=== PATIENT | female | born 1970 | race Hispanic/Latino ===

== ENCOUNTER → 2017-06-19 11:52 | Outpatient (CLI) | payer OTHER, SELFPAY ==
[2017-06-19 13:03] LABS: Hemoglobin A1c 5.6 % (4.2-6.3)
== END ==
PROVIDERS: Visit Provider Nurse Practitioner
DX: R53.82 Chronic fatigue, unspecified (principal); R53.81 Other malaise
CPT/HCPCS: 36415; 83036

== ENCOUNTER 2017-07-17 22:16 | Emergency (ER) | payer OTHER, SELFPAY ==
[2017-07-17 22:17] VITALS: BP 162/95; PULSE 87; RESP 16; TEMP 36.7; O2SAT 97; BMI 31.7
--- NOTE | 2017-07-17 22:58 | EKG12_ITS ---
Test Reason : CP Blood Pressure : / mmHG Vent. Rate : 085 BPM Atrial Rate : 085 BPM P-R Int : 132 ms QRS Dur : 078 ms QT Int : 388 ms P-R-T Axes : 033 033 052 degrees QTc Int : 461 ms Normal sinus rhythm Normal ECG Confirmed by NABOR LUJAN, SOCRATES ([id number]), newspaper editor managing ALECIA MALAGON ([id number]) on 07/19/2017 3:18:21 PM Referred By: Olga Jeffery Confirmed By:SOCRATES TOMLIN MD
--- NOTE | 2017-07-17 23:00 | NURSING ---
NO OLD EKG
--- NOTE | 2017-07-17 23:01 | ED.DCSUM_ITS ---
- ER Visit Summary Date of Service: 07/17/17 Chief Complaint: [] Elevated blood pressure with chest twinges History of Present Illness: The patient is a 47 F states that this afternoon she felt a little bit of nausea and felt like her blood pressure was elevated. It has been elevated in the past but she has never had a formal diagnosis of hypertension and has never started medications. Since this morning she has felt occasional few second twinges in her left chest. That comes and goes. Is not constant. She thinks this is stress related. 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 She does have high cholesterol and a family history of early heart disease. No PE risk factors. No dissection risk factors. Physical Examination: Vital signs reviewed General: Well-nourished well-developed Head: Normocephalic atraumatic Eyes: Pupils equal round and reactive to light extraocular movements intact ENT: TMs clear no hemotympanum no trauma Neck: Nontender full range of motion Cardiovascular: Regular rate rhythm no murmurs normal S1-S2 Respiratory: No distress clear to auscultation bilaterally chest nontender Abdomen: Soft nontender nondistended normal bowel sounds no masses Back: Nontender no CVA tenderness Extremities: Nontender active range of motion ?4 extremities no trauma Skin: Normal color no trauma Neuro alert oriented cranial nerves II through XII intact normal strength sensation reflexes Test Results: [] Emergency Department Course and Treatment: [] Patient did not want any treatment including aspirin. She refuses. EKG shows sinus at 85 without ischemia or arrhythmia. Lab work is obtained. Blood pressure is being monitored. Initial blood pressure was 162/95. Repeat blood pressure after rest is 136/91. CBC is normal. Chemistries normal except BUN 21. Troponin troponin negative. UA showed patient's resting comfortably. I do not feel she started on blood pressure medications come down nicely. She will follow-up with her doctor for further evaluation. I do not feel this is an acute coronary syndrome, PE or dissection. This is a very atypical scenario. She will follow-up. Treatment Plan: [] Disposition: [] Impression: [] Elevated blood pressure Chest twinges This note was generated with [employer] software. It may contain incorrect words, spelling, and punctuation that were not noted in review of the chart prior to signing ED Disposition - Plan for ED Patient: Chief Complaint: Hypertension Referrals: [facility] Doctor,Out of [Primary Care Provider] -
[2017-07-17 23:10] VITALS: BP 136/91; PULSE 83; RESP 15; O2SAT 96
[2017-07-17 23:34] LABS: Absolute Lymphocyte Count 2.08 X10^3/ul (0.83-4.51); Absolute Neutrophil Count 2.3 X10^3/uL (2.0-7.7); Basophil# 0.02 X10^3/uL; Basophil% 0.4 % (0-1); Eosinophil# 0.11 X10^3/uL; Eosinophils% 2.2 % (0-5); Hematocrit 37.9 % (37-47); Hemoglobin 12.8 g/dl (12.0-15.0); Lymphocyte # 2.08 X10^3/ul (4.0); Mean Corp Hgb Conc 33.8 g/gl (32-36); Mean Corpuscular Hgb 31.7 pg (27.0-32.0); Mean Corpuscular Volume 93.8 fL (81-99); Mean Platelet Vol. 10.2 fl (6.2-12.0); Monocyte# 0.41 X10^3/uL; Monocyte% 8.3 % (0-10); Neutrophil # 2.32 X10^3/uL (2.7-7.7); Neutrophil % 46.9 % (47-70); Platelet Count 283 K/mm3 (150-450); RBC Distribution Width CV 12.2 % (11.6-14.6); RBC Distribution Width SD 41.5 fl (35.1-43.9); Red Blood Count 4.04 M/mm3 (4.2-5.4)
[2017-07-17 23:36] LABS: POSITIVE COUNT NO; POSITIVE DIFFERENTIAL NO; POSITIVE MORPHOLOGY NO
[2017-07-17 23:50] LABS: Anion Gap 8 (5-15); BUN 21 mg/dL (7-18); BUN/Creat Ratio 23.9 RATIO (10-20); Calcium,Total 9.3 mg/dL (8.5-10.1); Chloride 107 mmol/L (98-107); Creatinine, Serum 0.88 mg/dL (0.55-1.02); EST Glomerular Filtration Rate 73 mL/min (>60); Est Glom Filt Rate - Afr Amer 89 mL/min (>60); Estimated Creatinine Clearance 68.25 ml/min; Glucose 108 mg/dL (74-106); Potassium 3.5 mmol/L (3.5-5.1); Sodium Level 143 mmol/L (136-145)
--- NOTE | 2017-07-17 23:55 | ED.DEP ---
ED Disposition - Plan for ED Patient: Disposition: Home or Assisted Living Chief Complaint: Hypertension Instructions: ED Hypertension Poss Referrals: [facility],Out of [Primary Care Provider] -
[2017-07-18 00:03] VITALS: BP 143/99; PULSE 84; RESP 18; O2SAT 99
== END 2017-07-18 00:03 | disposition home or self-care (01) ==
PROVIDERS: Emergency Provider Emergency Medicine
DX: R03.0 Elevated blood-pressure reading, without diagnosis of hypertension (principal); R07.9 Chest pain, unspecified; R11.0 Nausea; E78.00 Pure hypercholesterolemia, unspecified; E66.9 Obesity, unspecified; Z90.710 Acquired absence of both cervix and uterus
CPT/HCPCS: 36415; 80048; 84484; 85025; 93005; 99284

== ENCOUNTER → 2017-09-03 10:53 | Outpatient (CLI) | payer OTHER, SELFPAY ==
--- NOTE | 2017-09-03 11:00 | ECHOD_ITS ---
Reason For Study: HTN Procedure This was a 2D Doppler, Color Flow transthoracic echocardiogram. Exam performed in department. Left Ventricle Normal LV size. Mild eccentric left ventricular hypertrophy. Left ventricular systolic function is normal. The estimated ejection fraction is 60 %. Transmitral diastolic flow velocities suggest mild (stage 1) diastolic dysfunction (reversed pattern). No regional wall motion abnormalities noted. Right Ventricle Normal RV size. Normal systolic function. Atria Normal left atrium. Normal right atrium. Intact atrial septum. Mitral Valve Normal mitral valve. Tricuspid Valve Normal tricuspid valve. Mild (1+) tricuspid valve insufficiency. Pulmonary artery systolic pressure is 26 mmHg. Aortic Valve Trisinus/trileaflet aortic valve. Pulmonic Valve Normal pulmonic valve. Great Vessels Normal aortic root. The pulmonary artery is normal size. Normal inferior vena cava. Pericardium/Pleural No pericardial effusion. Medication 22 gauge I.V. with prn adaptor inserted into right arm. Performed a rapid injection of agitated mix of 9 cc saline and 1cc air to assess for atrial septal defect. MMode/2D Measurements & Calculations LVIDd: 3.9 cm IVSd: 1.2 cm Ao root diam: 2.7 cm LVIDs: 2.7 cm LVPWd: 0.91 cm RVDd: 2.6 cm FS: 31.9 % LAV(MOD-bp): 49.8 ml EDV(MOD-sp4): 70.3 ml SV(MOD-sp4): 39.4 ml LAV(MOD-bp) Indexed: 26.2 ml/m2 ESV(MOD-sp4): 30.9 ml LAV(MOD-sp2): 41.7 ml EF(MOD-sp4): 56.1 % LAV(MOD-sp4): 55.8 ml LA A4 area: 19.0 cm2 RA A4 area: 11.8 cm2 Time Measurements MV dec time: 0.22 sec Doppler Measurements & Calculations MV E max rufino: 90.2 cm/sec Lat Peak E' Rufino: 14.2 cm/sec Med Peak E' Rufino: 8.1 cm/sec MV A max rufino: 74.5 cm/sec E/E' lat: 6.4 E/E' med: 11.1 MV E/A: 1.2 Ao V2 max: 153.3 cm/sec LV V1 max: 112.1 cm/sec PA V2 max: 116.2 cm/sec Ao max P.4 mmHg LV V1 max P.0 mmHg TR max rufino: 240.9 cm/sec TR max P.2 mmHg Interpretation Summary Normal LV size. Mild eccentric left ventricular hypertrophy. Left ventricular systolic function is normal. The estimated ejection fraction is 60 %. Transmitral diastolic flow velocities suggest mild (stage 1) diastolic dysfunction (reversed pattern). Mild (1+) tricuspid valve insufficiency. Intact atrial septum Ordering Physician: Montez Petty Referring Physician: YAEL MOSES Performed By: Cammy Fraser RDCS
== END ==
PROVIDERS: PCP Internal Medicine; Visit Provider Internal Medicine Cardiovascular Disease
DX: I10 Essential (primary) hypertension (principal)
CPT/HCPCS: 93306; A4216

== ENCOUNTER → 2018-01-31 10:39 | Outpatient (CLI) | payer OTHER, SELFPAY ==
[2018-01-31 12:21] LABS: AST(SGOT) 16 U/L (15-37); Alanine Aminotransfer ALT/SGPT 26 U/L (13-56); Albumin, Serum 3.9 g/dL (3.2-5.0); Alkaline Phosphatase 95 U/L (45-117); Bilirubin, Direct 0.13 mg/dL (0.00-0.30); Cholesterol 191 mg/dL (200); Globulin 3.6 g/dL (2.2-4.2); High Density Lipoprotein 37 mg/dL; Protein, Total 7.5 g/dL (6.4-8.2); Triglycerides 173 mg/dL; Very Low Density Lipoprotein 35 mg/dL (5-40)
== END ==
PROVIDERS: Family Provider Internal Medicine; PCP Internal Medicine; Referring Provider Internal Medicine Cardiovascular Disease; Visit Provider Internal Medicine Cardiovascular Disease
DX: I10 Essential (primary) hypertension (principal); E78.1 Pure hyperglyceridemia
CPT/HCPCS: 36415; 80061; 80076

== ENCOUNTER 2018-04-07 21:06 | Emergency (ER) | payer OTHER, SELFPAY ==
[2018-03-30 10:09] VITALS: BMI 33.6
[2018-04-07 21:07] VITALS: BP 152/82; PULSE 103; RESP 16; TEMP 36.2; O2SAT 99; BMI 31.7
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
[2018-04-07] MEDS: Tetracaine 0.5% Ophthalmic Bottle 2 DRP LEFT EYE (21:38)
--- NOTE | 2018-04-07 21:51 | ED.RN ---
per Officer Leobardo ruffin does not require drug testing.
[2018-04-07 22:56] LABS: HIV - WCH Non-Reactive (Nonreactive)
[2018-04-09 08:52] LABS: HEPATITIS B SURFACE AG Negative (Negative); Hep B Surface Antibodies EMP Non Reactive (.); Hep C Antibodies 0.2 s/co ratio (0.0-0.9)
--- OUTSIDE RECORDS SUMMARY | 2018-07-10 14:06 | XMS RPT_ITS ---
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 fatigue, weakness, difficulty sleeping, frequent falls, excessive sweating or headache(s) Eyes Eyes: Negative for loss of peripheral vision, transient loss of vision, blurry vision, tunnel vision or double vision ENT ENT: Negative for headache(s), dizziness, Nosebleed/epistaxis or balance problems Cardio Chest Pain: No Palpitations: No Edema: None Muscle aches with walking: None Resp Respiratory: Negative for SOB with activity, SOB at rest, SOB orthopnea\SOB lying down, paroxysmal nocturnal dyspnea or Cough GI GI: Negative nausea, heartburn, black,tarry stools or vomiting : Negative for hematuria Musc Musc: Negative for balance problems, muscle aches/ myalgia, muscle weakness or joint pain Skin Skin: Negative non-healing lesions, unusual bruising or rash Neuro Neuro: Negative for weakness, frequent falls, headache(s), blurry vision, double vision, dizziness, lightheadedness, orthostatic symptoms, near syncope, syncope or lack of coordination Joaquín Hematologic/Lymphatic: Negative for easy bruising or easy bleeding Endo Endo: Negative for fatigue, excessive sweating or increased thirst/drinking Psych Psych: Negative for anxiety or depression Allergy Allergy/Immunology: Negative for hives, Negative for rash Cardiology Exam Const Appearance: cooperative, healthy appearing, well developed, well groomed and no acute distress Nutritional Appearance: well nourished and average body habitus Orientation: alert, awake and oriented x3 Head Head: normal to inspection, normocephalic and atraumatic Ears: hearing grossly normal bilaterally and external ears normal Nose: external nose normal, nasal mucous membranes and turbinates normal, nares normal, septum normal, no nasal discharge Face and Sinus: face symmetric Mouth: oral mucosae normal, tongue normal, oropharynx normal and moist mucous membranes Teeth and gingiva: dentition normal Throat: posterior oropharynx normal, tonsils normal and uvula midline Eyes General: appearance normal, both eyes and all related structures Eyelids: eyelids normal Conjunctivae: conjunctivae normal Pupils: PERRL, normal by confrontation and accommodation normal EOM: EOM intact bilaterally Neck Neck: normal visual inspection, trachea midline and no JVD JVD: +5 Carotids: normal carotid upstroke and bounding pulses Chest Chest inspection: normal inspection of the chest, symmetric chest movement and normal respiratory effort Auscultation: Bilateral: Clear to Auscultation Cardio Palpation: normal PMI Rate: regular rate Rhythm: regular rhythm Heart sounds: S1 normal, S2 normal and normal, physiologic split S2; negative rub, gallop or murmur GI GI: normal to inspection, soft, no hepatosplenomegaly and bowel sounds present Neuro General: alert, awake, oriented x3, no focal sensory deficit, gait normal and moves all extremities Skin Skin: no rashes or lesions noted Extremities Pulses: Normal: Right Femoral Pulse, Left Femoral Pulse, Right Dorsalis Pedis Pulse, Left Dorsalis Pedis Pulse, Right Posterior Tibial Pulse, Left Posterior Tibial Pulse, Right Radial Pulse, Left Radial Pulse Lower Extremity Edema: None: Bilateral Musculoskel Musculoskeletal: No joint tenderness Psych Psychological: normal affect Assessment AND Plan 1. Essential (primary) hypertension I10 Plan She does have a history of hypertension. The above appears to be under good control on the current medical therapy. I would not recommend that we make any other major changes. 2. High triglycerides E78.1 Plan Her most recent lipid profile demonstrated total cholesterol 191, triglycerides of 173 and LDL of 119 and HDL 37. Her 10-year risk was noted to be less than 2%. My recommendation is for her to continue on her weight which is diet, watch her salt and carbohydrate intake. Thank you for allowing me to participate in the care of your patient. 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) Coding Level of Care Code Off vis,est,level 3 Diagnoses Essential (primary) hypertension I10 High triglycerides E78.1 Coding Level of Care Code Off vis,est,level 3 Diagnoses Essential (primary) hypertension I10 High triglycerides E78.1 02/01/18 1209 <Electronically signed by Montez Petty MD> Date Montez Petty MD Cosigner Signature: Date (if applicable) CC: Chuck Denton MD LIVER PROFILE Collected: 01/31/2018 Status: F Source: [place] 10:53 AM [facility] REPOSITORY TYPE CODE TESTS RESULT OUT OF RANGE REFERENCE UNITS LAB L501.1500 6.4-8.2 g/dL Normal T PROT 7.5 LAB L501.1800 3.2-5.0 g/dL Normal ALB 3.9 LAB L501.1950 2.2-4.2 g/dL Normal GLOB 3.6 LAB L501.4100 15-37 U/L Normal AST 16 LAB L501.4305 45-117 U/L Normal ALK P 95 LAB L501.4405 13-56 U/L Normal ALT 26 LAB L501.4600 0.20-1.00 mg/dL Normal T BILI 0.70 LAB L501.4700 0.00-0.30 mg/dL Normal D BILI 0.13 Performed By: #### L500.3400, L500.4100 #### [facility] [address] [place], [address] LIPID PROFILE Collected: 01/31/2018 Status: F Source: [place] 10:53 AM [facility] REPOSITORY TYPE CODE TESTS RESULT OUT OF RANGE REFERENCE UNITS LAB L501.4900 200 mg/dL Normal CHOL 191 Result Comment: <200 mg/dL Desirable 200-240 mg/dL Borderline >240 mg/dL High Risk LAB L501.5000 mg/dL Normal TRIG 173 Result Comment: The drugs N-Acetylcysteine and Metamizole may falsely depress this assay. Serum Triglycerides Reference Interval Normal <150 mg/dL Borderline high 150 - 199 mg/dL High 200 - 499 mg/dL Very High > or = 500 mg/dL LAB L501.6400 mg/dL Low HDL 37 Result Comment: The drugs N-Acetylcysteine and Metamizole may falsely depress this assay. Reference Range HDL <40 mg/dL Low HDL Cholesterol HDL >or= 60 mg/dL High HDL Cholesterol LAB L501.6500 0-130 mg/dL Normal LDL 119 LAB L501.6600 5-40 mg/dL Normal VLDL 35 Performed By: #### L500.3400, L500.4100 #### [facility] [address] [place], [address] NURSING PROG Observed: 10/15/2017 Status: COMPLETED Source: [place] 3:28 PM [facility] REPOSITORY HNO ID: [id number] Author: Mari (Rn) Herman, RN Service: Nursing Author Type: Registered Nurse Type: Nursing Progress Note Filed: 10/15/2017 3:32 PM Note Text: 1518 Pt up to bathroom. After using bathroom pt feeling nauseous and dizzy/faint. 1525 Pt placed back in chair. BP 87/48 [address] Rivera at bedside. Fluids opened, per Dr. Rivera to give a bolus of 500 cc LR. 1530 BP 104/64 HR 82 pox 100, RR 16. ANES POST Observed: 10/15/2017 Status: COMPLETED Source: [place] 2:17 PM [facility] REPOSITORY HNO ID: [id number] Author: Eulogio Rivera Service: Anesthesiology Author Type: Anesthesiologist Type: Anesthesia PostOp Filed: 10/15/2017 2:17 PM Note Text: POST ANESTHESIA EVALUATION NOTE SERVICE DATE: 10/15/2017 SERVICE TIME: 2:17 PM : 1970 Vitals: 10/15/17 1005 10/15/17 1329 10/15/17 1400 Temp: 36.5 ?C (97.7 ?F) 36 ?C (96.8 ?F) 36.4 ?C (97.5 ?F) 10/15/17 1329 10/15/17 1345 10/15/17 1400 10/15/17 1405 BP: 153/91 145/86 93/53 108/67 10/15/17 1329 10/15/17 1345 10/15/17 1400 10/15/17 1405 Pulse: 82 78 68 62 10/15/17 1329 10/15/17 1345 10/15/17 1400 10/15/17 1405 Resp: 16 16 16 16 10/15/17 1329 10/15/17 1345 10/15/17 1400 10/15/17 1405 SpO2: 100% 100% 96% 97% Validated Vital Signs: Yes No apparent anesthetic complications. The patient is appropriately hydrated with stable respiratory and cardiovascular status. Patient has safe and adequate airway control. The patient has appropriate pain relief and no significant post operative nausea or vomiting. The patient has achieved baseline mental status. Further assessment by Anesthesia Service: None Other Remarks: SIGNATURE: Eulogio Rivera MD PATIENT NAME: Kasey Pak DATE: October 15, 2017 PAGER/CONTACT #: [phone] pager BRIEF OP NOT Observed: 10/15/2017 Status: COMPLETED Source: [place] 1:13 PM [facility] REPOSITORY HNO ID: [id number] Author: Rivera Holt Service: Plastic Surgery Author Type: Physician Type: Brief Op Note Filed: 10/15/2017 1:13 PM Note Text: BRIEF OPERATIVE NOTE LOG ID: [id number] Surgery Date: 10/15/2017 Surgeon(s) and Wind Up Operator(s): Surgeon(s) and Role: * Rivera Holt - Primary Preop Diagnosis: z41.1 Postop Diagnosis: z41.1 Procedure(s): Procedure(s) (LRB): LIPOSUCTION ABDOMEN (N/A) LIPOSUCTION FLANK BILATERAL (Bilateral) Anesthesia: General Findings: none Estimated Blood Loss: 50 mls Specimens: none SIGNATURE: Rivera Holt MD PATIENT NAME: Kasey Pak DATE: October 15, 2017 TIME: 1:13 PM PAGER/CONTACT #: ANES PREOP Observed: 10/15/2017 Status: COMPLETED Source: [place] 10:18 AM [facility] REPOSITORY HNO ID: [id number] Author: Eulogio Rivera Service: Anesthesiology Author Type: Anesthesiologist Type: Anesthesia PreOp Filed: 10/15/2017 10:20 AM Note Text: REGIONAL ANESTHESIOLOGY DAY OF SURGERY NOTE PATIENT NAME: Kasey Pak : 1970 Procedure(s) (LRB): LIPOSUCTION ABDOMEN (N/A) LIPOSUCTION FLANK BILATERAL (Bilateral) Surgeon(s): Rivera Holt Estimated body mass index is 32.44 kg/m? as calculated from the following: Height as of 09/27/17: 162.6 cm (5' 4). Weight as of 09/27/17: 85.7 kg (189 lb). ASA Class: 2 Adequate NPO status: Yes Allergies: ALLERGIES Allergen Reactions - Seasonal Allergies Other: See Comments Nasal congestion - Sulfa (Sulfonamide * Hives Airway Assessment: MP 1; Neck ROM: Full ROM without neurologic symptoms; Airway Evaluation: No significant abnormalities Dentition: Teeth intact Symptoms of Sleep Apnea: Denies Most recent lab results: No results found for this basename: Hb,HCT,K,Plt,PTSEC,APTT,INR,Creat,hcg,uhcg EKG: Not indicated Vitals: There were no vitals filed for this visit. Previous Anesthesia: Nausea and/or vomiting Family history of anesthetic problems: None Additional Physical Exam: Lungs: Lungs clear to auscultation. Good diaphragmatic excursion. Cardiac: Normal S1 and S2; no rubs, no murmurs and no gallops Additional pertinent findings: N/A Other Medical Problems/ Important Considerations: Denies chest pain and SOB with exertion. Denies change in functional capacity. Denies GERD. HTN, controlled anxiety Chronic Beta Dena medication administered within 24 hours: N/A Anesthetic risks, benefits, alternatives, personnel and consent discussed: Yes Patient agrees to proceed: Yes Blood Products: Not anticipated for this procedure Anesthetic Plan: General ETT; Standard ASA Monitors Pain Management Plan: Parenteral or Oral EPIC Chart Review ACTIVE PROBLEM LIST No Show PAST MEDICAL HISTORY Diagnosis Date - Anxiety - Asthma - Binge eating disorder - Depression - Eczema - GERD (gastroesophageal reflux disease) - Obese PAST SURGICAL HISTORY Procedure Laterality Date - BREAST REDUCTION - BUNIONECTOMY, LAPIDUS-TYPE Bilateral - HYSTERECTOMY - KNEE SCOPE,MENISECTOMY,MED AND LAT FAMILY HISTORY Problem Relation Age of Onset - htn [OTHER] Mother - hld [OTHER] Mother - Ischemic Heart Disease Father first in his 40s; heavy smoker; developed DM later - Prostate Cancer Father - No Known Problems Sister Social History: Social History Substance Use Topics - Smoking status: Never Smoker - Smokeless tobacco: Never Used - Alcohol use Yes Comment: occasional No current facility-administered medications on file prior to encounter. Current Outpatient Prescriptions on File Prior to Encounter: triamcinolone acetonide 0.1 % cream Apply 1 application to affected area three times daily. Apply sparingly to area for rash/itching. Inpatient medications reviewed in [facility]. I have interviewed and examined the patient. I have reviewed the medical record and/or the pre-anesthesia evaluation, pertinent labs, and test results. Significant changes in the patient's condition since the History and Physical, not otherwise documented in primary service progress notes: No This contains updated information obtained within 48 hours of Surgery/Procedure. SIGNATURE: Eulogio Rivera MD PATIENT NAME: Kasey Pak DATE: October 15, 2017 TIME: 10:19 AM PAGER/CONTACT #: [phone] (pager) OPERATIVE NO Observed: 10/15/2017 Status: COMPLETED Source: [place] 12:00 AM [facility]AMP[facility] REPOSITORY [facility] ID: [id number] Author: Rivera Holt Service: Plastic Surgery Author Type: Physician Type: Operative Report Filed: 11/12/2017 8:55 AM Note Text: [facility] OP KASEY PAK : 1970 AGE: 47 SEX: F CSN: [id number] [facility] SVC: [facility] LOCATION: [facility] ATTENDING PHYSICIAN: Rivera Holt M.D. DATE OF PROCEDURE: 10/15/2017 PREOPERATIVE DIAGNOSIS: Lipodystrophy of abdomen, mons area, bilateral flanks, and bilateral lateral thoracic area. POSTOPERATIVE DIAGNOSIS: Lipodystrophy of abdomen, mons area, bilateral flanks, and bilateral lateral thoracic area. NAME OF OPERATION: SURGEON: Rivera Holt M.D. PROMOTIONAL MARKETING AGENT: ANESTHESIA: General endotracheal anesthesia. 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 She would like to have liposuction to reduce the thickness and she plans on having skin reductive surgery in the future. The risks and benefits of the procedure were discussed with the patient. She decided to go ahead with the described procedure. OPERATIVE PROCEDURE: The patient was marked in the preoperative holding area including a topographical map of her abdomen, bilateral flanks, and lateral thoracic area as well as the mons pubic area. Then, she was given IV antibiotics and then brought in the operating room, and she underwent a standing prep from her axilla circumferentially all the way down to her thighs. Then, she was placed into a sterile operating table and covered with a sterile cloth and then she was intubated by Anesthesia without any complications. She was given IV antibiotics. Then, she was draped in standard surgical fashion. Then, liposuction was commenced at this point. Then, multiple incisions were made in the abdomen and mons pubic area and then the tumescent fluid which consisted of lactated Ringer's, sodium bicarb, 1% Xylocaine plain as well as 1:1000 epinephrine was infiltrated into the abdomen and mons pubic area. The total amount that was infiltrated was 1260 mL. Then, using multiple cannulas through the different incisions, liposuction was performed, first deep and then superficial, and the total amount that was aspirated was 2400 mL from the abdomen and mons area. The incisions were closed with 3-0 Biosyn suture to reapproximate the deeper subcutaneous tissue and dermis, followed by Exofin to reapproximate the skin. The patient was then log rolled sterilely to the decubitus position giving exposure to her right flank and lateral thoracic area. Then, multiple incisions were made, and then the tumescent fluid was infiltrated in the area which was 1130 mL. Then, using multiple cannulas through the different incisions, the deep liposuction was performed followed by the superficial liposuction removing 1400 mL of aspirate. This provided an even removal of fat from the area. The incisions were closed in a similar fashion as previously described. Then, the patient was log-rolled sterilely again to the left flank and lateral thoracic area and then parallel incisions were made with a 15-blade scalpel. The tumescent fluid was infiltrated. The total amount that was infiltrated was 1150 mL and then the aspirate was completed, first deep and then superficial, using multiple cannulas from the different incision sites, the total amount that was removed was 1400 mL. This provided an even removal of fat from the left and right flanks. Once this completed, the incisions were closed in a similar fashion. The patient was log rolled in the supine position and then sterile dressings were applied. The patient was then placed into an abdominal binder and then brought out from anesthesia, then transferred in stable condition to the recovery room. Sponge, needle, and instrument counts were correct at the end of the case. Estimated blood loss was 25 mL. The total amount of infiltrate was 4540 mL. The total amount of aspirate was 5200 mL. There were no complications. Sponge, needle, and instrument counts were correct at the end of the case. PROCEDURE: Power-assisted suction lipectomy of abdomen, bilateral flanks, bilateral lateral thoracic area, and mons pubic region. Rivera Holt M.D. Plastic Surgery [id number] /[id number] NURSING PROG Observed: 10/04/2017 Status: COMPLETED Source: [place] 1:58 PM [facility] REPOSITORY HNO ID: [id number] Author: Constance CooperRn) YAZAN Gomez Service: Neurosurgery Author Type: Registered Nurse Type: Nursing Progress Note Filed: 10/04/2017 1:58 PM Note Text: PACC Nurse Progress Note History AND Physical: PACC Visit Date: 09-27-17 Original HANDP Date: N/A ED visit Date: N/A Outside HANDP Scanned Date: N/A Labs Within Last 6 Months: N/A Imaging Within Last 12 Months: N/A Cardiac Testing: EKG in last 12 Months: Yes: Date: 09-27-17, Comment: epic BMI Percentile (PEDS): N/A Risk Assessment: N/A Anesthesia Review: N/A Narrative: N/A Pre-op Considerations: N/A Chart Check: COMPLETED Constance Gomez RN October 04, 2017 1:58 PM HISTORY PHYSICAL Observed: 09/27/2017 Status: COMPLETED Source: [place] 1:05 PM [facility] REPOSITORY HNO ID: [id number] Author: Slime Tavarez ([place]) Service: (none) Author Type: Physician Wind Up Operator Type: HANDP Filed: 09/27/2017 1:39 PM Note Text: HISTORY AND PHYSICAL EXAMINATION SERVICE DATE: 09/27/2017 SERVICE TIME: 1:05 PM PRIMARY CARE PHYSICIAN: Chuck Denton MD REASON FOR VISIT: Kasey Pak is a 47 year old female who is scheduled for LIPOSUCTION ABDOMEN at the request of Dr. Rivera Holt for consultation. My final recommendation will be communicated back to the requesting physician by way of shared medical record or letter. Subjective CHIEF COMPLAINT: PACC HPI: 47 yo WF with a hx of HTN, GERD, asthma is here with a friend for PACC for elective plastic surgery. PAST MEDICAL HISTORY Diagnosis Date - Anxiety - Asthma - Binge eating disorder - Depression - Eczema - GERD (gastroesophageal reflux disease) - Obese PAST SURGICAL HISTORY Procedure Laterality Date - BREAST REDUCTION - BUNIONECTOMY, LAPIDUS-TYPE Bilateral - HYSTERECTOMY - KNEE SCOPE,MENISECTOMY,MED AND LAT FAMILY HISTORY Problem Relation Age of Onset - htn [OTHER] Mother - hld [OTHER] Mother - Ischemic Heart Disease Father first in his 40s; heavy smoker; developed DM later - Prostate Cancer Father - No Known Problems Sister SOCIAL HISTORY: Social History Marital status: Spouse name: Years of education: Number of children: Social History Main Topics Smoking status: Never Smoker Smokeless tobacco: Never Used Alcohol use: Yes Comment: occasional Drug use: No Prior to Admission medications as of 09/27/17 1314 Medication Sig Last Dose Taking losartan (COZAAR) 25 mg tablet Take 25 mg by mouth once daily. Yes hydroCHLOROthiazide (HYDRODIURIL, ESIDRIX) 25 mg tablet Take 25 mg by mouth once daily. Yes mivacurium chloride (MIVACRON INJECTION) by INJECTION(UNSPECIFIED PARENTERAL ROUTES) route. Yes triamcinolone acetonide 0.1 % cream Apply 1 application to affected area three times daily. Apply sparingly to area for rash/itching. No medication comments found. ALLERGIES Allergen Reactions - Seasonal Allergies Other: See Comments Nasal congestion - Sulfa (Sulfonamide * Hives REVIEW OF SYSTEMS: PAIN ASSESSMENT: General: No weight loss, malaise or fevers. Neuro: No history of TIA's, stroke, [employer] tumor, impaired sensorium, hemiplegia, paraplegia or quadraplegia. No neurological symptoms or problems. Respiratory: hx asthma, no sx in a long time Cardiovascular: Positive for: HTN; chol is good; gets some raonly cing when she is anxious; denies all other cardiac sx; walks for exercise long distance GI: Positive for GERD no other GI sx : No history of dysuria, frequency or incontinence,, stones or chronic kidney disease [employer]: Negative for abnormal vaginal bleeding, abnormal vaginal discharge. : N/A, No LMP recorded. Patient has had a hysterectomy. Endocrine: hot flashes intermittently, any time of day or night Hematology: No history of bleeding or clotting disorder. Pt is not taking anti-coagulation or platelet medications. No history of hematological symptoms or problems. Oncology: No history of CA metastasis, chemo within 30 days, or radiotherapy within 90 days. Has not lost 10% of body wt in 6 months. No history of oncological symptoms or problems. Psych: Anxiety, Depression, eating disorder (binger, no purging) Musculoskeletal: Negative for joint pain or swelling, back pain or muscle pain. Skin: exzema on hand Objective PHYSICAL EXAM: VITALS: BP 135/83 Pulse 66 Temp (Src) 97.3 (Temporal Artery) Resp 16 Ht 5' 4 (1.63m) Wt 189 lb (85.7kg) SpO2 99% BMI 32.43 kg/(m2). General: Alert and oriented, No acute distress, Obese Skin: dry, flaky atrophic skin on palms HEENT: EOM, pupils equal, round and reactive. Cardiovascular: RRR, soft gr I syst murmur (benign), no JVD, normal S1S2 Lungs: Normal breath sounds, no wheezes or crackles. Abdomen: Soft, non-tender, no rigidity. Extremities: No deformity, no edema or tenderness, no joint swelling or clubbing. Neurological: CN II-XII grossly intact Pulses: pedal and radial pulses normal +2 Diagnostic tests reviewed for today's visit: Lab Value Units Date High Low HB No results within date range. HCT No results within date range. WBC No results within date range. PLT No results within date range. NA No results within date range. K No results within date range. GLUC No results within date range. BUN No results within date range. CREAT No results within date range. PTSEC No results within date range. INR No results within date range. APTT No results within date range. ALT No results within date range. AST No results within date range. TBILI No results within date range. TSH No results within date range. Lab Value Units Date High Low HCGQT No results within date range. UHCG No results within date range. HCG, BODY* No results within date range. Lab Value Units Date High Low ABORHD No results within date range. ABSCREEN No results within date range. No results found for: HBA1C Labs shown to me from [facility] date 08/08, shows mildly elevated glucose at 108, slight elevated BUN/CR ration at 23. Assessment ASSESSMENT Patient has the following medical conditions (Z41.1) Encounter for cosmetic surgery (primary encounter diagnosis) (Z01.818) Preop examination (I10) Essential hypertension (R00.2) Palpitations (E66.9, Z68.32) Class 1 obesity without serious comorbidity with body mass index (BMI) of 32.0 to 32.9 in adult, unspecified obesity type (R73.01) Elevated fasting glucose METS: Do heavy work around the house, such as scrubbing floors, lifting or moving heavy furniture (8.00 METs) Patient denies any chest pain or undue shortness of breath with the above physical activity. ASA Class: 2 ANESTHESIA FINDINGS: Intubation History: No history of difficult intubation Significant Anesthesia Considerations: Postop nausea/vomiting Airway Exam: General: Normal appearance Mallampati Score is CLASS II ULBT: Class I - Lower incisors can bite the upper lip above the jeferson line Neck: Normal appearance and function, Distance from hyoid to mentum during neck extension is at least 3 finger breaths Mouth: Normal tongue size and Mouth opening greater than 2 finger breaths Dentition: Intact Airway History: No abnormal airway history STOP BANG Score: Criteria: Hypertension Score = 1 PLAN This patient is optimally prepared for surgery pending EKG. CONSULTS: Patient does not require consults for optimization at this time. The Following Tests/Procedures Have Been Initiated: Orders Placed This Encounter ECG COMPLETE W INTERPRETATION Planned Anesthetic: General Instructions Given to Patient: Patient given verbal and written preop instructions and voices comprehension and compliance. SIGNATURE: Slime Tavarez PA-C PATIENT NAME: Kasey Pak DATE: September 27, 2017 TIME: 1:05 PM PAGER/CONTACT #: [id number] Observed: 09/27/2017 Status: F Source: [place] 12:41 PM [facility] REPOSITORY NAME : KASEY PAK PID : [id number] : 1970 Gender : Female Race : ORD : Procedure Date : Sep 27 2017 12:41:12 Edit Date : Sep 29 2017 16:15:16 Diagnosis:SINUS RHYTHM Normal ECG Confirmed by SHANTA MIRANDA M.D. ([id number]) on 09/29/2017 4:15:14 PM Ventricular Rate : 59 BPM Atrial Rate : 60 BPM P-R Interval : 144 ms QRS Duration : 90 ms Q-T Interval : 428 ms QTC Calculation(Bezet) : 424 ms P Cable : 29 degrees R Cable : 28 degrees T Cable : 65 degrees Test Reason : Location : 401 : [facility] PAC Overread By : SHANTA MIRANDA M.D. Edited By : RUTH Worthington,SHANTA Referred By : RIVERA HOLT Acquired by : BS, ECHOCARDIOGRAM COMPLETE Observed: 09/03/2017 Status: F Source: [place] 12:11 PM [facility] REPOSITORY [facility] Cardiovascular Services [address] [place] [address] Echo Complete 09/03/17 1104 MR#: [id number] Acct: [id number] Name: KASEY PAK Rep #: [id number] : 1970 47 From: Montez Petty MD Attending Dr: Montez Petty MD Status: REG CLI Ordering Dr: Montez Petty MD Date: 09/03/17 Location: CVS Sex: F C Admitted: Reason For Study: HTN Procedure This was a 2D Doppler, Color Flow transthoracic echocardiogram. Exam performed in department. Left Ventricle Normal LV size. Mild eccentric left ventricular hypertrophy. Left ventricular systolic function is normal. The estimated ejection fraction is 60 %. Transmitral diastolic flow velocities suggest mild (stage 1) diastolic dysfunction (reversed pattern). No regional wall motion abnormalities noted. Right Ventricle Normal RV size. Normal systolic function. Atria Normal left atrium. Normal right atrium. Intact atrial septum. Mitral Valve Normal mitral valve. Tricuspid Valve Normal tricuspid valve. Mild (1+) tricuspid valve insufficiency. Pulmonary artery systolic pressure is 26 mmHg. Aortic Valve Trisinus/trileaflet aortic valve. Pulmonic Valve Normal pulmonic valve. Great Vessels Normal aortic root. The pulmonary artery is normal size. Normal inferior vena cava. Pericardium/Pleural No pericardial effusion. Medication 22 gauge I.V. with prn adaptor inserted into right arm. Performed a rapid injection of agitated mix of 9 cc saline and 1cc air to assess for atrial septal defect. MMode/2D Measurements AND Calculations LVIDd: 3.9 cm IVSd: 1.2 cm Ao root diam: 2.7 cm LVIDs: 2.7 cm LVPWd: 0.91 cm RVDd: 2.6 cm FS: 31.9 % LAV(MOD-bp): 49.8 ml EDV(MOD-sp4): 70.3 ml SV(MOD-sp4): 39.4 ml LAV(MOD-bp) Indexed: 26.2 ml/m2 ESV(MOD-sp4): 30.9 ml LAV(MOD-sp2): 41.7 ml EF(MOD-sp4): 56.1 % LAV(MOD-sp4): 55.8 ml LA A4 area: 19.0 cm2 RA A4 area: 11.8 cm2 Time Measurements MV dec time: 0.22 sec Doppler Measurements AND Calculations MV E max rufino: 90.2 cm/sec Lat Peak E' Rufino: 14.2 cm/sec Med Peak E' Rufino: 8.1 cm/sec MV A max rufino: 74.5 cm/sec E/E' lat: 6.4 E/E' med: 11.1 MV E/A: 1.2 Ao V2 max: 153.3 cm/sec LV V1 max: 112.1 cm/sec PA V2 max: 116.2 cm/sec Ao max P.4 mmHg LV V1 max P.0 mmHg TR max rufino: 240.9 cm/sec TR max P.2 mmHg Interpretation Summary Normal LV size. Mild eccentric left ventricular hypertrophy. Left ventricular systolic function is normal. The estimated ejection fraction is 60 %. Transmitral diastolic flow velocities suggest mild (stage 1) diastolic dysfunction (reversed pattern). Mild (1+) tricuspid valve insufficiency. Intact atrial septum Ordering Physician: Montez Petty Referring Physician: YAEL MOSES Performed By: Cammy Fraser RDCS 09/03/17 1211 Date Montez Petty MD CC: Montez Petty MD; Chuck Denton MD; EMMIE MANCILLA Date Dictated: 09/03/17 1104 Date Transcribed: 09/03/17 1211 Clinical Technician: Signed INTERNAL MEDICINE Observed: 09/03/2017 Status: F Source: [place] OFFICE VISIT 8:51 AM [facility] [place], [place] Internal Medicine [address] [place] [address] OFFICE VISIT Date of Service: 08/31/17 MR#: [id number] Acct: [id number] Name: KASEY PAK Rep #: [id number] : 1970 Provider: Chuck Denton MD Age/Sex: 47/F Location: [facility] Status: Signed Intake Vital Signs08/31/17 Height 5 ft 4 in Intake Visit Reasons: EST Chief Complaint: establish care Is patient in pain?: No Allergies Sulfa (Sulfonamide Antibiotics) Allergy (Verified 08/22/17 08:00) Other Medications lisinopril 10 mg tablet 20 mg PO QDAY #90 tab 08/18/17 [Rx Confirmed 08/22/17] PFSH Medical History Hypertension (Chronic) Chest pain (Acute) IBS (irritable bowel syndrome) (Chronic) High triglycerides (Chronic) Anxiety (Acute) Depression (Acute) Frequent headaches (Acute) Seasonal allergies (Acute) Vision problem (Acute) Surgical History Status post breast reduction (Acute) orthoscopic l knee (Acute) H/O: hysterectomy (Chronic) bilat bunion removal (Chronic) Family History Father Hypertension Heart disease Diabetes Myocardial infarction Heavy smoker Mother High cholesterol Arthritis Heavy smoker Social History Smoking Status: Never smoker second hand exposure: No alcohol intake: never substance use type: does not use what type of physical activity do you participate in: aerobics, weight training frequency: 3-4 times per week HPI HPI Chief Complaint: establish care Details: KASYE PAK, is a 47yo F who presents to the office today to establish care. She has concerns about her weight. She reports difficulty with weight loss, ongoing for a couple of years. She has inconsistently tried some weight loss programs. She has been seen by her diet counselor and statistical geneticist and has no underlying pathology. She currently follows up with the [facility] for her hypertension. ROS Const Constitutional: Positive for fatigue, change in appetite (feels like she gets full easily. ) and weight change (is unable to lose weight ); no body ache, chills, sleep problems, fever(s), snoring, weakness, frequent falls, headache(s) or excessive sweating Eyes Eyes: No change in vision, eye pain, light sensitivity or blurry vision ENT ENT: No headache(s), abnormal hearing, ear pain, tinnitus, nasal congestion, sore throat or neck pain Resp Respiratory: No snoring, cough, shortness of breath or wheezing Cardio Cardiology: No excessive sweating, chest pain at rest, chest pain with exertion, shortness of breath, dyspnea on exertion, palpitations, orthopnea or lightheadedness Gastro GI: No abdominal pain, change in bowel habits, constipation, diarrhea, vomiting, nausea/dyspepsia or cramping Genitourinary-Female: No burning urination, painful urination, urinary incontinence, urinary frequency, abnormal vaginal bleeding, pelvic pain or other Musc Musculoskeletal: No neck pain, abnormal walking, joint pain, back pain, limited range of motion, numbness or tingling Skin Skin: No redness, dry skin, itching, lesions, wounds or rash Neuro Neurology: No weakness, frequent falls, headache(s), abnormal hearing, abnormal walking, numbness, tingling, abnormal speech, dizziness or memory loss Psych Psychiatric: Positive for change in appetite (feels like she gets full easily. ), No memory loss, No Thoughts of harming yourself/Others Endo Endocrine: Positive for fatigue; no excessive sweating, cold intolerance, increased thirst/drinking, heat intolerance, flushing or increased hunger Aller/Imm Allergy/Immunologic: No wheezing, itchy eyes, hives or seasonal allergy symptoms Joaquín/Lymp Hematologic/Lymphatic: No easy bleeding, easy bruising or enlarged lymph nodes Exam Const General: cooperative, no acute distress, well developed Orientation: alert, awake, oriented x3 HENMT Head: atraumatic, normocephalic Ears: hearing grossly normal bilaterally Resp Effort AND Inspection: normal respiratory effort, able to speak in complete sentences Auscultation: Bilateral: Clear to Auscultation Cardio Rate: regular rate Rhythm: regular rhythm Heart Sounds: S1 normal, S2 normal GI Inspection: obesity Palpation: soft, no hepatosplenomegaly Neuro General: alert, awake, oriented x3, moves all extremities, CN's II-XI intact bilaterally Extrem General: no clubbing, cyanosis or edema Psych Appearance: grossly normal Mental Status: mental status grossly normal Affect: normal affect Assessment AND Plan 1. Obesity (BMI 30.0-34.9) E66.9 Plan Patient is concerned about her inability to lose weight. It appears that she has inconsistently tried some weight loss programs. Lengthy discussion with patient about the effects of calorie on weight management. She is now open to strictly monitoring her calorie intake and continue her exercise. Investigations done in the past without any significant abnormality. She has also been screened for sleep apnea which came back negative. Follow-up in 3 months. 2. Hypertension I10 Plan Stable. Continue current medication. This note was generated with Enjoi dictation software. It may contain incorrect words, spelling, and punctuation that were not noted in checking the note before signing. Plan Detail Follow Up 3 Months Coding Level of Care Code Off vis,new,level 3 Diagnoses Obesity (BMI 30.0-34.9) E66.9 Hypertension I10 09/03/17 0851 <Electronically signed by Chuck Denton MD> Date Chuck Denton MD Cosigner Signature: Date (if applicable) CC: URGENT CARE VISIT Observed: 08/22/2017 Status: F Source: [place] REPORT 8:15 AM [facility] REPOSITORY [facility] [address] [place] [id number] OFFICE VISIT Date of Service: 08/22/17 MR#: [id number] Acct: [id number] Name: KASEY PAK Rep #: [id number] : 1970 Provider: Loy MAK Age/Sex: 47/F Location: [facility] Status: Signed Intake Vital Signs08/22/17 Height 5 ft 4.5 in Intake Visit Reasons: HEAD CONGESTION Chief Complaint: Nasal congestion Is patient in pain?: No Allergies Sulfa (Sulfonamide Antibiotics) Allergy (Verified 08/22/17 08:00) Other Medications lisinopril 10 mg tablet 20 mg PO QDAY #90 tab 08/18/17 [Rx Confirmed 08/22/17] [facility] Medical History Hypertension (Chronic) Chest pain (Acute) IBS (irritable bowel syndrome) (Chronic) High triglycerides (Chronic) Anxiety (Acute) Depression (Acute) Frequent headaches (Acute) Seasonal allergies (Acute) Vision problem (Acute) Surgical History Status post breast reduction (Acute) orthoscopic l knee (Acute) H/O: hysterectomy (Chronic) bilat bunion removal (Chronic) Family History Father Hypertension Heart disease Diabetes Myocardial infarction Heavy smoker Mother High cholesterol Arthritis Social History Smoking Status: Never smoker second hand exposure: No alcohol intake: never substance use type: does not use HPI HPI Chief Complaint: Nasal congestion Details: KASEY PAK, is a 47 F who presents to the office today for initial evaluation 3 day history of nasal congestion, facial pressure, with occasional chills. Patient notes symptoms began several days ago, stating she would like to be evaluated just to ensure that she does not have a bacterial infection. She is also requesting a work excuse. She notes no complaints of fever, sweats, rash, chest pain/shortness of breath, or cough. She notes mild clear rhinorrhea. She is a non-smoker, noting no other family members in her household smoke or have similar signs or symptoms. She has tried no [id number] products to assist with her symptoms. She notes no other associated symptoms and no other alleviating or aggravating factors. ROS Const Constitutional: Positive for chills; no excessive sweating, fever(s), night sweats or body ache Eyes Eyes: No change in vision ENT ENT: Positive for post nasal drip, sinus pressure and nasal congestion; no ear pain, ear discharge, ear pressure, hearing loss or sore throat Resp Respiratory: No cough, chest congestion or shortness of breath Cardio Cardiology: No excessive sweating, chest pain at rest, chest pain with exertion, shortness of breath, dyspnea on exertion, irregular heart rhythm, generalized swelling or leg pain with exertion Gastro GI: No abdominal pain, change in stool character or change in bowel habits Musc Musculoskeletal: No joint pain, back pain, limited range of motion, numbness or tingling Skin Skin: No rash Neuro Neurology: No numbness, tingling or dizziness Endo Endocrine: No excessive sweating Exam Const General: cooperative, no acute distress, comfortable, ill appearing Nutritional Appearance: average body habitus Orientation: alert, awake, oriented x3 HENMT Head: normal to inspection Ears: hearing grossly normal bilaterally, external ears normal, TM's normal bilaterally, EAC's normal Nose: external nose normal, nares normal, septum normal, nasal discharge clear Face and sinus: normal facial exam, sinuses nontender, face symmetric Mouth: oral mucosae normal, lip normal, oropharynx normal, tongue normal Teeth and gingiva: dentition normal, gingiva normal Throat: uvula midline, tonsils normal, posterior oropharynx normal, postnasal drainage (Clear) Eyes General: appearance normal, both eyes and all related structures Neck Neck: normal visual inspection, full ROM, no lymphadenopathy, no meningeal signs, supple Neck mass: No Thyroid: thyroid normal Lymphatic: no lymphadenopathy noted Chest Chest palpation AND inspection: normal inspection of the chest Resp Effort AND Inspection: normal respiratory effort, able to speak in complete sentences, symmetric chest movement, no cough Auscultation: Bilateral: Clear to Auscultation Cardio Palpation: normal PMI Rate: regular rate Rhythm: regular rhythm Heart Sounds: S1 normal, S2 normal, no gallops, no murmurs, no rubs Pulses: radial pulses present GI Inspection: normal to inspection Palpation: soft Musc Musculoskeletal: No joint tenderness Skin General: no rashes or lesions noted Neuro General: alert, awake, oriented x3, gait normal Cognition: normal cognition Speech: speech normal Gait: normal gait Motor: muscle tone normal throughout Sensory Exam: no sensory deficits noted Psych Appearance: grossly normal Mental Status: mental status grossly normal Mood: congruent mood Affect: normal affect Speech and Movement: speech and movement normal Attitude: cooperative Thought Process: normal Thought Content: normal Judgment: judgment good Assessment AND Plan Problems 1. URI (upper respiratory infection) J06.9 Plan Work excuse for today. Clear fluids, rest, Advil/Tylenol/counter antihistamines as needed for symptomatic relief. Avoid tobacco smoke exposure. Follow-up with PCP in 5-7 days should symptoms not improve, sooner should symptoms worsen or any other concerns develop. Patient states acknowledging understanding all the above. This note was generated with Enjoi dictation software. It may contain incorrect words, spelling, and punctuation that were not noted in checking the note before signing. Coding Level of Care Code Off vis,est,level 3 Diagnoses URI (upper respiratory infection) J06.9 08/22/17 0815 <Electronically signed by Loy MAK> Date Loy Bagley Signature: Date (if applicable) CC: HOSP Observed: 08/14/2017 Status: COMPLETED Source: [place] 12:00 AM CLINIC OTHER CAMPUS REPOSITORY Patient:Kasey Pak MRN: <[id number]> Height:5' 4(1.626 m) Weight:189 lb (85.73 kg) Outpatient Medications as of 10/15/17: losartan (COZAAR) 25 mg tablet hydroCHLOROthiazide (HYDRODIURIL, ESIDRIX) 25 mg tablet mivacurium chloride (MIVACRON INJECTION) triamcinolone acetonide 0.1 % cream Admission/Clinic Administered Medications as of 10/15/17: promethazine 12.5 mg tab(s) (PHENERGAN) scopolamine 1 mg over 3 days 1 Patch (TRANSDERM-SCOP) scopolamine - VERIFY patch scopolamine - REMOVE PATCH lactated ringers infusion ceFAZolin 2 g in D5W 100 mL (ANCEF, KEFZOL) Problem List: NO SHOW [] Allergies: Seasonal Allergies Sulfa (Sulfonamide Antibiotics) Date Verified: 10/15/17 Lab Values No results within the last 30 days for the following basenames: K,HCT No progress notes entered within the past 30 days 12 LEAD ELECTROCARDIOGRAM Observed: 07/19/2017 Status: F Source: [place] 3:18 PM [facility] REPOSITORY [facility] Cardiovascular Services [address] [place] [address] 12 Lead EKG 07/17/17 2227 MR#: [id number] Acct: [id number] Name: KASEY PAK Rep #: [id number] : 1970 47 From: Montez Petty MD Attending Dr: Status: DEP ER Ordering Dr: Chip Loyola MD Date: 07/17/17 Location: ED Sex: F C Admitted: Test Reason : CP Blood Pressure : / mmHG Vent. Rate : 085 BPM Atrial Rate : 085 BPM P-R Int : 132 ms QRS Dur : 078 ms QT Int : 388 ms P-R-T Axes : 033 033 052 degrees QTc Int : 461 ms Normal sinus rhythm Normal ECG Confirmed by MONTEZ PETTY MD ([id number]), manager editorial ALECIA MALAGON ([id number]) on 07/19/2017 3:18:21 PM Referred By: Olga Jeffery Confirmed By:MONTEZ PETTY MD 07/19/17 1518 Date Montez Petty MD CC: Chip Loyola MD; OUT OF TOWN DOCTOR Signed EMERGENCY DEPARTMENT Observed: 07/18/2017 Status: F Source: [place] SUMMARY 4:05 AM [facility] REPOSITORY [facility] Medical Records Department [address] [place] [address] Emergency Department Summary 07/17/17 2300 MR#: [id number] Acct: [id number] Name: KASEY PAK Rep #: [id number] : 1970 47 From: Chip Loyola MD PCP: OUT OF TOWN DOCTOR Status: DEP ER - ER Visit Summary Date of Service: 07/17/17 Chief Complaint: [] Elevated blood pressure with chest twinges History of Present Illness: The patient is a 47 F states that this afternoon she felt a little bit of nausea and felt like her blood pressure was elevated. It has been elevated in the past but she has never had a formal diagnosis of hypertension and has never started medications. Since this morning she has felt occasional few second twinges in her left chest. That comes and goes. Is not constant. She thinks this is stress related. 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 She does have high cholesterol and a family history of early heart disease. No PE risk factors. No dissection risk factors. Physical Examination: Vital signs reviewed General: Well-nourished well-developed Head: Normocephalic atraumatic Eyes: Pupils equal round and reactive to light extraocular movements intact ENT: TMs clear no hemotympanum no trauma Neck: Nontender full range of motion Cardiovascular: Regular rate rhythm no murmurs normal S1-S2 Respiratory: No distress clear to auscultation bilaterally chest nontender Abdomen: Soft nontender nondistended normal bowel sounds no masses Back: Nontender no CVA tenderness Extremities: Nontender active range of motion 4 extremities no trauma Skin: Normal color no trauma Neuro alert oriented cranial nerves II through XII intact normal strength sensation reflexes Test Results: [] Emergency Department Course and Treatment: [] Patient did not want any treatment including aspirin. She refuses. EKG shows sinus at 85 without ischemia or arrhythmia. Lab work is obtained. Blood pressure is being monitored. Initial blood pressure was 162/95. Repeat blood pressure after rest is 136/91. CBC is normal. Chemistries normal except BUN 21. Troponin troponin negative. UA showed patient's resting comfortably. I do not feel she started on blood pressure medications come down nicely. She will follow- up with her doctor for further evaluation. I do not feel this is an acute coronary syndrome, PE or dissection. This is a very atypical scenario. She will follow-up. Treatment Plan: [] Disposition: [] Impression: [] Elevated blood pressure Chest twinges This note was generated with Enjoi dictation software. It may contain incorrect words, spelling, and punctuation that were not noted in review of the chart prior to signing ED Disposition - Plan for ED Patient: Chief Complaint: Hypertension Referrals: [facility] Doctor,Out of [Primary Care Provider] - What to do if you have Problems For any increased pain, shortness of breath, bleeding, nausea or vomiting, chest pain, or any unexpected problems, contact your Primary Care Provider. Call [facility] ([phone]) or report to the closest Emergency Room. Call 911 if necessary. 07/18/17 0405 <Electronically signed by Chip Loyola MD> Date Chip Loyola MD Cosigner Signature (If Indicated): Date CC: OUT OF TOWN DOCTOR DISCHARGE INSTRUCTION Observed: 07/18/2017 Status: F Source: [place] 4:05 AM [facility] REPOSITORY [facility] Medical Records Department [address] [place] [address] Discharge Instruction 07/17/17 2355 MR#: [id number] Acct: [id number] Name: KASEY PAK Rep #: [id number] : 1970 47 From: Chip Loyola MD PCP: [facility] DOCTOR Status: DEP ER ED Disposition - Plan for ED Patient: Disposition: Home or Assisted Living Chief Complaint: Hypertension Instructions: ED Hypertension Poss Referrals: [facility] Doctor,Out of [Primary Care Provider] - What to do if you have Problems For any increased pain, shortness of breath, bleeding, nausea or vomiting, chest pain, or any unexpected problems, contact your Primary Care Provider. Call [facility] ([phone]) or report to the closest Emergency Room. Call 911 if necessary. 07/18/17 0405 <Electronically signed by Chip Loyola MD> Date Chip Loyola MD Cosigner Signature (If Indicated): Date CC: [facility] DOCTOR CBC W/DIFF, AUTOMATED Collected: 07/17/2017 Status: F Source: [place] 11:10 PM [facility] REPOSITORY TYPE CODE TESTS RESULT OUT OF RANGE REFERENCE UNITS LAB L100.1000 4.4-11.0 K/mm3 Normal WBC 5.0 LAB L100.1200 4.2-5.4 M/mm3 Low RBC 4.04 LAB L100.1300 12.0-15.0 g/dl Normal HGB 12.8 LAB L100.1400 37-47 % Normal HCT 37.9 LAB L100.1500 81-99 fL Normal MCV 93.8 LAB L100.1600 27.0-32.0 pg Normal MCH 31.7 LAB L100.1700 32-36 g/gl Normal MCHC 33.8 LAB L100.1810 11.6-14.6 % Normal RDW CV 12.2 LAB L100.1820 35.1-43.9 fl Normal RDW SD 41.5 LAB L100.1900 150-450 K/mm3 Normal PLT 283 LAB L100.2000 6.2-12.0 fl Normal MPV 10.2 LAB L100.2100 47-70 % Low NEUT% 46.9 LAB L100.2200 19-41 % High LY% 42.0 LAB L100.2300 0-10 % Normal MONO% 8.3 LAB L100.2400 0-5 % Normal EO% 2.2 LAB L100.2500 0-1 % Normal BASO% 0.4 LAB L100.2550 0.0-0.9 % Normal IM GRAN % 0.200 Result Comment: IG% - Immature Granulocytes (promyelocytes, myelocytes and metamyelocytes) > 1% indicates that a LEFT SHIFT is Present. LAB L100.2620 2.0-7.7 X10 3/uL Normal Absolute Neut 2.3 LAB L100.2720 0.83-4.51 X10 3/ul Normal Absolute Lymph 2.08 Performed By: #### L100.0100 #### [facility] [address] [place], [address] BASIC METABOLIC Collected: 07/17/2017 Status: F Source: [place] PROFILE ([facility]) 11:10 PM [facility] REPOSITORY Order Comment: 'TROP' Serial specimen #1, #2, #3, or #4: 1 TYPE CODE TESTS RESULT OUT OF RANGE REFERENCE UNITS LAB L501.0100 74-106 mg/dL High GLU 108 Result Comment: Fasting Glucose result from 100 to 125 mg/dL suggests IMPAIRED HOMEOSTASIS per A.D.A. criteria. Please note revised GLUCOSE reference range effective 2017. LAB L501.1000 7-18 mg/dL High BUN 21 LAB L501.1100 0.55-1.02 mg/dL Normal CREAT,SERUM 0.88 Result Comment: The validity of the calculated GFR AND GFRAA in patients over 70 years has not been determined. Clinical correlation is essential. LAB L501.1110 >60 mL/min Normal EST GFR 73 Result Comment: Non- GFR Calc LAB L501.1115 >60 mL/min Normal EST GFR - AA 89 Result Comment: GFR Calc LAB L501.1255 ml/min Normal Estimated CRCL 68.25 LAB L501.1300 10-20 RATIO High BUN/CRE 23.9 LAB L501.2200 8.5-10 mg/dL Normal .1 CA 9.3 LAB L501.5300 136-14 mmol/L Normal 5 NA 143 LAB L501.5600 3.5-5. mmol/L Normal 1 K 3.5 LAB L501.5900 98-107 mmol/L Normal CL 107 LAB L501.6100 21.0-3 mmol/L Normal 2.0 CO2 28.0 LAB L501.6200 5-15 Normal GAP 8 Performed By: #### L500.2500, L501.4010 #### [facility] [address] [place], [address] TROPONIN-I Collected: 07/17/2017 Status: F Source: ART[place] 11:10 PM [facility] REPOSITORY Order Comment: 'TROP' Serial specimen #1, #2, #3, or #4: 1 TYPE CODE TESTS RESULT OUT OF RANGE REFERENCE UNITS LAB L501.4010 <0.06 ng/mL Normal < 0.02 TROPONIN-I Result Comment: TROPONIN-I EXPECTED VALUES <0.05 NEGATIVE 0.06 - 0.59 AT RISK OF ME > OR = 0.60 SUGGEST ME Performed By: #### L500.2500, L501.4010 #### [facility] [address] [place], [address] OFFICE VISIT REPORT Observed: 06/19/2017 Status: F Source: ARTUR 7:06 PM [facility] REPOSITORY [facility] [address] [place] [address] OFFICE VISIT Date of Service: 06/19/17 MR#: [id number] Acct: [id number] Patient: KASEY PAK Rep #: [id number] : 1970 Provider: Olga Jeffery NP Age/Sex: 47/F [place] [facility] [place]: Signed Intake Vital Signs06/19/17 Height 5 ft 4 in 06/19/17 Weight: 190 lb 8 oz 06/19/17 Body Mass Index (BMI) 32.7 06/19/17 Blood Pressure 147/84 06/19/17 Blood Pressure Location Lt popliteal 06/19/17 Blood Pressure Position Sitting Intake Visit Reasons: 1 M FU Chemistry Account Manager Required: No Accompanied by: Self Is patient in pain?: No Allergies Sulfa (Sulfonamide Antibiotics) Allergy (Verified 06/19/17 11:06) Other Is last menstrual period known: No Post menopausal: Yes Patient : No PFSH Medical History Anxiety (Acute) Depression (Acute) Frequent headaches (Acute) High triglycerides (Acute) IBS (irritable bowel syndrome) (Acute) Seasonal allergies (Acute) Vision problem (Acute) bilat bunion removal (Acute) orthoscopic l knee (Acute) Surgical History H/O: hysterectomy (Acute) Status post breast reduction (Acute) Family History Father Hypertension Heart disease Diabetes Mother High cholesterol Arthritis Social History Smoking Status: Never smoker second hand exposure: No alcohol intake: never substance use type: does not use HPI HPI Details: Details: KASEY PAK, is a 47 F who presents to the office today for discussion of lab results and follow up of fatigue and malaise. Pt states since last visit she is no longer taking wellbutrin but she reports she feels no different. Reports her work schedule is now 10 hour shifts, this is instead of 12 hours shifts. This schedule change will allow her to have consistent days off . She does report she feels some better. Reports she is still working out at the gym consistently doing cardio and strength training. Reports she is watching her intake and food choices more closely. Has hired a personal financial representative as she is concerned about her weight gain. At time of visit: -Pt denies symptoms of hypertensive emergency (CP,SOB,LANG, or blurred vision) and hypotension(dizziness or lightheadedness) -Pt denies symptoms of hypoglycemia ( sweaty, confusion, anxiety, tremor, hunger, palpitations) and hyperglycemia ( polydipsia, polyuria) -Pt denies potential medication adverse effect. Since our last visit she denies excessive thirst, increased frequency of urination, chest pain or dyspnea. Follows a healthy 1800 lena diet, Is compliant with medication and is tolerating without side effects. Reports she is exhausted after working out. Feels tired still most of the time. Sleep is varied. ROS Const Constitutional: Positive for fatigue; no anorexia, body ache, chills, fever(s), frequent falls, decreased energy, malaise, night sweats, weakness, weight change, sleep problems, abnormal sleep pattern, change in appetite, other, headache(s), snoring or excessive sweating Eyes Eyes: No blurry vision, change in vision, double vision, discharge, dry eyes, bulging eyes, floaters, visual disturbances, eye pain, light sensitivity, spots in vision, tunnel vision or other ENT ENT: No abnormal hearing, ear pain, ear discharge, ear pressure, hearing loss, tinnitus, dizziness/vertigo, balance problems, nosebleed/epistaxis, nasal congestion, nasal obstruction, nose pain, sinus pressure, sinus pain, nasal discharge, post nasal drip, headache(s), facial pain, dental pain, dry mouth, bad breath, hoarseness, lip swelling, mouth lesions, mouth pain, sore throat, tongue swelling, throat swelling, other, difficulty swallowing or neck pain Resp Respiratory: No cough, change in phlegm color, chest congestion, excessive phlegm production, hemoptysis, pain on inspiration, shortness of breath, pain with cough, snoring, stridor, wheezing or other Cardio Cardiology: No chest pain at rest, chest pain with exertion, leg pain with exertion, excessive sweating, shortness of breath, dyspnea on exertion, generalized swelling, irregular heart rhythm, lightheadedness, orthopnea, radiating jaw, neck or arm pain, fast heart rate, slow heart rate, palpitations or other Gastro GI: No abdominal pain, belching, bloating, change in bowel habits, change in stool character, coffee ground emesis, constipation, cramping, diarrhea, heartburn, difficulty swallowing, feeling full early, excessive flatus, incontinent of stools, Vomiting blood/hematemesis, blood in stool, loose stools, Black,tarry stools, nausea/dyspepsia, pain with swallowing, vomiting or other Genitourinary-Female: No difficulty urinating, burning urination, painful urination, urinary incontinence, urinary frequency, urinary urgency, urinary hesitancy, urinary retention, blood in urine, Frequent nighttime urination/ nocturia, post void dribbling, suprapubic fullness, side pain, sexual problems, genital lesions, genital itching, hot flashes, abnormal periods, abnormal vaginal bleeding, absent period, painful periods, light periods, heavy periods, difficulty getting , painful intercourse, pelvic pain, vaginal dryness, vaginal odor, Vaginal Itching or other Musc Musculoskeletal: No abnormal walking, joint pain, back pain, deformity, joint swelling, limited range of motion, loss of height, muscle cramps, muscle weakness, decreased muscle mass, body aches, neck pain, numbness, radiating pain into limb, stiffness, tingling or other Neuro Neurology: No frequent falls, weakness, visual disturbances, abnormal hearing, headache(s), abnormal walking, numbness or tingling Psych Psychiatric: No abnormal sleep pattern, No change in appetite Endo Endocrine: Positive for fatigue; no other or excessive sweating Aller/Imm Allergy/Immunologic: No lip swelling, tongue swelling, throat swelling or wheezing Exam Const General: no acute distress Nutritional Appearance: overweight Orientation: oriented x3 [facility] Head: normal to inspection, atraumatic Ears: hearing grossly normal bilaterally Nose: no nasal discharge Mouth: oral mucosae normal, moist mucous membranes abnormal Teeth and gingiva: dentition normal Eyes General: appearance normal, both eyes and all related structures Eyelids: eyelids normal Conjunctivae: conjunctivae normal Sclera: sclerae normal Pupils: PERRL Neck Neck: normal visual inspection, full ROM Chest Chest palpation AND inspection: deferred Resp Effort AND Inspection: normal respiratory effort, able to speak in complete sentences, symmetric chest movement Cardio Rate: regular rate Rhythm: regular rhythm Heart Sounds: S1 normal, S2 normal GI Inspection: normal to inspection General: deferred Musc Musculoskeletal: No muscle weakness Thoracic/Lumbar Spine: thoracic and lumbar spine normal to inspection Skin General: no rashes or lesions noted Wounds: no wounds Neuro General: gait normal, moves all extremities Cognition: normal cognition Speech: speech normal Gait: normal gait Motor: muscle tone normal throughout Extrem General: normal to inspection, full ROM, no pedal edema Psych Appearance: well kempt Mental Status: mental status grossly normal Mood: congruent mood Affect: normal affect Speech and Movement: speech and movement normal Attitude: cooperative Thought Process: normal Thought Content: normal Judgment: judgment good Assessment AND Plan Problems 1. Chronic fatigue and malaise R53.82; R53.81 Plan Weight is slightly up. She is discourage but is starting with a show dog trainer for exercise. Reviewed diet which is healthy Exercises 5 days weekly Review of labs not helpful for cause of fatigue Does have sl elevated BP and cholesterol which I told her should be treated. A1c 5.7 at last lab; will recheck. Patient Instructions Control portions Food selections should be healthy Choose more low carb vegetables Avoid snacks and desserts. Drink water Exercise daily Eat more fresh foods, not canned or processed Eat more slowly 1. Please schedule follow up 2. Lab work one week before appointment. 3. Discussed importance of regular exercise and recommend starting or continuing a regular exercise program for good health. 4. The patient was encouraged to lose weight for good health 5. The importance of keeping BP at or below 130/80 to prevent stroke, heart attacks, kidney failure, blindness was reviewed. Spent approximately 30 minutes with patient with over 50% of time spent in discussion and counseling regarding medication adjustment, symptoms and treatment of hypoglycemia, diet adherence, and checking BG before driving. Orders Orders: Coding Level of Care Code Off vis,est,level 4 Diagnoses Chronic fatigue and malaise R53.82; R53.81 Time Spent (min) 30 06/19/17 1906 <Electronically signed by Olga BURTON> Date Olga BURTON Cosigner Signature: Date (if applicable) CC: HEMOGLOBIN A1C Collected: 06/19/2017 Status: F Source: ARTUR 11:56 AM [facility] REPOSITORY TYPE CODE TESTS RESULT OUT OF RANGE REFERENCE UNITS LAB L501.9985 4.2-6.3 % Normal HGB A1C 5.6 Performed By: #### L501.9985 #### [facility] [address] [place], [place], [address] MISCELLANEOUS LAB Collected: 06/19/2017 Status: F Source: ARTUR PROCEDURE 11:56 AM [facility] REPOSITORY Order Comment: Comments: [id number] LEPTIN RF RED Comments: leptin level Test(s) Ordered: [id number] LEPTIN RF RED TYPE CODE TESTS RESULT OUT OF RANGE REFERENCE UNITS LAB L801.1541 Normal [facility] LAB TEST Result Comment: TEST RESULT LIMITS Leptin, Serum Leptin, Serum 35.4 ng/mL Female Ranges by Body Mass Index (BMI) BMI Range BMI Range 11 0.7 - 3.6 24 4.4 - 24.2 12 0.8 - 4.2 25 5.1 - 28.0 13 0.9 - 4.8 26 5.9 - 32.4 14 1.0 - 5.6 27 6.8 - 37.5 15 1.2 - 6.5 28 7.9 - 43.5 16 1.4 - 7.5 29 9.1 - 50.4 17 1.6 - 8.7 30 10.6 - 58.3 18 1.8 - 10.0 31 12.2 - 67.5 19 2.1 - 11.6 32 14.1 - 78.2 20 2.4 - 13.4 33 16.4 - 90.5 21 2.8 - 15.6 34 19.0 - 105.0 22 3.3 - 18.0 35 22.0 - 121.0 23 3.8 - 20.9 36 25.4 - 141.0 Cherelle SANCHEZ, Freda Daniel, Reference Ranges of Leptin Levels According to Body Mass Index, Gender and Development Stage in Leptin: The Voice of Adipose Tissue, Kelsie SANCHEZ, Camacho WF, and Rascher W, eds, 1997, 319-326. Comment: Results of this test are labeled for research purposes only by the assay's rotor assembler. The performance characteristics of this assay have not been established by the rotor assembler. The result should not be used for treatment or for diagnostic purposes without confirmation of the diagnosis by another medically established diagnostic product or procedure. The performance characteristics were determined by [facility]. TESTING PERFORMED AT [facility]. ORIGINAL REPORT ON FILE IN LAB CONTAINS ADDITIONAL TEST SITE INFORMATION. Performed By: #### L801.1541 #### [facility] [address] [place], [address] MAMM DIGITAL SCRN Observed: 06/18/2017 Status: F Source: [place] [facility] 4:04 PM [facility] REPOSITORY SCREENING BILATERAL DIGITAL MAMMOGRAM. Clinical Data: Screening. History of breast reduction. Comparison: 06/15/2016, 06/04/2015, 06/01/2014. Mammographic findings: There are scattered fibroglandular densities. There are stable post surgical changes of breast reduction. No suspicious masses, architectural distortion, or suspicious calcifications are identified in either breast. There has been no significant interval change. This examination was reviewed with the aid of CAD (computer assisted detection). IMPRESSION AND RECOMMENDATION: No mammographic evidence of malignancy. Recommendations are for the patient to return for annual screening mammography in one year or sooner if clinically indicated. Category 2: Benign finding False negative rate of mammography is approximately 10 to 20%. Management of a palpable abnormality must be based upon clinical grounds. Technologist: LW Dictated By: REYNOLD IBRAHIM MD Signed By: REYNOLD IBRAHIM MD Signed Out: 06/18/17 16:02:46 ALLERGIES ALLERGIES DATE TYPE / CODE NAME / CODE REACTION SEVERITY SOURCE 04/07/2018 Drug Sulfa Other Unknown [place] [facility] Allergy/416 (Sulfonamide [facility] 207344(SNOM Antibiotics)/F00 [address]) 9636544(RXNORM) 04/07/2018 Drug lisinopril/F0060 Dry nagging [place] [facility] Allergy/416 58317(RXNORM) [facility] 446230(SNOM Repository ED CT) 11/13/2013 Drug SULFA HIVES [facility] Class/31324 (SULFONAMIDE [place] 1003(SNOMED ANTIBIOTICS) Repository CT) 08/19/2013 Environ/420 SEASONAL OTHER: SEE C [facility] 660737(SNOM ALLERGIES [place] ED CT) Repository ENCOUNTERS ENCOUNTERS ADMIT/DISCHARGE ACCOUNT NUMBER ADMITTING ENCOUNTER LOCATION SOURCE CLASS 04/07/2018/04/07/20 [id number] Emergency [address] ding:ED Repository 03/30/2018/03/30/20 [id number] Ambulatory BMSBuilding: [place] 18 BMS.[facility] Repository 03/25/2018/03/25/20 [id number] Ambulatory BMSBuilding: [place] 18 BMS.[facility] Repository 02/01/2018/02/02/20 [id number] Ambulatory BMSBuilding: [place] 18 BMS.[facility] Repository 01/31/2018 [id number] Ambulatory BMSBuilding: [place] BMS.[facility] Repository 01/31/2018 [id number] Ambulatory [facility] ding:MTLAB Repository 10/15/2017/10/16/19 [id number] R[facility]A [facility]T Ambulatory [address] [place] Repository 09/27/2017/09/29/19 [id number] Ambulatory [address] [place] Repository 09/03/2017 [id number] Ambulatory [facility] ding:[facility] Repository 09/03/2017 [id number] Ambulatory BMSBuilding: [facility] Repository 08/31/2017/09/01/19 [id number] Ambulatory BMSBuilding: [place] 18 BMS.[facility] Repository 08/22/2017/08/23/19 [id number] Ambulatory BMSBuilding: [place] 18 BMS.[facility] Repository 08/08/2017/08/09/19 [id number] Ambulatory BMSBuilding: [place] 18 BMS.[facility] Repository 07/17/2017/07/19/19 [id number] Emergency [address] ding:ED Repository 07/02/2017 [id number] Ambulatory [facility] ding:MASS Repository 06/19/2017 [id number] Ambulatory [facility] ding:LAB Repository 06/19/2017/06/19/19 [id number] [facility]ulatory BMSBuilding[facility] [place] [facility] 06[facility]18/2017 [id number] Ambulatory [id number] [place] g:[facility] Repository 06/18/2017/06/18/19 [id number] Ambulatory [id number] [place] 18 g:[facility] Repository PAYERS PAYERS ENCOUNTER GUARANTOR PAYER SUBSCRIBER SOURCE 04/07/2018 KASEY L Primary KASEY L [place] [id number] Insurance:[facility] TREPALDOB: [facility] [id number] Number: Repository [id number]: [phone]) [id number] [phone] () Date:9273-94-64KW [address]NSGVQ, [place] [address]LD: 04/07/2018 Secondary NOT GIVENUNK [place] Insurance:SELF PAY [facility] Number: Effective Repository Date:2018-04-07 03/30/2018 KASEY L Primary Insurance:MED KASEY L [place] [id number] [facility] TREPALDOB: [facility] Number: [id number] [place], [place] [id number] Repository 160[address]His: (330) Date:4324-34-54TT [phone] (HP) [address]805HFKTXJLWR, [place] [address]EQ: CHECK WEBSITE 03/30/2018 Secondary NOT GIVENUNK [place] Insurance:SELF PAY [facility] Number: Effective Repository Date:2018-03-30 03/25/2018 KASEY L Primary Insurance:MED KASEY L [place] [id number] MUTUAL [facility] TREPALDOB: [facility] Number: [id number] [place], [place] [id number] Repository [address]Acb: (330) Date:2528-17-57LH [phone] (HP) 459[address]NGZYGFHKL, [place] [address]WE: CHECK WEBSITE 03/25/2018 Secondary NOT GIVENUNK [place] Insurance:SELF PAY [facility] Number: Effective Repository Date:2018-03-25 02/01/2018 KASEY L Primary Insurance:MED KASEY L [place] [id number] MUTUAL TPAPolicy TREPALDOB: [facility] EMALENE Number: [id number] [place], [place] [id number] Repository [address]Lou: (330) Date:2700-64-52SA [phone] () 517[address]HIFTIMBDS, [place] [address]KP: CHECK WEBSITE 02/01/2018 Secondary NOT GIVENUNK [place] Insurance:SELF PAY [facility] Number: Effective Repository Date:2018-02-01 01/31/2018 KASEY L Primary Insurance:MED KASEY L [place] [id number] [facility]UAL [facility]AL[facility]OB: [facility] EM[facility]ENE Number: [id number] [place], [place] [id number] Repository [address]Cnd: (330) Date:2606-07-23UJ [phone] () [address]GJNHQJBMT, [place] [address]KV: CHECK WEBSITE 01/31/2018 Secondary NOT GIVENUNK [place] Insurance:SELF PAY [facility] Number: Effective Repository Date:2018-01-31 01/31/2018 KASEY L Primary Insurance:MED KASEY L [place] [id number] RAYWICK TPAPolicy TREPALDOB: [facility] EMALENE Number: [id number] Hall, [place] [id number] Repository [address]Nkm: (330) Date:2803-91-44KH [phone] () [address]24[address]CCIFDOSTH, [place] [address]WV: CHECK WEBSITE 01/31/2018 Secondary NOT GIVENUNK [place] Insurance:SELF PAY [facility] Number: Effective Repository Date:2018-01-31 09/03/2017 KASEY L Primary KASEY L [place] [id number] Insurance:MEDICAL TREPALDOB: Community [facility] [id number] [place], [place] Number: Repository [id number]: (330) [id number] [facility]-5406 (HP) Date:4342-97-89NP [address] [address]WD: 09/03/2017 Secondary NOT GIVENUNK [place] Insurance:SELF PAY [facility] Number: Effective Repository Date:2017-08-08 09/03/2017 KASEY L Primary KASEY L [place] [id number] Insurance:MEDICAL TREPALDOB: [facility] [id number] [place], [place] Number: Repository [id number]: 330 [id number] [phone] (HP) Date:9814-84-70DZ [address] [address]MB: 09/03/2017 Secondary NOT GIVENUNK [place] Insurance:SELF PAY [facility] Number: Effective Repository Date:2017-09-03 08/31/2017 KASEY L Primary KASEY L [place] [id number] Insurance:MEDICAL TREPALDOB: [facility] [id number] [place], [place] Number: Repository [phone]: 330 [id number] [phone] (HP) Date:1446-00-23FI [address] [address]SR: 08/31/2017 Secondary NOT GIVENUNK [place] Insurance:SELF PAY [facility] Number: Effective Repository Date:2017-08-02 08/22/2017 KASEY L Primary KASEY L [place] [id number] Insurance:MEDICAL TREPALDOB: [facility] [id number] [place], [place] Number: Repository [id number]: 330 [id number] [phone] (HP) Date:4792-57-59EJ [address] [address]BG: 08/22/2017 Secondary NOT GIVENUNK [place] Insurance:SELF PAY [facility] Number: Effective Repository Date:2017-08-22 08/08/2017 KASEY L Primary KASEY L [place] [id number] Insurance:MEDICAL TREPALDOB: [facility] [id number] [place], [place] Number: Repository [id number]: (330) [id number] [phone] (HP) Date:6357-60-75AF [address] [place] [address]NR: 08/08/2017 Secondary NOT GIVENUNK [place] Insurance:SELF PAY [facility] Number: Effective Repository Date:2017-08-02 07/17/2017 KASEY L Primary KASEY L [place] [id number] Insurance:MEDICAL TREPALDOB: [facility] [id number] [place], [place] Number: Repository [phone]: (330 [id number] [phone] (HP) Date:3932-97-24WB [address] [place] [phone]: 07/17/2017 Secondary NOT GIVENUNK [place] Insurance:SELF PAY [facility] Number: Effective Repository Date:2017-07-17 07/02/2017 KASEY Primary NOT GIVENUNK [place] [id number] Insurance:SELF PAY [place] Number: Effective Repository [phone]: (330) Date:[phone] (HP) 06/19/2017 KASEY Primary KASEY [place] [id number] Insurance:MEDICAL TREPALDOB: [facility] [id number] [place], [place] Number: Repository [id number]: (330 [id number] [phone] (HP) Date:6218-71-29US [address] [place] [phone]: 06/19/2017 Secondary NOT GIVENUNK [place] Insurance:SELF PAY [facility] Number: Effective Repository Date:2017-06-19 06/19/2017 KASEY Primary KASEY [place] [id number] Insurance:MEDICAL TREPALDOB: [facility] [id number] [place], [place] Number: Repository [id number]: (460) [id number] [phone] () Date:9707-92-95PD [address] [address]FV: 06/19/2017 Secondary NOT GIVENUNK [place] Insurance:SELF PAY [facility] Number: Effective Repository Date:2017-06-06
== END 2018-04-07 22:13 | disposition home or self-care (01) ==
LOC: ED 21:53
PROVIDERS: Emergency Provider Emergency Medicine; Family Provider Internal Medicine; PCP Internal Medicine
DX: Z77.21 Contact with and (suspected) exposure to potentially hazardous body fluids (principal); I10 Essential (primary) hypertension; Z79.899 Other long term (current) drug therapy
CPT/HCPCS: 86703; 86803; 87340; 99283; J7030

== ENCOUNTER → 2018-09-06 | Outpatient (CLI) | payer OTHER, SELFPAY ==
[2018-09-06 08:45] VITALS: BMI 31.7
[2018-09-06 12:31] LABS: Absolute Lymphocyte Count 1.56 X10^3/ul (0.83-4.51); Absolute Neutrophil Count 3.7 X10^3/uL (2.0-7.7); Basophil# 0.01 X10^3/uL; Basophil% 0.2 % (0-1); Eosinophil# 0.17 X10^3/uL; Eosinophils% 2.9 % (0-5); Hematocrit 40.5 % (37-47); Hemoglobin 13.3 g/dl (12.0-15.0); Lymphocyte # 1.56 X10^3/ul (4.0); Lymphocyte % 26.6 % (19-41); Mean Corp Hgb Conc 32.8 g/gl (32-36); Mean Corpuscular Hgb 30.3 pg (27.0-32.0); Mean Corpuscular Volume 92.3 fL (81-99); Mean Platelet Vol. 10.5 fl (6.2-12.0); Monocyte# 0.45 X10^3/uL; Monocyte% 7.7 % (0-10); Neutrophil # 3.66 X10^3/uL (2.7-7.7); Neutrophil % 62.4 % (47-70); Platelet Count 257 K/mm3 (150-450); RBC Distribution Width CV 12.5 % (11.6-14.6); RBC Distribution Width SD 42.2 fl (35.1-43.9); Red Blood Count 4.39 M/mm3 (4.2-5.4); White Blood Count 5.9 K/mm3 (4.4-11.0)
[2018-09-06 12:33] LABS: POSITIVE COUNT NO; POSITIVE DIFFERENTIAL NO; POSITIVE MORPHOLOGY NO
[2018-09-06 13:01] LABS: Anion Gap 5 (5-15); BUN 21 mg/dL (7-18); BUN/Creat Ratio 24.5 RATIO (10-20); Calcium,Total 9.2 mg/dL (8.5-10.1); Chloride 107 mmol/L (98-107); Creatinine, Serum 0.86 mg/dL (0.55-1.02); EST Glomerular Filtration Rate 75 mL/min (>60); Est Glom Filt Rate - Afr Amer 91 mL/min (>60); Glucose 112 mg/dL (74-106); Potassium 3.8 mmol/L (3.5-5.1); Sodium Level 140 mmol/L (136-145); Thyroid Stim Hormone (TSH) 1.48 uIU/mL (0.358-3.74)
== END | disposition home or self-care (01) ==
LOC: BIMLAB 09:08
PROVIDERS: Family Provider Internal Medicine; PCP Internal Medicine; Visit Provider Internal Medicine
DX: F41.8 Other specified anxiety disorders (principal); I10 Essential (primary) hypertension
CPT/HCPCS: 36415; 80048; 84443; 85025

== ENCOUNTER → 2018-09-24 | Outpatient (CLI) | payer OTHER, SELFPAY ==
[2018-09-08 10:56] VITALS: BMI 31.7
[2018-09-24 17:43] LABS: Estradiol 20.2 pg/mL; Follicle Stimulating Hormone 74.6 mIU/mL; Luteinizing Hormone 33.2 mIU/mL
[2018-09-24 17:56] LABS: AST(SGOT) 27 U/L (15-37); Alanine Aminotransfer ALT/SGPT 41 U/L (13-56); Albumin, Serum 4.1 g/dL (3.2-5.0); Alkaline Phosphatase 109 U/L (45-117); Bilirubin, Direct < 0.05 mg/dL (0.00-0.30); Globulin 3.8 g/dL (2.2-4.2); Protein, Total 7.9 g/dL (6.4-8.2)
[2018-09-30 12:07] LABS: Testosterone, Total 10 ng/dL (8-48)
[2018-09-30 12:28] LABS: Testosterone, % Free 2.02 % (0.50-2.80)
== END | disposition home or self-care (01) ==
LOC: LAB.FUTURE 16:14
PROVIDERS: Internal Medicine Cardiovascular Disease; Family Provider Internal Medicine; PCP Internal Medicine
DX: E78.1 Pure hyperglyceridemia (principal); I10 Essential (primary) hypertension; N95.1 Menopausal and female climacteric states
CPT/HCPCS: 36415; 80076; 82670; 83001; 83002; 84402; 84403

== ENCOUNTER 2018-11-20 13:08 | Emergency (ER) | payer OTHER, SELFPAY ==
[2018-09-08 10:56] VITALS: BMI 31.7
[2018-11-20 13:09] VITALS: BP 166/105; PULSE 88; RESP 17; TEMP 36.6; O2SAT 96; BMI 32.5
--- NOTE | 2018-11-20 13:12 | RAD_ITS ---
STUDY: X-RAY - LEFT HAND, ATTENTION RIGHT THUMB. REASON FOR EXAM: Female, 48 years old. Swelling following hyperextension injury. TECHNIQUE: 3 view(s) of the finger were obtained. COMPARISON: None. FINDINGS: Normal metacarpal head. Normal metacarpophalangeal joint. Normal proximal phalanx. Normal distal phalanx. Normal distal interphalangeal joint. Soft tissue swelling. RAD/Finger(s) Min 2 Views IMPRESSION: Soft tissue swelling. Electronically Signed: Haroldo Little, at 13:39 EDT , Service support ,
--- NOTE | 2018-11-20 13:51 | ED.VISSUMM ---
- ER Visit Summary Date of Service: 11/20/18 Chief Complaint: Thumb injury History of Present Illness: The patient is a 48 F who is right-hand dominant. Yesterday she hyperextended her thumb when holding a door. She complains of pain with abduction of her thumb and axial loading on her thumb. The pain is around her MCP joint. She has noticed some swelling to the area. Physical Examination: Left thumb is swollen and tender around the MCP joint. No obvious laxity. Range of motion intact. No deformity. Skin intact. Neurovascularly intact. Wrist unremarkable. Hand and fingers otherwise unremarkable. Test Results: X-rays show soft tissue swelling. No fracture. Emergency Department Course and Treatment: Patient declined pain medicine. I believe she has a sprain. Rest, ice, elevate. [id number] remedies for pain. Velcro splint given. Treatment Plan: Follow-up with hand surgery Disposition: Discharge Impression: 1. Left thumb sprain This note was generated with [employer] (acquired by [employer] in 2014) dictation software. It may contain incorrect words, spelling, and punctuation that were not noted in review of the chart prior to signing ED Disposition - Plan for ED Patient: Referrals: Chuck Denton MD [Primary Care Provider] -
--- NOTE | 2018-11-20 13:53 | ED.DEP ---
ED Disposition - Plan for ED Patient: Instructions: Sprain Finger Referrals: Eliezer Neri MD [STAFF PHYSICIAN] -
== END 2018-11-20 14:13 | disposition home or self-care (01) ==
PROVIDERS: Emergency Provider Emergency Medicine; Family Provider Internal Medicine; PCP Internal Medicine
DX: S63.602A Unspecified sprain of left thumb, initial encounter (principal); X50.1XXA Overexertion from prolonged static or awkward postures, initial encounter; Y93.9 Activity, unspecified; Y92.9 Unspecified place or not applicable; I10 Essential (primary) hypertension; F32.9 Major depressive disorder, single episode, unspecified; F41.9 Anxiety disorder, unspecified; Z79.899 Other long term (current) drug therapy
CPT/HCPCS: 73140; 99284

== ENCOUNTER 2018-12-25 13:33 | Emergency (ER) | payer OTHER, SELFPAY ==
[2018-12-25 13:34] VITALS: BP 162/96; PULSE 90; RESP 18; TEMP 36.4; O2SAT 95; BMI 31.2
--- NOTE | 2018-12-25 15:04 | ED.VIS.URI ---
History of Present Illness Chief Complaint: Sore Throat Narrative: Patient presenting for evaluation secondary to a sore throat. Patient reports that over the course of the last 48 hours she is developed a sore throat. She reports that it is bilateral, worse with swallowing, has been associated with mild hoarse voice. Patient denies any presence of cough. She denies any significant rhinorrhea. Patient states that she believes she potentially had a fever yesterday that broke with medications. Patient was recently at a alliance party, potentially had some sick contacts but none that she is for sure of. Patient is otherwise healthy, not immunocompromised. She denies any breathing difficulty. Review of systems otherwise negative. Past Medical History - Allergies and Home Meds Allergies/Adverse Reactions: Allergies Sulfa (Sulfonamide Antibiotics) Allergy (Verified 12/25/18 13:37) Other lisinopril Adverse Reaction (Intermediate, Verified 12/25/18 13:37) Dry nagging cough Primary Care Physician: Chuck Denton MD [Primary Care Provider] - 1-2 Weeks Past Medical History: - Smoking Status: Never smoker Review of Systems All systems negative except as indicated General: Reports: Fever ENT: Reports: Sore throat. Denies: Left ear pain, Right ear pain, Rhinorrhea Respiratory: Denies: Cough Physical Exam Vital Signs/Narrative: Vital Signs Temp Pulse Resp BP Pulse Ox 12/25/18 13:34 97.6 F L 90 18 162/96 H 95 General: Well nourished, Well developed Head: Normocephalic, Atraumatic Eyes: EOMI Nose: Normal Inspection Mouth/Throat: Airway Patent, - - Posterior pharyngeal erythema is noted without any evidence of palatal petechia, posterior fullness, or asymmetry. Airways fully patent. Neck: Anterior Lymphadenopathy - Bilateral with mild tenderness Cardiovascular: Regular rate Respiratory: No distress Skin: Normal color Neurological: Alert, Oriented x3 Diagnostic/Tx/Re-eval - Medical Decision Making Patient presented for evaluation secondary to a sore throat. She has normal stable vital signs, some minimal erythema of throat. Rapid strep was obtained which was found to be negative. Patient was given reassurance and conservative management measures for viral pharyngitis. Pt was given a penicillin RX should she not have improvement in the next 72 hours. Disposition: Home ED Disposition - Plan for ED Patient: Disposition: Home or Assisted Living Diagnosis: Pharyngitis Instructions: PHARYNGITIS, Viral Prescriptions: Penicillin V Potassium 500 mg PO 4X/DAY #40 tab Prescription Printed Referrals: Chuck Denton MD [Primary Care Provider] - 1-2 Weeks
== END 2018-12-25 15:20 | disposition home or self-care (01) ==
PROVIDERS: Emergency Provider Emergency Medicine; Family Provider Internal Medicine; PCP Internal Medicine
DX: J02.9 Acute pharyngitis, unspecified (principal); R59.0 Localized enlarged lymph nodes
CPT/HCPCS: 87880; 99281

== ENCOUNTER → 2019-01-24 10:36 | Outpatient (CLI) | payer OTHER, SELFPAY ==
[2018-12-25 13:34] VITALS: BMI 31.2
[2019-01-24 12:55] LABS: AST(SGOT) 20 U/L (15-37); Alanine Aminotransfer ALT/SGPT 34 U/L (13-56); Alkaline Phosphatase 111 U/L (45-117); Anion Gap 2 (5-15); BUN 19 mg/dL (7-18); BUN/Creat Ratio 19.2 RATIO (10-20); Bilirubin, Direct 0.11 mg/dL (0.00-0.30); Calcium,Total 9.2 mg/dL (8.5-10.1); Chloride 107 mmol/L (98-107); Cholesterol 193 mg/dL (200); Creatinine, Serum 0.99 mg/dL (0.55-1.02); EST Glomerular Filtration Rate 64 mL/min (>60); Est Glom Filt Rate - Afr Amer 77 mL/min (>60); Globulin 3.5 g/dL (2.2-4.2); Glucose 110 mg/dL (74-106); High Density Lipoprotein 50 mg/dL; Protein, Total 7.5 g/dL (6.4-8.2); Sodium Level 139 mmol/L (136-145); Triglycerides 124 mg/dL; Very Low Density Lipoprotein 25 mg/dL (5-40)
== END ==
PROVIDERS: Family Provider Internal Medicine; PCP Internal Medicine; Referring Provider Internal Medicine Cardiovascular Disease; Visit Provider Internal Medicine Cardiovascular Disease
DX: E78.00 Pure hypercholesterolemia, unspecified (principal); E78.1 Pure hyperglyceridemia; I10 Essential (primary) hypertension
CPT/HCPCS: 36415; 80048; 80061; 80076

== ENCOUNTER → 2019-02-13 12:10 | Outpatient (CLI) | payer SELFPAY ==
[2019-02-13 12:22] VITALS: BP 135/69; PULSE 68; RESP 16; O2SAT 98; BMI 31.7
--- NOTE | 2019-02-13 12:29 | CT_ITS ---
STUDY: CARDIAC CALCIUM SCORING - CT CHEST REASON FOR EXAM: Female, 48 years old. Family history of heart disease. Hypertension. RADIATION DOSAGE (If Supplied By Facility): CTDIvol = ( 12 ) mGy, DLP = ( 219 ) mGycm TECHNIQUE: Axial non-enhanced images were acquired through the heart for the sole purpose of measuring coronary artery calcium. Individualized dose optimization techniques were used for this CT. COMPARISON: None. FINDINGS: Please see the patient's medical record for a personalized calcium score. The visualized lungs are clear. The heart is normal in size. There is no pericardial effusion. The visualized soft tissues are within normal limits. CT/Limited Chest CT w/CCTA IMPRESSION: Please see the patient's medical record for a personalized calcium score. Please go to: [email or web address] , for a description of the calculator. Electronically Signed: Loy Johnson, at 13:37 EDT Tel , Service support ,
--- NOTE | 2019-02-13 16:54 | CA.SCORE ---
Calcium Scoring Date of Study:: 02/13/19 Coronary Calcium Scoring: High-resolution Computed Tomographic imaging of the chest was performed on [02/13/2019], with particular attention paid to the coronary arteries. Images from the examination were analyzed for the presence and extent of coronary artery calcification , using coronary calcium quantification software. The patient tolerated the procedure well and there were no complications. The results of the coronary calcification analysis are provided below. - Findings Left Main (LM): 0 Left Anterior Descending (LAD): 0 Left Circumflex (LCX): 0 Right Coronary Artery (RCA): 0 Total Agatston Score: 0 Percentile Rankinth percentile Calcium Scoring Interpretation: 0 No identifiable atherosclerotic plaque. Very low cardiovascular disease risk. <5% chance of presence coronary artery disease A Negative Examination 1-10 Minimal Plaque burden. Significant coronary artery disease very unlikely. 11-100 Mild plaque burden. Likely mild or minimal coronary atherosclerosis. 101-400 Moderate plaque burden Moderate non-obstructive coronary artery disease highly likely. Over 400 Extensive plaque burden. High likelihood of at least one significant coronary stenosis (>50% diameter) Calcium Score: 0 Negative Examination - No significant atherosclerotic plaquing was noted. Full evaluation of cardiac risk should include assessment of all cardiac risk profile parameters. The results noted should be interpreted in that context.
== END ==
PROVIDERS: Family Provider Internal Medicine; PCP Internal Medicine; Referring Provider Internal Medicine Cardiovascular Disease; Visit Provider Internal Medicine Cardiovascular Disease
DX: E78.1 Pure hyperglyceridemia (principal); I10 Essential (primary) hypertension; Z82.49 Family history of ischemic heart disease and other diseases of the circulatory system
CPT/HCPCS: 75571; 76380

== ENCOUNTER → 2019-03-21 06:36 | Outpatient (CLI) | payer OTHER, SELFPAY ==
[2019-02-13 12:22] VITALS: BMI 31.7
--- NOTE | 2019-03-21 06:42 | MRI_ITS ---
HISTORY: Left thumb sprain. Pain after lifting heavy object 4 months ago. Swelling over first metacarpal phalangeal joint Comparison study or x-rays from November 20, 2018. Technique: Axial sagittal and coronal images were obtained through the thumb. The series. 175 images. Findings: Bony alignment is normal. Joint spaces are preserved. Marrow signal within the thumb and index finger is normal. There is a tiny amount of edema adjacent to the bone within the dorsal aspect of the thumb without marrow edema. I cannot identify a fracture. I cannot clearly define the ulnar collateral ligament, and there is trace edema within the deep soft tissues, adjacent to the bone within that region. I cannot define a disruption of the ligament as I cannot define the ligament. Tendons to the thumb are intact and normal. Muscles about the thumb are intact and normal in signal. The carpal tunnel is grossly normal. MRI/Upper Ext/No Jt/ wo IMPRESSION: I cannot define the ulnar collateral ligament. There is some increased T1 and T2 weighted signal within the anticipated location of the ulnar collateral ligament, suggesting at least intrasubstance tear, if not complete tear. No avulsion fracture. No tendinosis. Minimal edema within the deep soft tissues which could be residual from soft tissue injury. at 0309 Reported and signed by: De Berg MD Electronically Signed: De Berg MD at 3:08 EST Tel , Service support ,
== END ==
PROVIDERS: Family Provider Internal Medicine; PCP Internal Medicine; Referring Provider Orthopaedic Surgery; Visit Provider Orthopaedic Surgery
DX: S63.602A Unspecified sprain of left thumb, initial encounter (principal)
CPT/HCPCS: 73218

== ENCOUNTER 2019-05-01 08:30 | Outpatient (RCR) | payer OTHER, SELFPAY ==
[2019-02-13 12:22] VITALS: BMI 31.7
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
== END 2019-05-01 19:00 | disposition home or self-care (01) ==
LOC: OT 08:30
PROVIDERS: Family Provider Internal Medicine; PCP Internal Medicine; Referring Provider Orthopaedic Surgery; Visit Provider Orthopaedic Surgery
DX: S63.602D Unspecified sprain of left thumb, subsequent encounter (principal)
CPT/HCPCS: 97140; 97166; 97530

== ENCOUNTER 2019-10-05 16:50 | Emergency (ER) | payer OTHER, SELFPAY ==
[2019-09-17 12:41] VITALS: BMI 33.6
[2019-10-05 16:52] VITALS: BP 157/94; PULSE 88; RESP 18; TEMP 36.1; O2SAT 96; BMI 33.5
--- NOTE | 2019-10-05 17:10 | RAD_ITS ---
STUDY: X-RAY - RIGHT HAND, ATTENTION FIFTH FINGER REASON FOR EXAM: Female, 49 years old. Injury TECHNIQUE: 3 view(s) of the finger were obtained. COMPARISON: None. FINDINGS: There is no evidence of fracture or dislocation. There are no significant degenerative changes. There are no radiodense foreign bodies. RAD/Finger(s) Min 2 Views IMPRESSION: No fracture or dislocation. Electronically Signed: Loy Johnson, at 17:43 EDT Tel , Service support ,
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
[2019-10-05 18:00] VITALS: RESP 18
== END 2019-10-05 18:00 | disposition home or self-care (01) ==
PROVIDERS: Emergency Provider Emergency Medicine; PCP Internal Medicine
DX: S63.616A Unspecified sprain of right little finger, initial encounter (principal); Y04.0XXA Assault by unarmed brawl or fight, initial encounter; Y93.9 Activity, unspecified; Y92.9 Unspecified place or not applicable
CPT/HCPCS: 73140; 99282

== ENCOUNTER → 2019-10-27 10:01 | Outpatient (CLI) | payer OTHER, SELFPAY ==
[2019-10-05 16:52] VITALS: BMI 33.5
[2019-10-27 13:17] LABS: Anion Gap 4 (5-15); BUN 15 mg/dL (7-18); BUN/Creat Ratio 17.5 RATIO (10-20); Calcium,Total 9.2 mg/dL (8.5-10.1); Chloride 106 mmol/L (98-107); Creatinine, Serum 0.86 mg/dL (0.55-1.02); EST Glomerular Filtration Rate 74 mL/min (>60); Est Glom Filt Rate - Afr Amer 90 mL/min (>60); Glucose 115 mg/dL (74-106); Potassium 4.1 mmol/L (3.5-5.1); Sodium Level 140 mmol/L (136-145)
== END ==
PROVIDERS: PCP Internal Medicine; Referring Provider Internal Medicine; Visit Provider Internal Medicine
DX: I10 Essential (primary) hypertension (principal)
CPT/HCPCS: 36415; 80048

== ENCOUNTER → 2019-12-09 12:08 | Outpatient (CLI) | payer OTHER, SELFPAY ==
[2019-12-09 11:14] VITALS: BMI 34.8
[2019-12-09 12:53] LABS: Hemoglobin A1c 5.8 % (3.8-5.6)
[2019-12-09 13:26] LABS: T4 Total, Thyroxin 8.8 ug/dL (4.8-13.9); Thyroid Stim Hormone (TSH) 1.58 uIU/mL (0.358-3.74)
== END ==
PROVIDERS: PCP Internal Medicine; Referring Provider Internal Medicine Cardiovascular Disease; Visit Provider Internal Medicine Cardiovascular Disease
DX: F41.8 Other specified anxiety disorders (principal); I10 Essential (primary) hypertension
CPT/HCPCS: 36415; 83036; 84436; 84443

== ENCOUNTER → 2019-12-20 09:13 | Outpatient (CLI) | payer OTHER, SELFPAY ==
[2019-12-09 11:14] VITALS: BMI 34.8
[2019-12-20 09:57] LABS: Cholesterol 199 mg/dL (200); High Density Lipoprotein 39 mg/dL; Triglycerides 210 mg/dL; Very Low Density Lipoprotein 42 mg/dL (5-40)
== END ==
PROVIDERS: PCP Internal Medicine; Visit Provider Internal Medicine
DX: I10 Essential (primary) hypertension (principal); E78.1 Pure hyperglyceridemia
CPT/HCPCS: 36415; 80061

== ENCOUNTER → 2020-05-04 15:33 | Outpatient (CLI) | payer OTHER, SELFPAY ==
[2020-05-04 15:04] VITALS: BMI 34.3
[2020-05-04 17:12] LABS: ALB/GLOB Ratio 1.1 RATIO (0.9-2.4); AST(SGOT) 15 U/L (15-37); Alanine Aminotransfer ALT/SGPT 37 U/L (13-56); Alkaline Phosphatase 135 U/L (45-117); Anion Gap 7 (5-15); BUN 19 mg/dL (7-18); BUN/Creat Ratio 22.1 RATIO (10-20); Chloride 105 mmol/L (98-107); Creatinine, Serum 0.86 mg/dL (0.55-1.02); EST Glomerular Filtration Rate 74 mL/min (>60); Est Glom Filt Rate - Afr Amer 90 mL/min (>60); Globulin 3.6 g/dL (2.2-4.2); Glucose 122 mg/dL (74-106); Potassium 3.6 mmol/L (3.5-5.1); Protein, Total 7.6 g/dL (6.4-8.2); Sodium Level 141 mmol/L (136-145)
[2020-05-04 17:17] LABS: Hemoglobin A1c 5.7 % (3.8-5.6)
== END ==
PROVIDERS: PCP Internal Medicine; Referring Provider Internal Medicine; Visit Provider Internal Medicine
DX: I10 Essential (primary) hypertension (principal); R73.03 Prediabetes
CPT/HCPCS: 36415; 80053; 83036

== ENCOUNTER 2020-05-18 09:42 | Day surgery (SDC) | payer OTHER, SELFPAY ==
[2020-05-04 15:04] VITALS: BMI 34.3
[2020-05-18] VITALS (7 sets, daily range): BP systolic 81–133; BP diastolic 44–79; PULSE 60–81; RESP 16–17; TEMP 36.3–36.6; O2SAT 94–98; BMI 33.7
[2020-05-18] MEDS: Lactated Ringers 1,000 ML 100 ML IV (10:19)
--- NOTE | 2020-05-18 10:22 | H&P.OPEN ---
History of Present Illness Date of Admission: 05/18/20 The patient is a 50 year old F presents for screening colonoscopy. Her last colonoscopy was over 10 years ago. She has no family history of colon cancer. She has no abdominal pain or blood in her stool. She had no polyps on her prior colonoscopy. Past Medical/Surgical History - Planned Operation Planned Operative Procedure/s: cscope open access Date of Operative Procedure: 05/18/20 Permit Signed: No S.O.S: No Is This Patient Having a Total Joint: No - Previous Hospitalizations/Surgeries HX Hospitalizations: No HX of Surgeries: hysterectomy. plastic surgery. liposuction. buninectomy bilat. cscope Any Problems With Anesthesia: Yes - n,v. severe anxiety You/Your Family Experience Fever (Hyperthermia) With Anes: No Cholinesterase deficiency: No - Cardiovascular Hx Chest Pain within Last 2 months: No Hx of Irregular Heartbeat and/or Afib: No - saw dr ball for htn last visit 12/2019 Hx Heart Attack: No Hx Congestive Heart Failure: No Hx Rheumatic Fever: No Hx Hypertension: Yes - controlled on med Hx Internal Defibrillator: No Hx Pacemaker: No Hx Cardiac Catheterization: No Hx Cardiac Surgery/Stents/Etc.: No Hx Stress Test: Yes - echo 2018. stress 2006 HX Edema: No Hx Pain in Legs when Walking/Leg Cramps: No - Respiratory Chronic Cough: No HX of Shortness of Breath: Yes - sob with 2 flights of stairs Hoarseness: No Hx Chronic Obstructive Pulmonary Disease (COPD): No Hx Asthma: No Hx Emphysema: No Hx Sleep Apnea: No Hx Oxygen Use at Home: No Hx Respiratory Tract Infection/Cold (presently): No Do You Snore Loudly (louder than talking or can be heard): No Do You Often Feel Tired/ Fatigued/ Sleepy Dring Daytime?: Yes Has Anyone Observed You Stop Breathing During Sleep?: No Result (for STOP score): Positive Hx Smoking: No Smoking Status: Never smoker - Gastrointestinal Hx Gastroesophageal Reflux: No - occ heartburn Hx Gastrointestinal Disorders: Yes - ibs Hx Gastrointestinal Bleed: No Hx Ulcer: No Hx Hiatal Hernia: No Difficulty Chewing/Swallowing: No Recent Onset of Swallowing Problems: No Special diet followed at home: No - . Hx Unplanned Weight Loss of 20#: No HX Unplanned Weight Gain of 20#: No - Neurological Hx Seizures: No HX Syncope/Blackout Spells/Unconsciousness: No Hx CVA/Stroke: No Hx Transient Ischemic Attacks (TIA): No Hx Multiple Sclerosis: No Hx Parkinson's Disease: No Hx Head/Neck Injury: No Hx Headaches: Yes - occ Hx Back Injury/Pain: No Recent Onset of Speech Difficulty: No Restless Legs: Yes - occ Does patient have nerve stimulator: No Patient instructed to have device shut off: No Rep notified?: No - Blood Disorder Hx Leukemia: No Bleeding Tendencies: No Hx Deep Vein Thrombosis: No Hx High Cholesterol: No Blood Transmitted Disease: No Hx Hepatitis: No Hx Cirrhosis: No Hx Anemia: No Hx Blood Disorders: No - Reproduction : No Is Patient Lactating: No Hx Hysterectomy: Yes Hx Tubal Ligation: No Are You Post Menopause: No - Genitourinary Hx Renal Disease: No - Musculoskeletal Hx Arthritis: No Hx Rheumatoid Arthritis: No Hx Gout: No Recent Onset of an Orthopedic Problem: No - Endocrine Hx Diabetes: No Thyroid Disease: No Hx Steroid Therapy: No - Psycho/Social Hx Substance Use: No Hx Alcohol Use: No Hx Anxiety: Yes - on med Hx Depression: Yes - on med - Miscellaneous Hx Cancer: No Recent Exposure to Contagious Disease: No Active MRSA: No Hx of C-Diff: No Any Loose Teeth: No Allergies Sulfa (Sulfonamide Antibiotics) Allergy (Verified 05/18/20 10:01) Other lisinopril Adverse Reaction (Intermediate, Verified 05/18/20 10:01) Dry nagging cough - Discharge Is Pt Admitted From a [facility], or a Halfway: No After D/C, Where Do you Plan to Go: Return Home - Physical Exam Vitals/I&O's: Vital Signs Temp Pulse Resp BP Pulse Ox 97.7 F L 81 17 113/70 98 05/18/20 10:04 05/18/20 10:04 05/18/20 10:04 05/18/20 10:04 05/18/20 10:04 Oxygen Delivery Method Room Air Weight: 196 lb 10.437 oz Body Mass Index (BMI) 33.7 General: Alert, Oriented x3 Neck: No JVD Lungs: Normal air movement Cardiovascular: Regular rate, Regular Rhythm Abdomen: Soft, Non Tender, Non-Distended Microbiology Past 72 Hours 05/17/20 08:55 Interface Orders SARS-CoV-2 Antigen (Rapid) - Final Current Medications Lactated Ringer's () 1,000 mls @ 100 mls/hr IV .Q10H CANELO Last Admin: 05/18/20 10:19 Dose: 100 mls/hr Documented by: Assessment/Plan All Active Problems (Last Reviewed 05/04/20 @ 15:03 by Edel Santiago) Brain fog (Acute) Fatigue (Acute) Chest pain (Resolved) Sore throat (Resolved) URI (upper respiratory infection) (Resolved) URI, acute (Resolved) 50-year-old female here for screening colonoscopy I explained endoscopy in detail to the patient. I explained the risks including but not limited to stroke or heart attack with anesthesia, perforation of the GI tract, bleeding, infection. I explained that any of these could necessitate further emergency surgery. The patient understands and all questions were answered sufficiently. The patient wishes to proceed with procedure. Jordan Briceno MD Pager: [facility] [address] [place] [address] [address] [place] [address] Office: Surgery Risks - Colonoscopy Risks Include but are not Limited To: Risks include but are not limited to: Bleeding, perforation requiring further surgery, inability to complete colonoscopy requiring barium enema.
--- NOTE | 2020-05-18 10:46 | OP.COLON_ITS ---
Patient Name: Kasey Pak Procedure Date: 05/18/2020 10:14 AM Date of : 1970 Age: 50 Procedure: Colonoscopy Indications: Screening for colorectal malignant neoplasm Providers: Jordan Briceno MD Referring MD: Chuck Denton MD Medicines: Monitored Anesthesia Care Patient Profile: This is a 50 year old female. Refer to note in patient chart for documentation of history and physical. Last Colonoscopy: 10 years ago. Complications: No immediate complications. Procedure: Pre-Anesthesia Assessment: - Prior to the procedure, a History and Physical was performed, and patient medications and allergies were reviewed. The patient's tolerance of previous anesthesia was also reviewed. The risks and benefits of the procedure and the sedation options and risks were discussed with the patient. All questions were answered, and informed consent was obtained. Prior Anticoagulants: The patient has taken no previous anticoagulant or antiplatelet agents. After reviewing the risks and benefits, the patient was deemed in satisfactory condition to undergo the procedure. After I obtained informed consent, the scope was passed under direct vision. Throughout the procedure, the patient's blood pressure, pulse, and oxygen saturations were monitored continuously. The pediatric colonoscope was introduced through the anus and advanced to the cecum, identified by appendiceal orifice and ileocecal valve. The colonoscopy was performed without difficulty. The patient tolerated the procedure well. The quality of the bowel preparation was good. Scope In: 10:33:11 AM Scope Withdrawal Time 0 hours 6 minutes 26 seconds Scope Out: 10:43:27 AM Total Procedure Duration Time 0 hours 10 minutes 16 seconds Findings: The entire examined colon appeared normal on direct and retroflexion views. Impression: - The entire examined colon is normal on direct and retroflexion views. - No specimens collected. Recommendation: - Discharge patient to home. - Resume previous diet. - Continue present medications. - Repeat colonoscopy in 10 years for screening purposes. Procedure Code(s): --- Professional --- 18068, Colonoscopy, flexible; diagnostic, including collection of specimen(s) by brushing or washing, when performed (separate procedure) Diagnosis Code(s): --- Professional --- Z12.11, Encounter for screening for malignant neoplasm of colon CPT copyright 2017 [employer]. All rights reserved. The codes documented in this report are preliminary and upon foundation drill operator review may be revised to meet current compliance requirements. Jordan Briceno MD 05/18/2020 10:46:40 AM This report has been signed electronically. Number of Addenda: 0 Note Initiated On: 05/18/2020 10:14 AM
--- NOTE | 2020-05-18 10:47 | OP.CCLET_ITS ---
05/18/2020 Chuck Denton MD [address] [place] [address] [place] [address] Re : Colonoscopy procedure for Kasey Mellisa Dear Dr. Denton This procedure was performed on Monday, May 18, 2020. My impressions and recommendations are as follows: Impressions : - The entire examined colon is normal on direct and retroflexion views. - No specimens collected. Recommendations : - Discharge patient to home. - Resume previous diet. - Continue present medications. - Repeat colonoscopy in 10 years for screening purposes. My findings are described in the full procedure note, which is enclosed. If I can be of further assistance, please feel free to contact me at Doctor phone number(s): , Work: . Sincerely, Jordan Briceno MD 05/18/2020 10:46:40 AM This report has been signed electronically.
== END 2020-05-18 11:50 | disposition home or self-care (01) ==
LOC: EN 09:43 → AC 09:44
PROVIDERS: PCP Internal Medicine; Referring Provider Internal Medicine; Visit Provider Surgery
PROC: 0DJD8ZZ Inspection of Lower Intestinal Tract, Via Natural or Artificial Opening Endoscopic (ICD-10-PCS; CPT 45378; principal; 2020-05-18 10:40)
DX: Z12.11 Encounter for screening for malignant neoplasm of colon (principal); Z20.828 Contact with and (suspected) exposure to other viral communicable diseases; I10 Essential (primary) hypertension; F41.9 Anxiety disorder, unspecified; F32.9 Major depressive disorder, single episode, unspecified; K58.9 Irritable bowel syndrome, unspecified; Z79.899 Other long term (current) drug therapy
CPT/HCPCS: 45378; 87426; C9803; J7120; J2405

== ENCOUNTER 2020-07-15 13:05 | Emergency (ER) | payer OTHER, SELFPAY ==
[2020-07-15 13:06] VITALS: BP 138/93; PULSE 77; RESP 16; TEMP 36.4; O2SAT 98; BMI 34.0
--- NOTE | 2020-07-15 13:45 | ED.RN ---
patient called [employer] who states patient must be seen at [facility] for workers comp eval. rn checked ED workers comp system and it states patient needs to be seen through corporate care. pt was triaged. pt called and [facility] again and was informed she must be seen there d/t [facility]'s policy. pt was not seen by a doctor.
== END 2020-07-15 13:30 | disposition home or self-care (01) ==
LOC: ED 14:04
PROVIDERS: Emergency Provider Emergency Medicine; PCP Internal Medicine
DX: Z53.21 Procedure and treatment not carried out due to patient leaving prior to being seen by health care provider (principal)

== ENCOUNTER → 2020-08-10 11:08 | Outpatient (CLI) | payer OTHER, SELFPAY ==
[2020-08-10 11:08] VITALS: BMI 34.3
[2020-08-10 12:45] LABS: Anion Gap 7 (5-15); BUN 22 mg/dL (7-18); BUN/Creat Ratio 24.4 RATIO (10-20); Calcium,Total 9.9 mg/dL (8.5-10.1); Chloride 101 mmol/L (98-107); EST Glomerular Filtration Rate 70 mL/min (>60); Est Glom Filt Rate - Afr Amer 85 mL/min (>60); Glucose 120 mg/dL (74-106); Potassium 3.9 mmol/L (3.5-5.1); Sodium Level 138 mmol/L (136-145)
== END ==
PROVIDERS: PCP Internal Medicine; Referring Provider Internal Medicine; Visit Provider Internal Medicine
DX: I10 Essential (primary) hypertension (principal)
CPT/HCPCS: 36415; 80048

== ENCOUNTER → 2020-09-14 14:45 | Outpatient (CLI) | payer OTHER, SELFPAY ==
[2020-09-14 13:50] VITALS: BMI 34.3
[2020-09-14 17:06] LABS: Estradiol 12.2 pg/mL; Follicle Stimulating Hormone 70.9 mIU/mL; T4 Free Direct 0.92 ng/dL (0.76-1.46)
[2020-09-19 13:34] LABS: Testosterone Free 2.6 pg/mL (0.0-4.2)
== END ==
PROVIDERS: PCP Internal Medicine; Referring Provider Obstetrics & Gynecology; Visit Provider Obstetrics & Gynecology
DX: N95.1 Menopausal and female climacteric states (principal); Z13.29 Encounter for screening for other suspected endocrine disorder
CPT/HCPCS: 36415; 82670; 83001; 84402; 84439; 84443

== ENCOUNTER → 2020-09-15 10:36 | Outpatient (CLI) | payer OTHER, SELFPAY ==
[2020-09-14 13:50] VITALS: BMI 34.3
[2020-09-15 12:44] LABS: Hemoglobin A1c 5.8 % (3.8-5.6)
[2020-09-15 13:02] LABS: AST(SGOT) 22 U/L (15-37); Alanine Aminotransfer ALT/SGPT 48 U/L (13-56); Alkaline Phosphatase 122 U/L (45-117); Bilirubin, Direct 0.07 mg/dL (0.00-0.30); Cholesterol 220 mg/dL (200); Globulin 3.8 g/dL (2.2-4.2); High Density Lipoprotein 40 mg/dL; Protein, Total 7.8 g/dL (6.4-8.2); Thyroid Stim Hormone (TSH) 1.33 uIU/mL (0.358-3.74); Triglycerides 209 mg/dL; Very Low Density Lipoprotein 42 mg/dL (5-40)
== END ==
PROVIDERS: PCP Internal Medicine; Referring Provider Internal Medicine Cardiovascular Disease; Visit Provider Internal Medicine Cardiovascular Disease
DX: E78.00 Pure hypercholesterolemia, unspecified (principal); E78.1 Pure hyperglyceridemia; F41.8 Other specified anxiety disorders; F48.8 Other specified nonpsychotic mental disorders; I10 Essential (primary) hypertension; R53.82 Chronic fatigue, unspecified; R53.83 Other fatigue
CPT/HCPCS: 36415; 80061; 80076; 83036; 84443

== ENCOUNTER → 2020-09-22 10:29 | Outpatient (CLI) | payer OTHER, SELFPAY ==
[2020-08-10 11:08] VITALS: BMI 34.3
== END ==
PROVIDERS: PCP Internal Medicine; Referring Provider Internal Medicine; Visit Provider Internal Medicine
DX: G47.10 Hypersomnia, unspecified (principal)
CPT/HCPCS: 95806

== ENCOUNTER → 2020-10-06 09:36 | Outpatient (CLI) | payer OTHER, SELFPAY ==
[2020-09-14 13:50] VITALS: BMI 34.3
== END ==
PROVIDERS: PCP Internal Medicine; Visit Provider Internal Medicine
DX: Z46.89 Encounter for fitting and adjustment of other specified devices (principal)

== ENCOUNTER → 2020-11-09 10:20 | Outpatient (CLI) | payer OTHER, SELFPAY ==
[2020-09-14 13:50] VITALS: BMI 34.3
[2020-10-29 14:01] VITALS: BMI 34.3
--- NOTE | 2020-11-09 10:22 | BI_ITS ---
MAMMOGRAPHY - BILATERAL SCREENING REASON FOR EXAM: Female, 50 years old. Routine annual screening examination. PERTINENT HISTORY: Non-contributory. Prior bilateral breast reduction. TECHNIQUE: Digital bilateral breast felisha (3D mammographic acquisition) in the CC and MLO projections. 2-D mediolateral oblique (MLO) and craniocaudad (CC) views of both breasts were obtained. CAD: Full Field Digital Mammography with Computer Added Detection was performed. COMPARISON: Comparison is made with prior outside examination dated 11/03/2019. FINDINGS: Breast Composition: There are scattered areas of fibroglandular density. There are no dominant masses or suspicious calcifications. Stable calcified nodules in the left breast suggestive of calcified fibroadenomas. No other significant abnormalities are identified. There has been no significant change since the prior study. BI/SCRN MAMM (CAD)W/FELISHA BILAT IMPRESSION: Stable bilateral screening mammogram. Yearly follow-up mammogram recommended. (A) ASSESSMENT CATEGORY: BIRADS Category 2: Benign. A letter regarding these results will be sent to the patient by the facility within 30 days. Approximately 10% of breast cancers are not detected by mammography. A normal mammogram should not delay biopsy of a clinically suspicious abnormality. [id number] Electronically Signed: Haroldo Little MD at 11:13 EDT , Service support ,
== END ==
PROVIDERS: PCP Internal Medicine; Referring Provider Obstetrics & Gynecology; Visit Provider Obstetrics & Gynecology
DX: Z12.31 Encounter for screening mammogram for malignant neoplasm of breast (principal)
CPT/HCPCS: 77063; 77067

== ENCOUNTER 2021-01-21 21:41 | Emergency (ER) | payer OTHER, SELFPAY ==
[2021-01-21 21:42] VITALS: BP 135/95; PULSE 88; RESP 16; TEMP 36.6; O2SAT 96; BMI 36.0
--- NOTE | 2021-01-21 22:07 | EDS_ITS ---
HPI History of Present Illness Chief Complaint: Dizziness Informant: patient Narrative Narrative: 50-year-old female presented to the emergency department dizziness. Patient describes a lightheadedness brain rolling around sensation. Is different than vertigo that she has had in the past. She notes nausea and some heartburn. She notes right arm pain. She notes her blood pressures been higher than normal. She states that she is recently started weaning herself off of Effexor. She took it yesterday which is when her lightheadedness started. She notes sweating. Heartburn is worse with laying down. PFSH PFS Medical History Chronic fatigue Chronic fatigue Depression with anxiety Essential (primary) hypertension Family history of premature coronary artery disease Frequent headaches High triglycerides Hyperlipidemia Hypersomnolence Obesity Seasonal allergies Vision problem Home Medications hydrochlorothiazide 25 mg tablet 25 mg PO DAILY #90 tab 07/14/20 [Rx Last Taken Unknown] losartan 100 mg tablet 100 mg PO DAILY #90 tab 07/14/20 [Rx Last Taken Unknown] estradiol 0.1 mg/24 hr semiweekly transdermal patch 1 patch TRANSDERMAL 2XW #8 ea 09/14/20 [Rx Last Taken Unknown] venlafaxine 75 mg capsule,extended release 24 hr 75 mg PO DAILY #30 cap 10/14/20 [Rx Last Taken Unknown] phentermine 37.5 mg capsule 37.5 mg PO DAILY #30 cap 12/06/20 [Rx Last Taken Unknown] Allergy/AdvReac Type Severity Reaction Status Date / Time Sulfa (Sulfonamide Allergy Other Verified 01/21/21 21:42 Antibiotics) lisinopril AdvReac Intermediate Dry Verified 01/21/21 21:42 nagging cough Family History Father Hypertension Heart disease Diabetes Myocardial infarction Heavy smoker Mother High cholesterol Arthritis Heavy smoker Sister Myocardial infarction, Onset Age: 50 coronary stents CAD (coronary artery disease) Surgical History H/O abdominal surgery H/O bilateral breast reduction surgery H/O total hysterectomy History of bunionectomy History of knee surgery History of right salpingo-oophorectomy Social History Smoking Status: Never smoker second hand exposure: No alcohol intake: never substance use type: does not use what type of physical activity do you participate in: aerobics and weight training frequency: 3-4 times per week additional social history: [facility] ROS ROS ED Constitutional Constitutional ED: Denies chills or weight loss Eyes Eyes: Denies change in vision or diplopia ENT ENT ED: Denies ear pain, rhinorrhea or sore throat Cardiovascular Cardiovascular: Denies chest pain, orthopnea, palpitations or racing heartbeat Respiratory/Chest Respiratory/Chest: Denies cough, dyspnea or orthopnea Gastrointestinal Gastrointestinal: Reports nausea and other Details: Heartburn ; Denies abdominal pain, diarrhea or vomiting Genitourinary Genitourinary ED: Denies dysuria, hematuria or urinary frequency Musculoskeletal Musculoskeletal: Denies arthralgias or myalgias Integumentary Reports other Details: Diaphoresis ; Denies abscess or rash Neurologic Neurologic: Reports other Details: Lightheadedness ; Denies headache(s) or weakness Psychiatric Psychiatric: Denies anxiety, depression, suicidal ideation or suicidal thoughts Endocrine Endocrinology: Denies polydipsia, polyphagia or polyuria Allergic/Immunologic Allergic/Immunologic ED: Denies mouth swelling, tongue swelling or urticaria EXAM Physical Exam Const Vital Signs: 01/21/21 21:42 01/21/21 21:56 Temperature 97.9 F Temperature Source Temporal Pulse Rate 88 Respiratory Rate 16 Respiratory Effort Normal Non-Labored Respiratory Pattern Normal Blood Pressure 135/95 H Blood Pressure Mean 108 Pulse Ox 96 Oxygen Delivery Method Room Air MDM MDM MDM Narrative Medical decision making narrative: Basic blood work is essentially normal. Normal CBC. Blood glucose 144. Troponin negative. Urinalysis negative. TSH is normal. A lot of the patient's symptoms could be due to Effexor withdrawal. I do not see an emergent reason to hospitalize the patient tonight. She can follow-up with primary care return if worsening or concerns Lab Data Attestation: I reviewed the patient's lab results. Labs: Laboratory Results - last 24 hr 01/21/21 01/21/21 01/21/21 22:15 22:40 22:40 WBC 5.0 RBC 4.45 Hgb 13.7 Hct 41.4 MCV 93.0 MCH 30.8 MCHC 33.1 RDW Std Deviation 42.3 RDW Coeff of Mei 12.2 Plt Count 304 MPV 9.8 Immature Gran % (Auto) 0.200 Neut % (Auto) 57.2 Lymph % (Auto) 36.2 [place] % (Auto) 6.2 Eos % (Auto) 0.0 Baso % (Auto) 0.2 Absolute Neuts (auto) 2.8 Absolute Lymphs (auto) 1.80 Nucleated RBC % 0 Sodium 141 Potassium 3.9 Chloride 104 Carbon Dioxide 28.0 Anion Gap 9 BUN 26 H Creatinine 1.00 Estim Creat Clear Calc 58.12 Est GFR (MDRD) Af Amer 76 Est GFR (MDRD) Non-Af 62 BUN/Creatinine Ratio 26.1 H Glucose 144 H Calcium 9.3 Magnesium 2.3 Total Bilirubin 0.10 L AST 35 ALT 63 H Alkaline Phosphatase 128 H Troponin I High Sens 5 Total Protein 7.6 Albumin 3.7 Globulin 3.9 Albumin/Globulin Ratio 0.9 TSH 1.88 Urine Color Yellow Urine Clarity Clear Urine pH 5.0 Ur Specific [place] 1.020 Urine Protein 15 H Urine Glucose (UA) Normal Urine Ketones Negative Urine Occult Blood 50 H Urine Nitrite Negative Urine Bilirubin Negative Urine Urobilinogen Normal Ur Leukocyte Esterase Negative Urine RBC 0-5 SEEN Urine WBC 0 SEEN Ur Squamous Epith Cells 0-5 SEEN Urine Bacteria 1+ Urine Mucus RARE Discharge Plan Triage Chief Complaint: Dizziness ED Provider: Rosales Collins Dx/Rx/DC Orders Clinical Impression: Medication withdrawal Prescriptions: No Action estradiol [Vivelle-Dot] 0.1 mg/24 hr patch semiweekly 1 patch transdermal 2XW Qty: 8 RF: 12 venlafaxine [Effexor XR] 75 mg capsule,extended release 24hr 75 mg PO DAILY Qty: 30 RF: 12 phentermine [Adipex-P] 37.5 mg capsule 37.5 mg PO DAILY Qty: 30 RF: 0 hydrochlorothiazide 25 mg tablet 25 mg PO DAILY Qty: 90 RF: 4 losartan 100 mg tablet 100 mg PO DAILY Qty: 90 RF: 3 Primary Care Provider: Chuck Denton Referrals: Chuck Denton MD [Primary Care Provider] - 1 Week if not improving Disposition Disposition: Home, Self Care
[2021-01-21 22:24] LABS: White Blood Cells 0 SEEN /hpf (0-5)
[2021-01-21 22:25] LABS: Color, Urine Yellow (Yellow); Glucose, Dipstick Normal (Normal); Ketone-Dipstick Negative (Negative); Leukocyte Esterase-Dipstick Negative /ul (Negative); Nitrite-Dipstick Negative (Negative); Occult Blood-Urine 50 /ul (Negative); Protein-Dipstick 15 mg/dl (Negative); Urine Bilirubin Dipstick Negative (Negative); Urine Clarity Clear (Clear); Urine Urobilinogen Normal (Normal)
[2021-01-21 22:38] LABS: Bacteria 1+ /hpf (None Seen); Mucous, Urine RARE /hpf (<or=2+); Red Blood Cells-Urine 0-5 SEEN /hpf (0-5); Squamous Epithelial Cells - UA 0-5 SEEN /hpf (5-10)
[2021-01-21 22:47] LABS: Absolute Neutrophil Count 2.8 X10^3/uL (2.0-7.7); Basophil# 0.01 X10^3/uL; Basophil% 0.2 % (0-1); Hematocrit 41.4 % (37-47); Hemoglobin 13.7 g/dL (12.0-15.0); Lymphocyte % 36.2 % (19-41); Mean Corp Hgb Conc 33.1 g/dL (32-36); Mean Corpuscular Hgb 30.8 pg (27.0-32.0); Mean Platelet Vol. 9.8 fl (6.2-12.0); Monocyte# 0.31 X10^3/uL; Monocyte% 6.2 % (0-10); NRBC Flagged by Analyzer 0 % (0-5); Neutrophil # 2.84 X10^3/uL (2.7-7.7); Neutrophil % 57.2 % (47-70); Platelet Count 304 K/mm3 (150-450); RBC Distribution Width CV 12.2 % (11.6-14.6); RBC Distribution Width SD 42.3 fl (35.1-43.9); Red Blood Count 4.45 M/mm3 (4.2-5.4)
[2021-01-21 23:47] LABS: ALB/GLOB Ratio 0.9 RATIO (0.9-2.4); AST(SGOT) 35 U/L (15-37); Alanine Aminotransfer ALT/SGPT 63 U/L (13-56); Albumin, Serum 3.7 g/dL (3.2-5.0); Alkaline Phosphatase 128 U/L (45-117); Anion Gap 9 (5-15); BUN 26 mg/dL (7-18); BUN/Creat Ratio 26.1 RATIO (10-20); Calcium,Total 9.3 mg/dL (8.5-10.1); Chloride 104 mmol/L (98-107); EST Glomerular Filtration Rate 62 mL/min (>60); Est Glom Filt Rate - Afr Amer 76 mL/min (>60); Estimated Creatinine Clearance 58.12 ml/min; Globulin 3.9 g/dL (2.2-4.2); Glucose 144 mg/dL (74-106); Magnesium 2.3 mg/dL (1.6-2.6); Potassium 3.9 mmol/L (3.5-5.1); Protein, Total 7.6 g/dL (6.4-8.2); Sodium Level 141 mmol/L (136-145); Thyroid Stim Hormone (TSH) 1.88 uIU/mL (0.358-3.74); Troponin-I HS 5 pg/mL (3.0-54.0)
[2021-01-22 00:16] VITALS: BP 138/96; PULSE 62; RESP 15; O2SAT 98
== END 2021-01-22 00:17 | disposition home or self-care (01) ==
PROVIDERS: Emergency Provider Emergency Medicine; PCP Internal Medicine
DX: F19.239 Other psychoactive substance dependence with withdrawal, unspecified (principal); E66.9 Obesity, unspecified; Z68.36 Body mass index [BMI] 36.0-36.9, adult; I10 Essential (primary) hypertension; F41.8 Other specified anxiety disorders; E78.5 Hyperlipidemia, unspecified; Z79.899 Other long term (current) drug therapy
CPT/HCPCS: 80053; 81001; 83735; 84443; 84484; 85025; 87426; 99284; A4216

== ENCOUNTER → 2021-02-15 12:07 | Outpatient (CLI) | payer OTHER, SELFPAY ==
[2021-02-15 14:16] LABS: AST(SGOT) 26 U/L (15-37); Alanine Aminotransfer ALT/SGPT 51 U/L (13-56); Alkaline Phosphatase 120 U/L (45-117); Bilirubin, Direct 0.12 mg/dL (0.00-0.30); Cholesterol 214 mg/dL (200); Globulin 3.9 g/dL (2.2-4.2); Glucose 105 mg/dL (74-106); High Density Lipoprotein 38 mg/dL; Protein, Total 7.9 g/dL (6.4-8.2); Triglycerides 239 mg/dL; Very Low Density Lipoprotein 48 mg/dL (5-40)
== END ==
PROVIDERS: PCP Internal Medicine; Referring Provider Internal Medicine Cardiovascular Disease; Visit Provider Internal Medicine Cardiovascular Disease
DX: E78.00 Pure hypercholesterolemia, unspecified (principal); E78.1 Pure hyperglyceridemia; E78.5 Hyperlipidemia, unspecified
CPT/HCPCS: 36415; 80061; 80076; 82947

== ENCOUNTER 2021-05-16 09:34 | Outpatient (CLI) | payer OTHER, SELFPAY ==
[2021-05-16 11:12] LABS: Vitamin D,25 Hydroxy 37.6 ng/mL
[2021-05-16 11:21] LABS: Cholesterol 207 mg/dL (200); Glucose 112 mg/dL (74-106); High Density Lipoprotein 37 mg/dL; Thyroid Stim Hormone (TSH) 0.98 uIU/mL (0.358-3.74); Triglycerides 213 mg/dL; Very Low Density Lipoprotein 43 mg/dL (5-40)
== END 2021-05-16 23:59 | disposition short-term general hospital (02) ==
LOC: LAB 09:35
PROVIDERS: PCP Internal Medicine; Visit Provider Obstetrics & Gynecology
DX: Z13.1 Encounter for screening for diabetes mellitus (principal); Z13.220 Encounter for screening for lipoid disorders; Z13.29 Encounter for screening for other suspected endocrine disorder; Z13.21 Encounter for screening for nutritional disorder
CPT/HCPCS: 36415; 80061; 82306; 82947; 84443

== ENCOUNTER 2021-06-07 10:30 | Outpatient (RCR) | payer OTHER, SELFPAY | END 2021-06-20 23:59 | LOC: NS 10:30 | PROVIDERS: PCP Internal Medicine; Referring Provider Internal Medicine; Visit Provider Internal Medicine | DX: Z00.00 Encounter for general adult medical examination without abnormal findings (principal); Z71.3 Dietary counseling and surveillance; E66.9 Obesity, unspecified | CPT/HCPCS: 97802; 97803 ==

== ENCOUNTER 2021-06-21 10:57 | Outpatient (RCR) | payer OTHER, SELFPAY | END 2021-07-21 23:59 | LOC: NS 10:57 | PROVIDERS: PCP Internal Medicine; Referring Provider Internal Medicine; Visit Provider Internal Medicine | DX: Z71.3 Dietary counseling and surveillance (principal); E66.9 Obesity, unspecified | CPT/HCPCS: 97803 ==

== ENCOUNTER 2021-06-22 12:49 | Outpatient (CLI) | payer OTHER, SELFPAY ==
--- NOTE | 2021-06-22 13:04 | ECHOCS_ITS ---
Reason For Study: HTN, TR Procedure This was a 2D Doppler, Color Flow transthoracic echocardiogram. Exam performed in department. Left Ventricle Normal LV size. Left ventricular systolic function is normal. The estimated ejection fraction is 60 %. Stage 1 diastolic dysfunction. No regional wall motion abnormalities noted. Right Ventricle Normal RV size. Normal systolic function. Atria Normal left atrium. Normal right atrium. Mitral Valve Normal mitral valve. Tricuspid Valve Normal tricuspid valve. Aortic Valve Trisinus/trileaflet aortic valve. Mild focal aortic valve calcification. Pulmonic Valve The pulmonic valve is not well visualized. Great Vessels Normal aortic root. The pulmonary artery is normal size. Normal inferior vena cava. Pericardium/Pleural No pericardial effusion. Medication 22 gauge I.V. with prn adaptor inserted into left arm. Diluted definity 3.0ml given slow IV push to enhance endocardial definition. MMode/2D Measurements & Calculations LVIDd: 3.8 cm IVSd: 0.87 cm Ao root diam: 2.8 cm LVIDs: 2.6 cm LVPWd: 0.96 cm FS: 31.2 % LAV(MOD-bp): 49.8 ml LA A4 area: 17.0 cm2 LA dimension(2D): 3.3 cm LAV(MOD-bp) Indexed: 25.2 ml/m2 LAV(MOD-sp2): 48.3 ml LAV(MOD-sp4): 47.6 ml Time Measurements MV dec time: 0.16 sec Doppler Measurements & Calculations MV E max rufino: 66.0 cm/sec Lat Peak E' Rufino: 12.6 cm/sec Med Peak E' Rufino: 7.5 cm/sec MV A max rufino: 86.7 cm/sec E/E' lat: 5.2 E/E' med: 8.8 MV E/A: 0.76 Ao V2 max: 192.2 cm/sec LV V1 max: 116.1 cm/sec PA V2 max: 109.9 cm/sec Ao max P.8 mmHg LV V1 max P.4 mmHg Ao V2 mean: 129.9 cm/sec LV V1 mean P.9 mmHg Ao mean P.5 mmHg LV V1 mean: 81.6 cm/sec Ao V2 VTI: 33.7 cm LV V1 VTI: 22.2 cm ECHO/Echo Complete W/ Contrast Interpretation Summary Normal LV size. Left ventricular systolic function is normal. The estimated ejection fraction is 60 %. Stage 1 diastolic dysfunction. Contrast injection was performed. Ordering Physician: Daysi Velasquez Referring Physician: Daysi Velasquez Performed By: Allie Holt RDCS, RVT
== END 2021-06-22 23:59 | disposition home or self-care (01) ==
LOC: CVS 12:49
PROVIDERS: PCP Internal Medicine; Referring Provider Nurse Practitioner Gerontology; Visit Provider Nurse Practitioner Gerontology
DX: I07.1 Rheumatic tricuspid insufficiency (principal)
CPT/HCPCS: 93306; Q9957; A4216; C8929

== ENCOUNTER 2021-08-09 09:00 | Outpatient (RCR) | payer OTHER, SELFPAY | END 2021-08-20 23:59 | LOC: NS 09:00 | PROVIDERS: PCP Internal Medicine; Referring Provider Internal Medicine; Visit Provider Internal Medicine | DX: Z00.00 Encounter for general adult medical examination without abnormal findings (principal); Z71.3 Dietary counseling and surveillance; E66.9 Obesity, unspecified | CPT/HCPCS: 97803 ==

== ENCOUNTER → 2021-09-10 | Outpatient (CLI) | payer OTHER, SELFPAY ==
[2021-09-10 09:37] LABS: AST(SGOT) 24 U/L (15-37); Alanine Aminotransfer ALT/SGPT 40 U/L (13-56); Albumin, Serum 3.9 g/dL (3.2-5.0); Alkaline Phosphatase 108 U/L (45-117); Bilirubin, Direct 0.14 mg/dL (0.00-0.30); Cholesterol 212 mg/dL (200); Globulin 3.7 g/dL (2.2-4.2); High Density Lipoprotein 35 mg/dL; Protein, Total 7.6 g/dL (6.4-8.2); Triglycerides 202 mg/dL; Very Low Density Lipoprotein 40 mg/dL (5-40)
== END | disposition home or self-care (01) ==
PROVIDERS: PCP Internal Medicine; Referring Provider Internal Medicine Cardiovascular Disease; Visit Provider Internal Medicine Cardiovascular Disease
DX: E78.00 Pure hypercholesterolemia, unspecified (principal); E78.5 Hyperlipidemia, unspecified
CPT/HCPCS: 36415; 80061; 80076

== ENCOUNTER → 2021-11-15 | Outpatient (CLI) | payer OTHER, SELFPAY ==
--- NOTE | 2021-11-15 10:01 | BI_ITS ---
MAMMOGRAPHY - BILATERAL SCREENING REASON FOR EXAM: Female, 51 years old. Routine annual screening examination. PERTINENT HISTORY: Non-contributory. History of prior bilateral breast reduction surgery. TECHNIQUE: Digital bilateral breast felisha (3D mammographic acquisition) in the CC and MLO projections. 2-D mediolateral oblique (MLO) and craniocaudad (CC) views of both breasts were obtained. CAD: Full Field Digital Mammography with Computer Added Detection was performed. COMPARISON: Comparison is made with prior study dated 11/09/2020 and 02/08/2011. FINDINGS: Breast Composition: There are scattered areas of fibroglandular density. There are no dominant masses or suspicious calcifications. Stable calcified nodules in the upper anterior lateral aspect of the left breast most likely postsurgical in nature. No other significant abnormalities are identified. There has been no significant change since the prior study. BI/SCRN MAMM (CAD)W/FELISHA BILAT IMPRESSION: Stable bilateral screening mammogram. Yearly follow-up mammogram recommended. (A) ASSESSMENT CATEGORY: BIRADS Category 2: Benign. A letter regarding these results will be sent to the patient by the facility within 30 days. Approximately 10% of breast cancers are not detected by mammography. A normal mammogram should not delay biopsy of a clinically suspicious abnormality. [id number] Electronically Signed: Haroldo Little MD at 10:51 EDT ,
== END | disposition home or self-care (01) ==
LOC: OPBI 10:00
PROVIDERS: PCP Internal Medicine; Referring Provider Obstetrics & Gynecology; Visit Provider Obstetrics & Gynecology
DX: Z12.31 Encounter for screening mammogram for malignant neoplasm of breast (principal)
CPT/HCPCS: 77063; 77067

== ENCOUNTER → 2021-12-29 | Outpatient (CLI) | payer OTHER, SELFPAY ==
[2021-12-29 09:27] LABS: Follicle Stimulating Hormone 62.1 mIU/mL; Luteinizing Hormone 28.4 mIU/mL
[2021-12-29 11:14] LABS: Estradiol 16.7 pg/mL
[2022-01-11 12:09] LABS: Testosterone, % Free 2.24 % (0.50-2.80); Testosterone, Free 0.56 ng/dL (0.10-0.85); Testosterone, Total 25 ng/dL (4-50)
[2022-01-11 13:05] LABS: Estrogen, Total, Serum 69 pg/mL (.)
== END | disposition home or self-care (01) ==
PROVIDERS: Nurse Practitioner Family; PCP Internal Medicine; Referring Provider Internal Medicine Endocrinology, Diabetes & Metabolism; Visit Provider Internal Medicine Endocrinology, Diabetes & Metabolism
DX: E88.81 Metabolic syndrome and other insulin resistance (principal); R53.82 Chronic fatigue, unspecified; N95.1 Menopausal and female climacteric states
CPT/HCPCS: 36415; 82533; 82670; 82672; 83001; 83002; 84402; 84403; 84443

== ENCOUNTER → 2022-01-13 | Outpatient (CLI) | payer OTHER, SELFPAY ==
[2022-01-13 12:30] LABS: Absolute Neutrophil Count 3.4 X10^3/uL (2.0-7.7); Basophil# 0.02 X10^3/uL; Basophil% 0.3 % (0-1); Eosinophil# 0.16 X10^3/uL; Eosinophils% 2.7 % (0-5); Hematocrit 40.3 % (37-47); Hemoglobin 13.3 g/dL (12.0-15.0); Mean Corpuscular Hgb 30.4 pg (27.0-32.0); Mean Corpuscular Volume 92.2 fL (81-99); Monocyte# 0.49 X10^3/uL; Monocyte% 8.2 % (0-10); NRBC Flagged by Analyzer 0 % (0-5); Neutrophil # 3.35 X10^3/uL (2.7-7.7); Neutrophil % 56.5 % (47-70); Platelet Count 328 K/mm3 (150-450); RBC Distribution Width CV 12.2 % (11.6-14.6); RBC Distribution Width SD 41.7 fl (35.1-43.9); Red Blood Count 4.37 M/mm3 (4.2-5.4); White Blood Count 5.9 K/mm3 (4.4-11.0)
[2022-01-13 12:48] LABS: Anion Gap 7 (5-15); BUN 18 mg/dL (7-18); BUN/Creat Ratio 19.4 RATIO (10-20); Calcium,Total 9.9 mg/dL (8.5-10.1); Chloride 102 mmol/L (98-107); Creatinine, Serum 0.93 mg/dL (0.55-1.02); EST Glomerular Filtration Rate 68 mL/min (>60); Est Glom Filt Rate - Afr Amer 82 mL/min (>60); Glucose 95 mg/dL (74-106); Potassium 3.5 mmol/L (3.5-5.1); Sodium Level 139 mmol/L (136-145)
[2022-01-16 08:48] LABS: Vitamin D 1,25-Dihydroxy 28.2 pg/mL (24.8-81.5)
== END | disposition home or self-care (01) ==
LOC: LAB 10:55
PROVIDERS: PCP Internal Medicine; Referring Provider Nurse Practitioner Gerontology; Visit Provider Nurse Practitioner Gerontology
DX: R53.83 Other fatigue (principal)
CPT/HCPCS: 36415; 80048; 82652; 85025

== ENCOUNTER 2022-03-24 07:56 | Outpatient (CLI) | payer OTHER, SELFPAY ==
--- NOTE | 2022-03-24 08:18 | RAD_ITS ---
STUDY: X-RAY - CERVICAL SPINE REASON FOR EXAM: Female, 52 years old. Neck pain and headache TECHNIQUE: 3 view(s) of the cervical spine were obtained. COMPARISON: None FINDINGS: Normal anterior atlantoaxial articulation. Normal odontoid process. Normal cervical lordosis. There is multi-level endplate spondylosis. There is multi-level degenerative disc disease with multilevel disc space narrowing. No suspicious osseous lesion, no demonstrated fracture The soft tissue structures are unremarkable. RAD/Cerv Spine 2 or 3 Views IMPRESSION: Age consistent degenerative changes, no acute findings Electronically Signed: Angelo Cruz MD at 11:02 EST ,
--- NOTE | 2022-03-24 08:18 | RAD_ITS ---
STUDY: X-RAY - LUMBAR SPINE REASON FOR EXAM: Female, 52 years old. Radiating low back pain TECHNIQUE: 4 view(s) of the lumbar spine were obtained. COMPARISON: None FINDINGS: Normal lumbar lordosis. There is a mild dextroscoliosis of the lumbar spine. There is a normal alignment of the vertebrae. Normal vertebral bodies and endplates. Normal disc space heights. The soft tissue structures are unremarkable. RAD/L/S Spine Min 4 Views IMPRESSION: Mild dextroscoliosis, otherwise unremarkable lumbar spine Electronically Signed: Angelo Cruz MD at 11:01 EST ,
== END 2022-03-24 23:59 | disposition home or self-care (01) ==
PROVIDERS: PCP Internal Medicine; Referring Provider Chiropractor; Visit Provider Chiropractor
DX: M54.2 Cervicalgia (principal); M99.01 Segmental and somatic dysfunction of cervical region; M99.03 Segmental and somatic dysfunction of lumbar region
CPT/HCPCS: 72040; 72110

== ENCOUNTER 2022-05-08 06:11 | Emergency (ER) | payer OTHER, SELFPAY ==
[2022-05-08 06:11] VITALS: BP 136/91; PULSE 87; RESP 15; TEMP 36.4; O2SAT 95; BMI 34.3
--- NOTE | 2022-05-08 06:29 | CT_ITS ---
INDICATION: Lower back pain started on Sunday, progressively worsening. Denies any injury. EXAMINATION: CT LUMBAR SPINE - CT Spine Lumbar W/O Contrast Injection TECHNIQUE: Helically acquired images were obtained of the lumbar spine. 2D reformats were reviewed. A radiation dose optimization technique was used for this scan. IV Contrast dosage and agent: None. COMPARISON: None. FINDINGS: No fracture, prevertebral soft tissue swelling or suspicious osseous lesion. Preserved vertebral body heights and disc spaces. Normal lumbar lordosis. Multilevel mild endplate spurring. Mild degenerative facet arthropathy lower lumbar spine. Mild spinal canal stenosis at L4-5 secondary to posterior disc bulging. No high-grade spinal canal stenosis or significant neural foraminal stenosis. Nonobstructing stones within right kidney measuring up to 6 mm diameter. Small low-attenuation 1.3 cm lesion posterior cortex left kidney. Mild atherosclerotic calcifications with no abdominal aortic aneurysm. No retroperitoneal adenopathy. CT/Spine Lumbar without Contrast IMPRESSION: 1. Mild lower lumbar degenerative facet arthropathy with posterior disc bulging at L4-5 resulting in mild spinal canal stenosis. 2. No acute osseous abnormality. 3. Nonobstructing right nephrolithiasis. 4. Probable small left renal cortical cyst, suboptimal evaluation by noncontrast imaging technique. Follow-up as clinically warranted. Electronically Signed: Angelito Carrasco MD at 7:25 EST ,
--- NOTE | 2022-05-08 06:30 | EX.ED.DYSGE1 ---
HPI History of Present Illness Chief Complaint: Back Narrative Narrative: Patient is a 52-year-old female with past medical history of hypertension hyperlipidemia and lumbar scoliosis as well as generative disc disease. She states that for the past few weeks she has been having low back pain greatest on the left with no known trauma. She also denies any excessive activity. She states she went to her chiropractor twice this month secondary to the back pain but has not had any symptom relief. She states that if she is up moving she feels like the pain is bearable as the muscles are loose but if she takes a rest or sleeps the muscle seem to become tight and spasm. She states that today the pain was more severe than it has been for the past few days and secondary to this comes in for evaluation. She denies any loss of bowel or bladder control or IV drug use. She denies any hematuria dysuria or concern for . She denies any numbness tingling or weakness PFSH [facility] Medical History Chronic fatigue Depression with anxiety Encounter for screening for COVID-19 Essential (primary) hypertension Family history of premature coronary artery disease Frequent headaches Hyperlipidemia Hypersomnolence Impaired fasting glucose Metabolic syndrome Obesity MARY (obstructive sleep apnea) Preventative health care Seasonal allergies Vision problem Home Medications fluoxetine 20 mg capsule (Prozac) 20 mg PO DAILY #30 caps 05/20/21 [Rx Last Taken Unknown] losartan 100 mg tablet 100 mg PO DAILY #90 tabs 07/22/21 [Rx Last Taken Unknown] hydrochlorothiazide 25 mg tablet 25 mg PO DAILY #90 tabs 02/06/22 [Rx Last Taken Unknown] Oral Sleep Appliance #1 ea 03/20/22 [Rx Last Taken Unknown] cholecalciferol (vitamin D3) 25 mcg (1,000 unit) capsule 25 mcg PO DAILY 03/23/22 [History Last Taken Unknown] dulaglutide 3 mg/0.5 mL subcutaneous pen injector (Trulicity) 3 mg (0.5 mL) subcut QWEEK #6 mL 03/23/22 [Rx Last Taken Unknown] ketorolac 10 mg tablet 10 mg PO 4X/DAY PRN PRN pain 5 days #20 tabs 05/08/22 [Rx Last Taken Unknown] methocarbamol 500 mg tablet 1,000 mg PO 4X/DAY PRN PRN Muscle pain/spasm #56 tabs 05/08/22 [Rx Last Taken Unknown] Allergy/AdvReac Type Severity Reaction Status Date / Time Sulfa (Sulfonamide Allergy Other Verified 05/08/22 06:17 Antibiotics) lisinopril AdvReac Intermediate Dry Verified 05/08/22 06:17 nagging cough Family History Father Hypertension Heart disease Diabetes Myocardial infarction Heavy smoker Mother High cholesterol Arthritis Heavy smoker Sister Myocardial infarction, Onset Age: 50 coronary stents CAD (coronary artery disease) Surgical History H/O abdominal surgery H/O bilateral breast reduction surgery H/O total hysterectomy History of bunionectomy History of knee surgery History of right salpingo-oophorectomy Social History Smoking Status: Never smoker second hand exposure: No alcohol intake: never substance use type: does not use what type of physical activity do you participate in: aerobics and weight training frequency: 3-4 times per week additional social history: [facility] ROS ROS ED Constitutional Constitutional ED: Denies chills or fever(s) ENT ENT ED: Denies sore throat Cardiovascular Cardiovascular: Denies chest pain Respiratory/Chest Respiratory/Chest: Denies cough or dyspnea Gastrointestinal Gastrointestinal: Denies abdominal pain, diarrhea, nausea or vomiting Genitourinary Genitourinary ED: Denies dysuria or hematuria Musculoskeletal Musculoskeletal: Reports back pain Integumentary Denies rash Neurologic Neurologic: Denies headache(s), paresthesias or weakness Hematologic/Lymphatic Hematologic/Lymphatic: Denies easy bleeding or easy bruising EXAM Physical Exam Const Vital Signs: 05/08/22 06:11 Temperature 97.6 F L Temperature Source Temporal Pulse Rate 87 Respiratory Rate 15 Blood Pressure 136/91 H Blood Pressure Mean 106 Pulse Ox 95 Oxygen Delivery Method Room Air Positive well nourished and well developed General Appearance ED: well developed Eyes PERRL and EOMs intact bilaterally Neck supple Resp normal respiratory effort and clear to auscultation bilaterally Cardio regular rate and regular rhythm Rate: other Other Details: Radial pulses are plus 2 out of 4 bilaterally are equal and symmetric Back/Spine Back/Spine Narrative: No bony deformity of the thoracic spine there is slight dextroscoliosis noted of the lumbar spine. There is mild midline pain to palpation over the lumbar spine that is worse in the left sacroiliac joint region. There is muscle tension and spasm and pain with palpation of the left paralumbar muscle belly region as well and this worsens with extension and rotation. Patient also has a positive Kelli sign on left. There is no saddle anesthesia. Negative straight leg raise. No clonus or Babinski. Patellar reflexes are +3-4 bilaterally Extremity normal to inspection Neuro oriented x3 and CN's II-XII intact bilaterally Sensorium / Orientation: alert Psych Psych Narrative: Patient has a tearful/anxious affect Skin no rashes or lesions noted Skin Narrative: No overlying soft tissue skin changes to suggest trauma or infection MDM MDM MDM Narrative Medical decision making narrative: Patient presented to the ER afebrile with stable vital. She had back pain that has been ongoing for multiple weeks and increased in the last few days. There is no report or signs of trauma and no report of excessive activity. She also denied any loss of bowel or bladder control or IV drug use and therefore my concern for osteomyelitis/epidural abscess and cauda equina are low. She also denies any recent surgery and without fever I have low concern for discitis. Her physical exam also shows no obvious signs of neuro claudication but as she has been having worsening pain and elected perform a noncontrast CT. this showed some degeneration in the low back with L4-L5 disc bulge but no severe nerve impingement which correlates with her exam. Patient was given Toradol Norflex and on reevaluation reported improvement of symptoms indicating this is most likely musculoskeletal in nature. Therefore at this time with low concern for neurologic impingement and infectious process and improvement of symptoms patient be given symptomatic medications and discharged home. Radiography Diagnostic Testing: Clinical Impression(s) from Imaging Studies Lumbar Spine CT 05/08/22 06:29 IMPRESSION: 1. Mild lower lumbar degenerative facet arthropathy with posterior disc bulging at L4-5 resulting in mild spinal canal stenosis. 2. No acute osseous abnormality. 3. Nonobstructing right nephrolithiasis. 4. Probable small left renal cortical cyst, suboptimal evaluation by noncontrast imaging technique. Follow-up as clinically warranted. Electronically Signed: Angelito Carrasco MD at 7:25 EST , Discharge Plan Triage Chief Complaint: Back ED Provider: Samuel Munroe Dx/Rx/DC Orders Clinical Impression: Acute lumbosacral myofascial strain, Spasm of back muscles, Degenerative disc disease, lumbar Instructions: ED Back Spasm, No Trauma Prescriptions: New ketorolac 10 mg tablet 10 mg PO 4X/DAY PRN PRN (Reason: pain) 5 Days Qty: 20 0RF methocarbamol 500 mg tablet 1,000 mg PO 4X/DAY PRN PRN (Reason: Muscle pain/spasm) Qty: 56 1RF No Action fluoxetine [Prozac] 20 mg capsule 20 mg PO DAILY Qty: 30 12RF cholecalciferol (vitamin D3) 25 mcg (1,000 unit) capsule 25 mcg PO DAILY Trulicity 3 mg/0.5 mL pen injector 3 mg subcut QWEEK Qty: 6 2RF losartan 100 mg tablet 100 mg PO DAILY Qty: 90 3RF hydrochlorothiazide 25 mg tablet 25 mg PO DAILY Qty: 90 4RF (DME) Oral Sleep Appliance See Rx Instructions .Route .MEDSUPPLY Qty: 1 0RF Rx Instructions: As directed Stand Alone Forms: ED Work / School Excuse Primary Care Provider: Chuck Denton Referrals: Chuck Denton MD [Primary Care Provider] - Activity Restrictions/Additional Instructions: Please continue to stretch and heat your low back to help reduce pain and speed healing and return to the ER should you have any further concerns Disposition Disposition: Home, Self Care
[2022-05-08] MEDS: Orphenadrine 60 MG/2 ML Ampul IM (06:33)
[2022-05-08] MEDS: Ketorolac 30 MG/ML Syringe IM (06:33)
== END 2022-05-08 08:09 | disposition home or self-care (01) ==
PROVIDERS: Emergency Provider Emergency Medicine; PCP Internal Medicine; Visit Provider Emergency Medicine
DX: S39.012A Strain of muscle, fascia and tendon of lower back, initial encounter (principal); X58.XXXA Exposure to other specified factors, initial encounter; M62.830 Muscle spasm of back; M51.26 Other intervertebral disc displacement, lumbar region; M51.36 Other intervertebral disc degeneration, lumbar region; I10 Essential (primary) hypertension; E78.5 Hyperlipidemia, unspecified; E66.9 Obesity, unspecified; G47.33 Obstructive sleep apnea (adult) (pediatric); Z79.899 Other long term (current) drug therapy
CPT/HCPCS: 72131; 96372; 99282

== ENCOUNTER → 2022-05-20 | Outpatient (CLI) | payer OTHER, SELFPAY ==
--- NOTE | 2022-05-20 07:38 | MRI_ITS ---
STUDY: MRI LUMBAR SPINE WITHOUT CONTRAST REASON FOR EXAM: Female, 52 years old. Cauda equina syndrome TECHNIQUE: Standardized fat and water weighted pulse sequences were obtained in the sagittal and axial planes. COMPARISON: CT lumbar spine without contrast 05/08/2022. FINDINGS: T11-T12 and T12-L1: (Sagittal only). Normal endplates. Normal disc height, hydration and morphology. No ventral extradural defects. Normal central canal and bilateral intervertebral neural foramina. Normal lumbar lordosis. There is no substantial scoliosis. Normal conus medullaris that terminates at the lower T12 vertebral body level. L1-2: Normal endplates. Normal disc height, hydration and morphology. Normal bilateral facet joints. Normal central canal and bilateral lateral recesses. Normal bilateral intervertebral neural foramina. L2-3: Normal endplates. Normal disc height, hydration and morphology. Normal bilateral facet joints. Normal central canal and bilateral lateral recesses. Normal bilateral intervertebral neural foramina. L3-4: Normal endplates. Normal disc height, hydration and morphology. Normal bilateral facet joints. Normal central canal and bilateral lateral recesses. Normal bilateral intervertebral neural foramina. L4-5: Normal endplates. Normal disc height, hydration and morphology. Moderate left degenerative facet arthropathy. Mild right degenerative facet arthropathy. Moderate central canal stenosis with an AP canal diameter 7 mm. Normal bilateral lateral recesses. Normal bilateral intervertebral neural foramina. L5-S1: Normal endplates. Normal disc height, hydration and morphology. Normal central canal stenosis with an AP canal diameter of 9.5 mm. Normal bilateral lateral recesses. Normal bilateral intervertebral neural foramina. Normal visualized sacral ala. Normal visualized paraspinous soft tissue structures. MRI/Spine Lumbar (Routine) IMPRESSION: 1. No MRI evidence of lumbar disc extrusion, disc protrusion or nerve root displacement. 2. Moderate central canal stenosis at L4-L5 disc space level with an AP canal diameter 7 mm and moderate left degenerative facet arthropathy. 3. Mild central canal stenosis at L5-S1 disc space level with an AP canal diameter of 9.5 mm. 4. No significant interval change when compared to CT lumbar spine of 05/08/2022. Electronically Signed: Ced Martell MD at 9:51 EST ,
== END | disposition home or self-care (01) ==
PROVIDERS: PCP Internal Medicine; Visit Provider Orthopaedic Surgery
DX: M48.061 Spinal stenosis, lumbar region without neurogenic claudication (principal); G83.4 Cauda equina syndrome; M48.07 Spinal stenosis, lumbosacral region; M47.816 Spondylosis without myelopathy or radiculopathy, lumbar region; M51.26 Other intervertebral disc displacement, lumbar region
CPT/HCPCS: 72148

== ENCOUNTER → 2022-09-06 | Outpatient (CLI) | payer OTHER, SELFPAY ==
[2022-09-06 08:38] LABS: AST(SGOT) 21 U/L (15-37); Alanine Aminotransfer ALT/SGPT 40 U/L (13-56); Albumin, Serum 3.9 g/dL (3.2-5.0); Alkaline Phosphatase 124 U/L (45-117); Anion Gap 7 (5-15); BUN 20 mg/dL (7-18); BUN/Creat Ratio 21.6 RATIO (10-20); Bilirubin, Direct 0.07 mg/dL (0.00-0.30); Calcium,Total 9.4 mg/dL (8.5-10.1); Chloride 107 mmol/L (98-107); Cholesterol 218 mg/dL (200); Creatinine, Serum 0.92 mg/dL (0.55-1.02); EST Glomerular Filtration Rate 68 mL/min (>60); Est Glom Filt Rate - Afr Amer 82 mL/min (>60); Globulin 3.7 g/dL (2.2-4.2); Glucose 141 mg/dL (74-106); High Density Lipoprotein 36 mg/dL; Potassium 4.3 mmol/L (3.5-5.1); Protein, Total 7.6 g/dL (6.4-8.2); Sodium Level 141 mmol/L (136-145); Thyroid Stim Hormone (TSH) 1.89 uIU/mL (0.358-3.74); Triglycerides 230 mg/dL; Very Low Density Lipoprotein 46 mg/dL (5-40)
== END | disposition home or self-care (01) ==
LOC: LAB 07:32
PROVIDERS: PCP Internal Medicine; Referring Provider Internal Medicine Cardiovascular Disease; Visit Provider Internal Medicine Cardiovascular Disease
DX: R73.03 Prediabetes (principal); E78.00 Pure hypercholesterolemia, unspecified
CPT/HCPCS: 36415; 80048; 80061; 80076; 84443

== ENCOUNTER 2022-11-06 04:15 | Emergency (ER) | payer OTHER, SELFPAY ==
[2022-11-06 04:16] VITALS: BP 153/95; PULSE 79; RESP 16; TEMP 36.3; O2SAT 98; BMI 36.3
[2022-11-06 04:29] LABS: Absolute Lymphocyte Count 2.92 X10^3/uL (0.83-4.51); Basophil# 0.03 X10^3/uL; Basophil% 0.4 % (0-1); Eosinophil# 0.16 X10^3/uL; Eosinophils% 2.1 % (0-5); Hematocrit 36.2 % (37-47); Hemoglobin 11.9 g/dL (12.0-15.0); Lymphocyte # 2.92 X10^3/ul (0.83-4.51); Lymphocyte % 37.8 % (19-41); Mean Corp Hgb Conc 32.9 g/dL (32-36); Mean Corpuscular Hgb 30.5 pg (27.0-32.0); Mean Corpuscular Volume 92.8 fL (81-99); Mean Platelet Vol. 9.9 fl (6.2-12.0); Monocyte# 0.62 X10^3/uL; NRBC Flagged by Analyzer 0 % (0-5); Neutrophil # 3.99 X10^3/uL (2.7-7.7); Neutrophil % 51.6 % (47-70); Platelet Count 269 K/mm3 (150-450); White Blood Count 7.7 K/mm3 (4.4-11.0)
[2022-11-06] MEDS: Ondansetron 4 MG/2 ML Vial IV ×2 (04:32→05:36)
[2022-11-06] MEDS: Morphine 4 MG/ML Syringe IV (04:32)
--- NOTE | 2022-11-06 04:35 | CT_ITS ---
INDICATION: right flank pain. A radiation dose optimization technique was used for this scan. COMPARISON: None. FINDINGS: Noncontrast serial CT axial images through the abdomen and pelvis with coronal and sagittal reformatted series. PANCREAS: No peripancreatic fat stranding. BOWEL/MESENTERY: No dilated bowel loops. No significant free fluid. No free air. GALLBLADDER: No pericholecystic fat stranding. LIVER/STOMACH: Marked fatty infiltration the liver. Likely associated hepatomegaly measuring up to 22 cm in the craniocaudal dimension. URINARY COLLECTING SYSTEM/ KIDNEYS: Right ureteropelvic junction 4 x 6 mm obstructing calculus with moderate right hydronephrosis. No significant renal parenchymal abnormality. APPENDIX: Normal caliber gas containing appendix. LUNG BASES: Unremarkable. BONES: Unremarkable for age. CT/Abdomen/Pelvis without Cont IMPRESSION: Right ureteropelvic junction 4 x 6 mm obstructing calculus with moderate right hydronephrosis. Marked fatty infiltration of the liver with likely associated hepatomegaly. Electronically Signed: Jordan Cruz MD at 5:11 EDT ,
[2022-11-06] MEDS: Ketorolac 30 MG/ML Syringe IV (04:37)
[2022-11-06 04:54] LABS: ALB/GLOB Ratio 1.1 RATIO (0.9-2.4); AST(SGOT) 20 U/L (15-37); Alanine Aminotransfer ALT/SGPT 33 U/L (13-56); Albumin, Serum 3.8 g/dL (3.2-5.0); Alkaline Phosphatase 122 U/L (45-117); Anion Gap 6 (5-15); BUN 25 mg/dL (7-18); BUN/Creat Ratio 20.5 RATIO (10-20); Calcium,Total 9.2 mg/dL (8.5-10.1); Chloride 106 mmol/L (98-107); Creatinine, Serum 1.22 mg/dL (0.55-1.02); EST Glomerular Filtration Rate 49 mL/min (>60); Est Glom Filt Rate - Afr Amer 59 mL/min (>60); Estimated Creatinine Clearance 46.58 ml/min; Globulin 3.5 g/dL (2.2-4.2); Glucose 130 mg/dL (74-106); Potassium 3.2 mmol/L (3.5-5.1); Protein, Total 7.3 g/dL (6.4-8.2); Sodium Level 141 mmol/L (136-145)
[2022-11-06] MEDS: HYDROmorphone 0.5 MG/0.5 ML SYRINGE IV ×2 (05:36→07:11)
--- NOTE | 2022-11-06 06:21 | EX.ED.DYSGE1 ---
HPI History of Present Illness Chief Complaint: Flank Pain Informant: patient Narrative Narrative: Patient is a 52-year-old female with past medical history of degenerative disc disease of the lumbar spine as well as hypertension hyperlipidemia. She states she went to bed normally last night then awoke roughly 1 hour prior to arrival with stabbing pain in the right abdomen radiating towards her back. She states that there was no recent trauma or excessive activity. She states that there is no improvement or worsening of the pain with any position change. She states she is nauseous secondary to the pain. She denies any hematuria or dysuria. She states she has a very remote history of kidney stone approximately 30 years ago and this feels similar nature and she is concerned for repeat stone so she comes in for evaluation. [facility] Medical History (Updated 11/06/22 @ 08:[address] Samuel Munroe, ) Chronic fatigue Depression with anxiety Encounter for screening for COVID-19 Essential (primary) hypertension Family history of premature coronary artery disease Frequent headaches Hyperlipidemia Hypersomnolence Impaired fasting glucose Metabolic syndrome Obesity MARY (obstructive sleep apnea) Prediabetes Preventative health care Seasonal allergies Vision problem Home Medications Oral Sleep Appliance #1 ea 03/20/22 [Rx Last Taken Unknown] fluoxetine 20 mg capsule (Prozac) 20 mg PO DAILY #30 caps 06/08/22 [Rx Last Taken Unknown] losartan 100 mg tablet 100 mg PO DAILY #90 tabs 07/03/22 [Rx Last Taken Unknown] hydrochlorothiazide 25 mg tablet 25 mg PO DAILY #90 tabs 09/08/22 [Rx Last Taken Unknown] metformin 500 mg tablet 500 mg PO BIDWMEAL #180 tabs 10/12/22 [Rx Last Taken Unknown] cephalexin 500 mg capsule 500 mg PO TID 7 days #21 caps 11/06/22 [Rx Last Taken Unknown] ketorolac 10 mg tablet 10 mg PO Q6H PRN pain 5 days #20 tabs 11/06/22 [Rx Last Taken Unknown] ondansetron 4 mg disintegrating tablet 4 mg PO TID PRN nausea and vomiting #21 tabs 11/06/22 [Rx Last Taken Unknown] oxycodone-acetaminophen 5 mg-325 mg tablet (Percocet) 1 tab PO Q6H PRN pain 3 days #12 tabs 11/06/22 [Rx Last Taken Unknown] tamsulosin 0.4 mg capsule (Flomax) 0.4 mg PO DAILY #14 caps 11/06/22 [Rx Last Taken Unknown] Allergy/AdvReac Type Severity Reaction Status Date / Time Sulfa (Sulfonamide Allergy Other Verified 11/06/22 04:16 Antibiotics) lisinopril AdvReac Intermediate Dry Verified 11/06/22 04:16 nagging cough Family History Father Hypertension Heart disease Diabetes Myocardial infarction Heavy smoker Mother High cholesterol Arthritis Heavy smoker Sister Myocardial infarction, Onset Age: 50 coronary stents CAD (coronary artery disease) Surgical History H/O abdominal surgery H/O bilateral breast reduction surgery H/O total hysterectomy History of bunionectomy History of knee surgery History of right salpingo-oophorectomy Social History Smoking Status: Never smoker second hand exposure: No alcohol intake: never substance use type: does not use what type of physical activity do you participate in: aerobics and weight training frequency: 3-4 times per week additional social history: [facility] ROS ROS ED Constitutional Constitutional ED: Denies chills or fever(s) ENT ENT ED: Denies sore throat Cardiovascular Cardiovascular: Denies chest pain Respiratory/Chest Respiratory/Chest: Denies cough or dyspnea Gastrointestinal Gastrointestinal: Reports abdominal pain and nausea; Denies diarrhea or vomiting Genitourinary Genitourinary ED: Denies dysuria or hematuria Musculoskeletal Musculoskeletal: Reports back pain; Denies myalgias Integumentary Denies rash Neurologic Neurologic: Denies headache(s) Hematologic/Lymphatic Hematologic/Lymphatic: Denies easy bleeding or easy bruising EXAM Physical Exam Const Vital Signs: 11/06/22 04:16 11/06/22 06:44 Temperature 97.3 F L Temperature Source Temporal Pulse Rate 79 72 Respiratory Rate 16 16 Blood Pressure 153/95 H 120/70 Blood Pressure Mean 114 86 Pulse Ox 98 96 Positive well nourished and well developed General Appearance ED: well developed HEENT HEENT Narrative: Normocephalic atraumatic Eyes PERRL and EOMs intact bilaterally General Eye ED: Negative for scleral icterus Neck supple Resp normal respiratory effort and clear to auscultation bilaterally Cardio regular rate and regular rhythm Rate: other Other Details: Radial pulses are plus 2 out of 4 bilaterally are equal and symmetric GI non-distended GI Narrative: Abdomen is soft and nondistended with normal active bowel sounds. Pain on palpation in the right lower to mid abdominal region without voluntary guarding or rigidity. No pulsatile mass or fluid wave Auscultation: normoactive bowel sounds Palpation: soft Back/Spine Back/Spine Narrative: Positive right CVA pain Extremity normal to inspection Neuro oriented x3, CN's II-XII intact bilaterally and no sensory deficits noted Sensorium / Orientation: alert Motor Exam: strength 5/5 throughout Psych mental status grossly normal Skin no rashes or lesions noted Skin Narrative: No overlying abrasions or ecchymosis to suggest trauma no associated erythema or warmth to suggest infection MDM MDM MDM Narrative Medical decision making narrative: Patient presented to the ER hypertensive but is in pain and otherwise with stable vitals. Her history of sudden onset right-sided abdominal/flank pain with no improvement or worsening on position changes concerning for kidney stone. There is also potential for UTI versus pyelonephritis versus acute appendicitis or atypical biliary colic and therefore basic blood work and a CT scan were obtained. Lab work revealed no signs of urosepsis or acute kidney injury. CT scan confirmed kidney stone that is 4 x 6 cm in nature with hydronephrosis. Patient received morphine Toradol and 2 doses of 0.5 mg of Dilaudid and had improvement of her pain. At this time as she has mild elevation to her creatinine but not significant level to correlate with acute kidney injury and no signs of urosepsis she will be discharged home and will follow-up on an outpatient basis for further evaluation. History & Record Review Discussion w/independent historian: Patient Lab Data Attestation: I reviewed the patient's lab results. Labs: Laboratory Results - last 24 hr 11/06/22 11/06/22 04:20 06:45 WBC 7.7 RBC 3.90 L Hgb 11.9 L Hct 36.2 L MCV 92.8 MCH 30.5 MCHC 32.9 RDW Std Deviation 41.0 RDW Coeff of Mei 12.0 Plt Count 269 MPV 9.9 Immature Gran % (Auto) 0.100 Neut % (Auto) 51.6 Lymph % (Auto) 37.8 [place] % (Auto) 8.0 Eos % (Auto) 2.1 Baso % (Auto) 0.4 Absolute Neuts (auto) 4.0 Absolute Lymphs (auto) 2.92 Nucleated RBC % 0 Sodium 141 Potassium 3.2 L Chloride 106 Carbon Dioxide 29.0 Anion Gap 6 BUN 25 H Creatinine 1.22 H Estim Creat Clear Calc 46.58 Est GFR (MDRD) Af Amer 59 L Est GFR (MDRD) Non-Af 49 L BUN/Creatinine Ratio 20.5 H Glucose 130 H Calcium 9.2 Total Bilirubin 0.30 AST 20 ALT 33 Alkaline Phosphatase 122 H Total Protein 7.3 Albumin 3.8 Globulin 3.5 Albumin/Globulin Ratio 1.1 Urine Color Yellow Urine Clarity Clear Urine pH 6.5 Ur Specific [place] 1.020 Urine Protein 15 H Urine Glucose (UA) Normal Urine Ketones 5 H Urine Occult Blood 250 H Urine Nitrite Negative Urine Bilirubin Negative Urine Urobilinogen Normal Ur Leukocyte Esterase 25 H Urine RBC 25-50 SEEN Urine WBC 0-5 SEEN Ur Squamous Epith Cells 0-5 SEEN Urine Bacteria 1+ Urine Mucus 1+ Radiography Diagnostic Testing: Clinical Impression(s) from Imaging Studies Abdomen/Pelvis CT 11/06/22 04:35 IMPRESSION: Right ureteropelvic junction 4 x 6 mm obstructing calculus with moderate right hydronephrosis. Marked fatty infiltration of the liver with likely associated hepatomegaly. Electronically Signed: Jordan Cruz MD at 5:11 EDT Reading Location ID and State: [facility] / [place] Tel , Service support , Discharge Plan Triage Chief Complaint: Flank Pain ED Provider: Samuel Munroe Dx/Rx/DC Orders Clinical Impression: Renal colic, Kidney stone, Essential (primary) hypertension Instructions: ED Kidney Stone w/ Colic Prescriptions: New oxycodone-acetaminophen [Percocet] 5-325 mg tablet 1 tab PO Q6H PRN (Reason: pain) 3 Days Qty: 12 0RF ketorolac 10 mg tablet 10 mg PO Q6H PRN (Reason: pain) 5 Days Qty: 20 0RF ondansetron 4 mg tablet,disintegrating 4 mg PO TID PRN (Reason: nausea and vomiting) Qty: 21 0RF tamsulosin [Flomax] 0.4 mg capsule 0.4 mg PO DAILY Qty: 14 0RF cephalexin 500 mg capsule 500 mg PO TID 7 Days Qty: 21 0RF No Action (DME) Oral Sleep Appliance See Rx Instructions .Route .MEDSUPPLY Qty: 1 0RF Rx Instructions: As directed fluoxetine [Prozac] 20 mg capsule 20 mg PO DAILY Qty: 30 12RF losartan 100 mg tablet 100 mg PO DAILY Qty: 90 3RF hydrochlorothiazide 25 mg tablet 25 mg PO DAILY Qty: 90 4RF metformin 500 mg tablet 500 mg PO BIDWMEAL Qty: 180 1RF Primary Care Provider: Chuck Denton Referrals: Chuck Denton MD [Primary Care Provider] - Lindsay Hunt MD [Med Staff - Active Staff] - Activity Restrictions/Additional Instructions: Please return to the ER if you develop a fever over 100.4 or your pain is not controlled with the prescribed medications. Also follow-up with urology to discuss need for stent placement Disposition Disposition: Home, Self Care
[2022-11-06 06:44] VITALS: BP 120/70; PULSE 72; RESP 16; O2SAT 96
[2022-11-06 06:57] LABS: Color, Urine Yellow (Yellow); Glucose, Dipstick Normal (Normal); Ketone-Dipstick 5 mg/dl (Negative); Leukocyte Esterase-Dipstick 25 /ul (Negative); Nitrite-Dipstick Negative (Negative); Occult Blood-Urine 250 /ul (Negative); Protein-Dipstick 15 mg/dl (Negative); Urine Bilirubin Dipstick Negative (Negative); Urine Clarity Clear (Clear); Urine Urobilinogen Normal (Normal); Urine pH 6.5 (5.0 - 8.0)
[2022-11-06 07:05] LABS: Bacteria 1+ /hpf (None Seen); Mucous, Urine 1+ /hpf (<or=2+); Red Blood Cells-Urine 25-50 SEEN /hpf (0-5); Squamous Epithelial Cells - UA 0-5 SEEN /hpf (5-10); White Blood Cells 0-5 SEEN /hpf (0-5)
[2022-11-06 09:13] VITALS: BP 117/79; PULSE 63; RESP 14; O2SAT 98
== END 2022-11-06 09:14 | disposition home or self-care (01) ==
PROVIDERS: Emergency Provider Emergency Medicine; PCP Internal Medicine; Visit Provider Emergency Medicine
DX: N13.2 Hydronephrosis with renal and ureteral calculous obstruction (principal); I10 Essential (primary) hypertension; N23 Unspecified renal colic; E78.5 Hyperlipidemia, unspecified; F41.8 Other specified anxiety disorders; Z79.899 Other long term (current) drug therapy; R73.03 Prediabetes; Z79.84 Long term (current) use of oral hypoglycemic drugs; Z90.710 Acquired absence of both cervix and uterus
CPT/HCPCS: 74176; 80053; 81001; 85025; 96374; 96375; 96376; 99283; J7030; A4216; J2405

== ENCOUNTER 2022-11-06 10:35 | Day surgery (SDC) | payer OTHER, SELFPAY ==
[2022-11-06] VITALS (12 sets, daily range): BP systolic 101–132; BP diastolic 66–86; PULSE 64–85; RESP 16–17; TEMP 36.1–36.7; O2SAT 94–100; BMI 36.0
[2022-11-06] MEDS: Lactated Ringers 1,000 ML 15 ML IV (11:38)
--- NOTE | 2022-11-06 12:19 | PCM.HP.STD ---
HPI - General General Date of Service: 11/06/22 Chief Complaint: Obstructing right kidney stone HPI Narrative AYANA MARIE, is a 52 F who presents for cystoscopy right stent placement she has a stone in the proximal right ureter has not severe pain I saw in the office this morning was recently discharged from the emergency room with a pain last night she was in severe renal colic so I placed a stent today. [facility] Medical History (Updated 11/06/22 @ 11:19 by Maisha Mckeon) Chronic fatigue Depression with anxiety Diabetes Encounter for screening for COVID-19 Essential (primary) hypertension Family history of premature coronary artery disease Frequent headaches Hyperlipidemia Hypersomnolence Impaired fasting glucose Metabolic syndrome Obesity MARY (obstructive sleep apnea) Prediabetes Preventative health care Seasonal allergies Vision problem Home Medications Oral Sleep Appliance #1 ea 03/20/22 [Rx Last Taken Unknown] fluoxetine 20 mg capsule (Prozac) 20 mg PO DAILY #30 caps 06/08/22 [Rx Last Taken Unknown] losartan 100 mg tablet 100 mg PO DAILY #90 tabs 07/03/22 [Rx Last Taken Unknown] hydrochlorothiazide 25 mg tablet 25 mg PO DAILY #90 tabs 09/08/22 [Rx Last Taken Unknown] metformin 500 mg tablet 500 mg PO BIDWMEAL #180 tabs 10/12/22 [Rx Last Taken Unknown] cephalexin 500 mg capsule 500 mg PO TID 7 days #21 caps 11/06/22 [Rx Last Taken Unknown] ketorolac 10 mg tablet 10 mg PO Q6H PRN pain 5 days #20 tabs 11/06/22 [Rx Last Taken Unknown] ondansetron 4 mg disintegrating tablet 4 mg PO TID PRN nausea and vomiting #21 tabs 11/06/22 [Rx Last Taken Unknown] oxycodone-acetaminophen 5 mg-325 mg tablet (Percocet) 1 tab PO Q6H PRN pain 3 days #12 tabs 11/06/22 [Rx Last Taken Unknown] tamsulosin 0.4 mg capsule (Flomax) 0.4 mg PO DAILY #14 caps 11/06/22 [Rx Last Taken Unknown] Allergy/AdvReac Type Severity Reaction Status Date / Time Sulfa (Sulfonamide Allergy Other Verified 11/06/22 04:16 Antibiotics) lisinopril AdvReac Intermediate Dry Verified 11/06/22 04:16 nagging cough Family History Father Hypertension Heart disease Diabetes Myocardial infarction Heavy smoker Mother High cholesterol Arthritis Heavy smoker Sister Myocardial infarction, Onset Age: 50 coronary stents CAD (coronary artery disease) Surgical History H/O abdominal surgery H/O bilateral breast reduction surgery H/O total hysterectomy History of bunionectomy History of knee surgery History of right salpingo-oophorectomy Social History Smoking Status: Never smoker second hand exposure: No alcohol intake: never substance use type: does not use what type of physical activity do you participate in: aerobics and weight training frequency: 3-4 times per week additional social history: [facility] Vital Signs Vital Signs Vital Signs: 11/06/22 11:21 11/06/22 11:21 Temperature 97.5 F L Temperature Source Temporal Pulse Rate 68 Respiratory Rate 16 Respiratory Pattern Normal Blood Pressure 131/86 H Blood Pressure Mean 101 Blood Pressure Source Monitor Blood Pressure Position Semi-Fowlers Blood Pressure Location Left Arm Pulse Ox 98 Oxygen Delivery Method Room Air Weight Weight: 95.254 kg Body Mass Index (BMI) 36.0
--- NOTE | 2022-11-06 12:22 | DCINST_ITS ---
Discharge Instructions Diet Discharge Diet: No restrictions, 1800 Calorie Control Diet and 4000 mg Sodium Diet Activity Discharge Activity: Return to Normal Activity Follow Up Care Please Follow Up With: Tom Espinoza MD When: call office for instruction Test Results: Test results from this visit will be discussed in further detail at your follow- up appointment, if applicable. Discharge Plan Admission Primary Reason for Your Visit: stone Attending Provider: Tom Espinoza Primary Care Provider: Chuck Denton Discharge Orders/Prescriptions Prescriptions: New phenazopyridine [Pyridium] 100 mg tablet 100 mg PO TID PRN (Reason: pain) Qty: 20 0RF No Action oxycodone-acetaminophen [Percocet] 5-325 mg tablet 1 tab PO Q6H PRN (Reason: pain) 3 Days Qty: 12 0RF ketorolac 10 mg tablet 10 mg PO Q6H PRN (Reason: pain) 5 Days Qty: 20 0RF ondansetron 4 mg tablet,disintegrating 4 mg PO TID PRN (Reason: nausea and vomiting) Qty: 21 0RF tamsulosin [Flomax] 0.4 mg capsule 0.4 mg PO DAILY Qty: 14 0RF cephalexin 500 mg capsule 500 mg PO TID 7 Days Qty: 21 0RF (DME) Oral Sleep Appliance See Rx Instructions .Route .MEDSUPPLY Qty: 1 0RF Rx Instructions: As directed fluoxetine [Prozac] 20 mg capsule 20 mg PO DAILY Qty: 30 12RF losartan 100 mg tablet 100 mg PO DAILY Qty: 90 3RF hydrochlorothiazide 25 mg tablet 25 mg PO DAILY Qty: 90 4RF metformin 500 mg tablet 500 mg PO BIDWMEAL Qty: 180 1RF Referrals / Follow Up: Chuck Denton MD [Primary Care Provider] - Tom Espinoza MD [Med Staff - Active Staff] - Disposition Disposition (needs filled in before D/C Order can be placed): Home, Self Care
[2022-11-06 12:28] LABS: Bedside Glucose 111 mg/dL (74-106)
[2022-11-06] MEDS: Cefazolin 2 GM in 0.9% Normal Saline 100 ML IV ×2 (12:30→13:00)
--- NOTE | 2022-11-06 12:48 | PCM.OPRPT ---
Report of Operation Date of Procedure: 11/06/22 Pre-Operative Diagnosis: Right obstructing ureteral calculi Post-Operative Diagnosis: The same Surgery/Procedure Performed:: Cystoscopy right retrograde right stent placement Description of Surgical Findings:: Patient was taken back to the operating room after induction of general anesthesia, the patient was placed in dorsolithotomy position. The urethra and genitals were prepped and draped in usual sterile fashion. Using a 21 [place] rigid cystourethroscope the entire length of the urethra was normal then went into the bladder. Identified the trigone the left and right ureteral orifice. I then cannulated the right orifice and advanced a wire up into the kidney. I then backloaded a 5 [place] open ended catheter over the wire and injected contrast to delineate the anatomy. After the retrograde was performed I then used fluoroscopic images and guidance to advanced a wire up into the kidney and over the 0.038 glidewire I advanced a 6 [place] by 26 cm double pigtail stent. I then pulled the 0.038 Glidewire off and the stent coiled in the kidney bladder good position. The bladder was then drained. We confirmed the position of the stent by fluoroscopy. Patient anesthetic was reversed and was taken back to the PACU in good condition. Surgeon: Tom Espinoza Drains: stent Estimated Blood Loss (mL): 0 Admit VTE Documentation VTE Present on Admission: No VTE Mechan Device Prophylaxis: SCD's VTE Pharm Prophylaxis ordered?: No
== END 2022-11-06 14:53 | disposition home or self-care (01) ==
LOC: SDC 10:38 → AC 10:40
PROVIDERS: PCP Internal Medicine; Referring Provider Urology; Visit Provider Urology
PROC: (CPT 52332; principal; 2022-11-06 11:50)
DX: N20.1 Calculus of ureter (principal); E11.9 Type 2 diabetes mellitus without complications; I10 Essential (primary) hypertension; Z82.49 Family history of ischemic heart disease and other diseases of the circulatory system; G47.33 Obstructive sleep apnea (adult) (pediatric); R53.82 Chronic fatigue, unspecified; G89.29 Other chronic pain; F41.8 Other specified anxiety disorders; E78.5 Hyperlipidemia, unspecified
CPT/HCPCS: 52332; 76000; 82962; J7120; C1769; C2617

== ENCOUNTER 2022-11-11 13:26 | Emergency (ER) | payer OTHER, SELFPAY ==
[2022-11-11 13:28] VITALS: BP 162/98; PULSE 89; RESP 18; TEMP 36.7; O2SAT 98
--- NOTE | 2022-11-11 13:45 | EDS_ITS ---
HPI History of Present Illness Chief Complaint: Complaint Informant: patient Narrative Narrative: Patient recently diagnosed with a kidney stone on the right, this was about 5 days ago, urology was able to get her in and place a stent because lithotripsy was not available, and she is scheduled to have lithotripsy 4 days from now. Since the stent was placed, she has been tolerating the pain which is better than it was prior, it is now gone from her back and just in her groin and she feels like she needs to urinate all the time, and has been having gross hematuria off-and-on. She has occasionally seen small clots. She has had no taiwo urinary retention. [facility] Medical History Chronic fatigue Depression with anxiety Diabetes Encounter for screening for COVID-19 Essential (primary) hypertension Family history of premature coronary artery disease Frequent headaches Hyperlipidemia Hypersomnolence Impaired fasting glucose Metabolic syndrome Obesity MARY (obstructive sleep apnea) Prediabetes Preventative health care Seasonal allergies Vision problem Home Medications Oral Sleep Appliance #1 ea 03/20/22 [Rx Last Taken Unknown] fluoxetine 20 mg capsule (Prozac) 20 mg PO DAILY #30 caps 06/08/22 [Rx Last Taken Unknown] losartan 100 mg tablet 100 mg PO DAILY #90 tabs 07/03/22 [Rx Last Taken Unknown] hydrochlorothiazide 25 mg tablet 25 mg PO DAILY #90 tabs 09/08/22 [Rx Last Taken Unknown] metformin 500 mg tablet 500 mg PO BIDWMEAL #180 tabs 10/12/22 [Rx Last Taken Unknown] cephalexin 500 mg capsule 500 mg PO TID 7 days #21 caps 11/06/22 [Rx Last Taken Unknown] ketorolac 10 mg tablet 10 mg PO Q6H PRN pain 5 days #20 tabs 11/06/22 [Rx Last Taken Unknown] ondansetron 4 mg disintegrating tablet 4 mg PO TID PRN nausea and vomiting #21 tabs 11/06/22 [Rx Last Taken Unknown] oxycodone-acetaminophen 5 mg-325 mg tablet (Percocet) 1 tab PO Q6H PRN pain 3 days #12 tabs 11/06/22 [Rx Last Taken Unknown] phenazopyridine 100 mg tablet (Pyridium) 100 mg PO TID PRN pain #20 tabs 11/06/22 [Rx Last Taken Unknown] tamsulosin 0.4 mg capsule (Flomax) 0.4 mg PO DAILY #14 caps 11/06/22 [Rx Last Taken Unknown] Allergy/AdvReac Type Severity Reaction Status Date / Time Sulfa (Sulfonamide Allergy Other Verified 11/11/22 13:28 Antibiotics) lisinopril AdvReac Intermediate Dry Verified 11/11/22 13:28 nagging cough Family History Father Hypertension Heart disease Diabetes Myocardial infarction Heavy smoker Mother High cholesterol Arthritis Heavy smoker Sister Myocardial infarction, Onset Age: 50 coronary stents CAD (coronary artery disease) Surgical History H/O abdominal surgery H/O bilateral breast reduction surgery H/O total hysterectomy History of bunionectomy History of knee surgery History of right salpingo-oophorectomy Social History Smoking Status: Never smoker second hand exposure: No alcohol intake: never substance use type: does not use what type of physical activity do you participate in: aerobics and weight training frequency: 3-4 times per week additional social history: single- [facility] ROS ROS ED Constitutional Constitutional ED: Reports malaise; Denies chills or fever(s) Eyes Eyes: Denies change in vision or diplopia ENT ENT ED: Denies rhinorrhea or sore throat Cardiovascular Cardiovascular: Denies chest pain or palpitations Respiratory/Chest Respiratory/Chest: Denies cough or dyspnea Gastrointestinal Gastrointestinal: Reports abdominal pain; Denies diarrhea, nausea or vomiting Genitourinary Genitourinary ED: Denies dysuria or hematuria Musculoskeletal Musculoskeletal: Denies back pain or neck pain Integumentary Denies abscess or rash Neurologic Neurologic: Denies headache(s), paresthesias or weakness Psychiatric Psychiatric: Denies anxiety or suicidal thoughts EXAM Physical Exam Const Vital Signs: 11/11/22 13:28 Temperature 98.0 F Temperature Source Temporal Pulse Rate 89 Respiratory Rate 18 Blood Pressure 162/98 H Blood Pressure Mean 119 Pulse Ox 98 Oxygen Delivery Method Room Air Positive well nourished and well developed General Appearance ED: well developed and NAD HEENT Reports moist mucous membranes normocephalic and atraumatic Eyes PERRL and EOMs intact bilaterally Neck full ROM and supple Resp normal respiratory effort and clear to auscultation bilaterally Cardio regular rate, regular rhythm and no murmurs GI non-tender and non-distended Auscultation: normoactive bowel sounds Palpation: soft Back/Spine no CVA tenderness General Back: other FROM Extremity normal to inspection General Extremety ED: Negative for edema, pulses abnormal or tenderness General Extremity: Negative for edema or pulses abnormal Neuro oriented x3, CN's II-XII intact bilaterally and no sensory deficits noted Sensorium / Orientation: awake and alert Motor Exam: strength 5/5 throughout Skin no rashes or lesions noted and no wounds MDM MDM MDM Narrative Medical decision making narrative: Obtained urinalysis, it does not show acute infection, rather mostly blood. The specimen itself is not grossly bloody. She does not have acute urinary retention, her symptoms are well controlled, she is not anticoagulated, and pain is not the issue. Therefore I do not think we need to image her stent or stone right now. I did review her CT that she had recently showing a 4X6 UPJ stone. We discussed reasons to return, I will send her urine for culture she is already on a prophylactic antibiotic that she is advised to continue and finish, and she will follow-up with urology. Lab Data Attestation: I reviewed the patient's lab results. Labs: Laboratory Results - last 24 hr 11/11/22 14:02 Urine Color Yellow Urine Clarity Clear Urine pH 6.0 Ur Specific [place] 1.015 Urine Protein 30 H Urine Glucose (UA) Normal Urine Ketones Negative Urine Occult Blood 250 H Urine Nitrite Negative Urine Bilirubin Negative Urine Urobilinogen Normal Ur Leukocyte Esterase 25 H Urine RBC 50-100 SEEN Urine WBC 5-10 SEEN Ur Squamous Epith Cells 0-5 SEEN Urine Bacteria 1+ Urine Mucus 0 SEEN Discharge Plan Triage Chief Complaint: Complaint ED Provider: Marko Alonso Dx/Rx/DC Orders Clinical Impression: Hematuria, Urolithiasis Instructions: ED Hematuria Prescriptions: No Action oxycodone-acetaminophen [Percocet] 5-325 mg tablet 1 tab PO Q6H PRN (Reason: pain) 3 Days Qty: 12 0RF ketorolac 10 mg tablet 10 mg PO Q6H PRN (Reason: pain) 5 Days Qty: 20 0RF ondansetron 4 mg tablet,disintegrating 4 mg PO TID PRN (Reason: nausea and vomiting) Qty: 21 0RF tamsulosin [Flomax] 0.4 mg capsule 0.4 mg PO DAILY Qty: 14 0RF cephalexin 500 mg capsule 500 mg PO TID 7 Days Qty: 21 0RF phenazopyridine [Pyridium] 100 mg tablet 100 mg PO TID PRN (Reason: pain) Qty: 20 0RF (DME) Oral Sleep Appliance See Rx Instructions .Route .MEDSUPPLY Qty: 1 0RF Rx Instructions: As directed fluoxetine [Prozac] 20 mg capsule 20 mg PO DAILY Qty: 30 12RF losartan 100 mg tablet 100 mg PO DAILY Qty: 90 3RF hydrochlorothiazide 25 mg tablet 25 mg PO DAILY Qty: 90 4RF metformin 500 mg tablet 500 mg PO BIDWMEAL Qty: 180 1RF Primary Care Provider: Chuck Denton Referrals: Chuck Denton MD [Primary Care Provider] - Tom Espinoza MD [Med Staff - Active Staff] - Keep [facility] appointment Disposition Disposition: Home, Self Care
[2022-11-11 13:58] VITALS: BMI 34.7
[2022-11-11 14:14] LABS: Mucous, Urine 0 SEEN /hpf (<or=2+)
[2022-11-11 14:22] LABS: Color, Urine Yellow (Yellow); Glucose, Dipstick Normal (Normal); Ketone-Dipstick Negative (Negative); Leukocyte Esterase-Dipstick 25 /ul (Negative); Nitrite-Dipstick Negative (Negative); Occult Blood-Urine 250 /ul (Negative); Protein-Dipstick 30 mg/dl (Negative); Specific Gravity, Urine 1.015 (1.002-1.030); Urine Bilirubin Dipstick Negative (Negative); Urine Clarity Clear (Clear); Urine Urobilinogen Normal (Normal)
[2022-11-11 14:31] LABS: Bacteria 1+ /hpf (None Seen); Red Blood Cells-Urine 50-100 SEEN /hpf (0-5); Squamous Epithelial Cells - UA 0-5 SEEN /hpf (5-10); White Blood Cells 5-10 SEEN /hpf (0-5)
== END 2022-11-11 15:27 | disposition home or self-care (01) ==
PROVIDERS: Emergency Provider Emergency Medicine; PCP Internal Medicine; Visit Provider Emergency Medicine
DX: N20.9 Urinary calculus, unspecified (principal); E11.9 Type 2 diabetes mellitus without complications; I10 Essential (primary) hypertension; F41.8 Other specified anxiety disorders; Z79.899 Other long term (current) drug therapy; E78.5 Hyperlipidemia, unspecified; Z79.84 Long term (current) use of oral hypoglycemic drugs; Z90.710 Acquired absence of both cervix and uterus; Z90.721 Acquired absence of ovaries, unilateral; R31.9 Hematuria, unspecified
CPT/HCPCS: 81001; 87086; 87088; 99282

== ENCOUNTER → 2022-11-13 | Outpatient (CLI) | payer OTHER, SELFPAY ==
--- NOTE | 2022-11-13 07:32 | BI_ITS ---
MAMMOGRAPHY - BILATERAL SCREENING REASON FOR EXAM: Female, 52 years old. Routine annual screening examination. PERTINENT HISTORY: Non-contributory. History of prior bilateral breast reduction surgery. TECHNIQUE: Digital bilateral breast felisha (3D mammographic acquisition) in the CC and MLO projections. 2-D mediolateral oblique (MLO) and craniocaudad (CC) views of both breasts were obtained. CAD: Full Field Digital Mammography with Computer Added Detection was performed. COMPARISON: Comparison is made with prior study dated November 15, 2021 and November 09, 2020 FINDINGS: Breast Composition: There are scattered areas of fibroglandular density. There are no dominant masses or suspicious calcifications. Stable small calcified nodules in the upper anterior lateral aspect of the left breast most likely representing small calcified fibroadenomas. No other significant abnormalities are identified. There has been no significant change since the prior study. BI/SCRN MAMM (CAD)W/FELISHA BILAT IMPRESSION: Stable bilateral screening mammogram. Yearly follow-up mammogram recommended. (A) ASSESSMENT CATEGORY: BIRADS Category 2: Benign. A letter regarding these results will be sent to the patient by the facility within 30 days. Approximately 10% of breast cancers are not detected by mammography. A normal mammogram should not delay biopsy of a clinically suspicious abnormality. [id number] Electronically Signed: Haroldo Little MD at 8:51 EDT ,
== END | disposition home or self-care (01) ==
LOC: OPBI 07:31
PROVIDERS: PCP Internal Medicine; Referring Provider Obstetrics & Gynecology; Visit Provider Obstetrics & Gynecology
DX: Z12.31 Encounter for screening mammogram for malignant neoplasm of breast (principal)
CPT/HCPCS: 77063; 77067

== ENCOUNTER 2022-11-15 13:17 | Day surgery (SDC) | payer OTHER, SELFPAY ==
[2022-11-15] VITALS (7 sets, daily range): BP systolic 128–151; BP diastolic 74–93; PULSE 70–85; RESP 16–17; TEMP 36.3–36.7; O2SAT 92–99; BMI 34.8
[2022-11-15] MEDS: Lactated Ringers 1,000 ML 15 ML IV (13:38)
[2022-11-15 13:59] LABS: Bedside Glucose 94 mg/dL (74-106)
[2022-11-15] MEDS: Cefazolin 2 GM in 0.9% Normal Saline 100 ML IV (14:36)
--- NOTE | 2022-11-15 15:10 | HP.PCM_ITS ---
HPI - General General Date of Service: 11/15/22 Chief Complaint: Right kidney stone HPI Narrative AYANA MARIE, is a 52 F who presents for right extracorporeal shockwave lithotripsy and stent removal COUNT INCLUDES THE [facility] Medical History (Updated 11/14/22 @ 00:20 by Vielka Tobias) Alcohol use Anxiety Back pain Cardiology follow-up encounter Chronic fatigue Depression with anxiety Diabetes Dietary restriction Encounter for screening for COVID-19 Essential (primary) hypertension Family history of premature coronary artery disease Frequent headaches History of echocardiogram History of IBS History of pain when walking Hyperlipidemia Hypersomnolence Hypertension Impaired fasting glucose Injury of head and neck Metabolic syndrome Migraine headache Non-smoker Obesity MARY (obstructive sleep apnea) Prediabetes Preventative health care Restless legs Seasonal allergies Vision problem Wears glasses Home Medications Oral Sleep Appliance #1 ea 03/20/22 [Rx Last Taken Unknown] fluoxetine 20 mg capsule (Prozac) 20 mg PO DAILY #30 caps 06/08/22 [Rx Last Taken 11/14/22] losartan 100 mg tablet 100 mg PO DAILY #90 tabs 07/03/22 [Rx Last Taken 11/14/22] hydrochlorothiazide 25 mg tablet 25 mg PO DAILY #90 tabs 09/08/22 [Rx Last Taken 11/14/22] metformin 500 mg tablet 500 mg PO BIDWMEAL #180 tabs 10/12/22 [Rx Last Taken 11/14/22] cephalexin 500 mg capsule 500 mg PO TID 7 days #21 caps 11/06/22 [Rx Last Taken 11/14/22] tamsulosin 0.4 mg capsule (Flomax) 0.4 mg PO DAILY #14 caps 11/06/22 [Rx Last Taken 11/14/22] Allergy/AdvReac Type Severity Reaction Status Date / Time Sulfa (Sulfonamide Allergy Other Verified 11/15/22 13:32 Antibiotics) lisinopril AdvReac Intermediate Dry Verified 11/15/22 13:32 nagging cough Family History Father Hypertension Heart disease Diabetes Myocardial infarction Heavy smoker Mother High cholesterol Arthritis Heavy smoker Sister Myocardial infarction, Onset Age: 50 coronary stents CAD (coronary artery disease) Surgical History (Updated 11/13/22 @ 10:07 by Tessy Trujillo) H/O abdominal surgery H/O bilateral breast reduction surgery H/O total hysterectomy History of bunionectomy History of knee surgery History of right salpingo-oophorectomy Hx of cystoscopy Social History Smoking Status: Never smoker second hand exposure: No alcohol intake: never substance use type: does not use what type of physical activity do you participate in: aerobics and weight training frequency: 3-4 times per week additional social history: [facility]- [facility] Vital Signs Vital Signs Vital Signs: 11/15/22 13:33 11/15/22 13:33 Temperature 97.4 F L Temperature Source Temporal Pulse Rate 85 Respiratory Rate 17 Respiratory Pattern Normal Blood Pressure 142/89 H Blood Pressure Mean 106 Blood Pressure Source Monitor Blood Pressure Position Semi-Fowlers Blood Pressure Location Left Arm Pulse Ox 97 Oxygen Delivery Method Room Air Weight Weight: 92 kg Body Mass Index (BMI) 34.8 Results Lab / Micro Data Labs: Laboratory Results - last 24 hr 11/15/22 13:34: POC Glucose 94
--- NOTE | 2022-11-15 15:11 | DCINST_ITS ---
Discharge Instructions Diet Discharge Diet: No restrictions, 1800 Calorie Control Diet and 4000 mg Sodium Diet Activity Discharge Activity: Return to Normal Activity Follow Up Care Please Follow Up With: Tom Espinoza MD When: call office for instruction Test Results: Test results from this visit will be discussed in further detail at your follow- up appointment, if applicable. Discharge Plan Admission Primary Reason for Your Visit: kidney stone Attending Provider: Tom Espinoza Primary Care Provider: Chuck Denton Discharge Orders/Prescriptions Prescriptions: Continued tamsulosin [Flomax] 0.4 mg capsule 0.4 mg PO DAILY Qty: 14 0RF cephalexin 500 mg capsule 500 mg PO TID 7 Days Qty: 21 0RF (DME) Oral Sleep Appliance See Rx Instructions .Route .MEDSUPPLY Qty: 1 0RF Rx Instructions: As directed fluoxetine [Prozac] 20 mg capsule 20 mg PO DAILY Qty: 30 12RF losartan 100 mg tablet 100 mg PO DAILY Qty: 90 3RF hydrochlorothiazide 25 mg tablet 25 mg PO DAILY Qty: 90 4RF metformin 500 mg tablet 500 mg PO BIDWMEAL Qty: 180 1RF Referrals / Follow Up: Chuck Denton MD [Primary Care Provider] - Tom Espinoza MD [Med Staff - Active Staff] - Disposition Disposition (needs filled in before D/C Order can be placed): Home, Self Care
--- NOTE | 2022-11-15 15:11 | PCM.OPRPT ---
Report of Operation Date of Procedure: 11/15/22 Pre-Operative Diagnosis: Right kidney stone status post stent Post-Operative Diagnosis: Same Surgery/Procedure Performed:: Right ESWL and cystoscopy and stent removal Description of Surgical Findings:: Patient presents to the hospital for treatment of a kidney stone with shockwave lithotripsy. In the preoperative area and x-ray was done to confirm the location of the stone. The x-ray was reviewed and the stone location was reviewed. In the preoperative setting I spoke with the patient regarding the treatment of the stone how the treatment would be conducted and the expectations after surgery. The patient understands there is a risk of bleeding and infection. Also discussed the very rare risk of hematoma or damage to the kidney. We also discussed the risk that the shockwave machine will fail to break the stone adequately and that the patient may need other surgical procedures. We also discussed the possibility that the patient may need a stent after the procedure. After reviewing the procedure with the patient, the patient is signed the consent form all the patient's questions were addressed and was taken back to the operating room for treatment of a kidney stone. Patient was taken back to the operating room, patient was identified by the nursing staff, we identified the side of the treatment and the patient side of treatment had been marked by my initials. The patient underwent general anesthetic and was placed supine on the lithotripter table. We then used fluoroscopy to identify the stone on the Right side. We then positioned the patient under the lithotripter and we used triangulation technique to identify the location of the stone and then we made sure that the stone was engaged in the F2 focal point of F2 Donier lithoprior machine. Once the patient was positioned appropriately and the stone was identified and placed in the F2 focal point of the lithotripter machine we then proceeded with shockwave lithotripsy. In the beginning the shockwave was delivered at a rate of 90 shocks per minute, we monitor the EKG for any ectopy. The power was slowly increased to 5 kV and subsequently at the 7 kV. We then proceeded with the treatment we move the therapy had around during the treatment to make sure the stone stayed in the F2 focal point during the entire treatment and after 3000 shockwaves were delivered to the stone under fluoroscopic guidance the treatment was completed. The patient's urethra and genitals were prepped and draped in usual sterile fashion. I went into the bladder with a 21 Croatian rigid cystourethroscope. I grabbed the stent emanating from the right ureteral orifice and then gently remove the stent from the bladder. I then drained the patient's bladder. The patient was given instructions to call the office to make an a follow-up appointment with an xray to evaluate the success of the treatment, pateint understands that its possible the stones may need another procedure.At this point the patient's anesthetic was reversed patient was extubated and taken back to the PACU in stable condition. Surgeon: Tom Espinoza Type of Anesthesia: General Drains: stent removed Admit VTE Documentation VTE Present on Admission: No VTE Mechan Device Prophylaxis: SCD's VTE Pharm Prophylaxis ordered?: No
[2022-11-15 16:01] LABS: Bedside Glucose 84 mg/dL (74-106)
[2022-11-15] MEDS: Ketorolac 15 MG/ML Vial IV (16:36)
== END 2022-11-15 17:51 | disposition home or self-care (01) ==
LOC: SDC 13:18 → AC 13:19
PROVIDERS: PCP Internal Medicine; Referring Provider Urology; Visit Provider Urology
PROC: (CPT 50590; principal; 2022-11-15 15:10)
DX: N20.0 Calculus of kidney (principal); E11.9 Type 2 diabetes mellitus without complications; I10 Essential (primary) hypertension; Z79.84 Long term (current) use of oral hypoglycemic drugs; Z87.19 Personal history of other diseases of the digestive system; E78.5 Hyperlipidemia, unspecified; G47.33 Obstructive sleep apnea (adult) (pediatric)
CPT/HCPCS: 50590; 52310; 00873; 82962; J7120; J2405

== ENCOUNTER → 2023-03-23 | Outpatient (CLI) | payer OTHER, SELFPAY ==
--- NOTE | 2023-03-23 13:29 | STEWCON_ITS ---
Reason For Study: CHEST PAIN Stress Results Protocol: Bal Protocol WITH DEFINITY Maximum Predicted HR: 167 bpm Target HR: 142 bpm % Maximum Predicted HR: 102 % DurationHeart Rate Stage (mm:ss) (bpm) BP Comment BASELINE 71 132/922 CC DEFINITY STAGE 1 3:00 114 130/78 STAGE 2 3:00 127 144/64 STAGE 3 3:00 150 158/80 STAGE 4 3:00 171 164/72 RECOVERY 95 128/803 DEFINITY Stress Duration: 12:00 mm:ss Maximum Stress HR: 171 bpm Baseline Echocardiogram Findings Stress Echo Wall motion Data Resting WM Intermediate WM Stress WM Doppler Measurements & Calculations TR max deandre: 208.1 cm/sec TR max P.3 mmHg ECHO/Stress Test Echo W/Contrast Interpretation Summary Stress echocardiogram. 53-year-old lady with a history of chest pain. Resting EKG demonstrates normal sinus rhythm with a rate of 71 bpm no intervals are noted resting blood pressure is 132/92 mmHg. The patient exercised according to the regular B ruce protocol for total duration of 12 minutes. Patient completed stage IV of the Bal protocol the maximum heart rate attained was 171 bpm which is 102% of max impacted heart rate the maximum workload was 13.4 metabolic equivalents. At rest there were no ST or T wave changes noted suggest ischemia and at peak exercise upsloping ST changes were noted which did not meet the criteria for is chemia. No clinical angina was noted the test was terminated due to the target heart rate being ach ieved. The peak blood pressure was 164/72 which was a good blood pressure response to exercise the ra te-pressure product was 28,000. Stress echocardiogram. Resting echocardiogram was performed with Definity enhancement with an estimate d ejection fraction of 57%. No wall motion abnormalities are noted. At peak exercise there was thic kening of all schmidt with reduction of low ventricular cavity size peaking of ejection fraction of 7 0%. Conclusion: Exercise stress echocardiogram with no evidence of ischemia at a high workload. Excellent functional aerobic capacity. No arrhythmias noted. Ordering Physician: Montez Petty Referring Physician: Montez Petty Performed By: Oanh Morrell, JHON, RVT
== END | disposition home or self-care (01) ==
LOC: CVS 13:28
PROVIDERS: PCP Internal Medicine; Referring Provider Internal Medicine Cardiovascular Disease; Visit Provider Internal Medicine Cardiovascular Disease
DX: M79.601 Pain in right arm (principal); M79.602 Pain in left arm; M25.512 Pain in left shoulder; I20.89 Other forms of angina pectoris
CPT/HCPCS: 93017; 93350; Q9957; A4216; C8928

== ENCOUNTER → 2023-03-29 | Outpatient (CLI) | payer OTHER, SELFPAY ==
--- NOTE | 2023-03-29 09:27 | RAD_ITS ---
STUDY: X-RAY - ABDOMEN/PELVIS REASON FOR EXAM: Female, 53 years old. KIDNEY STONE TECHNIQUE: KUB COMPARISON: CT of the abdomen November 06, 2022 FINDINGS: Normal visualized lung bases. There is an unremarkable bowel gas pattern. There is no demonstrated free abdominal air. The visualized liver, spleen and kidneys are grossly normal in size and morphology. Calcified phlebolith noted in the lower pelvis on the right.. Normal visualized osseous structures. Previously noted proximal right ureteral calculus not visualized suggesting interval passage of stone. Clinical correlation recommended in this region RAD/Abdomen Single View IMPRESSION: Normal x-ray examination of the abdomen and pelvis. Electronically Signed: Silviano Foley MD at 17:01 EST ,
== END | disposition home or self-care (01) ==
LOC: RAD 09:26
PROVIDERS: PCP Internal Medicine; Referring Provider Nurse Practitioner; Visit Provider Nurse Practitioner
DX: N20.0 Calculus of kidney (principal)
CPT/HCPCS: 74018

== ENCOUNTER → 2023-04-26 | Outpatient (CLI) | payer OTHER, SELFPAY ==
--- OUTSIDE RECORDS SUMMARY | 2023-04-26 11:47 | XMS RPT_ITS | CCD ---
Author Name Unknown Address [address] [place] [address] Organization [facility] Care Team Providers Care Driving Instructor Name Role Phone SHIRLEY HOUSTON Attending Unavailable SHIRLEY HOUSTON Referring Unavailable JOSUÉ CONLEY Primary Care Unavailable Results Test Name Value Interpretation Reference Range Facil ity Encounters Encounter Date Encounter Type Care Provider Facility Start: 06-28-2018 End: 06-29-2018 Patient encounter procedure SHIRLEY HOUSTON Facility:[id number] Payers Date Payer Category Payer Unknown 1970 Unknown [id number] Clinical Note 03-02-2021 Note Date & Type Note Facility 03-02-2021 Note HNO ID: [id number] Author: Sunil Robertson APRN.ROD BENDING MACHINE OPERATOR Service: Anesthesiology Author Type: Nurse Occupational Health And Safety Adviser Type: Anesthesia Procedure Notes Filed: 03/02/2021 9:27 AM Note Text: ANESTHESIOLOGY PROCEDURE NOTE Airway General Information Procedure Start Time/Medication Administration: 03/02/2021 8:54 AM Patient location during procedure: OR Patient identity confirmed: arm band and patient Staffing Anesthesiologist: Daljit Roger MD ROD BENDING MACHINE OPERATOR: Sunil Robertson APRN.ROD BENDING MACHINE OPERATOR Other anesthesia staff/rotator: Sunil Robertson APRN.ROD BENDING MACHINE OPERATOR Performed by: ANTHONY Indications and Patient Condition Preoxygenated: yes Patient position: sniffing Difficult Mask: No Indications for airway management: anesthesia anesthesia circuit Method: asleep Final Airway Details Final airway type: endotracheal airway Final Endotracheal Airway: ETT Cuffed: yes Successful intubation technique: direct laryngoscopy Endotracheal tube insertion site: oral Blade: Lam Blade size: #3 ETT size (mm): 7.0 Measured from: lips Measurement (cm): 21 Placement verified by: capnometry Cormack-Lehane Classification: grade I - full view of glottis Number of attempts at approach: 1 Airway not difficult SIGNATURE: Sunil Robertson APRN.CRNA PATIENT NAME: Ayana Pak DATE: March 02, 2021 TIME: 9:26 AM CSN: [id number] [facility] Clinical Note 10-11-2020 Note Date & Type Note Facility 10-11-2020 Note HNO ID: [id number] Author: MARLEY Amaya Service: ? Author Type: Head Baggage Porter Type: Anesthesia Procedure Notes Filed: 10/11/2020 8:18 AM Note Text: ANESTHESIOLOGY PROCEDURE NOTE Airway General Information Procedure Start Time/Medication Administration: 10/11/2020 8:08 AM Patient location during procedure: OR Timeout Performed Pre-procedure: timeout performed Consent Obtained: Yes Patient identity confirmed: arm band and patient Staffing Anesthesiologist: Loy Chaudhary MD CAA: MARLEY Amaya Performed by: BRIANNA Indications and Patient Condition Preoxygenated: yes Difficult Mask: No Indications for airway management: anesthesia anesthesia circuit Method: asleep Final Airway Details Final airway type: endotracheal airway Final Endotracheal Airway: ETT Cuffed: yes Successful intubation technique: direct laryngoscopy Endotracheal tube insertion site: oral Blade: Lam Blade size: #3 ETT size (mm): 7.0 Measured from: lips Measurement (cm): 22 Placement verified by: capnometry Cormack-Lehane Classification: grade I - full view of glottis Number of attempts at approach: 1 Airway not difficult SIGNATURE: MARLEY Amaya PATIENT NAME: Ayana Pak DATE: October 11, 2020 TIME: 8:18 AM CSN: [id number] [facility] Progress note 07-12-2020 Note Date & Type Note Facility 07-12-2020 Note HNO ID: [id number] Author: Lian Hernandez Service: ? Author Type: Psychologist Type: Progress Notes Filed: 07/12/2020 10:02 AM Note Text: [facility] Progress Note Ayana Jernigan Mellisa 06/17/2020 [id number] Provider: Lian Bernal PSYD CPT Code: 54532 Psychotherapy 38-52 minutes Time: Approximately 45 minutes was spent in therapy. Parties Present: Patient Patient Presentation/Concerns: ZOOM CALL There was some confusion about the time of the call. Rosy continues to work on weight issues and weight loss. She spoke about her mother and the negative impact her pressure to lose weight on her self esteem. This was compounded by her ex boyfriend. Continue to work on changing thoughts around weight and also mindful eating skills. She is going to start Mimvi program for structure, she stated. Mental Status: Mood: neutral Affect: mood-congruent Thoughts/Associations:goal directed Suicidal/Homicidal Ideation: None expressed or evidenced Other Observations: None Therapy Focus Stress management and Mood/affect regulation MEDICATIONS: Per medical record: Current Outpatient Medications Medication Sig - losartan (COZAAR) 25 mg tablet Take 25 mg by mouth once daily. - hydroCHLOROthiazide (HYDRODIURIL, ESIDRIX) 25 mg tablet Take 25 mg by mouth once daily. - mivacurium chloride (MIVACRON INJECTION) by INJECTION(UNSPECIFIED PARENTERAL ROUTES) route. - triamcinolone acetonide 0.1 % cream Apply 1 application to affected area three times daily. Apply sparingly to area for rash/itching. No current facility-administered medications for this visit. Psychiatric Medication Issues: No change from previous appointment DIAGNOSIS: Depression Eating Disorder/binge eating Treatment Modality/Interventions: Cognitive Behavioral TREATMENT ASSESSMENT/PROGRESS: Stable, some improvement stated about mindful eating/reducing emotional eating (going to bed vs. staying up also distraction with school). TREATMENT PLAN/GOALS: Continue in therapy focusing on stress management and affect management. Next appointment: 2 weeks Lian Bernal PSYD [facility] Progress note 07-08-2020 Note Date & Type Note Facility 07-08-2020 Note HNO ID: [id number] Author: Lian Hernandez Service: ? Author Type: Psychologist Type: Progress Notes Filed: 07/12/2020 10:08 AM Note Text: [facility] Progress Note Ayana L Mellisa 07/08/2020 [id number] Provider: Lian Bernal PSYD CPT Code: 72924 Psychotherapy 38-52 minutes Time: Approximately 45 minutes was spent in therapy. Parties Present: Patient Patient Presentation/Concerns: This was an AMWELL VISIT (moved to Zoom when it froze). Rosy indicated improvements in working out (doing Fanergiesing program) and is eating Roro Elder food. She indicated that her primary issue to work on is negative self talk particularly about her body and her weight. Mental Status: Mood: neutral Affect: mood-congruent Thoughts/Associations:goal directed Suicidal/Homicidal Ideation: None expressed or evidenced Other Observations: None Therapy Focus Stress management and Mood/affect regulation MEDICATIONS: Per medical record: Current Outpatient Medications Medication Sig - losartan (COZAAR) 25 mg tablet Take 25 mg by mouth once daily. - hydroCHLOROthiazide (HYDRODIURIL, ESIDRIX) 25 mg tablet Take 25 mg by mouth once daily. - mivacurium chloride (MIVACRON INJECTION) by INJECTION(UNSPECIFIED PARENTERAL ROUTES) route. - triamcinolone acetonide 0.1 % cream Apply 1 application to affected area three times daily. Apply sparingly to area for rash/itching. No current facility-administered medications for this visit. Psychiatric Medication Issues: No change from previous appointment DIAGNOSIS: Depression Eating Disorder NOS Treatment Modality/Interventions: Cognitive Behavioral TREATMENT ASSESSMENT/PROGRESS: Stable TREATMENT PLAN/GOALS: Continue in therapy focusing on stress management and affect management. Next appointment: 2 weeks Lian Bernal PSYD [facility] Progress note 06-29-2020 Note Date & Type Note Facility 06-29-2020 Note HNO ID: [id number] Author: Lian Hernandez Service: ? Author Type: Psychologist Type: Progress Notes Filed: 07/12/2020 9:21 AM Note Text: [facility] Progress Note THIS WAS A ZOOM VISIT Ayana Jernigan Mellisa 06/24/2020 [id number] Provider: Lian Bernal PSYD CPT Code: 69985 Psychotherapy 38-52 minutes Time: Approximately 45 minutes was spent in therapy. Parties Present: Patient Patient Presentation/Concerns: Rosy spoke extensively about her job and feeling unsupported through difficult family issues. She states it is a toxic, negative work environment that has triggered low self esteem and body image issues. She is currently in a new environment which is more positive and helpful. She lost a few pounds and has begun working out on her kickboxing bag several times this week, which she reported felt good. Discussed how weight concerns impact her day to day decisions ex dating, self esteem etc. Mental Status: Mood: neutral Affect: mood-congruent Thoughts/Associations:goal directed Suicidal/Homicidal Ideation: None expressed or evidenced Other Observations: Therapy Focus Stress management and Mood/affect regulation MEDICATIONS: Per medical record: Current Outpatient Medications Medication Sig - losartan (COZAAR) 25 mg tablet Take 25 mg by mouth once daily. - hydroCHLOROthiazide (HYDRODIURIL, ESIDRIX) 25 mg tablet Take 25 mg by mouth once daily. - mivacurium chloride (MIVACRON INJECTION) by INJECTION(UNSPECIFIED PARENTERAL ROUTES) route. - triamcinolone acetonide 0.1 % cream Apply 1 application to affected area three times daily. Apply sparingly to area for rash/itching. No current facility-administered medications for this visit. Psychiatric Medication Issues: No change from previous appointment DIAGNOSIS: Depression Treatment Modality/Interventions: Cognitive Behavioral TREATMENT ASSESSMENT/PROGRESS: Stable TREATMENT PLAN/GOALS: Continue in therapy focusing on stress management and affect management, mindful eating. Next appointment: 2 weeks Lian Bernal PSYD [facility] Progress note 06-25-2020 Note Date & Type Note Facility 06-25-2020 Note HNO ID: [id number] Author: Lian Hernandez Service: ? Author Type: Psychologist Type: Progress Notes Filed: 06/25/2020 11:35 AM Note Text: CANCELLED DUE TO HER TRIP TO [facility] Progress note 06-07-2020 Note Date & Type Note Facility 06-07-2020 Note HNO ID: [id number] Author: Lian Hernandez Service: ? Author Type: Psychologist Type: Progress Notes Filed: 06/06/2020 10:26 PM Note Text: [facility] Progress Note ZOOM VISIT Ayana Pak 05/27/2020 [id number] Provider: Lian Bernal PSYD CPT Code: 16659 Psychotherapy 38-52 minutes Time: Approximately 45 minutes was spent in therapy. Parties Present: Patient Patient Presentation/Concerns: Rosy spoke extensively about her mother. Her mother prompted a great deal of her weight/body image anxiety. She has made critical and negative comments about her weight throughout her life in addition to her children's eating habits. These negative statements continue to bother her. Rosy's friends have told her that she is too hard on herself. She described one binge eating episode this week. She was able to prevent binge eating with distraction and going to sleep. Mental Status: Mood: neutral Affect: mood-congruent Thoughts/Associations:goal directed Suicidal/Homicidal Ideation: None expressed or evidenced Other Observations: None Therapy Focus Depression MEDICATIONS: Per medical record: Current Outpatient Medications Medication Sig - losartan (COZAAR) 25 mg tablet Take 25 mg by mouth once daily. - hydroCHLOROthiazide (HYDRODIURIL, ESIDRIX) 25 mg tablet Take 25 mg by mouth once daily. - mivacurium chloride (MIVACRON INJECTION) by INJECTION(UNSPECIFIED PARENTERAL ROUTES) route. - triamcinolone acetonide 0.1 % cream Apply 1 application to affected area three times daily. Apply sparingly to area for rash/itching. No current facility-administered medications for this visit. Psychiatric Medication Issues: No change from previous appointment DIAGNOSIS: Depression Treatment Modality/Interventions: Cognitive Behavioral TREATMENT ASSESSMENT/PROGRESS: Stable TREATMENT PLAN/GOALS: Continue in therapy focusing on affect management and anxiety management and mindful eating. Next appointment: 2 weeks Lian Bernal PSYD [facility] Progress note 06-06-2020 Note Date & Type Note Facility 06-06-2020 Note HNO ID: [id number] Author: Lian Hernandez Service: ? Author Type: Psychologist Type: Progress Notes Filed: 06/14/2020 9:33 AM Note Text: [facility] Progress Note Ayana Pak 06/03/2020 [id number] THIS IS A ZOOM VISIT Provider: Lian Bernal PSYD CPT Code: 76956 Psychotherapy 38-52 minutes Time: Approximately 45 minutes was spent in therapy. Parties Present: Patient Patient Presentation/Concerns: Rosy came slightly late to the appointment. She reported that she had not worked out. She is waiting for her kickboxing equipment to arrive. She indicated feeling high anxiety today because her friend asked her to go to a gym. She spoke of several negative experiences with past friends that increased her self consciousness. 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 She stated no binge eating this week. States using distraction and sleep to help prevent binges. Mental Status: Mood: neutral Affect: mood-congruent Thoughts/Associations:goal directed Suicidal/Homicidal Ideation: None expressed or evidenced Other Observations: None Therapy Focus Mood/affect regulation MEDICATIONS: Per medical record: Current Outpatient Medications Medication Sig - losartan (COZAAR) 25 mg tablet Take 25 mg by mouth once daily. - hydroCHLOROthiazide (HYDRODIURIL, ESIDRIX) 25 mg tablet Take 25 mg by mouth once daily. - mivacurium chloride (MIVACRON INJECTION) by INJECTION(UNSPECIFIED PARENTERAL ROUTES) route. - triamcinolone acetonide 0.1 % cream Apply 1 application to affected area three times daily. Apply sparingly to area for rash/itching. No current facility-administered medications for this visit. Psychiatric Medication Issues: No change from previous appointment DIAGNOSIS: Depression Eating Disorder NOS R/O Binge Eating Treatment Modality/Interventions: Cognitive Behavioral TREATMENT ASSESSMENT/PROGRESS: Stable TREATMENT PLAN/GOALS: Continue in therapy focusing on stress management and affect management. Mindful eating skills, CBT for depression Next appointment: 2 week Lian Bernal PSYD [facility] Progress note 05-20-2020 Note Date & Type Note Facility 05-20-2020 Note HNO ID: [id number] Author: Lian Hernandez Service: ? Author Type: Psychologist Type: Progress Notes Filed: 05/28/2020 10:48 AM Note Text: [facility] Progress Note Ayana Pak 05/20/2020 [id number] THIS WAS A TELEHEALTH VISIT Provider: Lian Bernal PSYD CPT Code: 13482 Psychotherapy 38-52 minutes Time: Approximately 45 minutes was spent in therapy. Parties Present: Patient Patient Presentation/Concerns: Rosy indicated that she worked out today. She stated that she worries about keeping it going. Discussed a realistic workout schedule. She reports sleeping better and dreaming last night of her ex-. Rosy talked about her mother and her negative impact on her self-esteem, weight and self worth. We spoke about how she currently deals with this dynamic with her mother in her life. Mental Status: Mood: neutral Affect: mood-congruent Thoughts/Associations:goal directed Suicidal/Homicidal Ideation: None expressed or evidenced Other Observations: None Therapy Focus Mood/affect regulation MEDICATIONS: Per medical record: Current Outpatient Medications Medication Sig - losartan (COZAAR) 25 mg tablet Take 25 mg by mouth once daily. - hydroCHLOROthiazide (HYDRODIURIL, ESIDRIX) 25 mg tablet Take 25 mg by mouth once daily. - mivacurium chloride (MIVACRON INJECTION) by INJECTION(UNSPECIFIED PARENTERAL ROUTES) route. - triamcinolone acetonide 0.1 % cream Apply 1 application to affected area three times daily. Apply sparingly to area for rash/itching. No current facility-administered medications for this visit. Psychiatric Medication Issues: No change from previous appointment DIAGNOSIS: Depression Treatment Modality/Interventions: Cognitive Behavioral TREATMENT ASSESSMENT/PROGRESS: Stable TREATMENT PLAN/GOALS: Continue in therapy focusing on affect management and mindful eating and motivation. Next appointment: 2 weeks Lian Bernal PSYD [facility] Summary Purpose Family History No Family History Records FoundNo Family History Records FoundNo Family History Records FoundNo Family History Records Found Advance Directives No Advanced Directives Records FoundNo Advanced Directives Records FoundNo Advanced Directives Records FoundNo Advanced Directives Records Found Additional Source Comments INFORMATION SOURCE (unrecogn ized section and content) DATE CREATED AUTHOR AUTHOR'S ORGANIZ ATION 07/04/2018 [facility] DATE CREATED AUTHOR AUTHOR'S ORGANIZ ATION 03/08/2021 [facility] DATE CREATED AUTHOR AUTHOR'S ORGANIZ ATION 05/15/2021 [facility] FOR RECORDS PERTAINING TO PATIENTS WHO ARE OR HAVE BEEN ENROLLED IN A CHEMICAL DEPENDENCY/SUBSTANCEABUSE PROGRAM, SOME INFORMATION MAY BE OMITTED. This clinical summary was aggregated from multiple sources. Caution should be exercised in using it in the provision of clinical care. This summary normalizes information from multiple sources, and as a consequence, information in this document may materially change the coding, format and clinical context of patient data. In addition, data may be omitted in some cases. CLINICAL DECISIONS SHOULD BE BASED ON THE PRIMARY CLINICAL RECORDS. [facility]. provides no warranty or guarantee of the accuracy or completeness of information in this document.
[2023-04-26 12:28] LABS: Hemoglobin A1c 5.4 % (3.8-5.6)
[2023-04-26 12:58] LABS: AST(SGOT) 18 U/L (15-37); Alanine Aminotransfer ALT/SGPT 31 U/L (13-56); Albumin, Serum 4.2 g/dL (3.2-5.0); Alkaline Phosphatase 135 U/L (45-117); Anion Gap 7 (5-15); BUN 16 mg/dL (7-18); BUN/Creat Ratio 16.5 RATIO (10-20); Calcium,Total 9.2 mg/dL (8.5-10.1); Chloride 102 mmol/L (98-107); Cholesterol 192 mg/dL (200); Creatinine, Serum 0.97 mg/dL (0.55-1.02); EST Glomerular Filtration Rate 64 mL/min (>60); Est Glom Filt Rate - Afr Amer 77 mL/min (>60); Globulin 3.8 g/dL (2.2-4.2); Glucose 98 mg/dL (74-106); High Density Lipoprotein 37 mg/dL; Potassium 3.5 mmol/L (3.5-5.1); Sodium Level 138 mmol/L (136-145); Triglycerides 159 mg/dL; Very Low Density Lipoprotein 32 mg/dL (5-40)
== END | disposition home or self-care (01) ==
PROVIDERS: PCP Internal Medicine; Referring Provider Internal Medicine Cardiovascular Disease; Visit Provider Internal Medicine Cardiovascular Disease
DX: I10 Essential (primary) hypertension (principal); E78.5 Hyperlipidemia, unspecified
CPT/HCPCS: 36415; 80048; 80061; 80076; 83036

== ENCOUNTER 2023-06-13 12:37 | Day surgery (SDC) | payer OTHER, SELFPAY ==
[2023-06-13] VITALS (12 sets, daily range): BP systolic 72–140; BP diastolic 45–86; PULSE 76–98; RESP 16; TEMP 36.2–37; O2SAT 90–99; BMI 31.8
--- OUTSIDE RECORDS SUMMARY | 2023-06-13 13:06 | XMS RPT_ITS | CCD ---
Author Name Unknown Address [address] [place] [address] Organization [facility] Care Team Providers Care Maintenance Worker Name Role Phone SHIRLEY HOUSTON Attending Unavailable SHIRLEY HOUSTON Referring Unavailable JOSUÉ CONLEY Primary Care Unavailable Results Test Name Value Interpretation Reference Range Facil ity Encounters Encounter Date Encounter Type Care Provider Facility Start: 06-28-2018 End: 06-29-2018 Patient encounter procedure SHIRLEY HOUSTON Facility:[id number] 74 Payers Date Payer Category Payer Unknown 1970 Unknown [id number] Clinical Note 03-02-2021 Note Date & Type Note Facility 03-02-2021 Note HNO ID: [id number] Author: Sunil Robertson APRN.RAG BALER Service: Anesthesiology Author Type: Nurse Business Office Representative Type: Anesthesia Procedure Notes Filed: 03/02/2021 9:27 AM Note Text: ANESTHESIOLOGY PROCEDURE NOTE Airway General Information Procedure Start Time/Medication Administration: 03/02/2021 8:54 AM Patient location during procedure: OR Patient identity confirmed: arm band and patient Staffing Anesthesiologist: Daljit Roger MD RAG BALER: Sunil Robertson APRN.RAG BALER Other anesthesia staff/rotator: Sunil Robertson APRN.RAG BALER Performed by: ANTHONY Indications and Patient Condition [...] March 02, 2021 TIME: 9:26 AM CSN: [id number] [facility] Clinical Note 10-11-2020 Note Date & Type Note Facility 10-11-2020 Note HNO ID: [id number] Author: MARLEY Amaya Service: ? Author Type: Porter Bath Type: Anesthesia Procedure Notes Filed: 10/11/2020 8:18 [...] October 11, 2020 TIME: 8:18 AM CSN: [id number] [facility] Progress note 07-12-2020 Note Date & Type Note Facility 07-12-2020 Note HNO ID: [id number] Author: Lian Hernandez Service: ? Author Type: Psychologist Type: Progress Notes Filed: 07/12/2020 10:02 AM Note Text: [facility] Progress Note Ayana Jernigan Mellisa 06/17/2020 [id number] Provider: Lian Bernal PSYD CPT Code: 30044 Psychotherapy 38-52 minutes Time: Approximately 45 minutes [...] eating skills. She is going to start Imagimod program for structure, she stated. Mental Status: [...] Next appointment: 2 weeks Lian Bernal PSYD [facility] Progress note 07-08-2020 Note Date & Type Note Facility 07-08-2020 Note HNO ID: [id number] Author: Lian Hernandez Service: ? Author Type: Psychologist Type: Progress Notes Filed: 07/12/2020 10:08 AM Note Text: [facility] Progress Note Ayana L Mellisa 07/08/2020 [id number] Provider: Lian Bernal PSYD CPT Code: 84956 Psychotherapy 38-52 minutes Time: Approximately 45 minutes was spent in therapy. Parties Present: Patient Patient Presentation/Concerns: This was an AMWELL VISIT (moved to Zoom when it froze). Rosy indicated improvements in working out (doing Azumioing program) and is eating Roro Elder food. [...] Next appointment: 2 weeks Lian Bernal PSYD [facility] Progress note 06-29-2020 Note Date & Type Note Facility 06-29-2020 Note HNO ID: [id number] Author: Lian Hernandez Service: ? Author Type: Psychologist Type: Progress Notes Filed: 07/12/2020 9:21 AM Note Text: [facility] Progress Note THIS WAS A ZOOM VISIT Ayana Jernigan Mellisa 06/24/2020 [id number] Provider: Lian Bernal PSYD CPT Code: 00172 Psychotherapy 38-52 minutes Time: Approximately 45 minutes [...] Next appointment: 2 weeks Lian Bernal PSYD [facility] Progress note 06-25-2020 Note Date & Type Note Facility 06-25-2020 Note HNO ID: [id number] Author: Lian Hernandez Service: ? Author Type: Psychologist Type: Progress Notes Filed: 06/25/2020 11:35 AM Note Text: CANCELLED DUE TO HER TRIP TO [facility] Progress note 06-07-2020 Note Date & Type Note Facility 06-07-2020 Note HNO ID: [id number] Author: Lian Hernandez Service: ? Author Type: Psychologist Type: Progress Notes Filed: 06/06/2020 10:26 PM Note Text: [facility] Progress Note ZOOM VISIT Ayana Pak 05/27/2020 [id number] Provider: Lian Bernal PSYD CPT Code: 30346 Psychotherapy 38-52 minutes Time: Approximately 45 minutes [...] Next appointment: 2 weeks Lian Bernal PSYD [facility] Progress note 06-06-2020 Note Date & Type Note Facility 06-06-2020 Note HNO ID: [id number] Author: Lian Hernandez Service: ? Author Type: Psychologist Type: Progress Notes Filed: 06/14/2020 9:33 AM Note Text: [facility] Progress Note Ayana Pak 06/03/2020 [id number] THIS IS A ZOOM VISIT Provider: Lian Bernal PSYD CPT Code: 28927 Psychotherapy 38-52 minutes Time: Approximately 45 minutes was spent in therapy. Parties Present: Patient Patient Presentation/Concerns: Roys came slightly late to the appointment. She [...] Next appointment: 2 week Lian Bernal PSYD [facility] Progress note 05-20-2020 Note Date & Type Note Facility 05-20-2020 Note HNO ID: [id number] Author: Lian Hernandez Service: ? Author Type: Psychologist Type: Progress Notes Filed: 05/28/2020 10:48 AM Note Text: [facility] Progress Note Ayana Pak 05/20/2020 [id number] THIS WAS A TELEHEALTH VISIT Provider: Lian Bernal PSYD CPT Code: 91381 Psychotherapy 38-52 minutes Time: Approximately 45 minutes [...] Next appointment: 2 weeks Lian Bernal PSYD [facility] Summary Purpose Family History No Family History Records FoundNo Family History Records FoundNo Family History Records FoundNo Family History Records Found Advance Directives No Advanced Directives Records FoundNo Advanced Directives Records FoundNo Advanced Directives Records FoundNo Advanced Directives Records Found Additional Source Comments INFORMATION SOURCE (unrecogn ized section and content) DATE CREATED AUTHOR AUTHOR'S ORGANIZ ATION 07/04/2018 [facility] DATE CREATED AUTHOR AUTHOR'S ORGANIZ ATION 03/08/2021 [facility] DATE CREATED AUTHOR AUTHOR'S ORGANIZ ATION 05/15/2021 [facility] FOR RECORDS PERTAINING TO PATIENTS WHO [...] BE BASED ON THE PRIMARY CLINICAL RECORDS. [facility] [employer] [facility]. provides no warranty or guarantee of the accuracy or completeness of information in this document.
[2023-06-13] MEDS: Lactated Ringers 1,000 ML 15 ML IV (13:24)
--- NOTE | 2023-06-13 13:38 | PCM.HP.STD ---
HPI - General General Date of Service: 06/13/23 Chief Complaint: Stress incontinence HPI Narrative AYANA MARIE, is a 53 F who presents for placement of a tension-free vaginal sling for stress incontinence she understands the risk and benefits of the procedure and working to proceed. [facility] Medical History (Updated 06/04/23 @ 11:47 by Maryanne Bradford) Alcohol use Anxiety Back pain Cardiology follow-up encounter Chronic fatigue Depression with anxiety Diabetes Dietary restriction Encounter for screening for COVID-19 Essential (primary) hypertension Family history of premature coronary artery disease Frequent headaches History of echocardiogram History of IBS History of pain when walking History of stress test Hyperlipidemia Hypersomnolence Hypertension Impaired fasting glucose Injury of head and neck Metabolic syndrome Migraine headache Non-smoker Obesity MARY (obstructive sleep apnea) Prediabetes Preventative health care Restless legs Seasonal allergies Vision problem Wears glasses Home Medications Oral Sleep Appliance #1 ea 03/20/22 [Rx Last Taken Unknown] fluoxetine 20 mg capsule (Prozac) 20 mg PO DAILY #30 caps 06/08/22 [Rx Last Taken 06/12/23 09:00] losartan 100 mg tablet 100 mg PO DAILY #90 tabs 07/03/22 [Rx Last Taken 06/12/23 09:00] hydrochlorothiazide 25 mg tablet 25 mg PO DAILY #90 tabs 09/08/22 [Rx Last Taken 06/12/23 09:00] metformin 500 mg tablet 500 mg PO BIDWMEAL #180 tabs 12/12/22 [Rx Last Taken 06/12/23] blood-glucose sensor (FreeStyle Sanam 3 Sensor device) #2 ea 04/02/23 [Rx Last Taken Unknown] tirzepatide 7.5 mg/0.5 mL subcutaneous pen injector (Mounjaro) 7.5 mg (0.5 mL) subcut QWEEK #2 mL 06/11/23 [Rx Last Taken 06/11/23] Allergy/AdvReac Type Severity Reaction Status Date / Time Sulfa (Sulfonamide Allergy Other Verified 06/13/23 13:15 Antibiotics) lisinopril AdvReac Intermediate Dry Verified 06/13/23 13:15 nagging cough Family History Father Hypertension Heart disease Diabetes Myocardial infarction Heavy smoker Mother High cholesterol Arthritis Heavy smoker Sister Myocardial infarction, Onset Age: 50 coronary stents CAD (coronary artery disease) Surgical History (Updated 06/04/23 @ 11:47 by Maryanne Bradford) H/O abdominal surgery H/O bilateral breast reduction surgery H/O total hysterectomy History of bunionectomy History of knee surgery History of right salpingo-oophorectomy Hx of cystoscopy Hx of cystoscopy Social History adopted: No number of children: 2 current occupational status: employed 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[employer] current occupational exposures/hazards: No Smoking Status: Never smoker second hand exposure: No alcohol intake: never substance use type: does not use what type of physical activity do you participate in: aerobics and weight training frequency: 3-4 times per week additional social history: [employer] and [employer]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
[2023-06-13 13:46] LABS: Bedside Glucose 97 mg/dL (74-106)
[2023-06-13] MEDS: Ipratropium/Albuterol Sulfate 3 ML AMPUL.NEB INHALATION (14:10)
[2023-06-13] MEDS: Cefazolin 2 GM in 0.9% Normal Saline (100mL Bag) 100 ML IV (14:22)
--- NOTE | 2023-06-13 14:30 | DCINST_ITS ---
Discharge Instructions Diet Discharge Diet: No restrictions Activity Discharge Activity: Return to Normal Activity and May Not Drive (while taking narcotic pain medications.) Dressing / Incision Call your doctor if you observe: Fever of 101 or Higher Follow Up Care Please Follow Up With: Tom Espinoza MD When: Call [phone] for an appointment Test Results: Test results from this visit will be discussed in further detail at your follow- up appointment, if applicable. Discharge Plan Admission Primary Reason for Your Visit: TVT sling Attending Provider: Tom Espinoza Primary Care Provider: Chuck Denton Discharge Orders/Prescriptions Prescriptions: New ciprofloxacin HCl [Cipro] 500 mg tablet 500 mg PO BID Qty: 10 0RF oxycodone 5 mg tablet 5 mg PO Q6H PRN (Reason: pain) 7 Days Qty: 14 0RF Continued metformin 500 mg tablet 500 mg PO BIDWMEAL Qty: 180 1RF (DME) Oral Sleep Appliance See Rx Instructions .Route .MEDSUPPLY Qty: 1 0RF Rx Instructions: As directed fluoxetine [Prozac] 20 mg capsule 20 mg PO DAILY Qty: 30 12RF losartan 100 mg tablet 100 mg PO DAILY Qty: 90 3RF hydrochlorothiazide 25 mg tablet 25 mg PO DAILY Qty: 90 4RF (DME) FreeStyle Sanam 3 Sensor Device See Rx Instructions .Route Qty: 2 5RF Rx Instructions: 1 sensor q 14 days Mounjaro 7.5 mg/0.5 mL pen injector 7.5 mg subcut QWEEK Qty: 2 5RF Referrals / Follow Up: Chuck Denton MD [Primary Care Provider] - Tom Espinoza MD [Med Staff - Active Staff] - Disposition Disposition (needs filled in before D/C Order can be placed): Home, Self Care
[2023-06-13] MEDS: Lidocaine 1% /Epi 1:100 (20ml) 20 ML Vial (15:06)
--- NOTE | 2023-06-13 15:08 | OP.PCM_ITS ---
Report of Operation Date of Procedure: 06/13/23 Pre-Operative Diagnosis: Stress incontinence Post-Operative Diagnosis: The same Surgery/Procedure Performed:: Placement of tension-free vaginal tape sling mesh Description of Surgical Findings:: Patient presents today for placement of a tension-free vaginal sling, she has a diagnosis of incontinence and has been evaluated in the preoperative setting. We discussed how the procedure will be done what to expect afterwards. She understands is possible she may need a catheter in the short-term. We discussed the risk of bleeding and also the possibility of infection with the placement of the sling. We discussed the fact that we can be using artificial mesh and that there is a small risk of infection, erosion into the urethra, vaginal area, bladder and a small risk that she may require surgery down the road to address any problems or erosions with the mesh in the long-term. She was also given no guarantees as to how well the sling would work and that her incontinence may not improved to her satisfaction. After reviewing this with the patient she agreed to proceed with the placement of the sling. Patient was taken back to the operating room, after smooth induction of general anesthesia she was placed in dorsolithotomy position. She underwent vaginal prep and was placed in dorsolithotomy position. A Morgan catheter was placed into the bladder and Inflated with 10 cc of sterile water into the balloon. I then marked out the bladder neck with a marking pen and marked out the mid urethra. The urethra was then infiltrated with lidocaine with 1:1000 epinephrine, after the injecting into the urethra then a midline incision was made in the urethra long enough to create a space for the trocar. I then used curved Metzenbaum scissors to dissect periurethrally up to the right side underneath the pubic bone, and then dissect periurethrally up to the left side underneath the pubic bone creating the tunnel for the sling. I then went up to the pubic bone and the patient was in Trendelenburg position and marked two incision site 2 cm from the midline on the left and right side. I then infiltrated the skin with lidocaine and then made a small stab incision in the right and left side exactly where the jaramillo were above the pubic bone. Making sure that the bladder was completely empty I then guided the suprpubid desera trocar top-down on the right side first coming behind the pubic bone following it into the incision below the urethra. Once the suprapubic trocar was passed then I deflated the balloon and remove the Morgan catheter went into the bladder with a 70 degree lens and inspected the bladder and there was no perforation damage or injury to the bladder, no damage to the ureter, and no damage to the urethra. I then hooked the end of the desara sling to the suprapubic trocar and advanced it up through the tunnel and then put a snap on the end of the sling. I then went to the other side to pass the sling. The 18fr Morgan catheter was replaced into the bladder with 10 cc of water into the balloon and then drained the bladder completely and then I guided the suprapubic trocar down on the left side from top down behind the pubic bone into the incision below the urethra. I then deflated the balloon removed the Morgan catheter and performed a cystoscopy again and inspected the bladder with a 70 degree there was no injury to the bladder, the ureter, or the urethra on inspection. I then grabbed the other end of the sling and using the suprapubic trocar pulled the sling on the other side and put a snap on the sling end. I then put a snap in the middle the sling and then both ends of the slings were then pulled up and then the sling was tensioned below the urethra ensuring that the sling was flat that there was no kinking or pulling or twisting and laid nicely tension-free underneath the urethra. Then both ends of the slings were cut and then the plastic sheath covering the mesh was removed deploying the sling, the excess mesh was then t rimmed from the suprapubic area and the mesh ends were dunked down deep in the subcutaneous fat. The Morgan catheter was removed and we checked the bladder with a 30 and 70 degree lens making sure there is no injury to the urethra, bladder and no perforation with a mesh. The urine was nice and clear with no blood. I then closed the incision below the urethra with a running 3-0 Vicryl and thenclosed the 2 suprapubic incisions with interrupted 4-0 Monocryl. The bladder was left empty anesthetic was reversed and she was taken back to the PACU and will undergo a voiding trial before discharge. Surgeon: Tom Espinoza Type of Anesthesia: General Drains: morgan Estimated Blood Loss (mL): 10 Admit VTE Documentation VTE Present on Admission: No VTE Mechan Device Prophylaxis: SCD's VTE Pharm Prophylaxis ordered?: No
[2023-06-13 15:51] LABS: Bedside Glucose 101 mg/dL (74-106)
== END 2023-06-13 19:11 | disposition home or self-care (01) ==
PROVIDERS: PCP Internal Medicine; Referring Provider Urology; Visit Provider Urology
PROC: (CPT 57288; principal; 2023-06-13 14:15)
DX: N39.3 Stress incontinence (female) (male) (principal); E11.9 Type 2 diabetes mellitus without complications; Z79.84 Long term (current) use of oral hypoglycemic drugs; E78.5 Hyperlipidemia, unspecified; I10 Essential (primary) hypertension; Z90.710 Acquired absence of both cervix and uterus; Z90.721 Acquired absence of ovaries, unilateral; R53.82 Chronic fatigue, unspecified; G47.33 Obstructive sleep apnea (adult) (pediatric)
CPT/HCPCS: 51992; 00860; 82962; 94640; J7120; C1771; J2405

== ENCOUNTER → 2023-10-26 | Outpatient (CLI) | payer OTHER, SELFPAY ==
[2023-10-26 12:32] LABS: Vitamin B12 326 pg/mL (211-911); Vitamin D,25 Hydroxy 36.4 ng/mL
[2023-10-26 13:02] LABS: ALB/GLOB Ratio 1.1 RATIO (0.9-2.4); AST(SGOT) 18 U/L (15-37); Alanine Aminotransfer ALT/SGPT 27 U/L (13-56); Albumin, Serum 4.2 g/dL (3.2-5.0); Alkaline Phosphatase 106 U/L (45-117); Anion Gap 8 (5-15); BUN 23 mg/dL (7-18); BUN/Creat Ratio 24.2 RATIO (10-20); Calcium,Total 9.8 mg/dL (8.5-10.1); Chloride 104 mmol/L (98-107); Creatinine, Serum 0.95 mg/dL (0.55-1.02); EST Glomerular Filtration Rate 65 mL/min (>60); Est Glom Filt Rate - Afr Amer 79 mL/min (>60); Globulin 3.7 g/dL (2.2-4.2); Glucose 96 mg/dL (74-106); Protein, Total 7.9 g/dL (6.4-8.2); Sodium Level 139 mmol/L (136-145)
== END | disposition home or self-care (01) ==
LOC: BIMLAB 11:12
PROVIDERS: PCP Nurse Practitioner; Referring Provider Nurse Practitioner; Visit Provider Nurse Practitioner
DX: I10 Essential (primary) hypertension (principal); R53.83 Other fatigue
CPT/HCPCS: 80053; 82306; 82607

== ENCOUNTER → 2023-10-26 | Outpatient (CLI) | payer OTHER, SELFPAY ==
[2023-10-26 12:12] LABS: Absolute Lymphocyte Count 1.44 X10^3/uL (0.83-4.51); Absolute Neutrophil Count 2.7 X10^3/uL (2.0-7.7); Basophil# 0.02 X10^3/uL; Basophil% 0.4 % (0-1); Eosinophil# 0.14 X10^3/uL; Hematocrit 40.3 % (37-47); Hemoglobin 13.1 g/dL (12.0-15.0); Lymphocyte # 1.44 X10^3/ul (0.83-4.51); Lymphocyte % 30.8 % (19-41); Mean Corp Hgb Conc 32.5 g/dL (32-36); Mean Corpuscular Volume 92.2 fL (81-99); Mean Platelet Vol. 10.7 fl (6.2-12.0); Monocyte# 0.33 X10^3/uL; Monocyte% 7.1 % (0-10); NRBC Flagged by Analyzer 0 % (0-5); Neutrophil # 2.73 X10^3/uL (2.7-7.7); Neutrophil % 58.5 % (47-70); Platelet Count 285 K/mm3 (150-450); RBC Distribution Width SD 40.5 fl (35.1-43.9); Red Blood Count 4.37 M/mm3 (4.2-5.4); White Blood Count 4.7 K/mm3 (4.4-11.0)
[2023-10-26 13:06] LABS: Cholesterol 210 mg/dL (200); Ferritin 150 ng/mL (8-252); High Density Lipoprotein 42 mg/dL; Iron 73 ug/dL (50-170); Iron Binding Capacity,Total 314 ug/dL (250-450); Magnesium 2.6 mg/dL (1.6-2.6); T4 Total, Thyroxin 9.3 ug/dL (4.8-13.9); Thyroid Stim Hormone (TSH) 1.13 uIU/mL (0.358-3.74); Triglycerides 137 mg/dL; Very Low Density Lipoprotein 27 mg/dL (5-40)
== END | disposition home or self-care (01) ==
LOC: BIMLAB 09:06
PROVIDERS: PCP Nurse Practitioner; Referring Provider Nurse Practitioner; Visit Provider Nurse Practitioner
DX: R53.82 Chronic fatigue, unspecified (principal); E78.1 Pure hyperglyceridemia; G25.81 Restless legs syndrome
CPT/HCPCS: 36415; 80061; 82728; 83540; 83550; 83735; 84436; 84443; 85025

== ENCOUNTER → 2023-11-15 | Outpatient (CLI) | payer OTHER, SELFPAY ==
--- NOTE | 2023-11-15 08:06 | BI_ITS ---
MAMMOGRAPHY - BILATERAL SCREENING REASON FOR EXAM: Female, 53 years old. Routine annual screening examination. PERTINENT HISTORY: Non-contributory. Prior bilateral breast reduction surgery. TECHNIQUE: Digital bilateral breast felisha (3D mammographic acquisition) in the CC and MLO projections. 2-D mediolateral oblique (MLO) and craniocaudad (CC) views of both breasts were obtained. CAD: Full Field Digital Mammography with Computer Added Detection was performed. COMPARISON: Comparison is made with prior study dated November 13, 2022 and November 15, 2021. FINDINGS: Breast Composition: There are scattered areas of fibroglandular density. There are no dominant masses or suspicious calcifications. Stable small calcified nodules in the upper anterior lateral aspect of the left breast most likely representing calcified fibroadenomas. No other significant abnormalities are identified. There has been no significant change since the prior study. BI/SCRN MAMM (CAD)W/FELISHA BILAT IMPRESSION: Stable bilateral screening mammogram. Yearly follow-up mammogram recommended. (A) ASSESSMENT CATEGORY: BIRADS Category 2: Benign. A letter regarding these results will be sent to the patient by the facility within 30 days. Approximately 10% of breast cancers are not detected by mammography. A normal mammogram should not delay biopsy of a clinically suspicious abnormality. [id number] Electronically Signed: Haroldo Little MD at 8:55 EDT ,
== END | disposition home or self-care (01) ==
LOC: OPBI 08:06
PROVIDERS: PCP Nurse Practitioner; Referring Provider Obstetrics & Gynecology; Visit Provider Obstetrics & Gynecology
DX: Z12.31 Encounter for screening mammogram for malignant neoplasm of breast (principal)
CPT/HCPCS: 77063; 77067

== ENCOUNTER 2023-12-18 07:00 | Outpatient (RCR) | payer OTHER, SELFPAY ==
--- NOTE | 2023-11-21 15:56 | HP.PTEVAL ---
Patient's Visit Information Visit Information Visit Information: AYANA MARIE is a 53 year old F referred to Physical Therapy by MICHEAL Plunkett with a diagnosis of CERVICALALGIA. Date of Evaluation: 11/08/23 Physical Therapist: Eliezer Thomason PT, Cert MDT, OCS Visit Plan Frequency: 2x /Week Duration: 4 Weeks Plan: PT INTERVENTIONS RTC/SCAPULAR EX'S ,POSTURAL EX'S ,MANUAL THERAPY STM UT/LEVATORS/SCAPULAR,AND MODALITIES PRN Subjective Subjective: This 53 y/o female presents to physical therapy with cervical. Patient has cervical pain for many years. Patient 4 months symptoms worse in arm where patient had difficulty raising arms. Patient seen Orthopedic spine DR Mccabe thought more tendonitis.Patient seen DR Corea recommend PT. Pain located has some lateral deltoid pain. Patient was provided with meloxicam. No imaging. Patient aggravating factors is reaching back ,lifting arms and OH activities .Alleviating factors meloxicam. C/O occasionally paresthesia in hands. Denies LANG /tinnitus/dizziness/nausea. Patient has seen by massage therapy. Patient symptom affects sleeping when rolling on arms. SOCIAL: VOCATION: Home Patient condition affects QOL and job demands. Patient goals to have no pain. Pain Bilateral Shoulder: Pain Intensity (Out of 10): 0 Pain Intensity Range: 10 Comment: lateral deltoid Objective Objective: POSTURE: mild forward posture PALAPTION: tender UT /levator NEURO: denies paresthesia/tingling ,reflexes C5-6-7 2/3 AROM: shoulders 160 flexion /abduction ,pain with OP ,ER > 90 degrees ,IR L4 MMT: ( peak force) infraspinatus right 15.6 ,left 12.7 ,supraspinatus right 16.9 ,left 13.9 ,deltoid right 14.1,left 12.9 CERVIVCAL ROM: flexion WFL ,extension min loss ,rotation min loss ,lateral flexion min loss ,retraction WFL Special Tests C/S Radiculapathy - Left Upper limb tension test: Negative C/S Radiculapathy - Right Upper limb tension test: Negative C/S Radiculapathy - Left Spurlings: Negative C/S Radiculapathy - Right Spurlings: Negative C/S Radiculapathy - Left Cervical distraction: Negative C/S Radiculapathy - Right Cervical distraction: Negative Sharp Jose: Negative Vertebral Artery Test: Negative Alar Ligament Test: Negative Cervical Sitting: Protrusion - Mechanical Response: No effect Cervical Sitting: Protrusion - Symptoms During Testing: No effect Cervical Sitting: Protrusion - Symptoms After Testing: No effect Cervical Sitting: Retraction - Mechanical Response: No effect Cervical Sitting: Retraction - Symptoms During Testing: No effect Cervical Sitting: Retraction - Symptoms After Testing: No effect Cervical Sitting: Retraction-Extension - Mechanical Response: No effect Cerv Sitting: Retraction-Extension - Symptoms During Testing: No effect Cerv Sitting: Retraction-Extension - Symptoms After Testing: No effect Cervical Sitting: Sidebend Right - Mechanical Response: No effect Cervical Sitting: Sidebend Right - Symptoms During Testing: No effect Cervical Sitting: Sidebend Right - Symptoms After Testing: No effect Cervical Sitting: Sidebend Left - Mechanical Response: No effect Cervical Sitting: Sidebend Left - Symptoms During Testing: No effect Cervical Sitting: Sidebend Left - Symptoms After Testing: No effect Cervical Sitting: Rotation Right - Mechanical Response: No effect Cervical Sitting: Rotation Right - Symptoms During Testing: No effect Cervical Sitting: Rotation Right - Symptoms After Testing: No effect Cervical Sitting: Rotation Left - Mechanical Response: No effect Cervical Sitting: Rotation Left - Symptoms During Testing: No effect Cervical Sitting: Rotation Left - Symptoms After Testing: No effect Cervical Sitting: Flexion - Mechanical Response: No effect Cervical Sitting: Flexion - Symptoms During Testing: No effect Cervical Sitting: Flexion - Symptoms After Testing: No effect R Shoulder External Rotation Lag Test - RC Tear: Negative R Shoulder Supine Impingement Test - RC Tear: Negative R Shoulder Drop Sign - IS Test: Negative R Shoulder Empty Can - SS: Positive R Shoulder Belly Press - SupScap: Negative R Shoulder Neer - Impingement: Positive R Shoulder Esposito Panda - Impingement: Positive L Shoulder External Rotation Lag Test - RC Tear: Negative L Shoulder Supine Impingement Test - RC Tear: Negative L Shoulder Drop Sign - IS Test: Negative L Shoulder Empty Can - SS: Positive L Shoulder Belly Press - SupScap: Negative L Shoulder Neer - Impingement: Positive L Shoulder Esposito Panda - Impingement: Positive Balance/Special Test Scores Quick DASH Score: 36.3625 Goals Goal 1:: Patient to be I with posture and shoulders Goal Time Frame: 4-6 Weeks Goal 2:: Patient to improve peak force RTC/deltoid by 10-15# to improve strength/function. Goal Time Frame: 4-6 Weeks Goal 3:: Patient to demonstrate 50% improvement with less shoulder pain and activities above 90 degrees with lifting Goal Time Frame: 4-6 Weeks Goal 4:: Patient to improve quick dash by 5 points to improve QOL and function Goal Time Frame: 4-6 Weeks Goal 5:: Patient to demonstrate less neck tightness with housework and job demands Rehabilitation Potential Physical Therapy Diagnosis: This patient symptoms appear to be RTC impingement/tendonitis vs cervical with neck has no symptoms and not reproducible thus symptoms coming from bilateral shoulder tendonitis with pain with OH,weakness with pain with RTC ,affect ADLS and housework tasks symptoms Rehabilitation Potential: Good Anticipated Interventions Patient/Client Instruction: Educate patient on: Condition and Plan of Care For the Purpose of:: To decrease pain, To increase ROM, To improve muscle performance and motor function, To improve ability to perform ADL's, To increase tolerance to activity/condition/position, To improve ability of physical actions for home/community/work/leisure, To improve health of tissue, To decrease soft tissue restriction, To increase flexibility/ROM and To improve tolerance to ADL's Therapeutic Exercise to Include: Strength training, Postural training, Flexibilty training and Scapular Strength/Stabilization Comment: RTC For the Purpose of:: To decrease pain, To increase ROM, To improve muscle performance and motor function, To increase tolerance to activity/condition/position, To improve ability of physical actions for home/community/work/leisure, To improve health of tissue, To decrease soft tissue restriction, To increase flexibility/ROM and To improve tolerance to ADL's Manual Therapy Techniques to Include: Mobilization and Soft tissue mobilization Comment: CERVICAL STM For the Purpose of:: To decrease pain, To increase ROM, To improve nutrient delivery to tissue, To increase oxygenation perfusion, To improve health of tissue, To decrease soft tissue restriction and To increase flexibility/ROM TENS: Yes IF ES: Yes Cryotherapy (ice pack, ice massage): Yes Thermo therapy (hot pack): Yes Ultrasound (thermal/non thermal): Yes For the Purpose of:: To decrease pain, To improve nutrient delivery to tissue, To increase oxygenation perfusion, To improve health of tissue and To decrease soft tissue restriction Text: Thank you for the opportunity to evaluate your patient. For Medicare and Medicare HMO plans, please review the plan of care and approve it. It will need to be FAXED BACK to us at [phone] for Medicare purposes. For Medicare only, by signing this I certify the plan of care. Please let me know if there are questions or concerns regarding this plan of care. Physician Signature: Date:
--- NOTE | 2024-04-02 13:39 | HP.PTDCSUM ---
Discharge Summary D/C summary: It has been my pleasure to treat AYANA MARIE referred by Edel Thomas, SIENNA-Amanda, with the diagnosis of CERVICALALGIA for a total of 8 visit(s). Discharge Date: Please see the following information for a summary of their discharge status. Subjective Subjective: Im not feeling good pain i worse in bicep Pain Bilateral Shoulder: Pain Intensity (Out of 10): 5 Objective Objective/Function: Patient has no pain with cervical motion testing or positioning with cervical ,+ signs RTC test ,and speeds /O-brians test sleeping on shoulder makes symptoms worse Goals Goal 1:: Patient to be I with posture and shoulders Goal 2:: Patient to improve peak force RTC/deltoid by 10-15# to improve strength/function. Goal 3:: Patient to demonstrate 50% improvement with less shoulder pain and activities above 90 degrees with lifting Goal 4:: Patient to improve quick dash by 5 points to improve QOL and function Goal 5:: Patient to demonstrate less neck tightness with housework and job demands Plan Plan: RTD RECOMMEMND ORTHO CONSULT ,MRI D/C Information d/c sentence: If there are questions or concerns regarding this patient's physical therapy, please feel free to call me at [phone]. Thank you for the referral of this patient. Sincerely, Eliezer Thomason PT, Cert MDT, OCS Balance/Gait/Functional tests Balance/Special Test Scores Quick DASH Score: [phone]
== END 2023-12-18 19:00 | disposition home or self-care (01) ==
LOC: PT 07:00
PROVIDERS: PCP Nurse Practitioner; Visit Provider Nurse Practitioner
DX: M54.2 Cervicalgia (principal)
CPT/HCPCS: 97035; 97110; 97140; 97162; 97530

== ENCOUNTER 2024-03-07 12:19 | Day surgery (SDC) | payer OTHER, SELFPAY ==
--- NOTE | 2024-03-07 | LES_PTH ---
PATIENT: AYANA MARIE LOC: [facility] [place] U#:[id number] AGE/SX: 54/F ROOM: RE03/07/[address]: Dr. 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 Solar elastosis. Acanthosis, hyperkeratosis and reactive changes. Negative for malignancy. 03/10 COMMENT Case has been reviewed in consultation with Dr. Sawyer who concurs with the above diagnosis. IDC:ALFONSO MICROSCOPIC DESCRIPTION Slides are reviewed. GROSS DESCRIPTION Received in fixative is one container labeled with the patient's name and designated Right lower lip lesion. The specimen consists of one irregular fragment of bateman soft tissue that measures 0.5 cm in greatest dimension. The specimen is totally submitted in one cassette. 03/10/2024 TC:5 CPT:58261
[2024-03-07 12:39] VITALS: BP 110/72; PULSE 86; RESP 18; TEMP 36.2; O2SAT 97; BMI 28.8
--- NOTE | 2024-03-07 13:09 | PCM.HP.BLA ---
History and Physical Date of Admission: 03/07/24 The patient is examined and there are no changes to the H&P dated 02/26/2024. She presents for excision of the lesion of the lower lip. Informed consent was obtained. She is marked in the preop holding area prior to surgery. 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
[2024-03-07] MEDS: Lidocaine 1% /Epi 1:100 9 ML, Sodium Bicarbonate 1 MEQ OPERA.SITE (13:45)
[2024-03-07 13:55] VITALS: BP 125/76; BP 132/87; O2SAT 100; O2SAT 98
[2024-03-07] MEDS: Bacitracin 500 UNITS/GM PACKET (13:55)
--- NOTE | 2024-03-07 13:59 | DCINST_ITS ---
Discharge Instructions Dressing / Incision Additional Dressing/Incision Instructions:: Keep your back elevated (recliner position) for the next 2-3 nights to decrease swelling and bruising. Take the oral antibiotic (Keflex) 2 times a day until finished. Apply a thin layer of antibiotic ointment (like Neosporin, bacitracin, or triple antibiotic ointment) 2 times a day. Follow Up Care Please Follow Up With: Caitlin Govea MD When: 1 to 2 weeks Test Results: Test results from this visit will be discussed in further detail at your follow- up appointment, if applicable. Discharge Plan Admission Attending Provider: Caitlin Govea Primary Care Provider: Edel Thomas Instructions Print Language: Estonian Discharge Orders/Prescriptions Prescriptions: New cephalexin 500 mg capsule 500 mg PO BID 5 Days Qty: 10 0RF No Action metformin 500 mg tablet 500 mg PO BIDWMEAL Qty: 180 1RF albuterol sulfate 90 mcg/actuation aerosol powdr breath activated 2 inh INHALATION Q4-6H PRN (Reason: shortness of breath or wheezing) Qty: 1 1RF (DME) Oral Sleep Appliance See Rx Instructions .Route .MEDSUPPLY Qty: 1 0RF Rx Instructions: As directed fluoxetine [Prozac] 20 mg capsule 20 mg PO DAILY Qty: 90 2RF losartan 100 mg tablet 100 mg PO DAILY Qty: 90 3RF hydrochlorothiazide 25 mg tablet 25 mg PO DAILY Qty: 90 4RF Mounjaro 10 mg/0.5 mL pen injector 10 mg subcut QWEEK Qty: 2 5RF Referrals / Follow Up: Edel Thomas, CALCULATING MACHINE OPERATOR-C [Primary Care Provider] - Disposition Disposition (needs filled in before D/C Order can be placed): Home, Self Care
--- NOTE | 2024-03-07 14:01 | OP.PCM_ITS ---
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, vermilion border: Operative Report (Standard) Operative Information Surgery/Procedure Performed: Excision lesion lower lip (1.2 cm) Surgeon: Caitlin Govea Date of Procedure: 03/07/24 Procedure Start Time: 13:45 Procedure Stop Time: 13:56 Pre-Operative Diagnosis: Neoplasm uncertain behavior lower lip Post-Operative Diagnosis: Same Select all DRAINS/GRAFTS/IMPLANTS that apply: None Type of Anesthesia: Local Estimated Blood Loss: Minimal Specimen collected: Yes Description of specimen(s) removed: Neoplasm of lower lip Description of surgery: Patient presents for excision of a neoplasm of the lower lip. An informed consent was obtained. She is marked in the preop holding area prior to surgery. The patient is brought to the operating room and placed on the operating room table in the supine position. The lip is prepped and draped in the usual sterile fashion. 1% Xylocaine with epinephrine is used for local anesthetic. Following this, the site was excised and passed off the operative field to be sent to pathology. Hemostasis is controlled with cautery. The incision is then closed with running chromic suture. Antibiotic ointment is placed on the site. She tolerated the procedure well was taken to the recovery area in an awake and stable condition. Needle and sponge counts are correct. Surgical Findings: Neoplasm lower lip Milling Supervisor medicare sales representative: No Complications Complications: No Admit VTE Documentation VTE Mechan Device Prophylaxis: None Reason prophylaxis not ordered: Treatment Not Indicated
[2024-03-07 14:30] VITALS: BP 121/78; PULSE 75; RESP 18; TEMP 36.2; O2SAT 98
== END 2024-03-07 14:40 | disposition home or self-care (01) ==
LOC: SDC 12:19 → AC 12:21
PROVIDERS: PCP Nurse Practitioner; Referring Provider Plastic Surgery; Visit Provider Plastic Surgery
PROC: (CPT 11442; principal; 2024-03-07 12:45)
DX: D37.01 Neoplasm of uncertain behavior of lip (principal); L57.8 Other skin changes due to chronic exposure to nonionizing radiation; L85.9 Epidermal thickening, unspecified; Z79.84 Long term (current) use of oral hypoglycemic drugs; Z79.899 Other long term (current) drug therapy; Z79.51 Long term (current) use of inhaled steroids
CPT/HCPCS: 11442; 88305

== ENCOUNTER → 2024-04-15 | Outpatient (CLI) | payer OTHER, SELFPAY ==
--- NOTE | 2024-04-15 12:46 | MRI_ITS ---
HISTORY: RADICULOPATHY, BILAT ARMS, NECK PAIN. TECHNIQUE: Multiplanar and multisequence MR images of the cervical spine were obtained without contrast. 257 images. COMPARISON: XR 03/24/2022. FINDINGS: VERTEBRAE: Vertebral body heights maintained. Degenerative bone marrow endplate changes at multiple levels particularly C4-5. VERTEBRAL ALIGNMENT: Straightening of the cervical lordosis without significant anterior or posterior subluxation. SPINAL CORD: Cervical cord signal and morphology within normal limits. SOFT TISSUES: No prevertebral fluid collection. INTERVERTEBRAL DISCS: C2-3: No significant posterior disc protrusion, central canal stenosis, or foraminal narrowing. C3-4: Mild disc bulge resulting in mild central canal stenosis without significant foraminal narrowing. Small left perineural cyst. C4-5: Mild posterior disc bulge osteophyte complex with uncovertebral and facet arthropathy resulting in mild central canal stenosis and bilateral foraminal narrowing. C5-6: Mild posterior disc bulge osteophyte complex with uncovertebral and facet arthropathy resulting in minimal narrowing of the thecal sac and mild bilateral foraminal narrowing. C6-7: Mild posterior disc bulge osteophyte complex with uncovertebral and facet arthropathy resulting in minimal narrowing of the thecal sac and mild left foraminal narrowing. Bilateral perineural cysts. C7-T1: No significant posterior disc vision, central canal stenosis, or foraminal narrowing MRI/Spine Cervical (Routine) IMPRESSION: Mild multilevel degenerative disc disease of the cervical spine as above. Electronically Signed: Juli Magdaleno MD at 14:15 EST ,
== END | disposition home or self-care (01) ==
LOC: MRI 12:28
PROVIDERS: PCP Nurse Practitioner
DX: M54.12 Radiculopathy, cervical region (principal)
CPT/HCPCS: 72141

== ENCOUNTER → 2024-05-02 | Outpatient (CLI) | payer OTHER, SELFPAY ==
[2024-05-02 12:09] LABS: Absolute Lymphocyte Count 1.06 X10^3/uL (0.83-4.51); Absolute Neutrophil Count 2.3 X10^3/uL (2.0-7.7); Basophil# 0.02 X10^3/uL; Basophil% 0.5 % (0-1); Eosinophil# 0.07 X10^3/uL; Eosinophils% 1.8 % (0-5); Hematocrit 37.2 % (37-47); Hemoglobin 12.7 g/dL (12.0-15.0); Lymphocyte # 1.06 X10^3/ul (0.83-4.51); Mean Corp Hgb Conc 34.1 g/dL (32-36); Mean Corpuscular Hgb 31.4 pg (27.0-32.0); Mean Corpuscular Volume 92.1 fL (81-99); Mean Platelet Vol. 10.5 fl (6.2-12.0); Monocyte% 7.9 % (0-10); NRBC Flagged by Analyzer 0 % (0-5); Neutrophil # 2.33 X10^3/uL (2.7-7.7); Neutrophil % 61.5 % (47-70); Platelet Count 294 K/mm3 (150-450); RBC Distribution Width CV 11.7 % (11.6-14.6); RBC Distribution Width SD 39.8 fl (35.1-43.9); Red Blood Count 4.04 M/mm3 (4.2-5.4); White Blood Count 3.8 K/mm3 (4.4-11.0)
[2024-05-02 12:23] LABS: ALB/GLOB Ratio 1.2 RATIO (0.9-2.4); AST(SGOT) 11 U/L (15-37); Alanine Aminotransfer ALT/SGPT 19 U/L (13-56); Albumin, Serum 3.8 g/dL (3.2-5.0); Alkaline Phosphatase 93 U/L (45-117); Anion Gap 3 (5-15); BUN 22 mg/dL (7-18); BUN/Creat Ratio 23.1 RATIO (10-20); Calcium,Total 9.8 mg/dL (8.5-10.1); Chloride 106 mmol/L (98-107); Cholesterol 177 mg/dL (200); Creatinine, Serum 0.95 mg/dL (0.55-1.02); EST Glomerular Filtration Rate 65 mL/min (>60); Est Glom Filt Rate - Afr Amer 79 mL/min (>60); Globulin 3.3 g/dL (2.2-4.2); Glucose 91 mg/dL (74-106); High Density Lipoprotein 44 mg/dL; Potassium 3.8 mmol/L (3.5-5.1); Protein, Total 7.1 g/dL (6.4-8.2); Sodium Level 139 mmol/L (136-145); Triglycerides 94 mg/dL; Very Low Density Lipoprotein 19 mg/dL (5-40)
== END | disposition home or self-care (01) ==
LOC: BIMLAB 09:31
PROVIDERS: PCP Internal Medicine; Referring Provider Internal Medicine; Visit Provider Internal Medicine
DX: Z00.00 Encounter for general adult medical examination without abnormal findings (principal)
CPT/HCPCS: 36415; 80053; 80061; 85025

== ENCOUNTER → 2024-07-23 | Outpatient (CLI) | payer OTHER, SELFPAY ==
[2024-07-23 10:38] LABS: Absolute Lymphocyte Count 1.21 X10^3/uL (0.83-4.51); Absolute Neutrophil Count 4.6 X10^3/uL (2.0-7.7); Basophil# 0.02 X10^3/uL; Basophil% 0.3 % (0-1); Eosinophils% 1.6 % (0-5); Hematocrit 39.8 % (37-47); Hemoglobin 13.2 g/dL (12.0-15.0); Lymphocyte # 1.21 X10^3/ul (0.83-4.51); Mean Corp Hgb Conc 33.2 g/dL (32-36); Mean Corpuscular Hgb 30.5 pg (27.0-32.0); Mean Corpuscular Volume 91.9 fL (81-99); Monocyte# 0.42 X10^3/uL; Monocyte% 6.6 % (0-10); NRBC Flagged by Analyzer 0 % (0-5); Neutrophil # 4.62 X10^3/uL (2.7-7.7); Neutrophil % 72.3 % (47-70); Platelet Count 251 K/mm3 (150-450); Red Blood Count 4.33 M/mm3 (4.2-5.4); White Blood Count 6.4 K/mm3 (4.4-11.0)
== END | disposition home or self-care (01) ==
LOC: MTLAB 09:13
PROVIDERS: PCP Internal Medicine; Referring Provider Nurse Practitioner Family; Visit Provider Nurse Practitioner Family
DX: D72.819 Decreased white blood cell count, unspecified (principal)
CPT/HCPCS: 36415; 85025

== ENCOUNTER 2025-01-16 08:45 | Emergency (ER) | payer OTHER, SELFPAY ==
[2025-01-16 08:47] VITALS: BP 136/85; PULSE 82; RESP 16; TEMP 37.1; O2SAT 100; BMI 27.1
--- NOTE | 2025-01-16 09:09 | EKG12_ITS ---
Test Reason : GENERAL Blood Pressure : */* mmHG Vent. Rate : 77 BPM Atrial Rate : 77 BPM P-R Int : 150 ms QRS Dur : 80 ms QT Int : 388 ms P-R-T Axes : 23 19 41 degrees QTcB Int : 439 ms Normal sinus rhythm Normal ECG Confirmed by MELCHOR UREÑA ([id number]), state editor CHRISTINE MAURO ([id number]) on 01/19/2025 9:07:20 AM Referred By: Confirmed By: MELCHOR UREÑA
[2025-01-16 09:29] LABS: Hematocrit 38.1 % (37-47); Hemoglobin 12.9 g/dL (12.0-15.0); Immature Granulocytes Count 0.010 X10^3/uL (0.0-0.0); Mean Corp Hgb Conc 33.9 g/dL (32-36); Mean Corpuscular Volume 91.1 fL (81-99); Mean Platelet Vol. 9.8 fl (6.2-12.0); NRBC Flagged by Analyzer 0 % (0-5); Platelet Count 251 K/mm3 (150-450); RBC Distribution Width CV 11.7 % (11.6-14.6); RBC Distribution Width SD 39.1 fl (35.1-43.9); Red Blood Count 4.18 M/mm3 (4.2-5.4); White Blood Count 5.0 K/mm3 (4.4-11.0)
--- NOTE | 2025-01-16 09:42 | RAD_ITS ---
PROCEDURE: CHEST PA AND LATERAL 01/16/2025 REASON FOR EXAM: CHEST PAIN TECHNIQUE: Procedure Code: RADCXR Modality: DX Procedure: CHEST PA AND LATERAL COMPARISON: None. RAD/Chest PA and Lateral IMPRESSION: No evidence of pneumoperitoneum. A small area of airspace disease of the left lower lobe base is seen, with diff erential diagnosis including pneumonitis and atelectasis. No evidence of pulmonary edema. No pleural effusion or pneumothorax is noted. The cardiomediastinal silhouette is within the normal range. Mild thoracic spine degenerative changes are also noted. Reading Location: [id number]
--- OUTSIDE RECORDS SUMMARY | 2025-01-16 09:42 | XMS RPT_ITS | CCD ---
Author Organization [facility] Care Team Providers Care Lead Loader Name Role Phone JORDAN HOUSTON Attending Unavailable JORDAN HOUSTON Referring Unavailable JOSUÉ DENTON Primary Care Unavailable Dr. Josué Denton Primary Care Provider [phone] Dr. Josué Denton Attending Provider [phone] Dr. Josué Denton Referring Provider [phone] Dr. Eloise Glass Attending Provider [phone] Dr. Benny Paniagua Attending Provider Ron EL, CART DRIVER-C Daysi Attending Provider Dr. Montez Petty Attending Provider Dr. Josué Denton Primary Care Provider [phone]) Dr. Josué Denton Referring Provider [phone] Dr. Eloise Glass Attending Provider [phone] MICHEAL Solorio Attending Provider Dr. Josué Denton Primary Care Provider [phone]) Dr. Josué Denton Referring Provider [phone] AUBREE Falcon Attending Provider Ron EL, CART DRIVER-C Daysi Attending Provider Dr. Josué Denton Primary Care Provider [phone]) Dr. Josué Denton Referring Provider [phone] AUBREE Falcon Attending Provider Ron CART DRIVER, CART DRIVER-C Daysi Attending Provider Dr. Montez Petty Attending Provider [phone] Bret CART DRIVER, CART DRIVER-C Angelito Attending Provider [phone] Dr. Benny Paniagua Attending Provider Dr. Tara Gleason Attending Provider [phone] Josué Denton Primary Care Provider [phone] Dr. Josué Denton Referring Provider [phone] AUBREE Falcon Attending Provider Dr. Josué Denton Primary Care Provider [phone]) Dr. Josué Denton Referring Provider [phone] Dr. Wilman Gonzalez Attending Provider [phone] Dr. Josué Denton Primary Care Provider [phone]) Dr. Josué Denton Referring Provider [phone] Dr. Montez Petty Attending Provider [phone] Dr. Josué Denton Primary Care Provider [phone]) Dr. Josué Denton Referring Provider [phone] Dr. Eloise Glass Attending Provider [phone] MICHEAL Solorio Attending Provider Dr. Montez Petty Attending Provider [phone] Roof CART DRIVER, CART DRIVERMeeC Jameson Antony Attending Provider Dr. Josué Denton Primary Care Provider [phone]) Dr. Josué Denton Referring Provider [phone] Dr. Josué Denton Primary Care Provider [phone]) Dr. Josué Denton Referring Provider [phone] AUBREE Valencia Attending Provider Martha CART DRIVER-C, Edel Primary Care Provider NEETU DUTTA Attending Provider NEETU DUTTA Referring Provider Tyebg CART DRIVER-C, Edel Referring Provider [phone] Quan LUJAN, Dr. Navas Attending Provider Corrie LUJAN, Dr. Woods Attending Provider [phone] Corrie LUJAN, Dr. Woods Primary Care Provider Corrie LUJAN, Dr. Woods Referring Provider [phone] Loy Valencia Attending Provider Osmin CART DRIVER-C, Lianna Attending Provider Osmin CART DRIVER-CLianna Referring Provider Corrie LUJAN, Dr. Woods Primary Care Provider Corrie LUJAN, Dr. Woods Referring Provider [phone] Malinda LUJAN, Dr. Herrmann Attending Provider [phone] Corrie LUJAN, Dr. Woods Primary Care Provider Corrie LUJAN, Dr. Woods Referring Provider [phone] Corrie LUJAN, Dr. Woods Attending Provider [phone] Tyebg Edel Primary Care Unavailable BRODE, INOCENCIA Referring Unavailable BRIAN INOCENCIA Attending Unavailable Oleghe, Efewongbe Referring Unavailable Oleghe, Efewongbe Attending Unavailable Oleghe, Efewongbe Primary Care Unavailable Oleghe, Efewongbe Referring Unavailable Lianna Solorio Attending Unavailable Oleghe, Efewongbe Primary Care Unavailable Oleghe, Efewongbe Primary Care Unavailable Oleghe, Efewongbe Referring Unavailable Montez Petty Attending Unavailable Oleghe, Efewongbe Primary Care Unavailable Oleghe, Efewongbe Referring Unavailable Oleghe, Efewongbe Attending Unavailable Lianna Solorio Attending Unavailable Ferullo, Edel Referring Unavailable Ferullo, Edel Primary Care Unavailable Ferullo, Edel Referring Unavailable Ghazoul, Caitlin Attending Unavailable Ferullo, Edel Primary Care Unavailable Ferullo, Edel Primary Care Unavailable Ferullo, Edel Referring Unavailable Ghazoul, Caitlin Attending Unavailable Ferullo, Edel Primary Care Unavailable Ferullo, Edel Referring Unavailable Eloise Glass Attending Unavailable Oleghe, Efewongbe Attending Unavailable Ferullo, Edel Primary Care Unavailable Ferullo, Edel Referring Unavailable Oleghe, Efewongbe Referring Unavailable Loy Valencia Attending Unavailable Oleghe, Efewongbe Primary Care Unavailable Ferullo, Edel Primary Care Unavailable Ghazoul, Caitlin Attending Unavailable Ghazoul, Caitlin Consulting Unavailable Ghazoul, Caitlin Referring Unavailable Ferullo, Edel Primary Care Unavailable Ghazoul, Caitlin Referring Unavailable Ghazoul, Caitlin Attending Unavailable Oleghe, Efewongbe Primary Care Unavailable Assessment, Health Risk Attending Unavaila Eloise Keating Referring Unavailable Eloise Glass Attending Unavailable Oleghe, Efewongbe Primary Care Unavailable Lianna Solorio Referring Unavailable Lianna Solorio Attending Unavailable Oleghe, Efewongbe Primary Care Unavailable Allergies Allergy Classification Reported Allergen(s) Allergy Type Date of Onset Reaction(s) Facility (16 sources) Lisinopril Drug Allergy 2 Dry nagging cough [facility] (17 sources) Sulfonamides (Antibiotic); Translations: [Sulfa (Sulfonamide Antibiotics)] Allergy to substance 2 Other [facility] (4 sources) Adhesive Tape; Translations: [adhesive tape] Allergy to substance 5 Rash [facility] (1 source) Lisinopril Drug Allergy 5 [facility] Repository Medications Current Medications Medication Drug Class(es) Dates Sig (Normalized) Sig (Original) acetaminophen 325 mg / oxyCODONE hydrochloride 5 mg oral tablet (17 sources) Opioid Agonist Start: 11-06-2022 take 1 tablet by mouth every six hours Oxycodone-Acetami nophen (Percocet) 5-325 mg tablet Active 1 TABLET PO EVERY 6 HOURS 12 3 November 06, 2022 Start: 10-14-2020 End: 11-16-2020 Oxycodone-Acetaminophen (Per cocet) 5-325 mg tablet Discontinued 1 {tbl} PO EVERY 6 HOURS as needed 0 October 14, 2020 12:00am November 16, 2020 10:06am 200 actuat albuterol 0.09 mg/actuat dry powder inhaler (3 sources) beta2-Adrenergic Agonist Start: 10-26-2023 Albuterol Sulfate 90 mcg/actuation aerosol powdr breath activated Active 2 NMA INHALATION EVERY 4-6 HOURS as needed for shortness of breath or wheezing 1 October 26, 2023 9:01am hydroCHLOROthiazide 25 mg oral tablet (20 sources) Thiazide Diuretic Start: 04-17-2024 Hydrochlorothiazide 25 mg tablet Active 12.5 mg PO DAILY April 17, 2024 3:31pm Start: 09-06-2018 End: 09-06-2018 take 1 tablet by mouth once daily Hydrochlorothiazide 50 mg tablet Discontinued 50 mg PO DAILY September 06, 2018 12:00am September 06, 2018 9:00am Start: 09-03-2017 End: 04-17-2024 take 1 tablet by mouth once daily Hydrochlorothiazide 25 mg tablet Discontinued 25 mg PO DAILY 90 4 October 01, 2023 8:28am April 17, 2024 3:32pm ketorolac tromethamine 10 mg oral tablet (10 sources) Nonsteroidal Anti-inflammatory Drug, Cyclooxygenase Inhibitor Start: 11-06-2022 take 10 mg by mouth every six hours Ketorolac Active 10 MG PO EVERY 6 HOURS 20 5 November 06, 2022 12:00am Start: 05-08-2022 End: 09-28-2022 take 1 tablet by mouth four times daily as needed for pain Ketorolac 10 mg tablet Discontinued 10 mg PO 4 TIMES DAILY NEEDED as needed for pain 20 5 0 May 08, 2022 8:38am September 28, 2022 10:42am metFORMIN hydrochloride 500 mg oral tablet (13 sources) Biguanide Start: 10-12-2022 End: 12-12-2022 take 1 tablet by mouth twice daily at mealtime Metformin 500 mg tablet Active 500 mg PO 2 times per day with meals 180 December 12, 2022 10:02am Diabetes mellitus Type 2 diabetes mellitus without complications methylPREDNISolone 4 mg oral tablet (1 source) Corticosteroid Start: 11-03-2024 take 1 tablet by mouth once Methylprednisolone (Medrol (Juma)) 4 mg tablets,dose pack Active 0 PO per package directions November 03, 2024 12:00am PO PER PKG DIR for 6 days ondansetron 4 mg disintegrating oral tablet (1 source) Serotonin-3 Receptor Antagonist Start: 11-06-2022 take 4 mg by mouth three times daily Ondansetron Active 4 MG PO THREE TIMES A DAY November 06, 2022 6:23am Oral Sleep Appliance (20 sources) Start: 03-20-2022 Oral Sleep Appliance Active 0 .Route .MEDSUPPLY 1 March 20, 2022 6:17pm Obstructive sleep apnea syndrome Obstructive sleep apnea (adult) (pediatric) As directed Start: 03-20-2022 Oral Sleep Rose liance Active 0 .Route .MEDSUPPLY March 20, 2022 6:17pm As directed Start: 03-20-2022 Oral Sleep Rose liance Active 0 .Route .MEDSUPPLY March 20, 2022 5:17pm As directed Start: 03-20-2022 End: 03-20-2022 Oral Sleep Appliance Discont inued 0 .Route .MEDSUPPLY 1 March 20, 2022 1:00am March 20, 2022 6:17pm Obstructive sleep apnea syndrome Obstructive sleep apnea (adult) (pediatric) As directed Start: 03-20-2022 End: 03-20-2022 Oral Sleep Appliance Discont inued 0 .Route .MEDSUPPLY March 20, 2022 1:00am March 20, 2022 6:17pm As directed Start: 03-20-2022 End: 03-20-2022 Oral Sleep Appliance Discont inued 0 .Route .MEDSUPPLY March 20, 2022 12:00am March 20, 2022 5:17pm As directed Tirzepatide (Mounjaro) 7.5 mg/0.5 mL pen injector (7 sources) Start: 07-23-2024 Tirzepatide (M ounjaro) 7.5 mg/0.5 mL pen injector Active 7.5 mg SC EVERY WEEK 2 July 23, 2024 12:00am Diabetes mellitus Type 2 diabetes mellitus with hyperglycemia Start: 07-23-2024 Tirzepatide (M ounjaro) 7.5 mg/0.5 mL pen injector Active 7.5 mg SC EVERY WEEK 2 July 23, 2024 12:00am Start: 06-11-2023 End: 01-07-2024 Tirzepatide (Mounjaro) 7.5 m g/0.5 mL pen injector Discontinued 7.5 mg SC EVERY WEEK 2 June 11, 2023 1:00am January 07, 2024 8:15am Diabetes mellitus Type 2 diabetes mellitus with hyperglycemia Start: 06-11-2023 End: 01-07-2024 Tirzepatide (Mounjaro) 7.5 m g/0.5 mL pen injector Discontinued 7.5 mg SC EVERY WEEK 2 June 11, 2023 1:00am January 07, 2024 8:15am Start: 06-11-2023 Tirzepatide (M ounjaro) 7.5 mg/0.5 mL pen injector Active 7.5 MG SC EVERY WEEK 2 June 11, 2023 12:00am Completed/Discontinued Medications Medication Drug Class(es) Dates Sig (Normalized) Sig (Original) ascorbic acid 500 mg chewable tablet (20 sources) Vitamin C Start: 05-12-2020 End: 11-16-2020 take 1 tablet by mouth once daily Ascorbic Acid (Vitamin C) 500 MG tablet,chewable Discontinued 500 mg PO DAILY May 12, 2020 1:00am November 16, 2020 10:06am Start: 08-08-2017 End: 08-22-2017 take 1 tablet by mouth once daily Ascorbic Acid (Vitamin C) 500 mg tablet extended release Discontinued 500 mg PO daily August 08, 2017 12:00am August 22, 2017 8:00am azithromycin 250 mg oral tablet (3 sources) Macrolide Antimicrobial Start: 06-16-2024 End: 07-23-2024 Azithromycin 250 mg tablet Discontinued 0 PO .COMPLEX 6 0 June 16, 2024 1:00am July 23, 2024 8:15am For 250 mg dose pack: take 500 mg today (day 1), then 250 mg for 4 days (days 2-5) PO benzonatate 100 mg oral capsule (16 sources) Non-narcotic Antitussive Start: 03-30-2018 End: 09-06-2018 take 1 capsule by mouth three times daily as needed for cough Benzonatate (Tessalon Perles) 100 mg capsule Discontinued 100 mg PO THREE TIMES A DAY as needed for cough 20 0 March 30, 2018 1:00am September 06, 2018 8:43am Blood-Glucose Sensor (Freestyle Sanam 3 Sensor) device (6 sources) Start: 04-02-2023 End: 01-23-2024 Blood-Glucose Sensor (Freestyle Sanam 3 Sensor) device Discontinued 0 .Route 2 April 02, 2023 1:00am January 23, 2024 8:22am Diabetes mellitus Type 2 diabetes mellitus with hyperglycemia 1 sensor q 14 days Start: 04-02-2023 End: 01-23-2024 Blood-Glucose Sensor (Freest yle Sanam 3 Sensor) device Discontinued 0 .Route 2 April 02, 2023 1:00am January 23, 2024 8:22am 1 sensor q 14 days Start: 04-02-2023 Blood-Glucose Sensor (Freestyle Sanam 3 Sensor) device Active 0 .Route 2 April 02, 2023 12:00am 1 sensor q 14 days 24 hr buPROPion hydrochloride 150 mg extended release oral tablet (20 sources) Aminoketone Start: 06-23-2019 End: 12-09-2019 take 1 tablet by mouth once daily in the morning Bupropion Hcl (Wellbutrin Xl) 150 mg tablet extended release 24 hr Discontinued 150 mg PO EVERY MORNING 90 0 June 23, 2019 12:35pm September 17, 2019 11:29am Start: 04-26-2015 End: 06-19-2017 take 1 tablet by mouth once daily Bupropion Hcl 150 MG tablet extended release 12 hr Discontinued 150 mg PO DAILY April 26, 2015 1:00am June 19, 2017 12:06pm busPIRone hydrochloride 7.5 mg oral tablet (16 sources) Start: 09-06-2018 End: 09-17-2019 take 1 tablet by mouth twice daily Buspirone 7.5 mg tablet Discontinued 7.5 mg PO TWICE A DAY 180 1 September 06, 2018 12:00am September 17, 2019 11:29am cephalexin 500 mg oral capsule (20 sources) Cephalosporin Antibacterial Start: 03-07-2024 End: 03-18-2024 take 1 capsule by mouth twice daily Cephalexin 500 mg capsule Discontinued 500 mg PO TWICE A DAY 10 5 0 March 07, 2024 1:00am March 18, 2024 11:45am Start: 11-06-2022 End: 12-12-2022 take 1 capsule by mouth three times daily Cephalexin 500 mg capsule Discontinued 500 mg PO THREE TIMES A DAY 21 7 0 November 06, 2022 12:00am December 12, 2022 10:02am Start: 10-14-2020 End: 11-16-2020 take 1 capsule by mouth every eight hours Cephalexin 500 mg capsule Discontinued 500 mg PO Q8H October 14, 2020 12:00am November 16, 2020 10:06am cholecalciferol 0.025 mg oral capsule (20 sources) Vitamin D Start: 03-23-2022 End: 09-28-2022 take 1 capsule by mouth once daily Cholecalciferol (Vitamin D3) 25 mcg (1,000 unit) capsule Discontinued 25 ug PO DAILY March 23, 2022 1:00am September 28, 2022 10:42am Start: 05-12-2020 End: 11-16-2020 take 2 tablets by mouth once daily Cholecalciferol (Vitamin D3) 1,000 UNIT tablet Discontinued 2000 U PO DAILY May 12, 2020 1:00am November 16, 2020 10:06am Start: 05-12-2020 End: 11-16-2020 take 2000 [IU] by mouth once daily Cholecalciferol (Vitamin D3) Discontinued 2000 UNIT PO DAILY May 12, 2020 12:00am November 16, 2020 9:06am ciprofloxacin 500 mg oral tablet (4 sources) Quinolone Antimicrobial Start: 06-13-2023 End: 07-23-2023 take 1 tablet by mouth twice daily Ciprofloxacin Hcl (Cipro) 500 mg tablet Discontinued 500 mg PO TWICE A DAY 10 0 June 13, 2023 1:00am July 23, 2023 8:46am diazePAM 5 mg oral tablet (16 sources) Benzodiazepine Start: 10-14-2020 End: 11-16-2020 take 1 tablet by mouth three times daily as needed Diazepam (Valium) 5 mg tablet Discontinued 5 mg PO THREE TIMES A DAY as needed October 14, 2020 12:00am November 16, 2020 10:06am Dulaglutide (20 sources) GLP-1 Receptor Agonist Start: 06-07-2022 End: 09-28-2022 Dulaglutide (Trulicity) 3 mg/0.5 mL pen injector Discontinued 3 mg SC EVERY WEEK 6 2 June 07, 2022 1:48pm September 28, 2022 10:42am Prediabetes Obesity Metabolic syndrome Prediabetes Morbid (severe) obesity due to excess calories Body mass index [BMI] 35.0-35.9, adult Metabolic syndrome and other insulin resistance Start: 06-07-2022 End: 09-28-2022 Dulaglutide (Trulicity) 3 mg /0.5 mL pen injector Discontinued 3 mg SC EVERY WEEK 6 June 07, 2022 1:48pm September 28, 2022 10:42am Start: 06-07-2022 End: 09-28-2022 Dulaglutide (Trulicity) 3 mg /0.5 mL pen injector Discontinued 3 MG SC EVERY WEEK 6 June 07, 2022 12:48pm September 28, 2022 9:42am Start: 06-07-2022 End: 09-28-2022 Dulaglutide (Trulicity) 3 mg /0.5 mL pen injector Discontinued 3 MG SC EVERY WEEK 6 June 07, 2022 1:48pm September 28, 2022 10:42am Start: 03-23-2022 End: 06-07-2022 Dulaglutide (Trulicity) 3 mg /0.5 mL pen injector Discontinued 3 mg SC EVERY WEEK 6 2 March 23, 2022 11:20am June 07, 2022 1:49pm Metabolic syndrome Obesity Metabolic syndrome and other insulin resistance Morbid (severe) obesity due to excess calories Body mass index [BMI] 35.0-35.9, adult Start: 03-23-2022 End: 06-07-2022 Dulaglutide (Trulicity) 3 mg /0.5 mL pen injector Discontinued 3 mg SC EVERY WEEK 6 March 23, 2022 11:20am June 07, 2022 1:49pm Start: 03-23-2022 End: 06-07-2022 Dulaglutide (Trulicity) 3 mg /0.5 mL pen injector Discontinued 3 MG SC EVERY WEEK 6 March 23, 2022 10:20am June 07, 2022 12:49pm Start: 03-23-2022 End: 06-07-2022 Dulaglutide (Trulicity) 3 mg /0.5 mL pen injector Discontinued 3 MG SC EVERY WEEK March 23, 2022 11:20am June 07, 2022 1:49pm Start: 03-23-2022 Dulaglutide (T rulicity) 3 mg/0.5 mL pen injector Active 3 MG SC EVERY WEEK March 23, 2022 10:20am Start: 11-14-2021 End: 03-23-2022 Dulaglutide (Trulicity) 3 mg /0.5 mL pen injector Discontinued 3 mg SC EVERY WEEK 6 November 14, 2021 12:00am March 23, 2022 10:43am Metabolic syndrome Obesity Metabolic syndrome and other insulin resistance Morbid (severe) obesity due to excess calories Body mass index [BMI] 35.0-35.9, adult Start: 11-14-2021 End: 03-23-2022 Dulaglutide (Trulicity) 3 mg /0.5 mL pen injector Discontinued 3 mg SC EVERY WEEK November 14, 2021 12:00am March 23, 2022 10:43am Start: 11-14-2021 End: 03-23-2022 Dulaglutide (Trulicity) 3 mg /0.5 mL pen injector Discontinued 3 MG SC EVERY WEEK November 14, 2021 12:00am March 23, 2022 10:43am Start: 11-14-2021 End: 03-23-2022 Dulaglutide (Trulicity) 3 mg /0.5 mL pen injector Discontinued 3 MG SC EVERY WEEK November 13, 2021 11:00pm March 23, 2022 9:43am Start: 11-14-2021 Dulaglutide (T rulicity) 3 mg/0.5 mL pen injector Active 3 MG SC EVERY WEEK November 13, 2021 11:00pm Start: 11-14-2021 Dulaglutide (T rulicity) 3 mg/0.5 mL pen injector Active 3 MG SC EVERY WEEK November 14, 2021 12:00am Start: 11-09-2021 End: 11-14-2021 Dulaglutide (Trulicity) 4.5 mg/0.5 mL pen injector Discontinued 4.5 mg SC EVERY WEEK 6 2 November 09, 2021 12:00am November 14, 2021 2:51pm Start: 11-09-2021 End: 11-14-2021 Dulaglutide (Trulicity) 4.5 mg/0.5 mL pen injector Discontinued 4.5 mg SC EVERY WEEK 6 November 09, 2021 12:00am November 14, 2021 2:51pm Start: 11-09-2021 End: 11-14-2021 Dulaglutide (Trulicity) 4.5 mg/0.5 mL pen injector Discontinued 4.5 MG SC EVERY WEEK 6 November 08, 2021 11:00pm November 14, 2021 1:51pm Start: 11-09-2021 End: 11-14-2021 Dulaglutide (Trulicity) 4.5 mg/0.5 mL pen injector Discontinued 4.5 MG SC EVERY WEEK 6 November 09, 2021 12:00am November 14, 2021 2:51pm Start: 08-10-2021 End: 11-09-2021 Dulaglutide (Trulicity) 1.5 mg/0.5 mL pen injector Discontinued 1.5 mg SC EVERY WEEK 2 3 August 10, 2021 12:00am November 09, 2021 9:18am Start: 06-10-2021 End: 08-10-2021 Dulaglutide (Trulicity) 0.75 mg/0.5 mL pen injector Discontinued 0.75 mg SC EVERY WEEK 2 3 June 10, 2021 1:00am August 10, 2021 3:02pm 84 hr estradiol 0.93017 mg/hr transdermal system (16 sources) Estrogen Start: 09-14-2020 End: 05-10-2021 apply 1 dose transdermal route two times weekly, then apply 1 dose transdermal route every hour Estradiol (Vivelle-Dot) 0.1 mg/24 hr patch semiweekly Discontinued 1 NMA TD TWICE A WEEK 8 September 14, 2020 12:00am May 10, 2021 4:11pm apply 1 patch for 3 days alternating with 1 patch for 4 days each week Start: 09-14-2020 End: 05-10-2021 apply 1 dose transdermal route two times weekly, then apply 1 dose transdermal route every hour Estradiol (Vivelle-Dot) 0.1 mg/24 hr patch semiweekly Discontinued 1 PATCH TD TWICE A WEEK September 13, 2020 11:00pm May 10, 2021 3:11pm apply 1 patch for 3 days alternating with 1 patch for 4 days each week FLUoxetine 20 mg oral capsule (20 sources) Serotonin Reuptake Inhibitor Start: 05-20-2021 End: 05-19-2024 take 1 capsule by mouth once daily Fluoxetine (Prozac) 20 mg capsule Discontinued 20 mg PO DAILY 90 2 June 19, 2023 11:22am May 19, 2024 12:14pm fluticasone propionate 0.05 mg/actuat metered dose nasal spray (20 sources) Corticosteroid Start: 03-30-2018 End: 09-06-2018 take 50 ug nasal route once daily Fluticasone Propionate (Flonase Allergy Relief) 50 mcg/actuation spray,suspension Discontinued 2 NMA INTRANASAL DAILY 15.8 1 March 30, 2018 1:00am September 06, 2018 8:43am administer into each nostril Start: 03-30-2018 End: 09-06-2018 take 1 spray(s) nasal route once daily Fluticasone Propionate (Flonase Allergy Relief) 50 mcg/actuation spray,suspension Discontinued 2 SPRAY INTRANASAL DAILY 15.8 March 30, 2018 12:00am September 06, 2018 7:43am administer into each nostril Start: 04-27-2015 End: 04-19-2017 Fluticasone Propionate 1 SPR AY spray,suspension Discontinued 2 NMA NASAL DAILY April 27, 2015 1:00am April 19, 2017 1:45pm Start: 04-27-2015 End: 04-19-2017 Fluticasone Propionate Disco ntinued 2 SPRAY NASAL DAILY April 27, 2015 12:00am April 19, 2017 12:45pm lisinopril 20 mg oral tablet (20 sources) Angiotensin Converting Enzyme Inhibitor Start: 09-11-2017 End: 09-13-2017 take 1 tablet by mouth once daily Lisinopril 20 mg tablet Discontinued 20 mg PO daily 90 3 September 11, 2017 12:00am September 13, 2017 4:40pm Start: 08-18-2017 End: 09-11-2017 take 2 tablets by mouth once daily Lisinopril 10 mg tablet Discontinued 20 mg PO daily 90 3 August 18, 2017 5:44pm September 11, 2017 2:27pm Start: 08-18-2017 End: 09-11-2017 take 20 mg by mouth once daily Lisinopril Discontinued 20 MG PO daily 90 August 18, 2017 4:44pm September 11, 2017 1:27pm Start: 08-08-2017 End: 08-18-2017 take 1 tablet by mouth once daily Lisinopril 10 mg tablet Discontinued 10 mg PO daily 90 3 August 09, 2017 12:07pm August 18, 2017 5:45pm losartan potassium 100 mg oral tablet (20 sources) Angiotensin 2 Receptor Dena Start: 04-15-2019 End: 09-24-2023 take 1 tablet by mouth once daily Losartan 100 mg tablet Discontinued 100 mg PO DAILY 90 3 July 03, 2022 8:50am September 24, 2023 9:50am Start: 09-03-2018 End: 04-15-2019 take 1 tablet by mouth once daily Losartan 50 mg tablet Discontinued 50 mg PO daily 90 4 September 03, 2018 3:53pm April 15, 2019 12:13pm Start: 09-13-2017 End: 09-03-2018 take 1 tablet by mouth once daily Losartan 25 mg tablet Discontinued 25 mg PO daily 90 4 September 03, 2018 3:34pm September 03, 2018 3:54pm meloxicam 15 mg oral tablet (3 sources) Nonsteroidal Anti-inflammatory Drug Start: 10-09-2023 End: 01-23-2024 take 1 tablet by mouth once daily Meloxicam 15 mg tablet Discontinued 15 mg PO DAILY 30 October 09, 2023 12:00am January 23, 2024 8:22am methocarbamol 500 mg oral tablet (9 sources) Muscle Relaxant Start: 05-08-2022 End: 09-28-2022 take 2 tablets by mouth four times daily as needed for pain Methocarbamol 500 mg tablet Discontinued 1000 mg PO 4 TIMES DAILY NEEDED as needed for Muscle pain/spasm 56 May 08, 2022 8:39am September 28, 2022 10:42am Start: 05-08-2022 End: 09-28-2022 take 1000 mg by mouth four times daily as needed Methocarbamol Discontinued 1000 MG PO 4 TIMES DAILY NEEDED 56 May 08, 2022 7:39am September 28, 2022 9:42am Multivitamin 1 EACH tablet (3 sources) Start: 04-04-2016 End: 04-19-2017 Multivitamin 1 EACH tablet Discontinued April 04, 2016 1:00am April 19, 2017 1:45pm Multivitamin preparation (20 sources) Start: 08-08-2017 End: 08-22-2017 take 1 tablet by mouth once daily Multivitamin Discontinued 1 TABLET PO daily August 08, 2017 11:41am August 22, 2017 8:00am Start: 08-08-2017 End: 08-22-2017 take 1 tablet by mouth once daily Multivitamin Discontinued 1 TABLET PO daily August 07, 2017 11:00pm August 22, 2017 7:00am Start: 08-08-2017 End: 08-22-2017 take 1 tablet by mouth once daily Multivitamin Discontinued 1 TABLET PO daily August 08, 2017 12:00am August 22, 2017 8:00am Start: 04-04-2016 End: 04-19-2017 Multivitamin Discontinued 2015 3:20am April 19, 2017 1:45pm Start: 04-04-2016 End: 04-19-2017 Multivitamin Discontinued 2015 12:00am April 19, 2017 12:45pm Start: 04-04-2016 End: 04-19-2017 Multivitamin Discontinued cember 2015 1:00am April 19, 2017 1:45pm Multivitamin tablet (3 sources) Start: 08-08-2017 End: 08-22-2017 Multivitamin tablet Discontinued 1 {tbl} PO daily August 08, 2017 12:00am August 22, 2017 8:00am 24 hr oxybutynin chloride 10 mg extended release oral tablet (14 sources) Cholinergic Muscarinic Antagonist Start: 09-22-2021 End: 01-12-2022 take 1 tablet by mouth once daily Oxybutynin Chloride 10 mg tablet extended release 24hr Discontinued 10 mg PO DAILY September 22, 2021 12:00am January 12, 2022 1:12pm oxyCODONE hydrochloride 5 mg oral tablet (4 sources) Opioid Agonist Start: 06-13-2023 End: 07-23-2023 take 1 tablet by mouth every six hours as needed for pain Oxycodone 5 mg tablet Discontinued 5 mg PO EVERY 6 HOURS as needed for pain 14 7 0 June 13, 2023 July 23, 2023 8:45am Stress incontinence of urine Stress incontinence (female) (male) penicillin v potassium 500 mg oral tablet (16 sources) Start: 12-25-2018 End: 04-15-2019 take 1 tablet by mouth four times daily Penicillin V Potassium 500 MG tablet Discontinued 500 mg PO 4 TIMES DAILY 40 0 December 25, 2018 12:00am April 15, 2019 12:03pm phentermine hydrochloride 37.5 mg oral capsule (20 sources) Sympathomimetic Amine Anorectic Start: 11-04-2020 End: 05-10-2021 take 1 capsule by mouth once daily 30 minutes after breakfast Phentermine (Adipex-P) 37.5 mg capsule Discontinued 37.5 mg PO DAILY 30 0 December 06, 2020 9:21am May 10, 2021 4:11pm must administer 30 minutes before or 1-2 hours after breakfast sertraline 50 mg oral tablet (20 sources) Serotonin Reuptake Inhibitor Start: 12-09-2019 End: 11-16-2020 take 1 tablet by mouth once daily Sertraline (Zoloft) 50 mg tablet Discontinued 50 mg PO DAILY 7 3 April 21, 2020 6:02pm May 04, 2020 4:22pm sodium chloride 0.111 meq/ml nasal spray (16 sources) Start: 06-10-2021 End: 06-16-2021 Sodium Chloride (Saline Nasal) 0.65 % aerosol,spray Discontinued 1 NMA INTRANASAL ONCE June 10, 2021 1:00am June 16, 2021 11:03am Start: 06-10-2021 End: 06-16-2021 Sodium Chloride (Saline Nasa l) 0.65 % aerosol,spray Discontinued 1 SPRAY INTRANASAL ONCE June 10, 2021 12:00am June 16, 2021 10:03am tamsulosin hydrochloride 0.4 mg oral capsule (7 sources) alpha-Adrenergic Dena Start: 11-06-2022 End: 12-12-2022 take 1 capsule by mouth once daily Tamsulosin (Flomax) 0.4 mg capsule Discontinued 0.4 mg PO DAILY 14 0 November 06, 2022 12:00am December 12, 2022 10:02am Tirzepatide (Mounjaro) 10 mg/0.5 mL pen injector (3 sources) Start: 01-07-2024 End: 07-23-2024 Tirzepatide (Mounjaro) 10 mg/0.5 mL pen injector Discontinued 10 mg SC EVERY WEEK 2 5 January 07, 2024 12:00am July 23, 2024 8:39am Diabetes mellitus Type 2 diabetes mellitus with hyperglycemia Start: 01-07-2024 End: 07-23-2024 Tirzepatide (Mounjaro) 10 mg /0.5 mL pen injector Discontinued 10 mg SC EVERY WEEK 2 January 07, 2024 12:00am July 23, 2024 8:39am Tirzepatide (Mounjaro) 2.5 mg/0.5 mL pen injector (3 sources) Start: 06-16-2024 End: 07-23-2024 Tirzepatide (Mounjaro) 2.5 mg/0.5 mL pen injector Discontinued 2.5 mg SC EVERY WEEK June 16, 2024 1:00am July 23, 2024 8:16am for 4 weeks Tirzepatide (Mounjaro) 5 mg/ 0.5 mL pen injector (6 sources) Start: 02-19-2023 End: 06-11-2023 Tirzepatide (Mounjaro) 5 mg/ 0.5 mL pen injector Discontinued 5 mg SC EVERY WEEK 2 3 February 19, 2023 12:00am June 11, 2023 10:20am Diabetes mellitus Type 2 diabetes mellitus with hyperglycemia Start: 02-19-2023 End: 06-11-2023 Tirzepatide (Mounjaro) 5 mg/ 0.5 mL pen injector Discontinued 5 mg SC EVERY WEEK 2 February 19, 2023 12:00am June 11, 2023 10:20am Start: 02-19-2023 End: 06-11-2023 Tirzepatide (Mounjaro) 5 mg/ 0.5 mL pen injector Discontinued 5 MG SC EVERY WEEK 2 February 18, 2023 11:00pm June 11, 2023 9:20am Start: 02-19-2023 Tirzepatide (M ounjaro) 5 mg/0.5 mL pen injector Active 5 MG SC EVERY WEEK 2 February 18, 2023 11:00pm 24 hr venlafaxine 75 mg extended release oral capsule (16 sources) Serotonin and Norepinephrine Reuptake Inhibitor Start: 10-14-2020 End: 05-10-2021 take 1 capsule by mouth once daily Venlafaxine (Effexor Xr) 75 mg capsule,extended release 24hr Discontinued 75 mg PO DAILY 30 October 14, 2020 12:00am May 10, 2021 4:11pm Problems Active Problems Problem Classification Problem Date Documented Da te Episodic/Chronic Administrative/social admission (3 sources) First encounter by subject; Translations: [Persons encountering health services in other specified circumstances] 10-26-2023 Episodic Anxiety disorders (20 sources) Mixed anxiety and depressive disorder; Translations: [Other specified anxiety disorders] Chronic Comment on above: start prozac. counse ling. on zoloft and effexor in past. body dysmorphia component. Calculus of urinary tract (20 sources) Renal colic; Translations: [Unspecified renal colic] 11-06-2022 Episodic Conditions associated with dizziness or vertigo (16 sources) Lightheadedness; Translations: [Dizziness and giddiness] 01-26-2021 Episodic Coronary atherosclerosis and other heart disease (6 sources) Atypical angina; Translations: [Anginal equivalent] 03-22-2023 Chronic Diabetes mellitus with complications (1 source) Type 2 diabetes mellitus with hyperglycemia; Translations: [Type 2 diabetes mellitus with hyperglycemia] Onset: 11-03-2024 Chronic Diabetes mellitus without complication (13 sources) Diabetes mellitus; Translations: [Type 2 diabetes mellitus without complications] Onset: 07-23-2024 09-28-2022 Chronic Diabetes mellitus without complication (20 sources) Impaired fasting glycemia; Translations: [Impaired fasting glucose] Episodic Diseases of white blood cells (7 sources) Leukopenia; Translations: [Decreased white blood cell count, unspecified] Onset: 07-29-2024 07-23-2024 Chronic Disorders of lipid metabolism (20 sources) Hypertriglyceridemia ; Translations: [Pure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] Chronic Essential hypertension (20 sources) Essential hypertension; Translations: [Essential (primary) hypertension] Chronic Genitourinary symptoms and ill-defined conditions (4 sources) Genuine stress incontinence; Translations: [Stress incontinence (female) (male)] 06-13-2023 Chronic Comment on above: Placement of tension -free vaginal tape sling mesh on 06/13/[address] Shepherd Genitourinary symptoms and ill-defined conditions (6 sources) Blood in urine; Translations: [Hematuria, unspecified] 11-19-2022 Episodic Heart valve disorders (7 sources) Tricuspid valve regurgitation; Translations: [Rheumatic tricuspid insufficiency] Chronic Immunizations and screening for infectious disease (19 sources) Patient encounter status; Translations: [Encounter for screening for COVID-19] 03-13-2022 Episodic Malaise and fatigue (20 sources) Fatigue; Translations: [Chronic fatigue, unspecified] 05-20-2021 Chronic Comment on above: Reviewed labs with p martha and discussed significance of. She would like to have hepatitis C panel obtained. Also reports hx of father having heart disease and heart attack in his 40's. She is asking if eval with hand sprayer is warranted. Denies CP or SOB, no longer extremity edema. Would consider referral with family hx of significant heart disease. Malaise and fatigue (20 sources) Fatigue; Translations: [Other fatigue] Episodic Menopausal disorders (20 sources) Menopausal syndrome; Translations: [Menopausal and female climacteric states] Chronic Comment on above: effexor and HRT in p ast. no intervention at this time. Nausea and vomiting (11 sources) Nausea; Translations: [Nausea] 03-06-2022 Episodic Nonspecific chest pain (16 sources) Chest pain; Translations: [Chest pain, unspecified] 12-25-2018 Episodic Other acquired deformities (9 sources) Scoliosis of lumbar spine; Translations: [Scoliosis, unspecified] 03-27-2022 Chronic Other acquired deformities (12 sources) Scoliosis, unspecified; Translations: [Scoliosis [and kyphoscoliosis], idiopathic] Chronic Other and unspecified benign neoplasm (3 sources) Benign neoplasm of skin of lip; Translations: [Other benign neoplasm of skin of lip] 03-18-2024 Episodic Other bone disease and musculoskeletal deformities (20 sources) Segmental and somatic dysfunction; Translations: [Segmental and somatic dysfunction of cervical region] 03-23-2022 Episodic Other bone disease and musculoskeletal deformities (13 sources) Segmental and somatic dysfunction of cervical region; Translations: [Nonallopathic lesions, cervical region] Episodic Other bone disease and musculoskeletal deformities (13 sources) Segmental and somatic dysfunction of lumbar region; Translations: [Nonallopathic lesions, lumbar region] Episodic Other bone disease and musculoskeletal deformities (13 sources) Segmental and somatic dysfunction of thoracic region; Translations: [Nonallopathic lesions, thoracic region] Episodic Other connective tissue disease (6 sources) Pain in upper limb; Translations: [Pain in right arm] 03-22-2023 Episodic Other connective tissue disease (6 sources) Recurrent falls ; Translations: [Repeated falls] 07-23-2024 Episodic Other connective tissue disease (3 sources) Bilateral rotator cuff tendinitis; Translations: [Other shoulder lesions, right shoulder] 10-09-2023 Episodic Other hereditary and degenerative nervous system conditions (3 sources) Restless legs; Translations: [Restless legs syndrome] 10-26-2023 Chronic Other nervous system disorders (16 sources) Impaired cognition; Translations: [Other symptoms and signs involving cognitive functions and awareness] 09-14-2020 Episodic Other non-traumatic joint disorders (6 sources) Pain in left shoulder; Translations: [Left shoulder pain] 03-22-2023 Episodic Other nutritional; endocrine; and metabolic disorders (16 sources) Obese class II; Translations: [Obesity, unspecified] 08-16-2021 Chronic Comment on above: prozac. Other nutritional; endocrine; and metabolic disorders (20 sources) Metabolic syndrome X; Translations: [Metabolic syndrome] 09-22-2021 Chronic Other nutritional; endocrine; and metabolic disorders (16 sources) Obesity; Translations: [Obesity, unspecified] 09-22-2021 Chronic Other nutritional; endocrine; and metabolic disorders (14 sources) Obesity, unspecified; Translations: [Obesity, unspecified] Chronic Other nutritional; endocrine; and metabolic disorders (6 sources) Metabolic syndrome; Translations: [Dysmetabolic syndrome X] Chronic Other nutritional; endocrine; and metabolic disorders (8 sources) Weight gain; Translations: [Abnormal weight gain] 03-06-2022 Episodic Other nutritional; endocrine; and metabolic disorders (6 sources) Overweight; Translations: [Overweight] 01-23-2024 Episodic Other nutritional; endocrine; and metabolic disorders (3 sources) Weight increased; Translations: [Abnormal weight gain] 03-06-2022 Episodic Other screening for suspected conditions (not mental disorders or infectious disease) (2 sources) Encounter for screening mammogram for malignant neoplasm of breast; Translations: [Encounter for screening mammogram for malignant neoplasm of breast] Onset: 04-17-2024 Episodic Other upper respiratory infections (20 sources) Acute upper respiratory infection; Translations: [Acute upper respiratory infection, unspecified] 09-03-2018 Episodic Paralysis (9 sources) Cauda equina syndrome; Translations: [Cauda equina syndrome] 05-10-2022 Chronic Residual codes; unclassified (16 sources) Hypersomnia; Translations: [Hypersomnia, unspecified] 09-14-2020 Chronic Residual codes; unclassified (11 sources) Obstructive sleep apnea syndrome; Translations: [Obstructive sleep apnea (adult) (pediatric)] 03-20-2022 Chronic Comment on above: MOUTH CHENCHO/NOT USED Residual codes; unclassified (16 sources) Contact with and (suspected) exposure to potentially hazardous body fluids; Translations: [Exposure to blood or body fluid] 04-08-2018 Episodic Spondylosis; intervertebral disc disorders; other back problems (20 sources) Degeneration of intervertebral disc; Translations: [Degeneration of intervertebral disc] Chronic Sprains and strains (20 sources) Sprain of ligament of finger; Translations: [Unspecified sprain of unspecified finger, initial encounter] 10-06-2019 Episodic Substance-related disorders (2 sources) Drug withdrawal; Translations: [Other psychoactive substance dependence with withdrawal, unspecified] Chronic Substance-related disorders (14 sources) Drug withdrawal; Translations: [Other psychoactive substance use, unspecified with withdrawal, unspecified] 01-30-2021 Episodic Past or Other Problems Problem Classification Problem Date Documented Da te Episodic/Chronic Neoplasms of unspecified nature or uncertain behavior (5 sources) Neoplasm of uncertain behavior of vermilion border of lower lip; Translations: [Neoplasm of uncertain behavior of lip] Onset: 04-02-2024 02-26-2024 Episodic Spondylosis; intervertebral disc disorders; other back problems (20 sources) Neck pain; Translations: [Cervicalgia] Onset: 05-14-2024 Episodic Results Test Name Value Interpretation Reference Range Facility Glucoseon 11-13-2024 Glucose [Mass/Vol] 82 mg/dL Normal 70-99 [facility] Comment on above: Performed By: #### L 500.4100, L501.0100 #### [facility] [address] [place], [place], [id number] Lipid Profileon 11-13-2024 CHOL:HDL 4.16 Normal [facility] Comment on above: Performed By: #### L 500.4100, L501.0100 #### [facility] [address] [place], [address] Cholesterol [Mass/Vol] 197 mg/dL Normal <=200 [facility] Comment on above: Result Comment: Chol esterol level, Desirable <200 mg/dL Borderline high cholesterol 200-239 mg/dL High cholesterol >=240 mg/dL Recommendations of the NCEP Adult Treatment Panel for the following risk-cutoff thresholds for the [place] population. Performed By: #### L 500.4100, L501.0100 #### [facility] [address] [place], [address] Cholesterol in HDL [Mass/Vol] 47 mg/dL Normal [facility] Comment on above: Result Comment: Jeannine onal Cholesterol Education Program (NCEP) guidelines: <40 mg/dL: Low HDL-cholesterol (major risk factor for CHD) >= 60 mg/dL: High HDL-cholesterol (negative risk factor for CHD) HDL-cholesterol is affected by a number of factors, e.g. smoking, exercise, hormones, sex and age. Performed By: #### L 500.4100, L501.0100 #### [facility] [address] [place], [address] Cholesterol in LDL [Mass/Vol] 125 mg/dL Normal [facility] Comment on above: Result Comment: Bord sxuvhr=185-181 mg/dL Higher Biux=221 mg/dL or greater Performed By: #### L 500.4100, L501.0100 #### [facility] [address] [place], [address] Cholesterol in VLDL [Mass/Vol] 25 mg/dL Normal 5-40 [facility] Comment on above: Performed By: #### L 500.4100, L501.0100 #### [facility] [address] [place], [address] Triglyceride [Mass/Vol] 124 mg/dL Normal [facility] Comment on above: Result Comment: The drugs N-Acetylcysteine and Metamizole may falsely depress this assay. Normal range: <150 mg/dL Borderline High: 150-199 mg/dL High: 200-499 mg/dL Very High: >500 mg/dL Performed By: #### L 500.4100, L501.0100 #### [facility] [address] [place], [address] Internal Medicine Office Vis itoradha 11-03-2024 Internal Medicine Office Visit [facility] [address] [place] [address] [place] [address] OFFICE VISIT Date of Service: 11/03/24 MR#: [id number] Acct: [id number] Name: KASEY PAK Rep #: [id number] : 1970 Provider: Dr. Josué roblero MD Age/Sex: 54/F [place] [facility] [place] Status: Signed Intake Vital Signs 05/02/24 09:04 10/09/24 09:31 11/03/24 08:45 Height 5 ft 4 in 5 ft 4 in 5 ft 4 in Weight: 151 lb 6 oz BMI 25.9 BP 128/78 H Blood Pressure Location Lt brachial Position Sitting Respiration 16 Pulse 74 Pulse Source Monitor Temp 97.1 F L Temp Source Temporal Pulse Oximetry (%) 99 Oxygen Delivery Method room air Intake Visit Reasons: 6 M FU Chief Complaint: Follow-up, rash. 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 Required: No Accompanied by: Self Is patient in pain?: No Allergies adhesive tape (tape) Allergy (Mild, Verified 11/03/24 08:37) Rash Sulfa (Sulfonamide Antibiotics) Allergy (Verified 11/03/24 08:37) Other lisinopril Adverse Reaction (Intermediate, Verified 11/03/24 08:37) Dry nagging cough Medications ???Medication ???Instructions ???Recorded ???Confirmed ???Type Oral Sleep Appliance #1 ea 03/20/22 11/03/24 Rx metformin 500 mg tablet 500 mg PO BIDWMEAL #180 tabs 12/1211/03/24 Rx losartan 100 mg tablet 100 mg PO DAILY #90 tabs 09/24/23 11/03/24 Rx albuterol sulfate 90 mcg/actuation 2 inh inhalation Q4-6H PRN 10/2511/03/24 Rx breath activated powder inhaler shortness of breath or wheezing #1 ea hydrochlorothiazide 25 mg tablet 12.5 mg PO DAILY 04/17/24 11/03/24 History fluoxetine 20 mg capsule (Prozac) 20 mg PO DAILY #90 caps 05/19/24 11/03/24 Rx tirzepatide 7.5 mg/0.5 mL 7.5 mg (0.5 mL) subcut QWEEK #2 mL 07/23/24 11/03/24 Rx subcutaneous pen injector (Mounjaro) methylprednisolone 4 mg tablets in See Rx Instructions PO PER PKG D IR 11/03/24 11/03/24 Rx a dose pack (Medrol (Juma)) #21 tabs Nurse's Note: kanu arms and side possible poison sumac painful and itchy PFSH Medical History (Updated 11/03/24 @ 12:[address] Josué Denton MD) Contact dermatitis History of stress test Cardiology follow-up encounter Wears glasses Anxiety Alcohol use Restless legs Back pain Migraine headache Injury of head and neck Dietary restriction History of IBS Non-smoker History of pain when walking History of echocardiogram Hypertension Diabetes Prediabetes MARY (obstructive sleep apnea) Encounter for screening for COVID-19 Obesity Impaired fasting glucose Metabolic syndrome Preventative health care Hyperlipidemia Hypersomnolence Family history of premature coronary artery disease Depression with anxiety Chronic fatigue Essential (primary) hypertension Vision problem Frequent headaches Seasonal allergies Surgical History Hx of cystoscopy Hx of cystoscopy H/O abdominal surgery History of right salpingo-oophorectomy History of knee surgery History of bunionectomy H/O total hysterectomy H/O bilateral breast reduction surgery Family History Father Hypertension Heart disease Diabetes Myocardial infarction Heavy smoker Mother High cholesterol Arthritis Heavy smoker Sister Myocardial infarction, Onset Age: 50 coronary stents CAD (coronary artery disease) Social History adopted: No number of children: 2 current occupational status: employed 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 Details: KASEY PAK, is a 54 -year-old female presenting with rash and itching due to suspected poison brendan/sumac exposure. The rash began on Sunday after working in the garden and has been intensely itchy. The patient has tried Calamine lotion, Benadryl, and peroxide, with peroxide providing some relief, although its appropriateness is uncertain. The rash appears to be spreading despite attempts to avoid scratching. The patient has a history of using steroids in the past. The patient has a history of Type 2 Diabetes Mellitus, currently managed with Mounjaro and metformin. Her A1c is 5.5, indicating good glycemic control. The patient also has a history of hypertension, managed with losartan and hydrochlorothiazide. Recent blood pressure readings have been stable, with the most recent being 128/78 mmHg. The pat (more content not included)... Normal [facility] Cardiology Visit Reporton Cardiology Visit Report [facility] [address] [place] [address] OFFICE VISIT Date of Service: 10/09/24 MR#: [id number] Acct: [id number] Name: KASEY PAK Rep #: [id number] : 1970 Provider: Dr. Montez Petty MD Age/Sex: 54/F Location: [facility] [place] Status: Signed HPI HPI History of Present Illness Details: This is a pleasant 54-year-old lady who presents to the office today for a cardiovascular follow up visit. She has a history of hypertension. She has been compliant with her medications. She underwent an echocardiogram in 06/2021 which demonstrated an ejection fraction of 60% with stage I diastolic dysfunction. She did undergo liposuction, and continues to have problems trying to lose weight. She recently saw Dr. Paniagua airborne operations superintendent, and was started on Trulicity. He tells me that she is no longer on this.She was started on Mounjaro and and has lost a significant amount of weight. From a cardiac standpoint, the patient is doing well. She denies any palpitations, chest pain, pressure or heaviness. She denies SOB, Orthopnea, and PND. She does not have bleeding issues; no blood in urine, stool or nosebleeds. She does note a decrease in energy level-and attributes this to lack of sleep. She denies, myalgias, or claudication. She does not have edema, or sudden weight gain. She does have an occasional lightheadedness. She denies dizziness, syncopal or near syncopal episodes, and headaches. Intake Vital Signs 04/26/23 10:51 05/02/24 09:04 07/23/24 08:17 10/09/24 09:31 Height 5 ft 4 in 5 ft 4 in 5 ft 4 in 5 ft 4 in Weight: 152 lb BMI 26.1 BP 133/86 H Blood Pressure Location Lt brachial Position Sitting Respiration 16 Pulse 74 Pulse Source Monitor Intake Visit Reasons: 1 Y FU 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 Required: No Is patient in pain?: No Allergies adhesive tape (tape) Allergy (Mild, Verified 10/09/24 09:32) Rash Sulfa (Sulfonamide Antibiotics) Allergy (Verified 10/09/24 09:32) Other lisinopril Adverse Reaction (Intermediate, Verified 10/09/24 09:32) Dry nagging cough Medications ???Medication ???Instructions ???Recorded ???Confirmed ???Type Oral Sleep Appliance #1 ea 03/20/22 06/16/24 Rx metformin 500 mg tablet 500 mg PO BIDWMEAL #180 tabs 12/1210/09/24 Rx losartan 100 mg tablet 100 mg PO DAILY #90 tabs 09/24/23 10/09/24 Rx albuterol sulfate 90 mcg/actuation 2 inh inhalation Q4-6H PRN 10/2510/09/24 Rx breath activated powder inhaler shortness of breath or wheezing #1 ea hydrochlorothiazide 25 mg tablet 12.5 mg PO DAILY 04/17/24 10/09/24 History fluoxetine 20 mg capsule (Prozac) 20 mg PO DAILY #90 caps 05/19/24 10/09/24 Rx tirzepatide 7.5 mg/0.5 mL 7.5 mg (0.5 mL) subcut QWEEK #2 mL 07/23/24 10/09/24 Rx subcutaneous pen injector (Nuris) [facility] Medical History History of stress test Cardiology follow-up encounter Wears glasses Anxiety Alcohol use Restless legs Back pain Migraine headache Injury of head and neck Dietary restriction History of IBS Non-smoker History of pain when walking History of echocardiogram Hypertension Diabetes Prediabetes MARY (obstructive sleep apnea) Encounter for screening for COVID-19 Obesity Impaired fasting glucose Metabolic syndrome Preventative health care Hyperlipidemia Hypersomnolence Family history of premature coronary artery disease Depression with anxiety Chronic fatigue Essential (primary) hypertension Vision problem Frequent headaches Seasonal allergies Surgical History Hx of cystoscopy Hx of cystoscopy H/O abdominal surgery History of right salpingo-oophorectomy History of knee surgery History of bunionectomy H/O total hysterectomy H/O bilateral breast reduction surgery Family History Father Hypertension Heart disease Diabetes Myocardial infarction Heavy smoker Mother High cholesterol Arthritis Heavy smoker Sister Myocardial infarction, Onset Age: 50 coronary stents CAD (coronary artery disease) Social History adopted: No number of children: 2 current occupational status: employed 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 Normal [facility] Absolute lymphocyte countOrd ered By: Lianna Solorio on 07-23-2024 Lymphocytes Auto (Unsp spec) [#/Vol] 1.21 10*3/uL 0.83-4.51 [facility] Absolute neutrophil countOrd ered By: Lianna Solorio on 07-23-2024 Neutrophils (Bld) [#/Vol] 4.6 10*3/uL 2.0-7.7 [facility] [facility] Automated lymphocyte count a s percentage of total leukocytesOrdered By: Lianna Solorio on 07-23-2024 Lymphocytes/100 WBC Auto (Unsp spec) 19.0 % 19-41 [facility] Basophil percentageOrdered B y: Lianna Solorio on 07-23-2024 Basophils/100 WBC (Bld) 0.3 % 0-1 [facility] CBC W/Diff, Automatedon 04- Absolute Lymph 1.21 X10 3/uL Normal 0.83-4.51 [facility] Comment on above: Performed By: #### L 100.0100 ####[facility] [address] [place], [address] Absolute Neut 4.6 X10 3/uL Normal 2.0-7.7 [facility] Comment on above: Performed By: #### L 100.0100 ####[facility] [address] [place], [address] Basophils/100 WBC (Bld) 0.3 % Normal 0-1 [facility] Comment on above: Performed By: #### L 100.0100 ####[facility] [address] [place], [address] Eosinophils/100 WBC (Bld) 1.6 % Normal 0-5 [facility] Comment on above: Performed By: #### L 100.0100 ####[facility] [address] [place], [address] Erythrocyte distribution width (RBC) [Ratio] 13.0 % Normal 11.6-14.6 [facility] Comment on above: Performed By: #### L 100.0100 ####[facility] [address] [place], [address] Hematocrit (Bld) [Volume fraction] 39.8 % Normal 37-47 [facility] Comment on above: Performed By: #### L 100.0100 ####[facility] [address] [place], [address] Hemoglobin (Bld) [Mass/Vol] 13.2 g/dL Normal 12.0-15.0 [facility] Comment on above: Performed By: #### L 100.0100 ####[facility] [address] [place], [address] IG% 0.200 Normal 0.0-0.9 [facility] Comment on above: Result Comment: IG% - Immature Granulocytes (promyelocytes, myelocytes and metamyelocytes) > 1% indicates that a LEFT SHIFT is Present. Performed By: #### L 100.0100 ####[facility] [address] [place], [address] Lymphocytes/100 WBC (Bld) 19.0 % Normal 19-41 [facility] Comment on above: Performed By: #### L 100.0100 ####[facility] [address] [place], [address] MCH (RBC) [Entitic mass] 30.5 pg Normal 27.0-32.0 [facility] Comment on above: Performed By: #### L 100.0100 ####[facility] [address] [place], [address] MCHC (RBC) [Mass/Vol] 33.2 g/dL Normal 32-36 [facility] Comment on above: Performed By: #### L 100.0100 ####[facility] [address] [place], [address] MCV (RBC) [Entitic vol] 91.9 fL Normal 81-99 [facility] Comment on above: Performed By: #### L 100.0100 ####[facility] [address] [place], [address] Monocytes/100 WBC (Bld) 6.6 % Normal 0-10 [facility] Comment on above: Performed By: #### L 100.0100 ####[facility] [address] [place], [address] Neutrophils/100 WBC (Bld) 72.3 % High 47-70 [facility] Comment on above: Performed By: #### L 100.0100 ####[facility] [address] [place], [address] Nucleated RBC (Bld) [#/Vol] 0 10*3/uL Normal 0-5 [facility] Comment on above: Performed By: #### L 100.0100 ####[facility] [address] [place], [address] Platelet mean volume (Bld) [Entitic vol] 10.0 fL Normal 6.2-12.0 [facility] Comment on above: Performed By: #### L 100.0100 ####[facility] [address] [place], [address] Platelets (Bld) [#/Vol] 251 10*3/uL Normal 150-450 [facility] Comment on above: Performed By: #### L 100.0100 ####[facility] [address] [place], [address] RBC (Bld) [#/Vol] 4.33 10*6/uL Normal 4.2-5.4 [facility] Comment on above: Performed By: #### L 100.0100 ####[facility] [address] [place], [address] RDW SD 43.0 fl Normal 35.1-43.9 [facility] Comment on above: Performed By: #### L 100.0100 ####[facility] [address] [place], [address] WBC (Bld) [#/Vol] 6.4 10*3/uL Normal 4.4-11.0 [facility] Comment on above: Performed By: #### L 100.0100 ####[facility] [address] [place], [address] Endocrinology Visit Reporton 07-23-2024 Endocrinology Visit Report [facility] [address] [place] [address] OFFICE VISIT Date of Service: 07/23/24 MR#: [id number] Acct: [id number] Name: KASEY PAK Rep #: [id number] : 1970 Provider: MICHEAL augustine Age/Sex: 54/F Location: [facility] Status: Signed Intake Vital Signs 01/23/24 08:17 05/02/24 09:04 07/23/24 08:17 Height 5 ft 4 in 5 ft 4 in 5 ft 4 in Weight: 155 lb BMI 26.6 BP 132/84 H Blood Pressure Location Lt brachial Position Sitting Respiration 14 Pulse 82 Pulse Source Monitor Temp 96.8 F L Temp Source Temporal Pulse Oximetry (%) 98 Oxygen Delivery Method room air Intake Visit Reasons: 6 M FU Chief Complaint: f/u diabetes 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 Required: No Accompanied by: Self Is patient in pain?: No Allergies adhesive tape (tape) Allergy (Mild, Verified 07/23/24 08:15) Rash Sulfa (Sulfonamide Antibiotics) Allergy (Verified 07/23/24 08:15) Other lisinopril Adverse Reaction (Intermediate, Verified 07/23/24 08:15) Dry nagging cough Medications ???Medication ???Instructions ???Recorded ???Confirmed ???Type Oral Sleep Appliance #1 ea 03/20/22 06/16/24 Rx metformin 500 mg tablet 500 mg PO BIDWMEAL #180 tabs 12/1207/23/24 Rx losartan 100 mg tablet 100 mg PO DAILY #90 tabs 09/24/23 07/23/24 Rx albuterol sulfate 90 mcg/actuation 2 inh inhalation Q4-6H PRN 10/2507/23/24 Rx breath activated powder inhaler shortness of breath or wheezing #1 ea hydrochlorothiazide 25 mg tablet 12.5 mg PO DAILY 04/17/24 07/23/24 History fluoxetine 20 mg capsule (Prozac) 20 mg PO DAILY #90 caps 05/19/24 07/23/24 Rx tirzepatide 7.5 mg/0.5 mL 7.5 mg (0.5 mL) subcut QWEEK #2 mL 07/23/24 07/23/24 Rx subcutaneous pen injector (Mounjaro) [facility] Medical History History of stress test Cardiology follow-up encounter Wears glasses Anxiety Alcohol use Restless legs Back pain Migraine headache Injury of head and neck Dietary restriction History of IBS Non-smoker History of pain when walking History of echocardiogram Hypertension Diabetes Prediabetes MARY (obstructive sleep apnea) Encounter for screening for COVID-19 Obesity Impaired fasting glucose Metabolic syndrome Preventative health care Hyperlipidemia Hypersomnolence Family history of premature coronary artery disease Depression with anxiety Chronic fatigue Essential (primary) hypertension Vision problem Frequent headaches Seasonal allergies Surgical History Hx of cystoscopy Hx of cystoscopy H/O abdominal surgery History of right salpingo-oophorectomy History of knee surgery History of bunionectomy H/O total hysterectomy H/O bilateral breast reduction surgery Family History Father Hypertension Heart disease Diabetes Myocardial infarction Heavy smoker Mother High cholesterol Arthritis Heavy smoker Sister Myocardial infarction, Onset Age: 50 coronary stents CAD (coronary artery disease) Social History adopted: No number of children: 2 current occupational status: employed 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 A1C today is 5.7%, increased slightly from 01/23/24 at 5.5%. She has lost an additional 8 lbs since that time. She is pleased with her progress. Currently taking Mounjaro 10 mg qweek- tolerating well, and metformin 500 mg BID. She is not routinely checking her blood sugar. BP controlled. Currently taking HCTZ 12.5 mg once daily and losartan 100 mg once daily. Elevated LDL; however, significantly improved from summer. She complains of multiple falls. She feels they are mechanical in nature, she denies syncope or weakness. She complains of intermittent muscle pain to various muscle groups. She had an instance where her left knee became inflamed with an effusion. She has had multiple cortisone injections to address. Labs are up to date. 05/02/24 WBC 3.8 RBC 4.04 ROS Const Constitutional: Positive for frequent falls and weight change (intentional loss); No fatigue ENT ENT: N (more content not included)... Normal [facility] Eosinophil percentageOrdered By: Lianna Solorio on 07-23-2024 Eosinophils/100 WBC (Bld) 1.6 % 0-5 [facility] Erythrocyte distribution wid th (RBC) [Ratio]Ordered By: Lianna Solorio on 07-23-2024 Erythrocyte distribution width (RBC) [Entitic vol] 43.0 fL 35.1-43.9 [facility] Erythrocyte distribution wid th ratioOrdered By: Lianna Solorio on 07-23-2024 Erythrocyte distribution width (RBC) [Ratio] 13.0 % 11.6-14.6 [facility] Erythrocyte distribution wid th standard deviationOrdered By: Lianna Solorio on 07-23-2024 Erythrocyte distribution width (RBC) [Ratio] 43.0 fl 35.1-43.9 [facility] Hematocrit Auto (Bld) [Volum e fraction]Ordered By: Lianna Solorio on 07-23-2024 Hematocrit (Bld) [Volume fraction] 39.8 % 37-47 [facility] Hemoglobin measurementOrdere d By: Lianna Solorio on 07-23-2024 Hemoglobin (Bld) [Mass/Vol] 13.2 g/dL 12.0-15.0 [facility] Immature granulocytes/100 WB C Auto (Bld)Ordered By: Lianna Solorio on 07-23-2024 Immature granulocytes/100 WBC (Bld) 0.200 % 0.0-0.9 [facility] Comment on above: IG% - Immature Granu locytes (promyelocytes, myelocytes and metamyelocytes) > 1% indicates that a LEFT SHIFT is Present. Laboratory - Hematology and Cell countsOrdered By: Lianna Solorio on 07-23-2024 HbA1c (Bld) [Mass fraction] 5.7 % 4.2-6.3 [facility] Lymphocytes Auto (Unsp spec) [#/Vol]Ordered By: Lianna Solorio on 07-23-2024 Lymphocytes (Bld) [#/Vol] 1.21 10*3/uL 0.83-4.51 [facility] Lymphocytes/100 WBC Auto (Un sp spec)Ordered By: Lianna Solorio on 07-23-2024 Lymphocytes/100 WBC (Bld) 19.0 % 19-41 [facility] MCV (mean corpuscular volume ) determinationOrdered By: Lianna Solorio on 07-23-2024 MCV (RBC) [Entitic vol] 91.9 fL 81-99 [facility] Mean corpuscular hemoglobin (MCH) determinationOrdered By: Lianna Solorio on 07-23-2024 MCH (RBC) [Entitic mass] 30.5 pg 27.0-32.0 [facility] Mean corpuscular hemoglobin concentration (MCHC) determinationOrdered By: Lianna Solorio on 07-23-2024 MCHC (RBC) [Mass/Vol] 33.2 g/dL 32-36 [facility] Mean platelet volume determi nationOrdered By: Lianna Solorio on 07-23-2024 Platelet mean volume (Bld) [Entitic vol] 10.0 fL 6.2-12.0 [facility] Monocyte percentageOrdered B y: Lianna Solorio on 07-23-2024 Monocytes/100 WBC (Bld) 6.6 % 0-10 [facility] Neutrophil percentageOrdered By: Lianna Solorio on 07-23-2024 Neutrophils/100 WBC (Bld) 72.3 % High 47-70 [facility] Nucleated red blood cell per centageOrdered By: Lianna Solorio on 07-23-2024 Nucleated RBC/100 WBC (Bld) [Ratio] 0 % 0-5 [facility] Platelet countOrdered By: Me saab Osmin on 07-23-2024 Platelets (Bld) [#/Vol] 251 10*3/uL 150-450 [facility] RBC Auto (Bld) [#/Vol]Ordere d By: Lianna Osmin on 07-23-2024 RBC (Bld) [#/Vol] 4.33 10*6/uL 4.2-5.4 [facility] White blood cell (WBC) count Ordered By: Lianna Solorio on 07-23-2024 WBC (Bld) [#/Vol] 6.4 10*3/uL 4.4-11.0 [facility] Urgent Care Visit Reporton 0 06-16-2024 Urgent Care Visit Report [facility] [address] [place] [address] OFFICE VISIT Date of Service: 06/16/24 MR#: [id number] Acct: [id number] Name: KASEY PAK Rep #: [id number] : 1970 Provider: AUBREE Adam Age/Sex: 54/F [place] [facility] Status: Signed Intake Vital Signs 05/02/24 09:04 06/16/24 08:51 Height 5 ft 4 in Weight: 159 lb BMI 27.3 BP 124/68 H 118/68 Blood Pressure Location Lt brachial Lt brachial Position Sitting Sitting Respiration 16 12 Pulse 79 82 Pulse Source Monitor NIBP Temp 97.9 F 98.1 F Temp Source Temporal Oral Pulse Oximetry (%) 97 96 Oxygen Delivery Method room air room air Intake Visit Reasons: COUGH/ L KNEE INJURY FROM FALL Chief Complaint: cough, left knee injury from fall Allergies adhesive tape (tape) Allergy (Mild, Verified 06/16/24 08:51) Rash Sulfa (Sulfonamide Antibiotics) Allergy (Verified 06/16/24 08:51) Other lisinopril Adverse Reaction (Intermediate, Verified 06/16/24 08:51) Dry nagging cough Medications ???Medication ???Instructions ???Recorded ???Confirmed ???Type Oral Sleep Appliance #1 ea 03/20/22 06/16/24 Rx metformin 500 mg tablet 500 mg PO BIDWMEAL #180 tabs 12/1206/16/24 Rx losartan 100 mg tablet 100 mg PO DAILY #90 tabs 09/24/23 06/16/24 Rx albuterol sulfate 90 mcg/actuation 2 inh inhalation Q4-6H PRN 10/2506/16/24 Rx breath activated powder inhaler shortness of breath or wheezing #1 ea tirzepatide 10 mg/0.5 mL 10 mg (0.5 mL) subcut QWEEK #2 mL 01/07/24 06/16/24 Rx subcutaneous pen injector (Mounjaro) hydrochlorothiazide 25 mg tablet 12.5 mg PO DAILY 04/17/24 06/16/24 History fluoxetine 20 mg capsule (Prozac) 20 mg PO DAILY #90 caps 05/19/24 06/16/24 Rx azithromycin 250 mg tablet See Rx Instructions PO .COMPLEX #6 06/16/24 06/16/24 Rx tabs tirzepatide 2.5 mg/0.5 mL 2.5 mg subcut QWEEK 06/16/2406/16 History subcutaneous pen injector (Mounjaro) Have you fallen in the past year?: Yes Nurse's Note: Patient here for fall on ice x1 month ago and a cough x1 month. PFSH Medical History History of stress test Cardiology follow-up encounter Wears glasses Anxiety Alcohol use Restless legs Back pain Migraine headache Injury of head and neck Dietary restriction History of IBS Non-smoker History of pain when walking History of echocardiogram Hypertension Diabetes Prediabetes MARY (obstructive sleep apnea) Encounter for screening for COVID-19 Obesity Impaired fasting glucose Metabolic syndrome Preventative health care Hyperlipidemia Hypersomnolence Family history of premature coronary artery disease Depression with anxiety Chronic fatigue Essential (primary) hypertension Vision problem Frequent headaches Seasonal allergies Surgical History Hx of cystoscopy Hx of cystoscopy H/O abdominal surgery History of right salpingo-oophorectomy History of knee surgery History of bunionectomy H/O total hysterectomy H/O bilateral breast reduction surgery Family History Father Hypertension Heart disease Diabetes Myocardial infarction Heavy smoker Mother High cholesterol Arthritis Heavy smoker Sister Myocardial infarction, Onset Age: 50 coronary stents CAD (coronary artery disease) Social History (Updated 05/02/24 @ 09:04 by Sandhya Rosales MA) adopted: No number of children: 2 current occupational status: employed 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, [employer] current occupational exposures/hazards: No Smoking Status: Never smoker second hand exposure: No alcohol intake: never substance use type: does not use seatbelt use: always do you feel safe at home: Yes additional social history: pt denies vaping, denies marijuana use, denies edibles, uses ibuprofen , denies aspirin HPI HPI Chief Complaint: cough, left knee injury from fall Details: KASEY PAK, is a 54 F who presents to the office today [facility] for approximately 7-day history of persistent congestion/cough is intermittently productive purulent sputum over the last several days. No complaints of fever, chills, myalgias, fatigue, runny nose, or nausea/vomiting/diarrh ea. No complaints of chest pain/shortness of breath/dyspnea on exertion. No close contacts with similar complaints. Declining POC screening. Additionally, patient notes falling on ice approximately month ago hitting/twisting/torqu ing left knee in the process and has had persistent discomfort predominately in the popliteal region ever since. She notes pain to the same is aggravated brea (more content not included)... Normal [facility] Absolute neutrophil countOrd ered By: Josué Denton on 05-02-2024 Neutrophils (Bld) [#/Vol] 2.3 10*3/uL 2.0-7.7 [facility] Albumin to globulin ratioOrd ered By: Josué Denton on 05-02-2024 Albumin/Globulin [Mass ratio] 1.2 {ratio} 0.9-2.4 [facility] Basophil percentageOrdered B y: Josué Denton on 05-02-2024 Basophils/100 WBC (Bld) 0.5 % 0-1 [facility] Bilirubin, totalOrdered By: Josué Denton on 05-02-2024 Bilirubin [Mass/Vol] 0.50 mg/dL 0.20-1.00 [facility] Comment on above: For patients on eltr ombopag therapy, use of Dimension [employer] TBIL is not recommended. Blood urea nitrogen (BUN)/cr eatinine ratioOrdered By: Josué Denton on 05-02-2024 Urea nitrogen/Creatinine [Mass ratio] 23.1 mg/mg High 10-20 [facility] CBC W/Diff, Automatedon 04-23 Absolute Lymph 1.06 X10 3/uL Normal 0.83-4.51 [facility] Comment on above: Performed By: #### L 500.4100, L500.4050, L100.0100 ####[facility] [address] [place], [address] Absolute Neut 2.3 X10 3/uL Normal 2.0-7.7 [facility] Comment on above: Performed By: #### L 500.4100, L500.4050, L100.0100 ####[facility] [address] [place], [address] Basophils/100 WBC (Bld) 0.5 % Normal 0-1 [facility] Comment on above: Performed By: #### L 500.4100, L500.4050, L100.0100 ####[facility] [address] [place], [address] Eosinophils/100 WBC (Bld) 1.8 % Normal 0-5 [facility] Comment on above: Performed By: #### L 500.4100, L500.4050, L100.0100 ####[facility] [address] [place], [address] Erythrocyte distribution width (RBC) [Ratio] 11.7 % Normal 11.6-14.6 [facility] Comment on above: Performed By: #### L 500.4100, L500.4050, L100.0100 ####[facility] [address] [place], [address] Hematocrit (Bld) [Volume fraction] 37.2 % Normal 37-47 [facility] Comment on above: Performed By: #### L 500.4100, L500.4050, L100.0100 ####[facility] [address] [place], [address] Hemoglobin (Bld) [Mass/Vol] 12.7 g/dL Normal 12.0-15.0 [facility] Comment on above: Performed By: #### L 500.4100, L500.4050, L100.0100 ####[facility] [address] [place], [address] IG% 0.300 Normal 0.0-0.9 [facility] Comment on above: Result Comment: IG% - Immature Granulocytes (promyelocytes, myelocytes and metamyelocytes) > 1% indicates that a LEFT SHIFT is Present. Performed By: #### L 500.4100, L500.4050, L100.0100 ####[facility] [address] [place], [address] Lymphocytes/100 WBC (Bld) 28.0 % Normal 19-41 [facility] Comment on above: Performed By: #### L 500.4100, L500.4050, L100.0100 ####[facility] [address] [place], [address] MCH (RBC) [Entitic mass] 31.4 pg Normal 27.0-32.0 [facility] Comment on above: Performed By: #### L 500.4100, L500.4050, L100.0100 ####[facility] [address] [place], [address] MCHC (RBC) [Mass/Vol] 34.1 g/dL Normal 32-36 [facility] Comment on above: Performed By: #### L 500.4100, L500.4050, L100.0100 ####[facility] [address] [place], [address] MCV (RBC) [Entitic vol] 92.1 fL Normal 81-99 [facility] Comment on above: Performed By: #### L 500.4100, L500.4050, L100.0100 ####[facility] [address] [place], [address] Monocytes/100 WBC (Bld) 7.9 % Normal 0-10 [facility] Comment on above: Performed By: #### L 500.4100, L500.4050, L100.0100 ####[facility] [address] [place], [address] Neutrophils/100 WBC (Bld) 61.5 % Normal 47-70 [facility] Comment on above: Performed By: #### L 500.4100, L500.4050, L100.0100 ####[facility] [address] [place], [address] Nucleated RBC (Bld) [#/Vol] 0 10*3/uL Normal 0-5 [facility] Comment on above: Performed By: #### L 500.4100, L500.4050, L100.0100 ####[facility] [address] [place], [address] Platelet mean volume (Bld) [Entitic vol] 10.5 fL Normal 6.2-12.0 [facility] Comment on above: Performed By: #### L 500.4100, L500.4050, L100.0100 ####[facility] [address] [place], [address] Platelets (Bld) [#/Vol] 294 10*3/uL Normal 150-450 [facility] Comment on above: Performed By: #### L 500.4100, L500.4050, L100.0100 ####[facility] [address] [place], [address] RBC (Bld) [#/Vol] 4.04 10*6/uL Low 4.2-5.4 [facility] Comment on above: Performed By: #### L 500.4100, L500.4050, L100.0100 ####[facility] [address] [place], [address] RDW SD 39.8 fl Normal 35.1-43.9 [facility] Comment on above: Performed By: #### L 500.4100, L500.4050, L100.0100 ####[facility] [address] [place], [address] WBC (Bld) [#/Vol] 3.8 10*3/uL Low 4.4-11.0 [facility] Comment on above: Performed By: #### L 500.4100, L500.4050, L100.0100 ####[facility] [address] [place], [address] Carbon dioxide measurementOr dered By: Josué Denton on 05-02-2024 CO2 [Moles/Vol] 30.0 mmol/L 21.0-32.0 [facility] Chloride measurementOrdered By: Josué Denton on 05-02-2024 Chloride [Moles/Vol] 106 mmol/L 98-107 [facility] Comprehensive Metabolic Prof ilon 05-02-2024 Albumin [Mass/Vol] 3.8 g/dL Normal 3.2-5.0 [facility] Comment on above: Performed By: #### L 500.4100, L500.4050, L100.0100 ####[facility] [address] [place], [address] Albumin/Globulin [Mass ratio] 1.2 {ratio} Normal 0.9-2.4 [facility] Comment on above: Performed By: #### L 500.4100, L500.4050, L100.0100 ####[facility] [address] [place], [address] ALK P 93 U/L Normal 45-117 [facility] Comment on above: Performed By: #### L 500.4100, L500.4050, L100.0100 ####[facility] [address] [place], [address] ALT [Catalytic activity/Vol] 19 U/L Normal 13-56 [facility] Comment on above: Performed By: #### L 500.4100, L500.4050, L100.0100 ####[facility] [address] [place], [address] AST [Catalytic activity/Vol] 11 U/L Low 15-37 [facility] Comment on above: Performed By: #### L 500.4100, L500.4050, L100.0100 ####[facility] [address] [place], [address] Bilirubin [Mass/Vol] 0.50 mg/dL Normal 0.20-1.00 [facility] Comment on above: Result Comment: For patients on eltrombopag therapy, use of Dimension Braggadocio TBIL is not recommended. Performed By: #### L 500.4100, L500.4050, L100.0100 ####[facility] [address] [place], [address] BUN/CRE 23.1 RATIO High 10-20 [facility] Comment on above: Performed By: #### L 500.4100, L500.4050, L100.0100 ####[facility] [address] [place], [address] CA,Total 9.8 mg/dL Normal 8.5-10.1 [facility] Comment on above: Performed By: #### L 500.4100, L500.4050, L100.0100 ####[facility] [address] [place], [address] Chloride [Moles/Vol] 106 mmol/L Normal 98-107 [facility] Comment on above: Performed By: #### L 500.4100, L500.4050, L100.0100 ####[facility] [address] [place], [address] CO2 [Moles/Vol] 30.0 mmol/L Normal 21.0-32.0 [facility] Comment on above: Performed By: #### L 500.4100, L500.4050, L100.0100 ####[facility] [address] [place], [address] Creatinine [Mass/Vol] 0.95 mg/dL Normal 0.55-1.02 [facility] Comment on above: Result Comment: The validity of the calculated GFR GFRAA in patients over 70 years has not been determined. Clinical correlation is essential. Performed By: #### L 500.4100, L500.4050, L100.0100 ####[facility] [address] [place], [address] EST GFR - AA 79 mL/min Normal >60 [facility] Comment on above: Result Comment: Afri can Faroese GFR Calc Performed By: #### L 500.4100, L500.4050, L100.0100 ####[facility] [address] [place], [address] GAP 3 Low 5-15 [facility] Comment on above: Performed By: #### L 500.4100, L500.4050, L100.0100 ####[facility] [address] [place], [address] GFR/1.73 sq M.predicted among non-blacks MDRD (S/P/Bld) [Vol rate/Area] 65 mL/min/{1.73_m2} Normal >60 [facility] Comment on above: Result Comment: Non- GFR Calc Performed By: #### L 500.4100, L500.4050, L100.0100 ####[facility] [address] [place], [address] Globulin (S) [Mass/Vol] 3.3 g/dL Normal 2.2-4.2 [facility] Comment on above: Performed By: #### L 500.4100, L500.4050, L100.0100 ####[facility] [address] [place], [address] Glucose [Mass/Vol] 91 mg/dL Normal 74-106 [facility] Comment on above: Performed By: #### L 500.4100, L500.4050, L100.0100 ####[facility] [address] [place], [address] Potassium [Moles/Vol] 3.8 mmol/L Normal 3.5-5.1 [facility] Comment on above: Performed By: #### L 500.4100, L500.4050, L100.0100 ####[facility] [address] [place], [address] Sodium [Moles/Vol] 139 mmol/L Normal 136-145 [facility] Comment on above: Performed By: #### L 500.4100, L500.4050, L100.0100 ####[facility] [address] [place], [address] T PROT 7.1 g/dL Normal 6.4-8.2 [facility] Comment on above: Performed By: #### L 500.4100, L500.4050, L100.0100 ####[facility] [address] [place], [address] Urea nitrogen [Mass/Vol] 22 mg/dL High 7-18 [facility] Comment on above: Performed By: #### L 500.4100, L500.4050, L100.0100 ####[facility] [address] [place], [address] Eosinophil percentageOrdered By: Josué Denton on 05-02-2024 Eosinophils/100 WBC (Bld) 1.8 % 0-5 [facility] Erythrocyte distribution wid th (RBC) [Ratio]Ordered By: Josué Denton on 05-02-2024 Erythrocyte distribution width (RBC) [Entitic vol] 39.8 fL 35.1-43.9 [facility] Erythrocyte distribution wid th ratioOrdered By: Josué Denton on 05-02-2024 Erythrocyte distribution width (RBC) [Ratio] 11.7 % 11.6-14.6 [facility] Estimated glomerular filtrat ion rate (GFR) AmericanOrdered By: Josué Denton on 05-02-2024 Estimated GFR (MDRD) Amer 79 mL/min >60 [facility] Comment on above: GFR Calc Glomerular filtration rate ( GFR) estimationOrdered By: Josué Denton on 05-02-2024 Estimated GFR (MDRD) Non-Af Amer 65 mL/min >60 [facility] Comment on above: Non- GFR Calc Glucose measurementOrdered B y: Josué Denton on 05-02-2024 Glucose [Mass/Vol] 91 mg/dL 74-106 [facility] Hematocrit Auto (Bld) [Volum e fraction]Ordered By: Josué Denton on 05-02-2024 Hematocrit (Bld) [Volume fraction] 37.2 % 37-47 [facility] Hemoglobin measurementOrdere d By: Josué Denton on 05-02-2024 Hemoglobin (Bld) [Mass/Vol] 12.7 g/dL 12.0-15.0 [facility] High density lipoprotein (HD L) measurementOrdered By: Josué Denton on 05-02-2024 Cholesterol in HDL [Mass/Vol] 44 mg/dL >40 [facility] Comment on above: The drugs N-Acetylcy steine and Metamizole may falsely depress this assay. Reference Range HDL <40 mg/dL Low HDL Cholesterol HDL >or= 60 mg/dL High HDL Cholesterol Immature granulocytes/100 WB C Auto (Bld)Ordered By: Josué Denton on 05-02-2024 Immature granulocytes/100 WBC (Bld) 0.300 % 0.0-0.9 [facility] Comment on above: IG% - Immature Granu locytes (promyelocytes, myelocytes and metamyelocytes) > 1% indicates that a LEFT SHIFT is Present. Internal Medicine Office Vis iton 05-02-2024 Internal Medicine Office Visit [facility] [address] [place], [place] [address] OFFICE VISIT Date of Service: 05/02/24 MR#: [id number] Acct: [id number] Name: KASEY PAK Rep #: [id number] : 1970 Provider: Dr. Josué roblero MD Age/Sex: 54/F [place] [facility] [place]: Signed Intake Vital Signs 04/17/24 14:19 05/02/24 09:04 Height 5 ft 4 in 5 ft 4 in Weight: 159 lb BMI 27.3 BP 124/68 H Blood Pressure Location Lt brachial Position Sitting Respiration 16 Pulse 79 Pulse Source Monitor Temp 97.9 F Temp Source Temporal Pulse Oximetry (%) 97 Oxygen Delivery Method room air Intake Visit Reasons: RE EST FROM EM Chief Complaint: FU/Yearly 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 Required: No Accompanied by: Self Is patient in pain?: No Allergies adhesive tape (tape) Allergy (Mild, Verified 05/02/24 09:00) Rash Sulfa (Sulfonamide Antibiotics) Allergy (Verified 05/02/24 09:00) Other lisinopril Adverse Reaction (Intermediate, Verified 05/02/24 09:00) Dry nagging cough Medications ???Medication ???Instructions ???Recorded ???Confirmed ???Type Oral Sleep Appliance #1 ea 03/20/22 05/02/24 Rx metformin 500 mg tablet 500 mg PO BIDWMEAL #180 tabs 12/12/22 05/02/24 Rx fluoxetine 20 mg capsule (Prozac) 20 mg PO DAILY #90 caps 06/19/23 05/02/24 Rx losartan 100 mg tablet 100 mg PO DAILY #90 tabs 09/24/23 05/02/24 Rx albuterol sulfate 90 mcg/actuation 2 inh inhalation Q4-6H PRN 10/26/23 05/02/24 Rx breath activated powder inhaler shortness of breath or wheezing #1 ea tirzepatide 10 mg/0.5 mL 10 mg (0.5 mL) subcut QWEEK #2 mL 01/07/24 05/02/24 Rx subcutaneous pen injector (Mounjaro) hydrochlorothiazide 25 mg tablet 12.5 mg PO DAILY 04/17/24 05/02/24 History PFSH Medical History History of stress test Cardiology follow-up encounter Wears glasses Anxiety Alcohol use Restless legs Back pain Migraine headache Injury of head and neck Dietary restriction History of IBS Non-smoker History of pain when walking History of echocardiogram Hypertension Diabetes Prediabetes MARY (obstructive sleep apnea) Encounter for screening for COVID-19 Obesity Impaired fasting glucose Metabolic syndrome Preventative health care Hyperlipidemia Hypersomnolence Family history of premature coronary artery disease Depression with anxiety Chronic fatigue Essential (primary) hypertension Vision problem Frequent headaches Seasonal allergies Surgical History Hx of cystoscopy Hx of cystoscopy H/O abdominal surgery History of right salpingo-oophorectomy History of knee surgery History of bunionectomy H/O total hysterectomy H/O bilateral breast reduction surgery Family History Father Hypertension Heart disease Diabetes Myocardial infarction Heavy smoker Mother High cholesterol Arthritis Heavy smoker Sister Myocardial infarction, Onset Age: 50 coronary stents CAD (coronary artery disease) Social History (Updated 05/02/24 @ 09:04 by Sandhya Rosales MA) adopted: No number of children: 2 current occupational status: employed 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 No acute concerns at this time. History of hypertension, blood pressure today is at 120/68 mmHg. Currently on losartan, hydrochlorothiazide which she is taking as prescribed. Stays active. History of metabolic syndrome and diabetes, follows up with endocrinology and is currently on Mounjaro and metformin. Recent A1c was at 5.5. Tolerating medication well. Had a BMI of 27.3. Last colonoscopy was in 2021. History of hysterectomy. Mammogram up-to-date. Has received her flu vaccine. Questions about shingles vaccine. ROS Const Constitutional: No body ache, chills, excessive sweating, fatigue, fever(s), frequent falls, headache(s), snoring, weakness or change in appetite Eyes Eyes: No blurry vision, change in vision, bulging eyes, floaters, visual disturbances, eye pain or Light sensitivity ENT ENT: No abnormal hearing, ear or mastoid pain, tinnitus, balance problems, nosebleed/epistaxis, nasal congestion, headache(s), neck pain or sore throat Resp Respiratory: No cough, excessive phlegm production, pain on inspir (more content not included)... Normal [facility] Laboratory - Chemistry and C hemistry - challengeOrdered By: Josué Denton on 05-02-2024 AST [Catalytic activity/Vol] 11 U/L Low 15-37 [facility] Lipid Profileon 05-02-2024 Cholesterol [Mass/Vol] 177 mg/dL Normal 200 [facility] Comment on above: Result Comment: <200 mg/dL Desirable 200-240 mg/dL Borderline >240 mg/dL High Risk Performed By: #### L 500.4100, L500.4050, L100.0100 ####[facility] [address] [place], [address] Cholesterol in HDL [Mass/Vol] 44 mg/dL Normal [facility] Comment on above: Result Comment: The drugs N-Acetylcysteine and Metamizole may falsely depress this assay. Reference Range HDL <40 mg/dL Low HDL Cholesterol HDL >or= 60 mg/dL High HDL Cholesterol Performed By: #### L 500.4100, L500.4050, L100.0100 ####[facility] [address] [place], [address] Cholesterol in LDL [Mass/Vol] 114 mg/dL Normal 0-130 [facility] Comment on above: Performed By: #### L 500.4100, L500.4050, L100.0100 ####[facility] [address] [place], [address] Cholesterol in VLDL [Mass/Vol] 19 mg/dL Normal 5-40 [facility] Comment on above: Performed By: #### L 500.4100, L500.4050, L100.0100 ####[facility] [address] [place], [address] Triglyceride [Mass/Vol] 94 mg/dL Normal [facility] Comment on above: Result Comment: The drugs N-Acetylcysteine and Metamizole may falsely depress this assay. Serum Triglycerides Reference Interval Normal <150 mg/dL Borderline high 150 - 199 mg/dL High 200 - 499 mg/dL Very High > or = 500 mg/dL Performed By: #### L 500.4100, L500.4050, L100.0100 ####[facility] [address] [place], [address] Low density lipoprotein (LDL ) cholesterol measurementOrdered By: Josué Denton on 05-02-2024 Cholesterol in LDL [Mass/Vol] 114 mg/dL 0-130 [facility] Lymphocytes Auto (Unsp spec) [#/Vol]Ordered By: Josué Denton on 05-02-2024 Lymphocytes (Bld) [#/Vol] 1.06 10*3/uL 0.83-4.51 [facility] Lymphocytes/100 WBC Auto (Un sp spec)Ordered By: Josué Denton on 05-02-2024 Lymphocytes/100 WBC (Bld) 28.0 % 19-41 [facility] MCV (mean corpuscular volume ) determinationOrdered By: Josué Denton on 05-02-2024 MCV (RBC) [Entitic vol] 92.1 fL 81-99 [facility] Mean corpuscular hemoglobin (MCH) determinationOrdered By: Josué Denton on 05-02-2024 MCH (RBC) [Entitic mass] 31.4 pg 27.0-32.0 [facility] Mean corpuscular hemoglobin concentration (MCHC) determinationOrdered By: Josué Denton on 05-02-2024 MCHC (RBC) [Mass/Vol] 34.1 g/dL 32-36 [facility] Mean platelet volume determi nationOrdered By: Josué Denton on 05-02-2024 Platelet mean volume (Bld) [Entitic vol] 10.5 fL 6.2-12.0 [facility] Monocyte percentageOrdered B y: Josué Denton on 05-02-2024 Monocytes/100 WBC (Bld) 7.9 % 0-10 [facility] Neutrophil percentageOrdered By: Josué Denton on 05-02-2024 Neutrophils/100 WBC (Bld) 61.5 % 47-70 [facility] Nucleated red blood cell per centageOrdered By: Josué Denton on 05-02-2024 Nucleated RBC/100 WBC (Bld) [Ratio] 0 % 0-5 [facility] Platelet countOrdered By: Devin Denton on 05-02-2024 Platelets (Bld) [#/Vol] 294 10*3/uL 150-450 [facility] Potassium measurementOrdered By: Josué Denton on 05-02-2024 Potassium [Moles/Vol] 3.8 mmol/L 3.5-5.1 [facility] RBC Auto (Bld) [#/Vol]Ordere d By: Josué Denton on 05-02-2024 RBC (Bld) [#/Vol] 4.04 10*6/uL Low 4.2-5.4 [facility] Serum anion gap measurementO rdered By: Josué Denton on 01-10-2025 Anion gap [Moles/Vol] 3 mmol/L Low 5-15 [facility] Serum globulin measurementOr dered By: Josué Denton on 05-02-2024 Globulin (S) [Mass/Vol] 3.3 g/dL 2.2-4.2 [facility] Serum or plasma alanine schmitt otransferase (ALT) measurementOrdered By: Josué Denton on 05-02-2024 ALT [Catalytic activity/Vol] 19 U/L 13-56 [facility] Serum or plasma albumin snow urement (mass/volume)Ordered By: Josué Denton on 05-02-2024 Albumin [Mass/Vol] 3.8 g/dL 3.2-5.0 [facility] Serum or plasma alkaline jake sphatase measurementOrdered By: Josué Denton on 05-02-2024 ALP [Catalytic activity/Vol] 93 U/L 45-117 [facility] Serum or plasma calcium snow urement (mass/volume)Ordered By: Josué Denton on 05-02-2024 Calcium [Mass/Vol] 9.8 mg/dL 8.5-10.1 [facility] Serum or plasma cholesterol measurement (mass/volume)Ordered By: Josué Denton on 05-02-2024 Cholesterol [Mass/Vol] 177 mg/dL <200 [facility] Comment on above: <200 mg/dL Desirable 200-240 mg/dL Borderline >240 mg/dL High Risk Serum or plasma creatinine m easurement (mass/volume)Ordered By: Josué Denton on 05-02-2024 Creatinine [Mass/Vol] 0.95 mg/dL 0.55-1.02 [facility] Comment on above: The validity of the calculated GFR & GFRAA in patients over 70 years has not been determined. Clinical correlation is essential. Serum or plasma urea nitroge n measurement (mass/volume)Ordered By: Josué Denton on 05-02-2024 Urea nitrogen [Mass/Vol] 22 mg/dL High 7-18 [facility] Sodium levelOrdered By: Ken Denton on 05-02-2024 Sodium [Moles/Vol] 139 mmol/L 136-145 [facility] Total proteinOrdered By: Alejandro zanpriscilla Denton on 05-02-2024 Protein [Mass/Vol] 7.1 g/dL 6.4-8.2 [facility] Triglycerides measurementOrd ered By: Kenjosepriscilla Denton on 05-02-2024 Triglyceride [Mass/Vol] 94 mg/dL <199 [facility] Comment on above: The drugs N-Acetylcy steine and Metamizole may falsely depress this assay.Serum Triglycerides Reference Interval Normal <150 mg/dL Borderline high 150 - 199 mg/dL High 200 - 499 mg/dL Very High > or = 500 mg/dL Very low density lipoprotein (VLDL) cholesterol measurementOrdered By: Josué Denton on 05-02-2024 VLDL Cholesterol 19 mg/dL 5-40 [facility] White blood cell (WBC) count Ordered By: Josué Denton on 05-02-2024 WBC (Bld) [#/Vol] 3.8 10*3/uL Low 4.4-11.0 [facility] Biological Technical Officer Office Visit Reporton 04-17-2024 Biological Technical Officer Office Visit Report [facility] [address], [address] [place] [address] OFFICE VISIT Date of Service: 04/17/24 MR#: [id number] Acct: [id number] Name: KASEY PAK Rep #: [id number] : 1970 Provider: Dr. Eloise stinson MD Age/Sex: 54/F [place] [facility] [place] [facility] [place] Status: Signed Intake Vital Signs 10/26/23 08:05 03/18/24 10:44 04/17/24 14:19 Height 5 ft 4 in 5 ft 4 in 5 ft 4 in Weight: 165 lb 8 oz BMI 28.4 BP 130/86 H Intake Visit Reasons: 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) 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 Required: No Is patient in pain?: No Feel stressed/tense/nervous /anxious/difficulty sleeping: to some extent (tired all the time, patient says this is normal for her) Allergies adhesive tape (tape) Allergy (Mild, Verified 04/17/24 14:31) Rash Sulfa (Sulfonamide Antibiotics) Allergy (Verified 04/17/24 14:31) Other lisinopril Adverse Reaction (Intermediate, Verified 04/17/24 14:31) Dry nagging cough Medications ???Medication ???Instructions ???Recorded ???Confirmed ???Type Oral Sleep Appliance #1 ea 03/20/22 03/18/24 Rx metformin 500 mg tablet 500 mg PO BIDWMEAL #180 tabs 12/12/22 04/17/24 Rx fluoxetine 20 mg capsule (Prozac) 20 mg PO DAILY #90 caps 06/19/23 04/17/24 Rx losartan 100 mg tablet 100 mg PO DAILY #90 tabs 09/24/23 04/17/24 Rx albuterol sulfate 90 mcg/actuation 2 inh inhalation Q4-6H PRN 10/26/23 04/17/24 Rx breath activated powder inhaler shortness of breath or wheezing #1 ea tirzepatide 10 mg/0.5 mL 10 mg (0.5 mL) subcut QWEEK #2 mL 01/07/24 04/17/24 Rx subcutaneous pen injector (Nuris) hydrochlorothiazide 25 mg tablet 12.5 mg PO DAILY 04/17/24 History Is last menstrual period known: No Patient : No : No PFSH Medical History History of stress test Cardiology follow-up encounter Wears glasses Anxiety Alcohol use Restless legs Back pain Migraine headache Injury of head and neck Dietary restriction History of IBS Non-smoker History of pain when walking History of echocardiogram Hypertension Diabetes Prediabetes MARY (obstructive sleep apnea) Encounter for screening for COVID-19 Obesity Impaired fasting glucose Metabolic syndrome Preventative health care Hyperlipidemia Hypersomnolence Family history of premature coronary artery disease Depression with anxiety Chronic fatigue Essential (primary) hypertension Vision problem Frequent headaches Seasonal allergies Surgical History Hx of cystoscopy Hx of cystoscopy H/O abdominal surgery History of right salpingo-oophorectomy History of knee surgery History of bunionectomy H/O total hysterectomy H/O bilateral breast reduction surgery Family History Father Hypertension Heart disease Diabetes Myocardial infarction Heavy smoker Mother High cholesterol Arthritis Heavy smoker Sister Myocardial infarction, Onset Age: 50 coronary stents CAD (coronary artery disease) Social History (Updated 04/17/24 @ 14:33 by Demetria Hanson) adopted: No number of children: 2 current occupational status: employed 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, [employer] current occupational exposures/hazards: No Smoking Status: Never smoker second hand exposure: No alcohol intake: never substance use type: does not use what type of physical activity do you participate in: aerobics and weight training frequency: 3-4 times per week do you feel safe at home: Yes additional social history: pt denies vaping, denies marijuana use, denies edibles, uses ibuprofen , denies aspirin History 2 Elective abortions Hx Para 2 Spontaneous abortions Hx # Term Pregnancies Ectopic pregnancies Hx # Pregnancies Multiple births # of living children Past Pregnancies Del. Date Name GA/Weeks Outcome Route Bth Weight Infant Gen Labor Lgth Anesthesia Del Locatn Provider FOB Unknown Salvatore Unknown Hubert HPI Encounter for routine gynecological examination Details: KASEY PAK is a 54 year old who presents for annual exam. Last PAP: Hysterectomy History of abnormal PAP: Last mammogram: 11/15/2023 - normal History of abnormal mammogram: Colon cancer screening: has not had done recently Other preventative health care screenings: PCP Corrie, routine labs ordered through PCP or Dr. Malinda Lama Constitutional: Reports as per HPI; Denies fatigue, increased appetite, poor appetite, weight gain or weight loss Cardio Card: Denies chest pain Resp Resp: Denies cough or dyspnea GI GI: Reports as per HPI; Denies abdominal pain, bloating, constipation, nausea or vomiting : Reports as (more content not included)... Normal [facility] Spine Cervical (Routine)on 06-16-2023 Spine Cervical (Routine) [facility] Services [address] [place] [address] Spine Cervical (Routine) MR#: [id number] Acct: [id number] Name: KASEY PAK Rep #: [id number] : 1970 F 54 From: Juli garcia MD PCP: Edel Thomas, CART DRIVER-C Status: [facility] CLI Study: Spine Cervical (Routine) Date of Exam: Exam# [id number] Ordering Dr: NEETU DUTTA [id number] HISTORY: RADICULOPATHY, BILAT ARMS, NECK PAIN. TECHNIQUE: Multiplanar and multisequence MR images of the cervical spine were obtained without contrast. 257 images. COMPARISON: XR 03/24/2022. FINDINGS: VERTEBRAE: Vertebral body heights maintained. Degenerative bone marrow endplate changes at multiple levels particularly C4-5. VERTEBRAL ALIGNMENT: Straightening of the cervical lordosis without significant anterior or posterior subluxation. SPINAL CORD: Cervical cord signal and morphology within normal limits. SOFT TISSUES: No prevertebral fluid collection. INTERVERTEBRAL DISCS: C2-3: No significant posterior disc protrusion, central canal stenosis, or foraminal narrowing. C3-4: Mild disc bulge resulting in mild central canal stenosis without significant foraminal narrowing. Small left perineural cyst. C4-5: Mild posterior disc bulge osteophyte complex with uncovertebral and facet arthropathy resulting in mild central canal stenosis and bilateral foraminal narrowing. C5-6: Mild posterior disc bulge osteophyte complex with uncovertebral and facet arthropathy resulting in minimal narrowing of the thecal sac and mild bilateral foraminal narrowing. C6-7: Mild posterior disc bulge osteophyte complex with uncovertebral and facet arthropathy resulting in minimal narrowing of the thecal sac and mild left foraminal narrowing. Bilateral perineural cysts. C7-T1: No significant posterior disc vision, central canal stenosis, or foraminal narrowing MRI/Spine Cervical (Routine) IMPRESSION: Mild multilevel degenerative disc disease of the cervical spine as above. Electronically Signed: Juli Magdaleno MD at 14:15 EST , CC: MICHEAL Thomas; NEETU DUTTA Surface Room Shop Optician: Signed Normal [facility] PT D/C Summary (1)on 024 PT D/C Summary (1) [facility] Physical Therapy [facility] [address] [place] [address] [address] [place] [address] / REHABILITATION SERVICES DISCHARGE SUMMARY MR#: [id number] Acct: [id number] Name: KASEY PAK Rep #: [id number] : 1970 54 From: Eliezer Thomason PT, Cert. MD [place], OCS Referring DrKae: MICHEAL Thomas Status: REG RCR Insurance: [facility] [place] [id number] SELF PAY INSURANCE Discharge Summary D/C summary: It has been my pleasure to treat KASEY PAK referred by MICHEAL Plunkett, with the diagnosis of CERVICALALGIA for a total of 8 visit(s). Discharge Date: Please see the following information for a summary of their discharge status. Subjective Subjective: Im not feeling good pain i worse in bicep Pain Bilateral Shoulder: Pain Intensity (Out of 10): 5 Objective Objective/Function: Patient has no pain with cervical motion testing or positioning with cervical ,+ signs RTC test ,and speeds /O-brians test sleeping on shoulder makes symptoms worse Goals Goal 1:: Patient to be I with posture and shoulders Goal 2:: Patient to improve peak force RTC/deltoid by 10-15# to improve strength/function. Goal 3:: Patient to demonstrate 50% improvement with less shoulder pain and activities above 90 degrees with lifting Goal 4:: Patient to improve quick dash by 5 points to improve QOL and function Goal 5:: Patient to demonstrate less neck tightness with housework and job demands Plan Plan: RTD RECOMMEMND ORTHO CONSULT ,MRI D/C Information d/c sentence: If there are questions or concerns regarding this patient's physical therapy, please feel free to call me at [phone]. Thank you for the referral of this patient. Sincerely, Eliezer Thomason, PT, Cert MDT, OCS Balance/Gait/Functiona l tests Balance/Special Test Scores Quick DASH Score: 36.3625 04/02/24 1405 CC: MICHEAL Thomas SAUL Signed Normal [facility] Plastic Surgery Visit Report on 03-18-2024 Plastic Surgery Visit Report [facility] Plastic Reconstructive Surgery [address], [address] [place] [address] OFFICE VISIT Date of Service: 03/18/24 MR#: [id number] Acct: [id number] Name: KASEY PAK Rep #: [id number] : 1970 Provider: Dr. Caitlin elizalde MD Age/Sex: 54/F Location: [facility] Status: Signed Intake Vital Signs 02/26/24 09:17 03/07/24 12:39 03/18/24 10:44 Height 5 ft 4 in 5 ft 4 in 5 ft 4 in BP 111/76 Blood Pressure Location Lt brachial Position Sitting Respiration 16 Pulse 66 Temp 98.5 F Temp Source Oral Pulse Oximetry (%) 98 Oxygen Delivery Method room air Intake Visit Reasons: post op lesion Chief Complaint: guillermo alvares mole on lip post op Is patient in pain?: No Allergies adhesive tape (tape) Allergy (Mild, Verified 03/18/24 10:45) Rash Sulfa (Sulfonamide Antibiotics) Allergy (Verified 03/18/24 10:45) Other lisinopril Adverse Reaction (Intermediate, Verified 03/18/24 10:45) Dry nagging cough Medications ???Medication ???Instructions ???Recorded ???Confirmed ???Type Oral Sleep Appliance #1 ea 03/20/22 03/18/24 Rx metformin 500 mg tablet 500 mg PO BIDWMEAL #180 tabs 12/12/22 03/18/24 Rx fluoxetine 20 mg capsule (Prozac) 20 mg PO DAILY #90 caps 06/19/23 03/18/24 Rx losartan 100 mg tablet 100 mg PO DAILY #90 tabs 09/24/23 03/18/24 Rx hydrochlorothiazide 25 mg tablet 25 mg PO DAILY #90 tabs 10/01/23 03/18/24 Rx albuterol sulfate 90 mcg/actuation 2 inh inhalation Q4-6H PRN 10/26/23 03/18/24 Rx breath activated powder inhaler shortness of breath or wheezing #1 ea tirzepatide 10 mg/0.5 mL 10 mg (0.5 mL) subcut QWEEK #2 mL 01/07/24 03/18/24 Rx subcutaneous pen injector (Nuris) Nurse's Note: pt here post op lower lip lesion Subjective Details: Kasey comes in for recheck of the lesion removed from her lower lip. She denies any problems. Objective Details: The lower lip incision is well-approximated. There is no evidence of infection. I applied a thin layer of antibiotic ointment to the site. The pathology was reviewed with her which demonstrated focal vascular ectasia with no evidence of malignancy. No further intervention is necessary. She also had questions regarding a previous surgery on her abdomen. It appears that she had a sgfuf-tk-cea's abdominoplasty years ago with a problem with wound healing requiring wound packing. She is not happy with the scar. She admits that she is continuing to lose weight and would like to delay any intervention until she is at her goal weight. She has redundant tissue along the previous vertical incision below the umbilicus. I reviewed revision under a general anesthetic. She is encouraged to call when she has achieved her goal so that we can further discuss the options. Coding Level of Care Code Global Post Op Diagnoses Benign neoplasm of skin of lip D23.0 [facility] Medical History History of stress test Cardiology follow-up encounter Wears glasses Anxiety Alcohol use Restless legs Back pain Migraine headache Injury of head and neck Dietary restriction History of IBS Non-smoker History of pain when walking History of echocardiogram Hypertension Diabetes Prediabetes MARY (obstructive sleep apnea) Encounter for screening for COVID-19 Obesity Impaired fasting glucose Metabolic syndrome Preventative health care Hyperlipidemia Hypersomnolence Family history of premature coronary artery disease Depression with anxiety Chronic fatigue Essential (primary) hypertension Vision problem Frequent headaches Seasonal allergies Surgical History Hx of cystoscopy Hx of cystoscopy H/O abdominal surgery History of right salpingo-oophorectomy History of knee surgery History of bunionectomy H/O total hysterectomy H/O bilateral breast reduction surgery Family History Father Hypertension Heart disease Diabetes Myocardial infarction Heavy smoker Mother High cholesterol Arthritis Heavy smoker Sister Myocardial infarction, Onset Age: 50 coronary stents CAD (coronary artery disease) Social History (Updated 02/26/24 @ 09:20 by Cristina Lema) adopted: No number of children: 2 current occupational status: employed 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 Normal [facility] Discharge Instructionon 02-21 Discharge Instruction [facility] Medical Records Department [address] [place] [address] Instructions for Home/Discharge Instructions 03/07/24 1359 MR#: [id number] Acct: [id number] Name: KASEY PAK Rep #: [id number] : 1970 54 From: Caitlin Govea MD PCP: Edel Thomas NP-C Status:REG [facility] Discharge Instructions Dressing / Incision Additional Dressing/Incision Instructions:: Keep your back elevated (recliner position) for the next 2-3 nights to decrease swelling and bruising. Take the oral antibiotic (Keflex) 2 times a day until finished. Apply a thin layer of antibiotic ointment (like Neosporin, bacitracin, or triple antibiotic ointment) 2 times a day. Follow Up Care Please Follow Up With: Caitlin Govea MD When: 1 to 2 weeks Test Results: Test results from this visit will be discussed in further detail at your follow-up appointment, if applicable. Discharge Plan Admission Attending Provider: Caitlin Govea Primary Care Provider: Edel Thomas Instructions Print Language: Citizen Of [place] Discharge Orders/Prescriptions Prescriptions: New cephalexin 500 mg capsule 500 mg PO BID 5 Days Qty: 10 0RF No Action metformin 500 mg tablet 500 mg PO BIDWMEAL Qty: 180 1RF albuterol sulfate 90 mcg/actuation aerosol powdr breath activated 2 inh INHALATION Q4-6H PRN (Reason: shortness of breath or wheezing) Qty: 1 1RF (DME) Oral Sleep Appliance See Rx Instructions .Route .MEDSUPPLY Qty: 1 0RF Rx Instructions: As directed fluoxetine [Prozac] 20 mg capsule 20 mg PO DAILY Qty: 90 2RF losartan 100 mg tablet 100 mg PO DAILY Qty: 90 3RF hydrochlorothiazide 25 mg tablet 25 mg PO DAILY Qty: 90 4RF Mounjaro 10 mg/0.5 mL pen injector 10 mg subcut QWEEK Qty: 2 5RF Referrals / Follow Up: Edel Thomas NP-C [Primary Care Provider] - Disposition Disposition (needs filled in before D/C Order can be placed): Home, Self Care 03/07/24 1401 Caitlin Govea MD CC: CART DRIVER-C Edel Thomas Signed Normal [facility] Operative Reporton 4 Operative Report [facility] Medical Records Department [address] [place] [address] Operative Report 03/07/24 1401 MR#: [id number] Acct: [id number] Name: KASEY PAK Rep #: [id number] : 1970 54 From: Caitlin Govea MD PCP: MICHEAL Plunkett Status:[facility] Location: [place] [address] 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, vermilion border: Operative Report (Standard) Operative Information Surgery/Procedure Performed: Excision lesion lower lip (1.2 cm) Surgeon: Caitlin Govea Date of Procedure: 03/07/24 Procedure Start Time: 13:45 Procedure Stop Time: 13:56 Pre-Operative Diagnosis: Neoplasm uncertain behavior lower lip Post-Operative Diagnosis: Same Select all DRAINS/GRAFTS/IMPLANTS that apply: None Type of Anesthesia: Local Estimated Blood Loss: Minimal Specimen collected: Yes Description of specimen(s) removed: Neoplasm of lower lip Description of surgery: Patient presents for excision of a neoplasm of the lower lip. An informed consent was obtained. She is marked in the preop holding area prior to surgery. The patient is brought to the operating room and placed on the operating room table in the supine position. The lip is prepped and draped in the usual sterile fashion. 1% Xylocaine with epinephrine is used for local anesthetic. Following this, the site was excised and passed off the operative field to be sent to pathology. Hemostasis is controlled with cautery. The incision is then closed with running chromic suture. Antibiotic ointment is placed on the site. She tolerated the procedure well was taken to the recovery area in an awake and stable condition. Needle and sponge counts are correct. 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 Caitlin Govea MD Signed Normal [facility] Surgery Specimen Level Kurt 03-07-2024 Surgery Specimen Level IV ---- Patient Age/Sex Location Account Attending Physician ---- KASEY PAK 54/F [facility] [id number] Dr. Caitlin Govea MD ---- Specimen: [id number] Received: 03/07/24 Status: REESE Brown Num: [id number] Spec Type: Lesion Subm Dr: Dr. 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 Solar elastosis. Acanthosis, hyperkeratosis and reactive changes. Negative for malignancy. SJ.mr 03/10 COMMENT Case has been reviewed in consultation with Dr. Sawyer who concurs with the above diagnosis. IDC:ALFONSO MICROSCOPIC DESCRIPTION Slides are reviewed. GROSS DESCRIPTION Received in fixative is one container labeled with the patient's name and designated Right lower lip lesion. The specimen consists of one irregular fragment of bateman soft tissue that measures 0.5 cm in greatest dimension. The specimen is totally submitted in one cassette. ALFONSO. 03/10/2024 TC:5 CPT:13127 ---- Patient Age/Sex Location Account Attending Physician ---- KASEY PAK 54/F [facility] [id number] Dr. Caitlin Govea MD ---- Signed (signature on file) Dr. Frankie Maharaj MD 03/11/24 1316 ---- Normal [facility] Comment on above: Performed By: #### P SUIV ####[facility] [id number] [place], [place], [address] Plastic Surgery Visit Report on 02-26-2024 Plastic Surgery Visit Report [facility] Plastic Reconstructive Surgery [address], [address] [place] [address] OFFICE VISIT Date of Service: 02/26/24 MR#: [id number] Acct: [id number] Name: KASEY PAK Rep #: [id number] : 1970 Provider: Dr. Caitlin elizalde MD Age/Sex: 54/F Location: [facility] Status: Signed Intake Vital Signs 01/23/24 08:17 02/26/24 09:17 Height 5 ft 4 in 5 ft 4 in Weight: 163 lb 3 oz 163 lb 6 oz BMI 28.0 28.0 BP 111/74 114/76 Blood Pressure Location Rt brachial Lt brachial Position Sitting Sitting Respiration 6 L Pulse 73 69 Pulse Source Monitor Temp 97.7 F L Temp Source Oral Pulse Oximetry (%) 98 98 Oxygen Delivery Method room air room air Intake Visit Reasons: GUILLERMO ALVARES MOLE ON LIP Chief Complaint: guillermo alvares mole on lip Is patient in pain?: No Allergies adhesive tape (tape) Allergy (Mild, Verified 02/26/24 09:19) Rash Sulfa (Sulfonamide Antibiotics) Allergy (Verified 02/26/24 09:19) Other lisinopril Adverse Reaction (Intermediate, Verified 02/26/24 09:19) Dry nagging cough Medications ???Medication ???Instructions ???Recorded ???Confirmed ???Type Oral Sleep Appliance #1 ea 03/20/22 10/26/23 Rx metformin 500 mg tablet 500 mg PO BIDWMEAL #180 tabs 12/12/22 01/23/24 Rx fluoxetine 20 mg capsule (Prozac) 20 mg PO DAILY #90 caps 06/19/23 02/26/24 Rx losartan 100 mg tablet 100 mg PO DAILY #90 tabs 09/24/23 02/26/24 Rx hydrochlorothiazide 25 mg tablet 25 mg PO DAILY #90 tabs 10/01/23 02/26/24 Rx albuterol sulfate 90 mcg/actuation 2 inh inhalation Q4-6H PRN 10/26/23 01/23/24 Rx breath activated powder inhaler shortness of breath or wheezing #1 ea tirzepatide 10 mg/0.5 mL 10 mg (0.5 mL) subcut QWEEK #2 mL 01/07/24 02/26/24 Rx subcutaneous pen injector (Nuris) Nurse's Note: pt here for guillermo alvares mole on [facility] Medical History History of stress test Cardiology follow-up encounter Wears glasses Anxiety Alcohol use Restless legs Back pain Migraine headache Injury of head and neck Dietary restriction History of IBS Non-smoker History of pain when walking History of echocardiogram Hypertension Diabetes Prediabetes MARY (obstructive sleep apnea) Encounter for screening for COVID-19 Obesity Impaired fasting glucose Metabolic syndrome Preventative health care Hyperlipidemia Hypersomnolence Family history of premature coronary artery disease Depression with anxiety Chronic fatigue Essential (primary) hypertension Vision problem Frequent headaches Seasonal allergies Surgical History Hx of cystoscopy Hx of cystoscopy H/O abdominal surgery History of right salpingo-oophorectomy History of knee surgery History of bunionectomy H/O total hysterectomy H/O bilateral breast reduction surgery Family History Father Hypertension Heart disease Diabetes Myocardial infarction Heavy smoker Mother High cholesterol Arthritis Heavy smoker Sister Myocardial infarction, Onset Age: 50 coronary stents CAD (coronary artery disease) Social History (Updated 02/26/24 @ 09:20 by Cristina Lema) adopted: No number of children: 2 current occupational status: employed 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, [employer] current occupational exposures/hazards: No Smoking Status: Never smoker second hand exposure: No alcohol intake: never substance use type: does not use what type of physical activity do you participate in: aerobics and weight training frequency: 3-4 times per week additional social history: pt denies vaping, denies marijuana use, denies edibles, uses ibuprofen , denies aspirin HPI GUILLERMO ALVARES MOLE ON LIP Details: Kasey is a 54-year-old female who has had a lesion of the lower lip which appeared about a year ago and has progressively enlarged. She is otherwise in good health. ROS General General: Yes good health and fatigue; No fever(s) or weight loss HENMT HENMT: No rhinitis, sore throat/mouth sore, nasal congestion, contacts or glaucoma Endo Endocrine: No thyroid disease, polydipsia, heat intolerance, cold intolerance, hepatitis or excessive urine Skin Skin: No Bleeding, bruising, changing moles or suspicious lesion Musc Musculoskeletal: No joint pain, joint stiffness, muscle weakness, back pain, osteoarthritis or Muscle aches/ myalgia Neuro Neurological: No headache(s), No lightheadedness and No numbness Cardio Cardiovascular: Yes fatigue; No chest pain, pacemaker or shortness of breat with exertion Psych Psychiatric: Yes depression and claustrophobia; No anxiety Resp Respiratory: No spitting (more content not included)... Normal [facility] Endocrinology Visit Reporton 01-23-2024 Endocrinology Visit Report [facility] [facility] [place] [address] OFFICE VISIT Date of Service: 01/23/24 MR#: [id number] Acct: [id number] Name: KASEY PAK Rep #: [id number] : 1970 Provider: MICHEAL augustine Age/Sex: 53/F Location: [facility] Status: Signed Intake Vital Signs 07/23/23 08:38 10/26/23 08:05 01/23/24 08:17 Height 5 ft 4 in 5 ft 4 in 5 ft 4 in Weight: 163 lb 3 oz BMI 28.0 BP 111/74 Blood Pressure Location Rt brachial Position Sitting Pulse 73 Pulse Source Monitor Pulse Oximetry (%) 98 Oxygen Delivery Method room air Intake Visit Reasons: 6 M FU Chief Complaint: f/u diabetes Is patient in pain?: No Allergies Sulfa (Sulfonamide Antibiotics) Allergy (Verified 10/26/23 08:02) Other lisinopril Adverse Reaction (Intermediate, Verified 10/26/23 08:02) Dry nagging cough Medications ???Medication ???Instructions ???Recorded ???Confirmed ???Type Oral Sleep Appliance #1 ea 03/20/22 10/26/23 Rx metformin 500 mg tablet 500 mg PO BIDWMEAL #180 tabs 12/12/22 01/23/24 Rx fluoxetine 20 mg capsule (Prozac) 20 mg PO DAILY #90 caps 06/19/23 01/23/24 Rx losartan 100 mg tablet 100 mg PO DAILY #90 tabs 09/24/23 01/23/24 Rx hydrochlorothiazide 25 mg tablet 25 mg PO DAILY #90 tabs 10/01/23 01/23/24 Rx albuterol sulfate 90 mcg/actuation 2 inh inhalation Q4-6H PRN 10/26/23 01/23/24 Rx breath activated powder inhaler shortness of breath or wheezing #1 ea tirzepatide 10 mg/0.5 mL 10 mg (0.5 mL) subcut QWEEK #2 mL 01/07/24 01/23/24 Rx subcutaneous pen injector (Mounjaro) [facility] Medical History (Updated 01/23/24 @ 09:25 by Lianna Solorio NP-C) History of stress test Cardiology follow-up encounter Wears glasses Anxiety Alcohol use Restless legs Back pain Migraine headache Injury of head and neck Dietary restriction History of IBS Non-smoker History of pain when walking History of echocardiogram Hypertension Diabetes Prediabetes MARY (obstructive sleep apnea) Encounter for screening for COVID-19 Obesity Impaired fasting glucose Metabolic syndrome Preventative health care Hyperlipidemia Hypersomnolence Family history of premature coronary artery disease Depression with anxiety Chronic fatigue Essential (primary) hypertension Vision problem Frequent headaches Seasonal allergies Surgical History Hx of cystoscopy Hx of cystoscopy H/O abdominal surgery History of right salpingo-oophorectomy History of knee surgery History of bunionectomy H/O total hysterectomy H/O bilateral breast reduction surgery Family History Father Hypertension Heart disease Diabetes Myocardial infarction Heavy smoker Mother High cholesterol Arthritis Heavy smoker Sister Myocardial infarction, Onset Age: 50 coronary stents CAD (coronary artery disease) Social History adopted: No number of children: 2 current occupational status: employed 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 A1C today is 5.5%, increased slightly from 07/23/23 at 5.2%. She has lost an additional 12 lbs since that time, total of 50- she is pleased with her progress. Currently taking Mounjaro 10 mg qweek- tolerating well, and metformin 500 mg BID with food. She does not routinely check her blood sugars. She continues to make dietary changes. BP today is well controlled. Currently taking losartan 100 mg once daily and HCTZ 25 mg once daily. Reports compliance with medication regimen. Labs are up to date and unremarkable. Denies any acute concerns. ROS Const Constitutional: Positive for weight change (intentional loss); No fatigue ENT ENT: No dizziness/vertigo Cardio Cardiology: No chest pain at rest, chest pain with exertion, shortness of breath or palpitations Skin Skin: No wounds Endo Endocrine: Positive for weight change (intentional loss); No fatigue Exam Const General: cooperative, healthy appearing, comfortable and no acute distress Nutritional Appearance: overweight Orientation: alert, awake and oriented x3 HENMT Head: normal to inspection Ears: hearing grossly normal bilaterally Nose: external nose norm (more content not included)... Normal [facility] Thin prep Papanicolaou smear with manual screeningOrdered By: Tom Espinoza on 06-13-2023 Thin prep Papanicolaou smear with manual screening 101 mg/dL 74-106 [facility] Comment on above: MANAGEMENT OF PATIEN T CARE PER NURSING PROTOCOL Laboratory - Microbiology an d Antimicrobial susceptibilityon 05-22-2023 SARS-CoV-2 (COVID-19) RNA OK+probe Ql (Unsp spec) Not detected [facility] No Panel Informationon 05-22 POC Nasal Swab Influenza A,B Detected [facility] POC Nasal Swab RSV Not detected [facility] Basophil percentageOrdered B y: [place] Malinda on 04-26-2023 Bilirubin [Mass/Vol] 0.60 mg/dL 0.20-1.00 [facility] Comment on above: For patients on eltr ombopag therapy, use of Dimension Braggadocio TBIL is not recommended. Chloride [Moles/Vol] 102 mmol/L 98-107 [facility] Cholesterol [Mass/Vol] 192 mg/dL <200 [facility] Comment on above: <200 mg/dL Desirable 200-240 mg/dL Borderline >240 mg/dL High Risk Glucose [Mass/Vol] 98 mg/dL 74-106 [facility] Potassium [Moles/Vol] 3.5 mmol/L 3.5-5.1 [facility] Protein [Mass/Vol] 8.0 g/dL 6.4-8.2 [facility] Sodium [Moles/Vol] 138 mmol/L 136-145 [facility] Triglyceride [Mass/Vol] 159 mg/dL <199 [facility] Comment on above: The drugs N-Acetylcy steine and Metamizole may falsely depress this assay.Serum Triglycerides Reference Interval Normal <150 mg/dL Borderline high 150 - 199 mg/dL High 200 - 499 mg/dL Very High > or = 500 mg/dL Direct bilirubinOrdered By: [place] Malinda on 04-26-2023 Bilirubin.direct [Mass/Vol] 0.10 mg/dL 0.00-0.30 [facility] Laboratory - Chemistry and C hemistry - challengeOrdered By: Montez Malinda on 04-26-2023 ALP [Catalytic activity/Vol] 135 U/L 45-117 [facility] ALT [Catalytic activity/Vol] 31 U/L 13-56 [facility] CO2 [Moles/Vol] 29.0 mmol/L 21.0-32.0 [facility] Globulin (S) [Mass/Vol] 3.8 g/dL 2.2-4.2 [facility] Urea nitrogen/Creatinine [Mass ratio] 16.5 mg/mg 10-20 [facility] No Panel InformationOrdered By: Montez Petty on 04-26-2023 Estimated GFR (MDRD) Amer 77 mL/min >60 [facility] Comment on above: GFR Calc Estimated GFR (MDRD) Non-Af Amer 64 mL/min >60 [facility] Comment on above: Non- GFR Calc Serum or plasma albumin snow urement (mass/volume)Ordered By: Montez Petty on 04-26-2023 Albumin [Mass/Vol] 4.2 g/dL 3.2-5.0 [facility] Serum or plasma calcium snow urement (mass/volume)Ordered By: Montez Petty on 04-26-2023 Calcium [Mass/Vol] 9.2 mg/dL 8.5-10.1 [facility] Serum or plasma cholesterol in HDL measurement (mass/volume)Ordered By: Montez Petty on 04-26-2023 Cholesterol in HDL [Mass/Vol] 37 mg/dL >40 [facility] Comment on above: The drugs N-Acetylcy steine and Metamizole may falsely depress this assay. Reference Range HDL <40 mg/dL Low HDL Cholesterol HDL >or= 60 mg/dL High HDL Cholesterol Serum or plasma cholesterol in VLDL measurement (mass/volume)Ordered By: Montez Petty on 04-26-2023 Cholesterol in VLDL [Mass/Vol] 32 mg/dL 5-40 [facility] Serum or plasma creatinine m easurement (mass/volume)Ordered By: Montez Petty on 04-26-2023 Creatinine [Mass/Vol] 0.97 mg/dL 0.55-1.02 [facility] Comment on above: The validity of the calculated GFR & GFRAA in patients over 70 years has not been determined. Clinical correlation is essential. Serum or plasma low density lipoprotein (LDL) cholesterol measurement (mass/volume)Ordered By: Montez Petty on 04-26-2023 Cholesterol in LDL [Mass/Vol] 123 mg/dL 0-130 [facility] Serum or plasma urea nitroge n measurement (mass/volume)Ordered By: Montez Petty on 04-26-2023 Urea nitrogen [Mass/Vol] 16 mg/dL 7-18 [facility] Thin prep Papanicolaou smear with manual screeningOrdered By: Montez Petty on 04-26-2023 Thin prep Papanicolaou smear with manual screening 18 U/L 15-37 [facility] Thin prep Papanicolaou smear with manual screening 7 5-15 [facility] Whole blood hemoglobin A1c/t otal hemoglobin ratio (mass fraction)Ordered By: Montez Petty on 04-26-2023 HbA1c (Bld) [Mass fraction] 5.4 % 3.8-5.6 [facility] Comment on above: Normal < 5.7 % Predi abetic 5.7 - 6.4 % Diabetic >or= 6.5 % Please note range changes. Laboratory - Hematology and Cell countson 01-22-2023 HbA1c (Bld) [Mass fraction] 6.1 % 4.2-6.3 [facility] Absolute lymphocyte countOrd ered By: Samuel Munroe on 11-06-2022 Lymphocytes Auto (Unsp spec) [#/Vol] 2.92 10*3/uL 0.83-4.51 [facility] Basophil percentageOrdered B y: Samuel Munroe on 11-06-2022 Basophil percentage 0-5 SEEN /hpf 0-5 [facility] Basophils/100 WBC (Bld) 0.4 % 0-1 [facility] Bilirubin [Mass/Vol] 0.30 mg/dL 0.20-1.00 [facility] Comment on above: For patients on eltr ombopag therapy, use of Dimension Braggadocio TBIL is not recommended. Chloride [Moles/Vol] 106 mmol/L 98-107 [facility] Eosinophils/100 WBC (Bld) 2.1 % 0-5 [facility] Glucose [Mass/Vol] 130 mg/dL 74-106 [facility] Comment on above: Fasting Glucose resu lt greater than or equal to 126 mg/dL suggests DIABETES MELLITUS per A.D.A. criteria. Neutrophils (Bld) [#/Vol] 4.0 10*3/uL 2.0-7.7 [facility] Neutrophils/100 WBC (Bld) 51.6 % 47-70 [facility] Potassium [Moles/Vol] 3.2 mmol/L 3.5-5.1 [facility] Protein [Mass/Vol] 7.3 g/dL 6.4-8.2 [facility] Sodium [Moles/Vol] 141 mmol/L 136-145 [facility] WBC (Bld) [#/Vol] 7.7 10*3/uL 4.4-11.0 [facility] Bilirubin Test strip Ql (U)O rdered By: Samuel Munroe on 11-06-2022 Bilirubin Ql (U) Negative Negative [facility] Blood erythrocytes count (nu mber/volume)Ordered By: Samuel Munroe on 11-06-2022 RBC (Bld) [#/Vol] 3.90 10*6/uL 4.2-5.4 [facility] Blood hemoglobin measurement (mass/volume)Ordered By: Samuel Munroe on 11-06-2022 Hemoglobin (Bld) [Mass/Vol] 11.9 g/dL 12.0-15.0 [facility] Blood lymphocytes/100 leukoc ytesOrdered By: Samuel Munroe on 11-06-2022 Lymphocytes/100 WBC (Bld) 37.8 % 19-41 [facility] Blood monocytes/100 leukocyt esOrdered By: Samuel Munroe on 11-06-2022 Monocytes/100 WBC (Bld) 8.0 % 0-10 [facility] Blood platelet mean volumeOr dered By: Samuel Munroe on 11-06-2022 Platelet mean volume (Bld) [Entitic vol] 9.9 fL 6.2-12.0 [facility] Determination of erythrocyte mean corpuscular volume (MCV)Ordered By: Samuel Munroe on 11-06-2022 MCV (RBC) [Entitic vol] 92.8 fL 81-99 [facility] Hematocrit Auto (Bld) [Volum e fraction]Ordered By: Samuel Munroe on 11-06-2022 Hematocrit (Bld) [Volume fraction] 36.2 % 37-47 [facility] Ketones Test strip Ql (U)Ord ered By: Samuel Munroe on 11-06-2022 Ketones Ql (U) 5 mg/dl Negative [facility] Laboratory - Chemistry and C hemistry - challengeOrdered By: Samuel Munroe on 11-06-2022 ALP [Catalytic activity/Vol] 122 U/L 45-117 [facility] ALT [Catalytic activity/Vol] 33 U/L 13-56 [facility] CO2 [Moles/Vol] 29.0 mmol/L 21.0-32.0 [facility] Globulin (S) [Mass/Vol] 3.5 g/dL 2.2-4.2 [facility] Urea nitrogen/Creatinine [Mass ratio] 20.5 mg/mg 10-20 [facility] Laboratory - Hematology and Cell countsOrdered By: Samuel Munroe on 11-06-2022 Erythrocyte distribution width (RBC) [Entitic vol] 41.0 fL 35.1-43.9 [facility] Erythrocyte distribution width (RBC) [Ratio] 12.0 % 11.6-14.6 [facility] Immature granulocytes/100 WBC (Bld) 0.100 % 0.0-0.9 [facility] Comment on above: IG% - Immature Granu locytes (promyelocytes, myelocytes and metamyelocytes) > 1% indicates that a LEFT SHIFT is Present. MCH (RBC) [Entitic mass] 30.5 pg 27.0-32.0 [facility] Nucleated RBC/100 WBC (Bld) [Ratio] 0 % 0-5 [facility] MCHC Auto (RBC) [Mass/Vol]Or dered By: Samuel Munroe on 11-06-2022 MCHC (RBC) [Mass/Vol] 32.9 g/dL 32-36 [facility] Mucus LM Ql (Urine sed)Order ed By: Samuel Munroe on 11-06-2022 Mucus Ql (Urine sed) 1+ /hpf [facility] Nitrite Test strip Ql (U)Ord ered By: Samuel Munroe on 11-06-2022 Nitrite Ql (U) Negative Negative [facility] No Panel InformationOrdered By: Samuel Munroe on 11-06-2022 Estimated Creatinine Clearance Calc 46.58 ml/min [facility] Estimated GFR (MDRD) Amer 59 mL/min >60 [facility] Comment on above: GFR Calc Estimated GFR (MDRD) Non-Af Amer 49 mL/min >60 [facility] Comment on above: Non- GFR Calc Platelets bldOrdered By: Anjel Munroe on 11-06-2022 Platelets (Bld) [#/Vol] 269 10*3/uL 150-450 [facility] Protein Test strip Ql (U)Ord ered By: Samuel Munroe on 11-06-2022 Protein Ql (U) 15 mg/dl Negative [facility] Serum or plasma albumin snow urement (mass/volume)Ordered By: Samuel Munroe on 11-06-2022 Albumin [Mass/Vol] 3.8 g/dL 3.2-5.0 [facility] Serum or plasma albumin/glob ulin mass ratioOrdered By: Samuel Munroe on 11-06-2022 Albumin/Globulin [Mass ratio] 1.1 {ratio} 0.9-2.4 [facility] Serum or plasma calcium snow urement (mass/volume)Ordered By: Samuel Munroe on 11-06-2022 Calcium [Mass/Vol] 9.2 mg/dL 8.5-10.1 [facility] Serum or plasma creatinine m easurement (mass/volume)Ordered By: Samuel Munroe on 11-06-2022 Creatinine [Mass/Vol] 1.22 mg/dL 0.55-1.02 [facility] Comment on above: The validity of the calculated GFR & GFRAA in patients over 70 years has not been determined. Clinical correlation is essential. Serum or plasma urea nitroge n measurement (mass/volume)Ordered By: Samuel Munroe on 11-06-2022 Urea nitrogen [Mass/Vol] 25 mg/dL 7-18 [facility] Squamous epithelial cells de tection in urine sediment by light microscopyOrdered By: Samuel Munroe on 11-06-2022 Epithelial cells.squamous LM Ql (Urine sed) 0-5 SEEN /hpf 5-10 [facility] Thin prep Papanicolaou smear with manual screeningOrdered By: Samuel Munroe on 11-06-2022 Thin prep Papanicolaou smear with manual screening 20 U/L 15-37 [facility] Thin prep Papanicolaou smear with manual screening 6 5-15 [facility] Urine blood detectionOrdered By: Samuel Munroe on 11-06-2022 RBC Ql (U) 250 /ul Negative [facility] RBC Ql (U) 25-50 SEEN /hpf 0-5 [facility] Urine clarityOrdered By: Anjel Munroe on 11-06-2022 Clarity (U) Clear Clear [facility] Urine color determinationOrd ered By: Samuel Munroe on 11-06-2022 Color (U) Yellow Yellow [facility] Urine glucose detectionOrder ed By: Samuel Munroe on 11-06-2022 Glucose Ql (U) Normal mg/dl Normal [facility] Urine leukocyte esterase det ection by dipstickOrdered By: Samuel Munroe on 11-06-2022 Leukocyte esterase Test strip Ql (U) 25 /ul Negative [facility] Urine pHOrdered By: Samuel auguste on 11-06-2022 pH (U) 6.5 [pH] 5.0 - 8.0 [facility] Urine sediment bacteria coun t by microscopy (number/high power field)Ordered By: Samuel Munroe on 11-06-2022 Bacteria LM.HPF (Urine sed) [#/Area] 1 /[HPF] None Seen [facility] Urine specific gravity measu rementOrdered By: Samuel Munroe on 11-06-2022 Specific gravity (U) [Rel density] 1.020 1.002-1.030 [facility] Urobilinogen Auto test strip Ql (U)Ordered By: Samuel Munroe on 11-06-2022 Urobilinogen Ql (U) Normal mg/dl Normal [facility] Basophil percentageOrdered B y: Montez Malinda on 09-06-2022 Bilirubin [Mass/Vol] 0.30 mg/dL 0.20-1.00 [facility] Comment on above: For patients on eltr ombopag therapy, use of Dimension Braggadocio TBIL is not recommended. Chloride [Moles/Vol] 107 mmol/L 98-107 [facility] Cholesterol [Mass/Vol] 218 mg/dL <200 [facility] Comment on above: <200 mg/dL Desirable 200-240 mg/dL Borderline >240 mg/dL High Risk Glucose [Mass/Vol] 141 mg/dL 74-106 [facility] Comment on above: Fasting Glucose resu lt greater than or equal to 126 mg/dL suggests DIABETES MELLITUS per A.D.A. criteria. Potassium [Moles/Vol] 4.3 mmol/L 3.5-5.1 [facility] Protein [Mass/Vol] 7.6 g/dL 6.4-8.2 [facility] Sodium [Moles/Vol] 141 mmol/L 136-145 [facility] Triglyceride [Mass/Vol] 230 mg/dL <199 [facility] Comment on above: The drugs N-Acetylcy steine and Metamizole may falsely depress this assay.Serum Triglycerides Reference Interval Normal <150 mg/dL Borderline high 150 - 199 mg/dL High 200 - 499 mg/dL Very High > or = 500 mg/dL Direct bilirubinOrdered By: Montez Petty on 09-06-2022 Bilirubin.direct [Mass/Vol] 0.07 mg/dL 0.00-0.30 [facility] Laboratory - Chemistry and C hemistry - challengeOrdered By: Montez Petty on 09-06-2022 ALP [Catalytic activity/Vol] 124 U/L 45-117 [facility] ALT [Catalytic activity/Vol] 40 U/L 13-56 [facility] CO2 [Moles/Vol] 27.0 mmol/L 21.0-32.0 [facility] Globulin (S) [Mass/Vol] 3.7 g/dL 2.2-4.2 [facility] Urea nitrogen/Creatinine [Mass ratio] 21.6 mg/mg 10-20 [facility] No Panel InformationOrdered By: Montez Petty on 09-06-2022 Estimated GFR (MDRD) Amer 82 mL/min >60 [facility] Comment on above: GFR Calc Estimated GFR (MDRD) Non-Af Amer 68 mL/min >60 [facility] Comment on above: Non- GFR Calc Thyroid Stimulating Hormone (TSH) 1.89 uIU/mL 0.358-3.74 [facility] Serum or plasma albumin snow urement (mass/volume)Ordered By: Montez Petty on 09-06-2022 Albumin [Mass/Vol] 3.9 g/dL 3.2-5.0 [facility] Serum or plasma calcium snow urement (mass/volume)Ordered By: Motnez Petty on 09-06-2022 Calcium [Mass/Vol] 9.4 mg/dL 8.5-10.1 [facility] Serum or plasma cholesterol in HDL measurement (mass/volume)Ordered By: Montez Petty on 09-06-2022 Cholesterol in HDL [Mass/Vol] 36 mg/dL >40 [facility] Comment on above: The drugs N-Acetylcy steine and Metamizole may falsely depress this assay. Reference Range HDL <40 mg/dL Low HDL Cholesterol HDL >or= 60 mg/dL High HDL Cholesterol Serum or plasma cholesterol in VLDL measurement (mass/volume)Ordered By: Montez Petty on 09-06-2022 Cholesterol in VLDL [Mass/Vol] 46 mg/dL 5-40 [facility] Serum or plasma creatinine m easurement (mass/volume)Ordered By: Montez Petty on 09-06-2022 Creatinine [Mass/Vol] 0.92 mg/dL 0.55-1.02 [facility] Comment on above: The validity of the calculated GFR & GFRAA in patients over 70 years has not been determined. Clinical correlation is essential. Serum or plasma low density lipoprotein (LDL) cholesterol measurement (mass/volume)Ordered By: Montez Petty on 09-06-2022 Cholesterol in LDL [Mass/Vol] 136 mg/dL 0-130 [facility] Serum or plasma urea nitroge n measurement (mass/volume)Ordered By: Montez Petty on 09-06-2022 Urea nitrogen [Mass/Vol] 20 mg/dL 7-18 [facility] Thin prep Papanicolaou smear with manual screeningOrdered By: Montez Petty on 09-06-2022 Thin prep Papanicolaou smear with manual screening 21 U/L 15-37 [facility] Thin prep Papanicolaou smear with manual screening 7 5-15 [facility] Laboratory - Microbiology an d Antimicrobial susceptibilityon 04-10-2022 SARS-CoV-2 (COVID-19) RNA OK+probe Ql (Unsp spec) Not detected [facility] Laboratory - Hematology and Cell countson 03-23-2022 HbA1c (Bld) [Mass fraction] 5.7 % 4.2-6.3 [facility] Absolute lymphocyte counton 01-13-2022 Lymphocytes Auto (Unsp spec) [#/Vol] 1.90 10*3/uL 0.83-4.51 [facility] Work Phone: Basophil percentageon 2021 Basophils/100 WBC (Bld) 0.3 % 0-1 [facility] Work Phone: Chloride [Moles/Vol] 102 mmol/L 98-107 [facility] Work Phone: Eosinophils/100 WBC (Bld) 2.7 % 0-5 [facility] Work Phone: Glucose [Mass/Vol] 95 mg/dL 74-106 [facility] Work Phone: Neutrophils (Bld) [#/Vol] 3.4 10*3/uL 2.0-7.7 [facility] Work Phone: Neutrophils/100 WBC (Bld) 56.5 % 47-70 [facility] Work Phone: Potassium [Moles/Vol] 3.5 mmol/L 3.5-5.1 [facility] Work Phone: Sodium [Moles/Vol] 139 mmol/L 136-145 [facility] Work Phone: WBC (Bld) [#/Vol] 5.9 10*3/uL 4.4-11.0 [facility] Work Phone: Blood erythrocytes count (nu mber/volume)on 01-13-2022 RBC (Bld) [#/Vol] 4.37 10*6/uL 4.2-5.4 [facility] Work Phone: Blood hemoglobin measurement (mass/volume)on 01-13-2022 Hemoglobin (Bld) [Mass/Vol] 13.3 g/dL 12.0-15.0 [facility] Work Phone: Blood lymphocytes/100 leukoc yteson 01-13-2022 Lymphocytes/100 WBC (Bld) 32.0 % 19-41 [facility] Work Phone: Blood monocytes/100 leukocyt eson 01-13-2022 Monocytes/100 WBC (Bld) 8.2 % 0-10 [facility] Work Phone: Blood platelet mean volumeon 01-13-2022 Platelet mean volume (Bld) [Entitic vol] 10.0 fL 6.2-12.0 [facility] Work Phone: Determination of erythrocyte mean corpuscular volume (MCV)on 01-13-2022 MCV (RBC) [Entitic vol] 92.2 fL 81-99 [facility] Work Phone: Hematocrit Auto (Bld) [Volum e fraction]on 01-13-2022 Hematocrit (Bld) [Volume fraction] 40.3 % 37-47 [facility] Work Phone: Laboratory - Chemistry and C hemistry - challengeon 01-13-2022 CO2 [Moles/Vol] 30.0 mmol/L 21.0-32.0 [facility] Work Phone: Urea nitrogen/Creatinine [Mass ratio] 19.4 mg/mg 10-20 [facility] Work Phone: Laboratory - Hematology and Cell countson 01-13-2022 Erythrocyte distribution width (RBC) [Entitic vol] 41.7 fL 35.1-43.9 [facility] Work Phone: Erythrocyte distribution width (RBC) [Ratio] 12.2 % 11.6-14.6 [facility] Work Phone: Immature granulocytes/100 WBC (Bld) 0.300 % 0.0-0.9 [facility] Work Phone: Comment on above: IG% - Immature Granu locytes (promyelocytes, myelocytes and metamyelocytes) > 1% indicates that a LEFT SHIFT is Present. MCH (RBC) [Entitic mass] 30.4 pg 27.0-32.0 [facility] Work Phone: Nucleated RBC/100 WBC (Bld) [Ratio] 0 % 0-5 [facility] Work Phone: MCHC Auto (RBC) [Mass/Vol]on 01-13-2022 MCHC (RBC) [Mass/Vol] 33.0 g/dL 32-36 [facility] Work Phone: No Panel Informationon 01-13 Estimated GFR (MDRD) Amer 82 mL/min >60 [facility] Work Phone: Comment on above: GFR Calc Estimated GFR (MDRD) Non-Af Amer 68 mL/min >60 [facility] Work Phone: Comment on above: Non- GFR Calc Platelets bldon 01-13-2022 Platelets (Bld) [#/Vol] 328 10*3/uL 150-450 [facility] Work Phone: Serum or plasma calcitriol m easurement (mass/volume)on 01-13-2022 1,25-dihydroxyvitamin D3 [Mass/Vol] 28.2 pg/mL 24.8-81.5 [facility] Work Phone: Comment on above: Please note refere nce interval changePerformed at: [facility] - Lab[address] [id number] Director: Ginger Ortega MD, Phone: [phone] Serum or plasma calcium snow urement (mass/volume)on 01-13-2022 Calcium [Mass/Vol] 9.9 mg/dL 8.5-10.1 [facility] Work Phone: Serum or plasma creatinine m easurement (mass/volume)on 01-13-2022 Creatinine [Mass/Vol] 0.93 mg/dL 0.55-1.02 [facility] Work Phone: Comment on above: The validity of the calculated GFR & GFRAA in patients over 70 years has not been determined. Clinical correlation is essential. Serum or plasma urea nitroge n measurement (mass/volume)on 01-13-2022 Urea nitrogen [Mass/Vol] 18 mg/dL 7-18 [facility] Work Phone: Thin prep Papanicolaou smear with manual screeningon 01-13-2022 Thin prep Papanicolaou smear with manual screening 7 5-15 [facility] Work Phone: Basophil percentageon 2021 Testosterone [Mass/Vol] 25 ng/dL 4-50 [facility] Work Phone: Free testosterone percentage on 12-29-2021 Testosterone Free/Testosterone.total [Mass fraction] 2.24 % 0.50-2.80 [facility] Work Phone: No Panel Informationon 12-29 Follicle Stimulating Hormone 62.1 mIU/mL [facility] Work Phone: Comment on above: NORMAL REFERENCE RAN GES FEMALE FOLLICULAR 2.3 - 12.6 mIU/mL MID-CYCLE PEAK 5.2 - 17.5 mIU/mL LUTEAL 1.7 - 12.9 mIU/mL POST-MENOPAUSAL ON MHT 5.9 - 72.8 mIU/mL NOT ON MHT 12.7 - 132.2 mlU/mL MALE 0.7 - 10.8 mIU/mL Luteinizing Hormone 28.4 mIU/mL [facility] Work Phone: Comment on above: NORMAL REFERENCE RAN GES FEMALE FOLLICULAR 1.9 - 26.2 mIU/mL MID-CYCLE PEAK 22.8 - 76.1 mIU/mL LUTEAL 0.6 - 16.6 mIU/mL POST-MENOPAUSAL ON MHT 1.1 - 52.4 mIU/mL NOT ON MHT 8.6 - 61.8 mIU/mL MALE 1.2 - 10.6 mIU/mL Thyroid Stimulating Hormone (TSH) 2.40 uIU/mL 0.358-3.74 [facility] Work Phone: Serum or plasma cortisol sarabjit surement (mass/volume)on 12-29-2021 Cortisol [Mass/Vol] 18.70 ug/dL 3.44-22.45 [facility] Work Phone: Comment on above: Adult (AM) 5.27 - 22 .45 ug/dL Adult (PM) 3.44 - 16.76 ug/dLPlease note revised CORTISOL reference range effective 2019. Serum or plasma estradiol (E 2) measurement (mass/volume)on 12-29-2021 E2 [Mass/Vol] 16.7 pg/mL [facility] Work Phone: Comment on above: NORMAL REFERENCE RAN GES FEMALE FOLLICULAR 21.4 - 164.8 pg/mL MID-CYCLE PEAK 49.9 - 367.2 pg/mL LUTEAL 40.2 - 259.0 pg/mL POST-MENOPAUSAL ON MHT <11.0 - 462.1 pg/mL NOT ON MHT <11.0 - 58.3 pg/mL MALE <11.0 - 52.5 pg/mL NOTE:[employer] HAS CONFIRMED THE DRUG FULVETRANT (FASLODEX) MAY CAUSE FALSELY ELEVATED ESTRADIOL RESULTS WHEN USING THIS TEST METHOD. IF PATIENT IS TAKING FULVESTRANT AN ALTERNATIVE METHOD SHOULD BE USED TO DETERMINE ESTRADIOL CONCENTRATION. Serum or plasma estrogen sarabjit surement (mass/volume)on 12-29-2021 Estrogen [Mass/Vol] 69 pg/mL . [facility] Work Phone: Comment on above: Prepubertal < 40 Fem eulalio Cycle: 1-10 Days 16 - 328 11-20 Days 34 - 501 21-30 Days 48 - 350 Post-Menopausal 40 - 244Performed at: [employer] [address] [id number] Director: Josiah Caberra PhD, Phone: [phone] at: [employer] [address] [id number] Director: Ginger Ortega MD, Phone: [phone] Serum or plasma testosterone free measurement (mass/volume)on 12-29-2021 Testosterone Free [Mass/Vol] 0.56 ng/dL 0.10-0.85 [facility] Work Phone: Laboratory - Microbiology an d Antimicrobial susceptibilityon 12-05-2021 SARS-CoV-2 (COVID-19) RNA OK+probe Ql (Unsp spec) Not detected [facility] Work Phone: Laboratory - Hematology and Cell countson 09-22-2021 HbA1c (Bld) [Mass fraction] 5.8 % 4.2-6.3 [facility] Work Phone: Basophil percentageon 2021 Bilirubin [Mass/Vol] 0.40 mg/dL 0.20-1.00 [facility] Work Phone: Comment on above: For patients on eltr ombopag therapy, use of Dimension Braggadocio TBIL is not recommended. Cholesterol [Mass/Vol] 212 mg/dL <200 [facility] [facility] Work Phone: Comment on above: <200 mg/dL Desirable 200-240 mg/dL Borderline >240 mg/dL High Risk Protein [Mass/Vol] 7.6 g/dL 6.4-8.2 [facility] Work Phone: Triglyceride [Mass/Vol] 202 mg/dL <199 [facility] Work Phone: Comment on above: The drugs N-Acetylcy steine and Metamizole may falsely depress this assay.Serum Triglycerides Reference Interval Normal <150 mg/dL Borderline high 150 - 199 mg/dL High 200 - 499 mg/dL Very High > or = 500 mg/dL Direct bilirubinon 2 Bilirubin.direct [Mass/Vol] 0.14 mg/dL 0.00-0.30 [facility] Work Phone: Laboratory - Chemistry and C hemistry - challengeon 09-10-2021 ALP [Catalytic activity/Vol] 108 U/L 45-117 [facility] Work Phone: ALT [Catalytic activity/Vol] 40 U/L 13-56 [facility] Work Phone: Globulin (S) [Mass/Vol] 3.7 g/dL 2.2-4.2 [facility] Work Phone: Serum or plasma albumin snow urement (mass/volume)on 09-10-2021 Albumin [Mass/Vol] 3.9 g/dL 3.2-5.0 [facility] Work Phone: Serum or plasma cholesterol in HDL measurement (mass/volume)on 09-10-2021 Cholesterol in HDL [Mass/Vol] 35 mg/dL >40 [facility] Work Phone: Comment on above: The drugs N-Acetylcy steine and Metamizole may falsely depress this assay. Reference Range HDL <40 mg/dL Low HDL Cholesterol HDL >or= 60 mg/dL High HDL Cholesterol Serum or plasma cholesterol in VLDL measurement (mass/volume)on 09-10-2021 Cholesterol in VLDL [Mass/Vol] 40 mg/dL 5-40 [facility] Work Phone: Serum or plasma low density lipoprotein (LDL) cholesterol measurement (mass/volume)on 09-10-2021 Cholesterol in LDL [Mass/Vol] 137 mg/dL 0-130 [facility] Work Phone: Thin prep Papanicolaou smear with manual screeningon 09-10-2021 Thin prep Papanicolaou smear with manual screening 24 U/L 15-37 [facility] Work Phone: No Panel Informationon 06-28 Hepatitis B Surface Antibody Reactive [facility] Work Phone: Comment on above: Non Reactive: Incons istent with immunity less than <10 mIU/mL Reactive: Consistent with immunity greater than or equal to 10 mIU/mL Rubella IgG Antibody Reactive Nonreactive [facility] Work Phone: Comment on above: Antibody Results Int erpretation of Immune Status Non Reactive Presumed Non-Immune Equivocal Equivocal Reactive Presumed Immune Serum Varicella zoster virus IgG antibody assay by immunoassay (units/volume)on 06-28-2021 VZV IgG IA Qn (S) 3805 index Immune >165 [facility] Work Phone: Comment on above: Negative <135 Equivo lena 135 - 165 Positive >165A positive result generally indicates exposure to thepathogen or administration of specific immunoglobulins,but it is not indication of active infection or stageof disease. Serum measles virus IgG anti body assay (units/volume)on 06-28-2021 MeV IgG Qn (S) > 300.0 AU/mL Immune >16.4 [facility] Work Phone: Comment on above: Negative <13.5 Equiv ocal 13.5 - 16.4 Positive >16.4Presence of antibodies to Rubeola is presumptive evidenceof immunity except when acute infection is suspected.Performed at: [address] [id number] Director: Josiah Cabrera PhD, Phone: [phone] Serum mumps virus IgG antibo dy assay (units/volume)on 06-28-2021 MuV IgG Qn (S) 296.0 AU/mL Immune >10.9 [facility] Work Phone: Comment on above: Negative <9.0 Equivo lena 9.0 - 10.9 Positive >10.9A positive result generally indicates past exposure toMumps virus or previous vaccination. Laboratory - Hematology and Cell countson 06-10-2021 HbA1c (Bld) [Mass fraction] 5.6 % [facility] Work Phone: Basophil percentageon 2021 Cholesterol [Mass/Vol] 207 mg/dL <200 [facility] Work Phone: Comment on above: <200 mg/dL Desirable 200-240 mg/dL Borderline >240 mg/dL High Risk Glucose [Mass/Vol] 112 mg/dL 74-106 [facility] Work Phone: Comment on above: Fasting Glucose resu lt from 100 to 125 mg/dL suggests IMPAIRED HOMEOSTASIS per A.D.A. criteria. Triglyceride [Mass/Vol] 213 mg/dL [facility] Work Phone: Comment on above: The drugs N-Acetylcy steine and Metamizole may falsely depress this assay.Serum Triglycerides Reference Interval Normal <150 mg/dL Borderline high 150 - 199 mg/dL High 200 - 499 mg/dL Very High > or = 500 mg/dL No Panel Informationon 05-16 Thyroid Stimulating Hormone (TSH) 0.98 uIU/mL 0.358-3.74 [facility] Work Phone: Vitamin D 25-Hydroxy 37.6 ng/mL [facility] Work Phone: Comment on above: Vitamin D 25(OH) Sta tus Range Deficiency <20 ng/mL (50nmol/L) Insufficiency 20 - 30 ng/mL (50 - 75 nmol/L) Sufficiency 30 - 100 ng/mL (75 - 250 nmol/L) Toxicity >100 ng/mL (>250 nmol/L) Serum or plasma cholesterol in HDL measurement (mass/volume)on 05-16-2021 Cholesterol in HDL [Mass/Vol] 37 mg/dL [facility] Work Phone: Comment on above: The drugs N-Acetylcy steine and Metamizole may falsely depress this assay. Reference Range HDL <40 mg/dL Low HDL Cholesterol HDL >or= 60 mg/dL High HDL Cholesterol Serum or plasma cholesterol in VLDL measurement (mass/volume)on 05-16-2021 Cholesterol in VLDL [Mass/Vol] 43 mg/dL 5-40 [facility] Work Phone: Serum or plasma low density lipoprotein (LDL) cholesterol measurement (mass/volume)on 05-16-2021 Cholesterol in LDL [Mass/Vol] 127 mg/dL 0-130 [facility] Work Phone: ANES POSTPROC EVALon 021 ANES POSTPROC EVAL HNO ID: [id number] Author: Daljit Roger MD Service: Anesthesiology Author Type: Anesthesiologist Type: Anesthesia Postprocedure Evaluation Filed: 03/02/2021 1:23 PM Note Text: POST ANESTHESIA EVALUATION NOTE : 1970 Procedure Summary Date: 03/02/21 Room / Location: [address] / [facility] Anesthesia Start: 843 Anesthesia Stop: 8 Procedure: ABDOMINOPLASTY UMBILICAL TRANSPOSITION AND FASCIAL PLICATION Cecelia johnston abdominoplasty (N/A Abdomen) Diagnosis: 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 Post Anesthesia Patient Status Patient Evaluation: PACU. PACU/ICU Patient Condition: stable. Anticipated Disposition: phase 2 then home. Neurological Status: aware and responsive. Pulmonary Status: breathing comfortably on room air Airway Control: returned to baseline unsupported. Cardiovascular Status: stable. Pain Management: clinically adequate Postoperative Hydration: acceptable. Intraoperative Events: no significant anesthesia events Recommendation: continue current plan of care and further care per PACU/ICU/floor team. Anesthesia Observations No Documentation SIGNATURE: Daljit Roger MD PATIENT NAME: Kasey Pak DATE: March 02, 2021 TIME: 1:22 PM CSN: [id number] [facility] ANES PRE-OPon 03-02-2021 ANES PRE-OP HNO ID: [id number] Author: Daljit Roger MD Service: Anesthesiology Author Type: Anesthesiologist Type: Anesthesia Preprocedure Evaluation Filed: 03/02/2021 8:07 AM Note Text: ANESTHESIOLOGY DAY OF SURGERY NOTE : 1970 Procedure(s) (LRB): ABDOMINOPLASTY UMBILICAL TRANSPOSITION AND FASCIAL PLICATION Cecelia johnston abdominoplasty (N/A) Surgeon(s): Rivera Holt MD Estimated body mass index is 36.25 kg/m? as calculated from the following: Height as of 02/28/21: 162.6 cm (5' 4). Weight as of 02/28/21: 95.8 kg (211 lb 3.2 oz). Most recent hematocrit and potassium results: No results found for this basename: HCT,HEMATOCRIT,K,POTAS SIUM Relevant Problems ANESTHESIA (+) MARY (obstructive sleep apnea) CARDIO (+) Essential hypertension PULMONARY (+) MARY (obstructive sleep apnea) I - PHYSICAL EVALUATION AIRWAY Patient intubated: No. Tracheostomy tube not present Mallampati: II. TM distance: >3 FB. Neck ROM: full ROM without neurological symptoms. Mouth opening: adequate. Short neck: no. Thick neck: no DENTAL Dental findings: teeth intact. Additional exam findings: yes. CARDIOVASCULAR Normal cardiovascular observations. Rhythm: regular Rate: normal PULMONARY Normal pulmonary observations. Breath sounds clear to auscultation. II - ANESTHESIA PLAN ASA Score: 2 Anesthetic Plan: general Airway type: ETT NPO Status: adequate Monitoring plan: Standard ASA. Postoperative analgesic plan: multimodal analgesia. Anesthetic Risks, Benefits, Alternatives, Personnel Discussed. Consent obtained from: patient.Patient / Surrogate agrees to blood products: blood products not planned Significant changes in the patient condition since the History and Physical, not otherwise documented in primary service progress note: no. Potential Anesthesia issues that may suggest increased risk of complications or contraindication to planned procedure: none. No vitals data found for the desired time range. Facility-Administered Medications as of 03/02/2021 Medication Dose Route Frequency - ceFAZolin iv piggyback 2 g in D5W (iso-osmotic) 100 mL (ANCEF) 2 g INTRAVENOUS ONCE - acetaminophen 1,000 mg tab(s) (TYLENOL) 1,000 mg ORAL Pre-Op Once - promethazine 12.5 mg tab(s) (PHENERGAN) 12.5 mg ORAL Pre-Op Once - lactated ringers iv infusion 30 mL/hr INTRAVENOUS CONTINUOUS - ropivacaine (PF) 1,500 mg in empty bag Total Volume 750 mL (NAROPIN) PERIPHERAL NERVE CATHETER CONTINUOUS Outpatient Medications as of 03/02/2021 Medication Sig - losartan (COZAAR) 100 mg tablet Take 0.5 tablets by mouth once daily. - hydroCHLOROthiazide (HYDRODIURIL, ESIDRIX) 25 mg tablet Take 25 mg by mouth once daily. - docusate sodium (COLACE ORAL) Take 1 capsule by mouth as needed. - estradiol (COLT, VIVELLE-DOT) 0.1 mg/24 hr Apply 0.1 Patches as directed as directed. Has not used in 2 weeks due to surgery - fluticasone (FLONASE ALLERGY RELIEF) 50 mcg/actuation nasal spray Use 1 Flint in each nostril once daily. I have interviewed and examined the patient. I have reviewed the medical record and/or the pre-anesthesia evaluation, pertinent labs, and test results. This contains updated information obtained within 48 hours of Surgery/Procedure. 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] Postop Diagnosis: * No post-op diagnosis entered * Procedure(s): Procedure(s) (LRB): ABDOMINOPLASTY UMBILICAL TRANSPOSITION AND FASCIAL PLICATION Cecelia de lis abdominoplasty (N/A) Anesthesia: General Findings: none Estimated Blood Loss: 5 ml Specimens: none SIGNATURE: Rivera Holt MD PATIENT NAME: Kasey Pak DATE: March 02, 2021 TIME: 12:26 PM PAGER/CONTACT #: [facility] OPERATIVE NOon 03-02-2021 OPERATIVE NO HNO ID: [id number] Author: Rivera Holt MD Service: Plastic Surgery Author Type: Physician Type: Operative Report Filed: 03/07/2021 3:53 PM Note Text: [facility] OP KASEY PAK : 1970 AGE: 51. SEX: F PATIENT TYPE: A HOSP SVC: PLAS LOCATION: [facility] ATTENDING PHYSICIAN: Rivera Holt M.D. CSN NUMBER: [id number] DATE OF SURGERY/PROCEDURE: 03/02/2021 INCISION/PROCEDURE START TIME: 9:27 AM INCISION CLOSE/PROCEDURE END TIME: 12:34 PM PREOPERATIVE DIAGNOSIS: Lipodystrophy abdomen. POSTOPERATIVE DIAGNOSIS: Lipodystrophy abdomen. SURGEON: Rivera Holt M.D. RUBBER ATTACHER: LUC Mas. SURGERY/PROCEDURE: Isqdt-ah-fic abdominoplasty with rectus diastasis repair, umbilical transposition, pubic suspension and the employment of a pain pump. ANESTHESIA: General endotracheal anesthesia. HISTORY OF PRESENT ILLNESS: Patient is a 51-year-old female, who was interested in body contouring to her abdomen and her flanks. She underwent liposuction of her abdomen and her flanks and plan for a second-stage procedure but delayed it for several years. She underwent a second-stage liposuction of her anterior abdomen in preparation and now presents to remove the excess skin on her anterior abdomen. The risks and benefits of the procedure were discussed with the patient. She decided to go ahead with the described procedure. She intended to have a buehl-wc-ssu abdominoplasty to give the best possible contour to her abdomen by removing the redundant skin both in the vertical and the transverse vectors. She decided to go ahead with the described procedure. DESCRIPTION OF PROCEDURE: Patient was marked in the preoperative standing upright position. This included a vertical midline extending from the xiphoid all the way down to her pubic region as well as 2 vertical saida lines on the lateral rectus sheath borders bilaterally. Then, a vertical incision was marked out in a triangular fashion for the fetjf-cx-ito component and then the transverse resection was done from the pubic region transversely to the flanks bilaterally and then transversely just below the umbilicus. Then, the area for the pubic suspension was also marked out. Then, the patient was given IV antibiotics, brought in the operating room, and placed supine on the operating table. After adequate IV sedation, she was intubated by Anesthesia without any complications. Then, she was given IV antibiotics and then 1% Xylocaine with epinephrine was injected in the periumbilical area as well as in the planned abdominoplasty incisions. Then, the entire abdomen was prepped and draped in standard surgical fashion. First, 2 single hooks were used to grab the margin of the umbilicus and a 15-blade scalpel was used to create the umbilical incision and then dissection was taken down with electrocautery in a conical fashion down around the umbilical stalk in a conical fashion down to the abdominal fascia. Then, the lower transverse incision was made with a #10 blade scalpel. Dissection was taken down with electrocautery through the subcutaneous tissue, Bridget's fascia down to the abdominal fascia below. It was elevated. The skin flap was elevated along the entire length of the abdominoplasty incision all the way up to the umbilicus. Care was taken to preserve the umbilical stalk. Once this was completed, then the upper midline incision was made with a 15- blade scalpel and dissection was taken down with electrocautery through Bridget fascia through the subcutaneous tissue down to the underlying abdominal fascia below. Then, the skin flap was elevated off the anterior surface of the rectus sheath extending from the xiphoid costal margins and then up to the medial borders of the rectus sheath bilaterally. Once this was completed, then the wound was irrigated with antibiotic irrigation. Hemostasis obtained with electrocautery. Then, the rectus diastasis was repaired primarily with #2 Ethibond in a simple interrupted fashion. Then, an On-Q pain pump was placed into the rectus sheath and brought out through the pubic region and then the remainder of the rectus diastasis repair was done over the pain pump. Once this was completed, the pain pump was secured with Steri-Strips to the skin. Once the rectus diastasis repair was completed, the head of the bed was raised slightly and the excess skin for the cecelia- de-lis abdominoplasty was done. The excess skin was cut with a 15-blade scalpel and electrocautery in a full-thickness fashion. The total specimen weighed 1590 g and was removed in one large piece. At this point, there was redundant tissue with superior and lateral skin flap circulation. They were reflected medially and then two 10-Gibraltarian drains were crisscrossed across the lower abdominal wound and secured with 3-0 nylon suture to the skin. Then, the jhavu-fd-ocw abdominoplasty sk (more content not included)... Normal [facility] HISTORY PHYSICALon 1 HISTORY PHYSICAL HNO ID: [id number] Author: Stephenie Jin APRN.DENISE Service: ? Author Type: Nurse Practitioner Type: HANDP Filed: 02/28/2021 9:49 AM Note Text: HISTORY AND PHYSICAL EXAMINATION SERVICE DATE: 02/28/2021 SERVICE TIME: 9:21 AM PRIMARY CARE PHYSICIAN: Josué Denton MD REASON FOR VISIT: Kasey Pak is a 51 year old female who is scheduled for ABDOMINOPLASTY UMBILICAL TRANSPOSITION AND FASCIAL PLICATION Cecelia de lis abdominoplasty at the request of Dr. Rivera Holt for consultation. My final recommendation will be communicated back to the requesting physician by way of shared medical record or letter. COVID VACCINATION STATUS Fully vaccinated Subjective The patient has the following: ACTIVE PROBLEM LIST Thyroid Nodule Obesity, Unspecified Mixed Anxiety Depressive Disorder Hypertriglyceridemia Family History of Premature Coronary Heart Disease Essential Hypertension Mary (Obstructive Sleep Apnea) Encounter for Cosmetic Surgery CHIEF COMPLAINT: Pre-Op Exam HPI: 51 year old female presents with desire for cosmetic surgery. Patient scheduled for abdominoplasty. She had liposuction earlier this year. She also had liposuction in 2019. States she waited too long after the first liposuction procedure to go straight to the abdominoplasty. She denies any current skin issues or open ulcers/drainage. REVIEW OF SYSTEMS: General: No weight loss, malaise or fevers. 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 No neurological symptoms or problems. Respiratory: Positive for: obstructive sleep apnea (Not using CPAP). Negative for: asthma, bronchitis, COPD, current cough, dyspnea, home oxygen, orthopnea, pneumonia within 6 weeks and tobacco use. Cardiovascular: Positive for: hyperlipidemia (No current Rx) and hypertension (on Rx) Negative for: arrhythmia, atrial fibrillation, CAD, chest pain, CHF, DVT/PE, recent CO and murmur/valvular heart disease. GI: No history of GI symptoms or problems. No history of esophageal varices, recent ascites, or ETOH greater than 2 drinks per day. : No history of dysuria, frequency or incontinence, stones or chronic kidney disease. No difficulty urinating, nocturia > 1 time per night or hematuria. 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 Endocrine: No history of diabetes. Has not taken steroids within the past 30 days. No history of endocrinological symptoms or problems. Hematology: No history of bleeding or clotting disorder. Patient is not taking anti-coagulation or platelet medications. No history of hematological symptoms or problems. Oncology: No history of CA metastasis, chemo within 30 days, or radiotherapy within 90 days. No history of oncological symptoms or problems. Psych: Positive for: anxiety and depression (No current Rx.). Musculoskeletal: Negative for joint pain or swelling, back pain or muscle pain. Skin: Negative for lesions, rash and itching. PAST MEDICAL HISTORY Diagnosis Date - Anxiety - Asthma - Binge eating disorder - Depression - Eczema - GERD (gastroesophageal reflux disease) - Obese PAST SURGICAL HISTORY Procedure Laterality Date - BREAST REDUCTION - BUNIONECTOMY, LAPIDUS-TYPE Bilateral - HYSTERECTOMY - KNEE SCOPE,MENISECTOMY,MED AND LAT - LIPOSUCTION, STOMACH 2019 - LIPOSUCTION, STOMACH 09/2020 FAMILY HISTORY Problem Relation Age of Onset - Hypertension Mother - Hyperlipidemia Mother - Ischemic Heart Disease Father first in his 40s; heavy smoker; developed DM later - Prostate Cancer Father - No Known Problems Sister Social History Tobacco Use - Smoking status: Never Smoker - Smokeless tobacco: Never Used Vaping Use - Vaping Use: Never used Substance Use Topics - Alcohol use: Yes Comment: Not weekly - Drug use: No Prior to Admission medications as of 02/28/21 0930 Medication Sig Last Dose Taking losartan (COZAAR) 100 mg tablet Take 0.5 tablets by mouth once daily. Taking Yes docusate sodium (COLACE ORAL) Take 1 capsule by mouth as needed. Taking Yes estradiol (COLT, VIVELLE-DOT) 0.1 mg/24 hr Apply 0.1 Patches as directed as directed. Has not used in 2 weeks due to surgery Taking Differently Yes fluticasone (FLONASE ALLERGY RELIEF) 50 mcg/actuation nasal spray Use 1 Flint in each nostril once daily. Taking Yes hydroCHLOROthiazide (HYDRODIURIL, ESIDRIX) 25 mg tablet Take 25 mg by mouth once daily. Taking Yes No medication comments found. ALLERGIES Allergen Reactions - Lisinopril Cough - Seasonal Allergies Other: See Comments Nasal congestion - Sulfa (Sulfonamide * Hives, Other: See Comments - Venom-Honey Bee Swelling Objective PHYSICAL EXAM: General: alert and oriented and obese. Pertinent negatives noted - not distressed. Skin: normal color, no rash or lesions. HEENT: pupils equal round and pupils reactive to light. Pert (more content not included)... Normal [facility] ANES POSTPROC EVALon 021 ANES POSTPROC EVAL HNO ID: [id number] Author: Loy Chaudhary MD Service: Anesthesiology Author Type: Anesthesiologist Type: Anesthesia Postprocedure Evaluation Filed: 10/11/2020 10:03 AM Note Text: POST ANESTHESIA EVALUATION NOTE : 1970 Procedure Summary Date: 10/11/20 Room / Location: [address] / [facility] Anesthesia Start: 08 Anesthesia Stop: 935 Procedure: LIPOSUCTION ABDOMEN (N/A Abdomen) Diagnosis: Encounter for cosmetic surgery (Encounter for cosmetic surgery [Z41.1]) Surgeons: Rivera Holt MD Responsible Provider: Loy Chaudhary MD Anesthesia Type: general ASA Status: 1 Anesthesia Type: general Last vitals Vitals Value Taken Time BP 140/89 10/11/20 0942 Temp 37 ?C (98.6 ?F) 10/11/20 0931 Pulse 10/11/20 1002 Resp 20 10/11/20 0942 SpO2 100 % 10/11/20 0942 Post Anesthesia Patient Status Patient Evaluation: PACU. PACU/ICU Patient Condition: stable. Anticipated Disposition: phase 2 then home. Neurological Status: aware and responsive. Pulmonary Status: breathing comfortably on room air Airway Control: returned to baseline unsupported. Cardiovascular Status: stable. Pain Management: clinically adequate Postoperative Hydration: acceptable. Intraoperative Events: no significant anesthesia events Recommendation: continue current plan of care. No complications documented. SIGNATURE: Loy Chaudhary MD PATIENT NAME: Kasey Pak DATE: October 11, 2020 TIME: 10:02 AM CSN: [id number] [facility] ANES PRE-OPon 10-11-2020 ANES PRE-OP HNO ID: [id number] Author: Loy Chaudhary MD Service: Anesthesiology Author Type: Anesthesiologist Type: Anesthesia Preprocedure Evaluation Filed: 10/11/2020 7:20 AM Note Text: ANESTHESIOLOGY DAY OF SURGERY NOTE : 1970 Procedure(s) (LRB): LIPOSUCTION ABDOMEN (N/A) Surgeon(s): Rivera Holt MD Estimated body mass index is 36.05 kg/m? as calculated from the following: Height as of 10/06/20: 162.6 cm (5' 4). Weight as of 10/06/20: 95.3 kg (210 lb). Most recent hematocrit and potassium results: No results found for this basename: HCT,HEMATOCRIT,K,POTAS SIUM Relevant Problems ANESTHESIA (+) MARY (obstructive sleep apnea) CARDIO (+) Essential hypertension GI (+) Gastroesophageal reflux disease with esophagitis PULMONARY (+) MARY (obstructive sleep apnea) I - PHYSICAL EVALUATION AIRWAY Patient intubated: No. Tracheostomy tube not present Mallampati: II. TM distance: >3 FB. Neck ROM: full ROM without neurological symptoms. Mouth opening: adequate. Short neck: no. Thick neck: no DENTAL Dental findings: teeth intact. Additional exam findings: yes. CARDIOVASCULAR Normal cardiovascular observations. PULMONARY Normal pulmonary observations. II - ANESTHESIA PLAN ASA Score: 1 Anesthetic Plan: general Airway type: ETT The patient is not a current smoker. NPO Status: adequate Monitoring plan: standard ASA. Postoperative analgesic plan: multimodal analgesia. Anesthetic Risks, Benefits, Alternatives, Personnel Discussed. Consent obtained from: patient.Patient / Surrogate agrees to blood products: blood products not planned DNR status not reviewed with patient and/or family prior to surgery. Significant changes in the patient condition since the History and Physical, not otherwise documented in primary service progress note: no. Potential Anesthesia issues that may suggest increased risk of complications or contraindication to planned procedure: none. No vitals data found for the desired time range. Facility-Administered Medications as of 10/11/2020 Medication Dose Route Frequency - ceFAZolin iv piggyback 2 g in D5W (iso-osmotic) 100 mL (ANCEF) 2 g INTRAVENOUS ONCE - lactated ringers iv infusion 75 mL/hr INTRAVENOUS CONTINUOUS - [COMPLETED] acetaminophen 1,000 mg tab(s) (TYLENOL) 1,000 mg ORAL ONCE - [COMPLETED] promethazine 12.5 mg tab(s) (PHENERGAN) 12.5 mg ORAL NOW Outpatient Medications as of 10/11/2020 Medication Sig - estradiol (COLT, VIVELLE-DOT) 0.1 mg/24 hr Apply 0.1 Patches as directed as directed. - losartan (COZAAR) 25 mg tablet Take 25 mg by mouth once daily. - hydroCHLOROthiazide (HYDRODIURIL, ESIDRIX) 25 mg tablet Take 25 mg by mouth once daily. I have interviewed and examined the patient. I have reviewed the medical record and/or the pre-anesthesia evaluation, pertinent labs, and test results. This contains updated information obtained within 48 hours of Surgery/Procedure. SIGNATURE: Loy Chaudhary MD PATIENT NAME: Kasey Pak DATE: October 11, 2020 TIME: 7:19 AM CSN: [id number] [facility] BRIEF OP NOTon 10-11-2020 BRIEF OP NOT HNO ID: [id number] Author: Rivera Holt MD Service: Plastic Surgery Author Type: Physician Type: Brief Op Note Filed: 10/11/2020 9:20 AM Note Text: BRIEF OPERATIVE NOTE LOG ID: [id number] Surgery Date: 10/11/2020 Surgeon(s) and Station Engineer Main Line(s): Surgeon(s) and Role: * Rivera Holt MD - Primary Preop Diagnosis: Encounter for cosmetic surgery [Z41.1] Postop Diagnosis: * No post-op diagnosis entered * Procedure(s): Procedure(s) (LRB): LIPOSUCTION ABDOMEN (N/A) Anesthesia: General Findings: none Estimated Blood Loss: 25 mls Specimens: none SIGNATURE: Rivera Holt MD PATIENT NAME: Kasey Pak DATE: October 11, 2020 TIME: 9:20 AM PAGER/CONTACT #: [facility] OPERATIVE NOon 10-11-2020 OPERATIVE NO HNO ID: [id number] Author: Rivera Holt MD Service: Plastic Surgery Author Type: Physician Type: Operative Report Filed: 10/13/2020 2:50 PM Note Text: [facility] - Surgery [facility] OP KASEY PAK : 1970 AGE: 50. SEX: F PATIENT TYPE: A HOSP SVC: PLAS LOCATION: [facility] ATTENDING PHYSICIAN: Rivera Holt M.D. CSN NUMBER: [id number] DATE OF SURGERY/PROCEDURE: 10/11/2020 INCISION/PROCEDURE START TIME: 8:27 AM INCISION CLOSE/PROCEDURE END TIME: 9:23 AM PREOPERATIVE DIAGNOSIS: Lipodystrophy, abdomen. POSTOPERATIVE DIAGNOSIS: Lipodystrophy, abdomen. SURGEON: Rivera Holt M.D. RUBBER ATTACHER: Kishore Hernandez PAC. SURGERY/PROCEDURE: Power-assisted suction lipectomy, abdomen. ANESTHESIA: General endotracheal anesthesia. HISTORY OF PRESENT ILLNESS: The patient is a 50-year-old female, who previously underwent liposuction of her abdomen and flanks, but unfortunately, she gained back some weight in the upper epigastric area of the abdomen. She wants to have a skin reductive surgery later and she would like to have reduction in the fat in her epigastric and upper abdomen area in preparation for stage II skin reductive surgery. The risks and benefits of the procedure were discussed with the patient. She decided to go ahead with the described procedure. DESCRIPTION OF PROCEDURE: Patient was marked in a preoperative holding area in the standing upright position. This included a topographical map of her epigastric and bilateral upper abdominal area. The patient was then brought in the operating room and placed supine on the operating table. After adequate IV sedation, she was intubated by Anesthesia without complication given IV antibiotics. Then, her entire abdomen was prepped and draped in a standard surgical fashion. Then multiple incisions were made in the mid to upper abdomen using a 15 blade scalpel. The tumescent fluid was infiltrated into the bilateral upper abdomen. The total amount of tumescent fluid was infiltrated with 1500 mL in the fluid consisted of 1000 cc of lactated Ringer's, 50 cc of 1% Xylocaine plain, 1 mL of 1:1000 epinephrine, and 12.5 of sodium bicarb. Then using multiple cannulas through the different incision sites, power-assisted suction lipectomy was done. A total of 1900 mL was evenly removed deep, then superficial through the upper abdomen centrally and then bilaterally. Once this was completed, the incisions were closed using 3-0 Monocryl suture in a simple interrupted fashion to reapproximate the deeper subcutaneous tissue and dermis, followed by Exofin to reapproximate the skin. A sterile dressing, including an abdominal binder was applied. ESTIMATED BLOOD LOSS: Approximately 25 cc. INTRAVENOUS FLUIDS: See Anesthesia note. SPECIMENS: None. COMPLICATIONS: None. The total amount of tumescent fluid was 1500 mL. The total amount of output was 1900 mL. The patient was then transferred in stable condition to the recovery room. Rivera Holt M.D. JR:[id number] /[id number] Normal [facility] HISTORY PHYSICALon HISTORY PHYSICAL HNO ID: [id number] Author: Jodie Ayoub APRN.DENISE Service: ? Author Type: Nurse Practitioner Type: HANDP Filed: 10/08/2020 12:58 PM Note Text: HISTORY AND PHYSICAL EXAMINATION SERVICE DATE: 10/06/2020 SERVICE TIME: 3:24 PM PRIMARY CARE PHYSICIAN: Josué Denton MD REASON FOR VISIT: Kasey Pak is a 50 year old female who is scheduled for Procedure(s): LIPOSUCTION ABDOMEN (N/A) at the request of Dr. Yang Holt I for consultation. My final recommendation will be communicated back to the requesting physician by way of shared medical record or letter. Subjective The patient has the following: ACTIVE PROBLEM LIST Thyroid Nodule Obesity, Unspecified Mixed Anxiety Depressive Disorder Hypertriglyceridemia Gastroesophageal Reflux Disease With Esophagitis Family History of Premature Coronary Heart Disease Essential Hypertension Difficulty Swallowing Mary (Obstructive Sleep Apnea) Encounter for Cosmetic Surgery CHIEF COMPLAINT: Pre-op exam HPI: ST is a 50 yo seen for PAC due to scheduled above surgery because of request for cosmetic surgery. REVIEW OF SYSTEMS: General: No weight loss, malaise or fevers. 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 No neurological symptoms or problems. Respiratory: Positive for: obstructive sleep apnea and CPAP/BiPAP compliant. Negative for: asthma, COPD, pneumonia within 6 weeks, tobacco use and URI < 2 weeks. Cardiovascular: Positive for: hyperlipidemia (diet controlled) and hypertension (on rx) Negative for: anticoagulation therapy, arrhythmia, atrial fibrillation, CAD, chest pain, CHF, congenital heart defect, DVT/PE and murmur/valvular heart disease. GI: Positive for: difficulty swallowing (solids, eating) Negative for: abdominal pain, irritable bowel syndrome, inflammatory bowel disease, liver disease, nausea, vomiting and ETOH >2 drinks/day. : No history of dysuria, frequency or incontinence, stones or chronic kidney disease. No difficulty urinating, nocturia > 1 time per night or hematuria. 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 Negative for abnormal vaginal bleeding, abnormal vaginal discharge. Endocrine: No history of diabetes. Has not taken steroids within the past 30 days. No history of endocrinological symptoms or problems. Hematology: No history of bleeding or clotting disorder. Patient is not taking anti-coagulation or platelet medications. No history of hematological symptoms or problems. Oncology: No history of CA metastasis, chemo within 30 days, or radiotherapy within 90 days. No history of oncological symptoms or problems. Psych: Positive for: depression (on rx). Musculoskeletal: Negative for joint pain or swelling, back pain or muscle pain. Skin: Negative for lesions, rash and itching. PAST MEDICAL HISTORY Diagnosis Date - Anxiety - Asthma - Binge eating disorder - Depression - Eczema - GERD (gastroesophageal reflux disease) - Obese PAST SURGICAL HISTORY Procedure Laterality Date - BREAST REDUCTION - BUNIONECTOMY, LAPIDUS-TYPE Bilateral - HYSTERECTOMY - KNEE SCOPE,MENISECTOMY,MED AND LAT FAMILY HISTORY Problem Relation Age of Onset - other (htn) Mother - other (hld) Mother - Ischemic Heart Disease Father first in his 40s; heavy smoker; developed DM later - Prostate Cancer Father - No Known Problems Sister Social History Tobacco Use - Smoking status: Never Smoker - Smokeless tobacco: Never Used Vaping Use - Vaping Use: Never used Substance Use Topics - Alcohol use: Yes Comment: occasional - Drug use: No Prior to Admission medications as of 10/06/20 7117 Medication Sig Last Dose Taking sertraline (ZOLOFT) 50 mg tablet Take 50 mg by mouth once daily. Yes cetirizine HCl (ZYRTEC ORAL) Take 1 tablet by mouth once daily. Yes losartan (COZAAR) 25 mg tablet Take 25 mg by mouth once daily. hydroCHLOROthiazide (HYDRODIURIL, ESIDRIX) 25 mg tablet Take 25 mg by mouth once daily. mivacurium chloride (MIVACRON INJECTION) by INJECTION(UNSPECIFIED PARENTERAL ROUTES) route. triamcinolone acetonide 0.1 % cream Apply 1 application to affected area three times daily. Apply sparingly to area for rash/itching. No medication comments found. ALLERGIES Allergen Reactions - Lisinopril Cough - Seasonal Allergies Other: See Comments Nasal congestion - Sulfa (Sulfonamide * Hives, Other: See Comments - Venom-Honey Bee Swelling Objective PHYSICAL EXAM: General: alert and oriented (x3), healthy appearance and obese. Pertinent negatives noted - not distressed. Skin: normal color, no rash or lesions. HEENT: EOM intact and pupils equal round. Pertinent negatives noted - no carotid bruit. Cardiovascular: regular rate and rhythm, normal S1 and S2, no rub, murmurs, or gallop. Respiratory: normal breath sounds, no wheezes or crackles. No chest wall deformity or tenderness. (more content not included)... Normal [facility] MAMM DIGITAL SCRN BILATERALo n 07-03-2018 MAMM DIGITAL SCRN BILATERAL SCREENING BILATERAL DIGITAL MAMMOGRAM. Clinical Data: Screening. History of breast reduction. Comparison: 06/18/2017, 06/15/2016, 06/04/2015. Mammographic findings: There are scattered areas of fibroglandular density. No suspicious masses or suspicious calcifications are identified in either breast. There are stable post surgical changes of breast reduction. There has been no significant interval change. [...] must be based upon clinical grounds. Technologist: JOSESITO Dictated By: REYNOLD IBRAHIM MD Signed By: REYNOLD IBRAHIM MD Signed Out: 07/03/18 10:51:18 Normal [facility] Vital Signs Date Time Vital Sign Value Performing Clinician Erika burton 11-03-2024 08:45-0400 Body height 162.[address] Josué Denton MD Work Phone: [facility] 11-03-2024 08:45-0400 Body mass index (BMI) [Ratio] 25.9 kg/m2 Dr. Josué Denton MD Work Phone: [facility] 11-03-2024 08:45-0400 Body temperature 97.1 [degF] Dr. Josué Denton MD Work Phone: [facility] 11-03-2024 08:45-0400 Body weight 68.[address] Josué Denton MD Work Phone: [facility] 11-03-2024 08:45-0400 Diastolic blood pressure 78 mm[Hg] Dr. Josué Denton MD Work Phone: [facility] 11-03-2024 08:45-0400 Heart rate 74 /min Dr. Josué Denton MD Work Phone: [facility] 11-03-2024 08:45-0400 Respiratory rate 16 /min Dr. Josué Denton MD Work Phone: [facility] 11-03-2024 08:45-0400 SaO2% (BldA) [Mass fraction] 99 % Dr. Josué Denton MD Work Phone: [facility] 11-03-2024 08:45-0400 Systolic blood pressure 128 mm[Hg] Dr. Josué Denton MD Work Phone: [facility] 10-09-2024 09:31-0400 Body height 162.[address] Josué Denton MD Work Phone: [facility] 10-09-2024 09:31-0400 Body mass index (BMI) [Ratio] 26.1 kg/m2 Dr. Josué Denton MD Work Phone: [facility] 10-09-2024 09:31-0400 Body weight 68.[address] Josué Denton MD Work Phone: [facility] 10-09-2024 09:31-0400 Diastolic blood pressure 86 mm[Hg] Dr. Josué Denton MD Work Phone: [facility] 10-09-2024 09:31-0400 Heart rate 74 /min Dr. Josué Denton MD Work Phone: [facility] 10-09-2024 09:31-0400 Respiratory rate 16 /min Dr. Josué Denton MD Work Phone: [facility] 10-09-2024 09:31-0400 Systolic blood pressure 133 mm[Hg] Dr. Josué Denton MD Work Phone: [facility] 07-23-2024 08:17-0400 Body height 162.56 cm Edel BURTON Work Phone: [facility] 07-23-2024 08:17-0400 Body mass index (BMI) [Ratio] 26.6 kg/m2 Edel BURTON Work Phone: [facility] 07-23-2024 08:17-0400 Body temperature 96.8 [degF] Edel Ferullo CART DRIVER-C Work Phone: [facility] 07-23-2024 08:17-0400 Body weight 70.3 kg Edel Ferullo CART DRIVER-C Work Phone: [facility] 07-23-2024 08:17-0400 Diastolic blood pressure 84 mm[Hg] Edel Ferullo CART DRIVER-C Work Phone: [facility] 07-23-2024 08:17-0400 Heart rate 82 /min Edel Ferullo CART DRIVER-C Work Phone: [facility] 07-23-2024 08:17-0400 Respiratory rate 14 /min Edel Ferullo CART DRIVER-C Work Phone: [facility] 07-23-2024 08:17-0400 SaO2% (BldA) [Mass fraction] 98 % Edel Ferullo CART DRIVER-C Work Phone: [facility] 07-23-2024 08:17-0400 Systolic blood pressure 132 mm[Hg] Edel Ferullo CART DRIVER-C Work Phone: [facility] 06-16-2024 08:51-0500 Body temperature 98.1 [degF] Edel Ferullo CART DRIVER-C Work Phone: [facility] 06-16-2024 08:51-0500 Diastolic blood pressure 68 mm[Hg] Edel Ferullo CART DRIVER-C Work Phone: [facility] 06-16-2024 08:51-0500 Heart rate 82 /min Edel Ferullo CART DRIVER-C Work Phone: [facility] 06-16-2024 08:51-0500 Respiratory rate 12 /min Edel Ferullo CART DRIVER-C Work Phone: [facility] 06-16-2024 08:51-0500 SaO2% (BldA) [Mass fraction] 96 % Edel Ferullo CART DRIVER-C Work Phone: [facility] 06-16-2024 08:51-0500 Systolic blood pressure 118 mm[Hg] Edel Pinoo CART DRIVER-C Work Phone: [facility] 05-02-2024 09:04-0500 Body mass index (BMI) [Ratio] 27.3 kg/m2 Edel Pinoo CART DRIVER-C Work Phone: [facility] 05-02-2024 09:04-0500 Body temperature 97.9 [degF] Edel Pinoo CART DRIVER-C Work Phone: [facility] 05-02-2024 09:04-0500 Body weight 72.12 kg Edel Gamblesreeo CART DRIVER-C Work Phone: [facility] 05-02-2024 09:04-0500 Diastolic blood pressure 68 mm[Hg] Edel Gamblesreeo CART DRIVER-C Work Phone: [facility] 05-02-2024 09:04-0500 Heart rate 79 /min Edel Pinoo CART DRIVER-C Work Phone: [facility] 05-02-2024 09:04-0500 Respiratory rate 16 /min Edel Pinoo CART DRIVER-C Work Phone: [facility] 05-02-2024 09:04-0500 SaO2% (BldA) [Mass fraction] 97 % Edel Pinoo CART DRIVER-C Work Phone: [facility] 05-02-2024 09:04-0500 Systolic blood pressure 124 mm[Hg] Edel Pinoo CART DRIVER-C Work Phone: [facility] 04-17-2024 14:19-0500 Body mass index (BMI) [Ratio] 28.4 kg/m2 Edel Gambleullo CART DRIVER-C Work Phone: [facility] 04-17-2024 14:19-0500 Body weight 75.06 kg Edel Gamblesreeo CART DRIVER-C Work Phone: [facility] 04-17-2024 14:19-0500 Diastolic blood pressure 86 mm[Hg] Edel Thomas CART DRIVER-C Work Phone: [facility] 04-17-2024 14:19-0500 Systolic blood pressure 130 mm[Hg] Edel Thomas CART DRIVER-C Work Phone: [facility] 06-13-2023 19:07-0500 Body temperature 97.6 [degF] Dr. Josué Denton Work Phone: [facility] 06-13-2023 19:07-0500 Diastolic blood pressure 80 mm[Hg] Dr. Josué Denton Work Phone: [facility] 06-13-2023 19:07-0500 Heart rate 88 /min Dr. Josué Denton Work Phone: [facility] 06-13-2023 19:07-0500 Respiratory rate 16 /min Dr. Josué Denton Work Phone: [facility] 06-13-2023 19:07-0500 SaO2% (BldA) [Mass fraction] 96 % Dr. Josué Denton Work Phone: [facility] 06-13-2023 19:07-0500 Systolic blood pressure 140 mm[Hg] Dr. Josué Denton Work Phone: [facility] 06-13-2023 16:45-0500 Inhaled oxygen flow rate 2 L/min Dr. Josué Denton Work Phone: [facility] 06-13-2023 13:18-0500 Body height 162.[address] Josué Denton Work Phone: [facility] 06-13-2023 13:18-0500 Body mass index (BMI) [Ratio] 31.8 kg/m2 Dr. Josué Denton Work Phone: [facility] 06-13-2023 13:18-0500 Body weight [address] Josué Denton Work Phone: [facility] 04-26-2023 10:51-0500 Body height 162.[address] Josué Denton Work Phone: [facility] 04-26-2023 10:51-0500 Body mass index (BMI) [Ratio] 33.5 kg/m2 Dr. Josué Denton Work Phone: [facility] 04-26-2023 10:51-0500 Body weight 88.[address] Josué Denton Work Phone: [facility] 04-26-2023 10:51-0500 Diastolic blood pressure 77 mm[Hg] Dr. Josué Denton Work Phone: [facility] 04-26-2023 10:51-0500 Heart rate 75 /min Dr. Josué Denton Work Phone: [facility] 04-26-2023 10:51-0500 Respiratory rate 16 /min Dr. Josué Denton Work Phone: [facility] 04-26-2023 10:51-0500 Systolic blood pressure 113 mm[Hg] Dr. Josué Denton Work Phone: [facility] 01-22-2023 08:45-0400 Body height 162.[address] Josué Denton Work Phone: [facility] 01-22-2023 08:45-0400 Body mass index (BMI) [Ratio] 36.6 kg/m2 Dr. Josué Denton Work Phone: [facility] 01-22-2023 08:45-0400 Body temperature 98.2 [degF] Dr. Josué Denton Work Phone: [facility] 01-22-2023 08:45-0400 Body weight 96.[address] Josué Denton Work Phone: [facility] 01-22-2023 08:45-0400 Diastolic blood pressure 76 mm[Hg] Dr. Josué Denton Work Phone: [facility] 01-22-2023 08:45-0400 Heart rate 72 /min Dr. Josué Denton Work Phone: [facility] 01-22-2023 08:45-0400 Respiratory rate 18 /min Dr. Josué Denton Work Phone: [facility] 01-22-2023 08:45-0400 SaO2% (BldA) [Mass fraction] 97 % Dr. Josué Denton Work Phone: [facility] 01-22-2023 08:45-0400 Systolic blood pressure 126 mm[Hg] Dr. Josué Denton Work Phone: [facility] 12-12-2022 10:01-0400 Body mass index (BMI) [Ratio] 35.6 kg/m2 Dr. Josué Denton Work Phone: [facility] 12-12-2022 10:01-0400 Body weight 94.[address] Josué Denton Work Phone: [facility] 12-12-2022 10:01-0400 Diastolic blood pressure 89 mm[Hg] Dr. Josué Denton Work Phone: [facility] 12-12-2022 10:01-0400 Systolic blood pressure 135 mm[Hg] Dr. Josué Denton Work Phone: [facility] 11-06-2022 09:13-0400 Diastolic blood pressure 79 mm[Hg] Dr. Josué Denton Work Phone: [facility] 11-06-2022 09:13-0400 Heart rate 63 /min Dr. Josué Denton Work Phone: [facility] 11-06-2022 09:13-0400 Respiratory rate 14 /min Dr. Josué Denton Work Phone: [facility] 11-06-2022 09:13-0400 SaO2% (BldA) [Mass fraction] 98 % Dr. Josué Denton Work Phone: [facility] 11-06-2022 09:13-0400 Systolic blood pressure 117 mm[Hg] Dr. Josué Denton Work Phone: [facility] 11-06-2022 04:16-0400 Body height 162.[address] Josué Denton Work Phone: [facility] 11-06-2022 04:16-0400 Body mass index (BMI) [Ratio] 36.3 kg/m2 Dr. Josué Denton Work Phone: [facility] 11-06-2022 04:16-0400 Body temperature 97.3 [degF] Dr. Josué Denton Work Phone: [facility] 11-06-2022 04:16-0400 Body weight 96.[address] Josué Denton Work Phone: [facility] 09-28-2022 10:42-0400 Body weight 95.[address] Josué Denton Work Phone: [facility] 09-28-2022 10:42-0400 Diastolic blood pressure 92 mm[Hg] Dr. Josué Denton Work Phone: [facility] 09-28-2022 10:42-0400 Heart rate 84 /min Dr. Josué Denton Work Phone: [facility] 09-28-2022 10:42-0400 Respiratory rate 16 /min Dr. Josué Denton Work Phone: [facility] 09-28-2022 10:42-0400 Systolic blood pressure 144 mm[Hg] Dr. Josué Denton Work Phone: [facility] 05-10-2022 10:03-0500 Body height 162.[address] Josué Denton Work Phone: [facility] 05-10-2022 10:03-0500 Body mass index (BMI) [Ratio] 37 kg/m2 Dr. Josué Denton Work Phone: [facility] 05-10-2022 10:03-0500 Body weight 97.[address] Josué Denton Work Phone: [facility] 05-08-2022 06:11-0500 Body height 162.[address] Josué Denton Work Phone: [facility] Work Phone: 05-08-2022 06:11-0500 Body mass index (BMI) [Ratio] 34.3 kg/m2 Dr. Josué Denton Work Phone: [facility] 05-08-2022 06:11-0500 Body temperature 97.6 [degF] Dr. Josué Denton Work Phone: [facility] 05-08-2022 06:11-0500 Body weight 90.[address] Josué Denton Work Phone: [facility] 05-08-2022 06:11-0500 Diastolic blood pressure 91 mm[Hg] Dr. Josué Denton Work Phone: [facility] 05-08-2022 06:11-0500 Heart rate 87 /min Dr. Josué Denton Work Phone: [facility] 05-08-2022 06:11-0500 Respiratory rate 15 /min Dr. Josué Denton Work Phone: [facility] 05-08-2022 06:11-0500 SaO2% (BldA) [Mass fraction] 95 % Dr. Josué Denton Work Phone: [facility] 05-08-2022 06:11-0500 Systolic blood pressure 136 mm[Hg] Dr. Josué Denton Work Phone: [facility] 03-23-2022 15:24-0500 Body height 165.[address] Josué Denton Work Phone: [facility] Work Phone: 03-23-2022 15:24-0500 Body mass index (BMI) [Ratio] 35.2 kg/m2 Dr. Josué Denton Work Phone: [facility] 03-23-2022 15:24-0500 Body weight 96.[address] Josué Denton Work Phone: [facility] 03-23-2022 09:37-0500 Body mass index (BMI) [Ratio] 35.3 kg/m2 Dr. Josué Denton Work Phone: [facility] 03-23-2022 09:37-0500 Body temperature 96.8 [degF] Dr. Josué Denton Work Phone: [facility] 03-23-2022 09:37-0500 Body weight 96.[address] Josué Denton Work Phone: [facility] 03-23-2022 09:37-0500 Diastolic blood pressure 86 mm[Hg] Dr. Josué Denton Work Phone: [facility] 03-23-2022 09:37-0500 Heart rate 67 /min Dr. Josué Denton Work Phone: [facility] 03-23-2022 09:37-0500 Respiratory rate 18 /min Dr. Josué Denton Work Phone: [facility] 03-23-2022 09:37-0500 SaO2% (BldA) [Mass fraction] 97 % Dr. Josué Denton Work Phone: [facility] 03-23-2022 09:37-0500 Systolic blood pressure 130 mm[Hg] Dr. Josué Denton Work Phone: [facility] 01-12-2022 13:12-0400 Body height 165.[address] Josué Denton Work Phone: [facility] Work Phone: 01-12-2022 13:12-0400 Body mass index (BMI) [Ratio] 33.6 kg/m2 Dr. Josué Denton Work Phone: [facility] Work Phone: 01-12-2022 13:12-0400 Body weight 91.[address] Josué Denton Work Phone: [facility] Work Phone: 01-12-2022 13:12-0400 Diastolic blood pressure 77 mm[Hg] Dr. Josué Denton Work Phone: [facility] Work Phone: 01-12-2022 13:12-0400 Heart rate 80 /min Dr. Josué Denton Work Phone: [facility] Work Phone: 01-12-2022 13:12-0400 Respiratory rate 18 /min Dr. Josué Denton Work Phone: [facility] Work Phone: 01-12-2022 13:12-0400 SaO2% (BldA) [Mass fraction] 97 % Dr. Josué Denton Work Phone: [facility] Work Phone: 01-12-2022 13:12-0400 Systolic blood pressure 121 mm[Hg] Dr. Josué Denton Work Phone: [facility] Work Phone: 12-05-2021 12:00-0400 Body height 165.[address] Josué Denton Work Phone: [facility] Work Phone: 09-22-2021 09:59-0400 Body height 165.[address] Josué Denton Work Phone: [facility] Work Phone: 09-22-2021 09:59-0400 Body mass index (BMI) [Ratio] 33.4 kg/m2 Dr. Josué Denton Work Phone: [facility] Work Phone: 09-22-2021 09:59-0400 Body temperature 97 [degF] Dr. Josué Denton Work Phone: [facility] Work Phone: 09-22-2021 09:59-0400 Body weight 91.[address] Josué Denton Work Phone: [facility] Work Phone: 09-22-2021 09:59-0400 Diastolic blood pressure 76 mm[Hg] Dr. Josué Denton Work Phone: [facility] Work Phone: 09-22-2021 09:59-0400 Heart rate 72 /min Dr. Josué Denton Work Phone: [facility] Work Phone: 09-22-2021 09:59-0400 Respiratory rate 16 /min Dr. Josué Denton Work Phone: [facility] Work Phone: 09-22-2021 09:59-0400 SaO2% (BldA) [Mass fraction] 98 % Dr. Josué Denton Work Phone: [facility] Work Phone: 09-22-2021 09:59-0400 Systolic blood pressure 138 mm[Hg] Dr. Josué Denton Work Phone: [facility] Work Phone: 08-16-2021 11:03-0400 Body mass index (BMI) [Ratio] 33.7 kg/m2 Dr. Josué Denton Work Phone: [facility] Work Phone: 08-16-2021 11:03-0400 Body weight 92.[address] Josué Denton Work Phone: [facility] Work Phone: 08-16-2021 11:03-0400 Diastolic blood pressure 62 mm[Hg] Dr. Josué Denton Work Phone: [facility] Work Phone: 08-16-2021 11:03-0400 Systolic blood pressure 96 mm[Hg] Dr. Josué Denton Work Phone: [facility] Work Phone: 08-16-2021 11:03-0400 Body height 165.[address] Josué Denton Work Phone: [facility] Work Phone: 08-16-2021 11:03-0400 Body mass index (BMI) [Ratio] 33.7 kg/m2 Dr. Josué Denton Work Phone: [facility] Work Phone: 08-16-2021 11:03-0400 Body weight 92.[address] Josué Denton Work Phone: [facility] Work Phone: 08-16-2021 11:03-0400 Diastolic blood pressure 62 mm[Hg] Dr. Josué Denton Work Phone: [facility] Work Phone: 08-16-2021 11:03-0400 Systolic blood pressure 96 mm[Hg] Dr. Josué Denton Work Phone: [facility] Work Phone: 08-09-2021 14:48-0400 Body weight 92.[address] Josué Denton Work Phone: [facility] Work Phone: 06-21-2021 10:50-0500 Body weight 94.[address] Josué Denton Work Phone: [facility] Work Phone: 06-16-2021 07:22-0500 Body height 162.[address] Josué Denton Work Phone: [facility] Work Phone: 06-16-2021 07:22-0500 Body weight 92.[address] Josué Denton Work Phone: [facility] Work Phone: 06-16-2021 07:22-0500 Diastolic blood pressure 70 mm[Hg] Dr. Josué Denton Work Phone: [facility] Work Phone: 06-16-2021 07:22-0500 Heart rate 89 /min Dr. Josué Denton Work Phone: [facility] Work Phone: 06-16-2021 07:22-0500 Respiratory rate 20 /min Dr. Josué Denton Work Phone: [facility] Work Phone: 06-16-2021 07:22-0500 SaO2% (BldA) [Mass fraction] 96 % Dr. Josué Denton Work Phone: [facility] Work Phone: 06-16-2021 07:22-0500 Systolic blood pressure 131 mm[Hg] Dr. Josué Denton Work Phone: [facility] Work Phone: 06-10-2021 12:32-0500 Body mass index (BMI) [Ratio] 35.5 kg/m2 Dr. Josué Denton Work Phone: [facility] Work Phone: 06-10-2021 12:32-0500 Body temperature 97 [degF] Dr. oJsué Denton Work Phone: [facility] Work Phone: 06-10-2021 12:32-0500 Body weight 93.[address] Josué Denton Work Phone: [facility] Work Phone: 06-10-2021 12:32-0500 Diastolic blood pressure 86 mm[Hg] Dr. Josué Denton Work Phone: [facility] Work Phone: 06-10-2021 12:32-0500 Heart rate 91 /min Dr. Josué Denton Work Phone: [facility] Work Phone: 06-10-2021 12:32-0500 Respiratory rate 18 /min Dr. Josué Denton Work Phone: [facility] Work Phone: 06-10-2021 12:32-0500 SaO2% (BldA) [Mass fraction] 96 % Dr. Josué Denton Work Phone: [facility] Work Phone: 06-10-2021 12:32-0500 Systolic blood pressure 140 mm[Hg] Dr. Josué Denton Work Phone: [facility] Work Phone: 06-07-2021 11:00-0500 Body weight 95.[address] Josué Denton Work Phone: [facility] Work Phone: 05-20-2021 09:30-0500 Body mass index (BMI) [Ratio] 35.5 kg/m2 Dr. Josué Denton Work Phone: [facility] Work Phone: 05-20-2021 09:30-0500 Body weight 93.[address] Josué Denton Work Phone: [facility] Work Phone: 05-20-2021 09:30-0500 Diastolic blood pressure 92 mm[Hg] Dr. Josué Denton Work Phone: [facility] Work Phone: 05-20-2021 09:30-0500 Systolic blood pressure 142 mm[Hg] Dr. Josué Denton Work Phone: [facility] Work Phone: 05-10-2021 14:07-0500 Body mass index (BMI) [Ratio] 36 kg/m2 Dr. Josué Denton Work Phone: [facility] Work Phone: 05-10-2021 14:07-0500 Body temperature 97.3 [degF] Dr. Josué Denton Work Phone: [facility] Work Phone: 05-10-2021 14:07-0500 Body weight 95.[address] Josué Denton Work Phone: [facility] Work Phone: 05-10-2021 14:07-0500 Diastolic blood pressure 60 mm[Hg] Dr. Josué Denton Work Phone: [facility] Work Phone: 05-10-2021 14:07-0500 Heart rate 100 /min Dr. Josué Denton Work Phone: [facility] Work Phone: 05-10-2021 14:07-0500 Respiratory rate 18 /min Dr. Josué Denton Work Phone: [facility] Work Phone: 05-10-2021 14:07-0500 SaO2% (BldA) [Mass fraction] 97 % Dr. Josué Denton Work Phone: [facility] Work Phone: 05-10-2021 14:07-0500 Systolic blood pressure 110 mm[Hg] Dr. Josué Denton Work Phone: [facility] Work Phone: 11-16-2020 08:40-0400 Body mass index (BMI) [Ratio] 36.2 kg/m2 Dr. Josué Denton Work Phone: [facility] Work Phone: Encounters Encounter Date Encounter Type Care Provider Facility Start: 12-18-2024 ambulatory Eloise James lity:[facility] Start: 11-13-2024 ambulatory Josué Delaney ty:[facility] Start: 11-03-2024 End: 11-03-[address] Josué Denton MD -[facility] Work Phone: Start: 11-03-2024 End: 11-03-[address] Josué Denton MD Work Phone: -[facility] Start: 10-09-2024 End: 10-09-[address] Montez Petty MD -[facility] Work Phone: Start: 10-09-2024 End: 10-09-[address] Josué Denton MD Work Phone: [facility] Work Phone: Start: 07-23-2024 End: 07-23-2024 ambulatory Edel Thomas CART DRIVER-C Work Phone: [facility] Work Phone: Start: 07-23-2024 End: 07-23-2024 Patient encounter procedure Lianna Solorio CART DRIVER-C -Laboratory, [place] Work Phone: Start: 07-23-2024 End: 07-23-2024 Patient encounter procedure Lianna Solorio CART DRIVER-C -[facility] Work Phone: Start: 07-23-2024 End: 07-23-2024 ambulatory [facility] [place] [place] Start: 07-23-2024 End: 07-23-2024 ambulatory Lianna [place] Facility:[facility] Start: 06-16-2024 End: 06-16-2024 Patient encounter procedure Loy [place] -[facility] Work Phone: Start: 06-16-2024 End: 06-16-2024 ambulatory [facility] [place] [place] Start: 05-26-2024 Encounter for genera l adult medical examination without abnormal findings [facility] Start: 05-02-2024 End: 05-02-2024 ambulatory [facility] Facility[place] [place] Start: 05-02-2024 End: 05-02-[address] Josué Denton MD -[facility] Work Phone: Start: 05-02-2024 End: 05-02-[address] Josué Denton MD [facility] Start: 05-02-2024 End: 05-02-2024 ambulatory [facility] Facility:[facility] Start: 04-17-2024 Encounter for gynecological examination (general) (routine) without abnormal findings Eloise Glass [facility] Start: 04-17-2024 End: 04-17-[address] Eloise Glass MD -[facility] Work Phone: Start: 04-17-2024 End: 04-17-[address] Eloise Glass MD [facility] Start: 04-17-2024 End: 04-17-2024 ambulatory Edel Thomas Facility:[facility] Start: 04-15-2024 End: 04-15-2024 Patient encounter procedure Edel Thomas CART DRIVER-C Work Phone: [facility] Work Phone: Start: 04-15-2024 End: 04-15-2024 ambulatory Edel Gamblesreeuszanne Facility:[facility] Start: 03-18-2024 End: 03-18-2024 ambulatory Edel Odetteo Facility:[facility] Start: 03-07-2024 End: 03-07-2024 ambulatory Edelbrad Gamblesreeo Facility:[facility] Start: 02-26-2024 End: 02-26-2024 ambulatory Edelbrad Gamblebg Facility:[facility] Start: 01-23-2024 End: 01-23-2024 ambulatory [facility] Facility:[facility] Start: 10-26-2023 Patient encounter status Edel Thomas CART DRIVER-C Work Phone: [facility] Start: 06-13-2023 End: 06-13-2023 Admission to same day surgery center Dr. Josué Denton Work Phone: [facility]-Surgical Day Care Start: 06-13-2023 End: 06-13-[address] Josué Denton Work Phone: [facility] Work Phone: Start: 05-22-2023 End: 05-22-[address] Josué Denton Work Phone: [facility] Work Phone: Start: 04-26-2023 End: 04-26-[address] Josué Denton Work Phone: [facility] Work Phone: Start: 04-26-2023 End: 04-26-[address] Josué Denton Work Phone: [facility] Work Phone: Start: 03-29-2023 End: 03-29-[address] Josué Denton Work Phone: [facility] Work Phone: Start: 03-29-2023 End: 03-29-[address] Josué Denton Work Phone: [facility]-Radiology, [facility] Work Phone: Start: 03-23-2023 Non-patient / Non-visit Dr. Devin Denton Work Phone: [facility] Work Phone: Start: 03-23-2023 Non-patient / Non-visit Dr. Devin Denton Work Phone: [facility] Start: 03-23-2023 End: 03-23-[address] [facility] Start: 03-22-2023 End: 03-22-[address] Josué Denton Work Phone: [facility] Work Phone: Start: 01-22-2023 End: 01-22-[address] Josué Denton Work Phone: [facility] Work Phone: Start: 12-12-2022 End: 12-12-[address] Josué Denton Work Phone: [facility] Work Phone: Start: 11-06-2022 End: 11-06-2022 Emergency department patient visit Dr. Josué Denton Work Phone: [facility]-Emergency Department Work Phone: Start: 09-28-2022 End: 09-28-[address] Josué Denton Work Phone: [facility] Work Phone: Start: 09-06-2022 End: 09-06-[address] Josué Denton Work Phone: [facility]-Laboratory Work Phone: Start: 05-20-2022 End: 05-20-[address] Josué Denton Work Phone: [facility] Work Phone: Start: 05-20-2022 End: 05-20-[address] Josué Denton Work Phone: [facility] Start: 05-10-2022 End: 05-10-[address] Josué Denton Work Phone: [facility] Start: 05-08-2022 End: 05-08-2022 Emergency department patient visit Dr. Josué Denton Work Phone: [facility]-Emergency Department Start: 05-02-2022 End: 05-02-[address] Josué Denton Work Phone: [facility] Start: 04-27-2022 End: 04-27-[address] Josué Denton Work Phone: [facility] Start: 04-10-2022 End: 04-10-[address] Josué Denton Work Phone: [facility] Start: 04-06-2022 End: 04-06-[address] Josué Denton Work Phone: [facility] Start: 04-03-2022 End: 04-03-[address] Josué Denton Work Phone: [facility] Start: 03-24-2022 End: 03-24-[address] Josué Denton Work Phone: [facility] Work Phone: Start: 03-24-2022 End: 03-24-[address] Josué Denton Work Phone: [facility] Start: 03-23-2022 End: 03-23-[address] Josué Denton Work Phone: [facility] Start: 03-23-2022 End: 03-23-[address] Josué Denton Work Phone: [facility] Start: 03-17-2022 Non-patient / Non-visit Dr. Devin Denton Work Phone: [facility] Start: 03-06-2022 Non-patient / Non-visit Dr. Devin Dentno Work Phone: [facility] Start: 01-13-2022 End: 01-13-[address] Josué Denton Work Phone: [facility] Work Phone: Start: 01-13-2022 End: 01-13-[address] Josué Denton Work Phone: [facility]-Laboratory Start: 01-12-2022 End: 01-12-[address] Josué Denton Work Phone: [facility] Start: 12-29-2021 End: 12-29-[address] Josué Denton Work Phone: [facility] Work Phone: Start: 12-29-2021 End: 12-29-[address] Josué Denton Work Phone: [facility]-Laboratory Start: 12-05-2021 End: 12-05-[address] Josué Denton Work Phone: [facility] Start: 11-15-2021 End: 11-15-[address] Josué Denton Work Phone: [facility]-Outpatient Breast Imaging Start: 09-22-2021 End: 09-22-[address] Josué Denton Work Phone: [facility] Start: 09-10-2021 End: 09-10-[address] Josué Denton Work Phone: [facility]-Laboratory Start: 08-16-2021 End: 08-16-[address] Josué Denton Work Phone: [facility] Start: 08-09-2021 End: 08-20-[address] Josué Denton Work Phone: [facility]-Nutritional Services Start: 06-28-[address] Darlene Denton Work Phone: [facility]-Employee Health Start: 06-22-2021 Non-patient / Non-visit Dr. Devin Denton Work Phone: [facility] Start: 06-22-2021 End: 06-22-[address] Josué [place] [facility] Start: 06-21-2021 End: 07-21-[address] Josué [place] [facility] Start: 06-16-2021 End: 06-16-[address] Josué Denton Work Phone: [facility] Start: 06-10-2021 End: 06-10-[address] Josué Denton Work Phone: [facility] Start: 06-07-2021 End: 06-20-[address] Josué [place] [facility] Start: 05-20-2021 End: 05-20-[address] Josué Denton Work Phone: [facility] Start: 05-16-2021 End: 05-16-[address] Josué [place] Phone: [facility]-Laboratory Start: 05-16-2021 Non-patient / Non-visit Dr. Devin Denton Work Phone: [facility] Start: 05-10-[address] Josué [place] Phone: [facility] Start: 05-10-2021 End: 05-10-2021 Encounter for general adult medical examination without abnormal findings Dr. Josué [place] Phone: [facility] Start: 05-10-2021 End: 05-10-[address] Josué [place] Phone: [facility] Start: 06-28-2018 End: 06-29-2018 Patient encounter procedure JORDAN HOUSTON Facility:[id number] Procedures Date Procedure Procedure Detail Performing Clinician Start: 04-15-2024 MRI of cervical spine Aidan Thomas CART DRIVERMeeC Work Phone: Start: 06-13-2023 Cysto,Fascia Vaginal Sling (Not Applicable) Dr. Josué Denton Work Phone: Start: 03-29-2023 Diagnostic radiograp hy of abdomen Dr. Josué Denton Work Phone: Start: 11-06-2022 CT of abdomen and pe lvis without contrast Dr. Josué Denton Work Phone: Start: 05-20-2022 MRI of lumbar spine Dr. Josué Denton Work Phone: Start: 05-08-2022 CT of lumbar spine Dr. Josué Denton Work Phone: Start: 03-24-2022 X-ray of cervical spine Dr. Josué Denton Work Phone: Start: 03-24-2022 X-ray of lumbosacral spine Dr. Josué Denton Work Phone: Start: 11-15-2021 Screening mammography Ramon Denton Work Phone: Plan of Treatment Date Care Activity Detail Author Start: 06-13-2023 Patient discharge [facility] Start: 06-13-2023 Taking patient vital signs [facility] Start: 06-13-2023 End: 06-13-2023 [facility] Start: 06-13-2023 Ambulation without limitation [facility] Start: 06-13-2023 Medication education [facility] Start: 06-13-2023 Planned voiding [facility] Start: 03-17-2022 Patient referral [facility] Work Phone: Start: 03-06-2022 Patient referral [facility] Work Phone: Start: 08-16-2021 Patient referral [facility] Work Phone: Start: 05-16-2021 Patient referral [facility] Work Phone: Estrogen [Mass/volum e] in Serum or Plasma [facility] Work Phone: Lipid 1996 panel - S leta or Plasma [facility] Lipid 1996 panel - S leta or Plasma [facility] MG Breast - bilateral Screening [facility] Work Phone: MG Breast - bilateral Screening [facility] Patient Education [facility] Work Phone: Patient referral [facility] Work Phone: Testosterone Free [M ass/volume] in Serum or Plasma [facility] Work Phone: Testosterone measurement [facility] Work Phone: Thyroid stimulating hormone measurement [facility] Urine microalbumin/c reatinine ratio measurement [facility] Vitamin D, 25-hydrox y measurement [facility] [place] Immunization Date Immunization Notes Care Provider Stan love 02-26-2023 influenza, injectabl e, quadrivalent, preservative free Dr. Josué Denton Work Phone: [facility] 02-27-2022 influenza, injectabl e, quadrivalent, preservative free Dr. Josué Denton Work Phone: [facility] 02-27-2022 influenza, seasonal, injectable Dr. Josué Denton Work Phone: [facility] 06-28-2021 tetanus toxoid, redu tristen diphtheria toxoid, and acellular pertussis vaccine, adsorbed Dr. Josué Denton Work Phone: [facility] 01-26-2021 influenza, injectabl e, quadrivalent, preservative free Dr. Josué Denton Work Phone: [facility] 01-26-2021 influenza, seasonal, injectable Dr. Josué Denton Work Phone: [facility] 07-03-2020 Shingrix (PF) 50 mcg/0.5 mL intramuscular suspension, kit (varicella-zoster Dr. Josué Denton Work Phone: [facility] Work Phone: 06-08-2020 Covid (Moderna) Dr. Mervin Denton Work Phone: [facility] 05-11-2020 Alecid (Moderna) Dr. Mervin Denton Work Phone: [facility] 01-18-2020 influenza, injectabl e, quadrivalent, preservative free Dr. Josué Denton Work Phone: [facility] 01-18-2020 influenza, seasonal, injectable Dr. Josué Denton Work Phone: [facility] 03-05-2019 influenza, injectabl e, quadrivalent, preservative free Dr. Josué [place] Work Phone: [facility] 03-05-2019 influenza, seasonal, injectable Dr. Josué Denton Work Phone: [facility] 02-06-2018 influenza, injectabl e, quadrivalent, preservative free Dr. Josué Denton Work Phone: [facility] 02-06-2018 influenza, seasonal, injectable Dr. Josué Denton Work Phone: [facility] 01-26-2017 influenza, injectabl e, quadrivalent, preservative free Dr. Josué Denton Work Phone: [facility] 01-26-2017 influenza, seasonal, injectable Dr. Josué Denton Work Phone: [facility] 03-30-2016 influenza, injectabl e, quadrivalent, preservative free Dr. Josué Denton Work Phone: [facility] 03-30-2016 influenza, seasonal, injectable Dr. Josué Denton Work Phone: [facility] Payers Date Payer Category Payer Self-pay [id number] 2023 Unknown [id number] 2014 Unknown [id number] 2008 Unknown 1970 Unknown [id number] 2.16.8 [id number] Private Health Insurance [id number] Unknown [id number] Unknown [id number] Unknown [id number] 2.16.8 40.1.464872.3.579.2.462 Unknown [id number] 2.16.8 40.1.516864.3.579.2.462 Unknown [id number] 2.16.8 40.1.114777.3.579.2.462 Unknown [id number] 2.16.8 40.1.537841.3.579.2.462 Unknown [id number] 2.16.8 40.1.524827.3.579.2.462 Unknown [id number] 2.16.8 40.1.090711.3.579.2.462 Unknown [id number] 2.16.8 40.1.845347.3.579.2.462 Unknown [id number] 2.16.8 40.1.124983.3.579.2.462 Unknown [id number] 2.16.8 40.1.893379.3.579.2.462 Unknown [id number] 2.16.8 40.1.738650.3.579.2.462 Unknown [id number] 2.16.8 40.1.033239.3.579.2.462 Unknown [id number] 2.16.8 40.1.449983.3.579.2.462 Unknown [id number] 2.16.8 40.1.738862.3.579.2.462 Unknown [id number] 2.16.8 40.1.692961.3.579.2.462 Unknown [id number] 2.16.8 40.1.551727.3.579.2.462 Unknown [id number] 2.16.8 40.1.786685.3.579.2.462 Social History Date Type Detail Facility Start: 06-16-2021 End: 06-04-2023 Tobacco smoking status UTIS Unknown if ever smoked [facility] Start: 05-12-2020 Non-smoker [facility] Start: 1970 Sex Assigned At Female [facility] Start: 05-02-2024 Tobacco smoking stat [facility] Never smoked tobacco (finding) [facility] Start: 07-29-2024 Sex Female (finding) [facility] Medical Equipment Procedure Code Equipment Code Equipment Origin al Text Equipment Identifier Dates Cystoscopy, with retrograde pyelogram and ureteral stent insertion STENT,URETERAL PIGTAIL [id number] FDA Start: 11-06-2022 Cystoscopy, with retrograde pyelogram and ureteral stent insertion STENT,URETERAL PIGTAIL [id number] FDA Start: 11-06-2022 Cystoscopy, with retrograde pyelogram and ureteral stent insertion STENT,URETERAL PIGTAIL [id number] FDA Start: 11-06-2022 Cystoscopy, with retrograde pyelogram and ureteral stent insertion STENT,URETERAL PIGTAIL [id number] FDA Start: 11-06-2022 Cystoscopy, with retrograde pyelogram and ureteral stent insertion STENT,URETERAL PIGTAIL [id number] FDA Start: 11-06-2022 Cystoscopy, with retrograde pyelogram and ureteral stent insertion STENT,URETERAL PIGTAIL [id number] FDA Start: 11-06-2022 Female stress urinary incontinence surgical mesh-sling, synthetic polymer [id number] FDA Start: 06-13-2023 Goals Date Patient Goal Desired Activity /State Mental Status Date Assessment Result Facility 06-13-2023 Cognitive function Voice/Name [facility] Work Phone: Clinical Notes 05-20-2020 to 07-23-2024 Note Date & Type Note Facility 07-23-2024 Evaluation note Diagnosis Onset Date Resolution Decreased leukocytes acute Apri l 2024 8:08am Frequent falls acute July 23, 2024 8:08am Diabetes chronic July 23 8:08am Essential (primary) hypertension chronic July 23, 2024 8:08am Hyperlipidemia chronic July 23, 2024 8:08am Overweight chronic July 23 8:08am High triglycerides resolved July 23, 2024 8:08am [facility] Work Phone: 1(541) 815-840404-02-2025 Evaluation note* Diagnosis Onset Date Resolution Status Admit Date Decreased leukocytes acute Apri l 2024 8:08am Frequent falls acute July 23, 2024 8:08am Diabetes chronic July 23 8:08am Essential (primary) hypertension chr onic July 23, 2024 8:08am Hyperlipidemia chronic July 23, 2024 8:08am Overweight chronic July 23 8:08am High triglycerides resolved July 23, 2024 8:08am Essential (primary) hypertension chr onic October 09, 2024 9:22am Hyperlipidemia chronic October 09, 2024 9:22am Metabolic syndrome chronic September 212024 9:22am [facility] Work Phone: 1(921) 435-808712-26-2024 Evaluation note* Diagnosis Onset Date Resolution Status Admit Date Encounter for routine gynecological examination noneactive Decemb er 2023 2:27pm Preventative health care acute May 02, 2024 9:01am Essential (primary) hypertension chronic May 02 9:01am Hyperlipidemia chronic May 022024 9:01am Metabolic syndrome chronic 2024 9:01am Decreased leukocytes acute Apri l 2024 8:08am Frequent falls acute July 23, 2024 8:08am Diabetes chronic July 23 8:08am Essential (primary) hypertension chronic July 23, 2024 8:08am Hyperlipidemia chronic July 23, 2024 8:08am Overweight chronic July 23 8:08am High triglycerides resolved July 23, 2024 8:08am [facility] Work Phone: 1(749) 476-854511-15-2024 [facility] Medical Records Department [address] [place] [address] History Physical Exam 03/07/24 1309 MR#: [id number] Acct: [id number] Name: KASEY PAKETTE Rep #: [id number] : 1970 54 From: Caitlin Govea MD PCP: MICHEAL Plunkett Status:[facility] Location: [place] [address] History and Physical Date of Admission: 03/07/24 The patient is examined and there are no changes to the H P dated 02/26/2024. She presents for excision of the lesion of the lower lip. Informed consent was obtained. She is marked in the preop holding area prior to surgery. 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 03/07/24 1310 Cosigner Signature (if applicable): CC: CART DRIVER-C Edel Thomas; Dr. Caitlin Govea MD [facility]igned[facility] Discharge summary Author Tom Espinoza [facility] June 13, 2023 2:30pm Note Date/Time June 13, 2023 2:30pm [facility] Medical Records Department [address] [place] [address] Instructions for Home/Discharge Instructions 06/13/23 1430 MR#: [id number] Acct: [id number] Name: KASEY PAK Rep #:[id number] : 1970 53 From: Tom Espinoza MD PCP: Dr. Josué Denton MD Status:R [facility] Discharge Instructions Diet Discharge Diet: No restrictions Activity Discharge Activity: Return to Normal Activity and May Not Drive (while taking narcotic pain medications.) Dressing / Incision Call your doctor if you observe: Fever of 101 or Higher Follow Up Care Please Follow Up With: Tom Espinoza MD When: Call [phone] for an appointment Test Results: Test results from this visit will be discussed in further detail at your follow- up appointment, if applicable. Discharge Plan Admission Primary Reason for Your Visit: TVT sling Attending Provider: Tom Espinoza Primary Care Provider: Josué Denton Discharge Orders/Prescriptions Prescriptions: New ciprofloxacin HCl [Cipro] 500 mg tablet 500 mg PO BID Qty: 10 0RF oxycodone 5 mg tablet 5 mg PO Q6H PRN (Reason: pain) 7 Days Qty: 14 0RF Continued metformin 500 mg tablet 500 mg PO BIDWMEAL Qty: 180 1RF (DME) Oral Sleep Appliance See Rx Instructions .Route .MEDSUPPLY Qty: 1 0RF Rx Instructions: As directed fluoxetine [Prozac] 20 mg capsule 20 mg PO DAILY Qty: 30 12RF losartan 100 mg tablet 100 mg PO DAILY Qty: 90 3RF hydrochlorothiazide 25 mg tablet 25 mg PO DAILY Qty: 90 4RF (DME) FreeStyle Sanam 3 Sensor Device See Rx Instructions .Route Qty: 2 5RF Rx Instructions: 1 sensor q 14 days Mounjaro 7.5 mg/0.5 mL pen injector 7.5 mg subcut QWEEK Qty: 2 5RF Referrals / Follow Up: Josué Denton MD [Primary Care Provider] - Tom Espinoza MD [Med Staff - Active Staff] - Disposition Disposition (needs filled in before D/C Order can be placed): Home, Self Care 06/13/23 1430<Electronically signed by Tom Espinoza MD>Tom Espinoza MD CC: Dr. Josué Denton MD ~ Signed [facility] Work Phone: 1(982) 325-346902-21-2024 History and physical note Author Tom Espinoza [facility] June 13, 2023 1:39pm Note Date/Time June 13, 2023 1:39pm [facility] Medical Records Department [address] [place] [id number] History & Physical Exam 06/13/23 1338 MR#: [id number] Acct: [id number] Name: KASEY PAK Rep #:[id number] : 1970 53 From: Tom Espinoza MD PCP: Dr. Josué Denton MD Status:R [facility] Location: [facility] HPI - General General Date of Service: 06/13/23 Chief Complaint: Stress incontinence HPI Narrative KASEY PAK, is a 53 F who presents for placement of a tension-free vaginal sling for stress incontinence she understands the risk and benefits of the procedure and working to proceed. [facility] Medical History (Updated 06/04/23 @ 11:47 by Maryanne Bradford) Alcohol use Anxiety Back pain Cardiology follow-up encounter Chronic fatigue Depression with anxiety Diabetes Dietary restriction Encounter for screening for COVID-19 Essential (primary) hypertension Family history of premature coronary artery disease Frequent headaches History of echocardiogram History of IBS History of pain when walking History of stress test Hyperlipidemia Hypersomnolence Hypertension Impaired fasting glucose Injury of head and neck Metabolic syndrome Migraine headache Non-smoker Obesity MARY (obstructive sleep apnea) Prediabetes Preventative health care Restless legs Seasonal allergies Vision problem Wears glasses Home Medications Oral Sleep Appliance #1 ea 03/20/22 [Rx Last Taken Unknown] fluoxetine 20 mg capsule (Prozac) 20 mg PO DAILY #30 caps 06/08/22 [Rx Last Taken 06/12/23 09:00] losartan 100 mg tablet 100 mg PO DAILY #90 tabs 07/03/22 [Rx Last Taken 06/12/23 09:00] hydrochlorothiazide 25 mg tablet 25 mg PO DAILY #90 tabs 09/08/22 [Rx Last Taken 06/12/23 09:00] metformin 500 mg tablet 500 mg PO BIDWMEAL #180 tabs 12/12/22 [Rx Last Taken 06/12/23] blood-glucose sensor (FreeStyle Sanam 3 Sensor device) #2 ea 04/02/23 [Rx Last Taken Unknown] tirzepatide 7.5 mg/0.5 mL subcutaneous pen injector (Mounjaro) 7.5 mg (0.5 mL) subcut QWEEK #2 mL 06/11/23 [Rx Last Taken 06/11/23] Allergy/AdvReac Type Severity Reaction Status Date / Time Sulfa (Sulfonamide Allergy Other Verified 06/13/23 13:15 Antibiotics) lisinopril AdvReac Intermediate Dry Verified 06/13/23 13:15 nagging cough Family History Father Hypertension Heart disease Diabetes Myocardial infarction Heavy smoker Mother High cholesterol Arthritis Heavy smoker Sister Myocardial infarction, Onset Age: 50 coronary stents CAD (coronary artery disease) Surgical History (Updated 06/04/23 @ 11:47 by Maryanne Bradford) H/O abdominal surgery H/O bilateral breast reduction surgery H/O total hysterectomy History of bunionectomy History of knee surgery History of right salpingo-oophorectomy Hx of cystoscopy Hx of cystoscopy Social History adopted: No number of children: 2 current occupational status: employed 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 Vital Signs Vital Signs Vital Signs: 06/13/23 13:18 06/13/23 13:18 Temperature 98.6 F Temperature Source Temporal Pulse Rate 91 Respiratory Rate 16 Respiratory Pattern Normal Blood Pressure 132/86 H Blood Pressure Mean 101 Blood Pressure Source Monitor Blood Pressure Position Sitting Blood Pressure Location Left Arm Pulse Ox 97 Oxygen Delivery Method Room Air Weight Weight: 84 kg Body Mass Index (BMI) 31.8 06/13/23 1339 <Electronically signed by Tom Espinoza MD> Cosigner Signature (if applicable): CC: Dr. Josué Denton MD; Dr. Tom Espinoza MD~ Signed [facility] Work Phone: 1(701) 108-396102-21-2024 Procedure [facility] 11-06-2022 Discharge summary [facility] November 06, 2022 8:59am Note Date/Time November 06, 2022 6:21 am [facility] Medical Records Department [address] [place] [id number] Emergency Department Summary 11/06/22 MR#: [id number] Acct: [id number] Name: KASEY PAK Rep #:[id number] : 1970 52 From: Samuel Munroe DO PCP: Dr. Josué Denton MD Status:R EG ER Location: ED HPI History of Present Illness Chief Complaint: Flank Pain Informant: patient Narrative Narrative: Patient is a 52-year-old female with past medical history of degenerative disc disease of the lumbar spine as well as hypertension hyperlipidemia. She states she went to bed normally last night then awoke roughly 1 hour prior to arrival with stabbing pain in the right abdomen radiating towards her back. She states that there was no recent trauma or excessive activity. She states that there isno improvement or worsening of the pain with any position change. She states she is nauseous secondary to the pain. She denies any hematuria or dysuria. She states she has a very remote history of kidney stone approximately 30 years ago and this feels similar nature and she is concerned for repeat stone so she comes in for evaluation. [facility] Medical History (Updated 11/06/22 @ 08:[address] Samuel Munroe DO) Chronic fatigue Depression with anxiety Encounter for screening for COVID-19 Essential (primary) hypertension Family history of premature coronary artery disease Frequent headaches Hyperlipidemia Hypersomnolence Impaired fasting glucose Metabolic syndrome Obesity MARY (obstructive sleep apnea) Prediabetes Preventative health care Seasonal allergies Vision problem Home Medications Oral Sleep Appliance #1 ea 03/20/22 [Rx Last Taken Unknown] fluoxetine 20 mg capsule (Prozac) 20 mg PO DAILY #30 caps 06/08/22 [Rx Last Taken Unknown] losartan 100 mg tablet 100 mg PO DAILY #90 tabs 07/03/22 [Rx Last Taken Unknown] hydrochlorothiazide 25 mg tablet 25 mg PO DAILY #90 tabs 09/08/22 [Rx Last Taken Unknown] metformin 500 mg tablet 500 mg PO BIDWMEAL #180 tabs 10/12/22 [Rx Last Taken Unknown] cephalexin 500 mg capsule 500 mg PO TID 7 days #21 caps 11/06/22 [Rx Last Taken Unknown] ketorolac 10 mg tablet 10 mg PO Q6H PRN pain 5 days #20 tabs 11/06/22 [Rx Last Taken Unknown] ondansetron 4 mg disintegrating tablet 4 mg PO TID PRN nausea and vomiting #21 tabs 11/06/22 [Rx Last Taken Unknown] oxycodone-acetaminophen 5 mg-325 mg tablet (Percocet) 1 tab PO Q6H PRN pain 3 days #12 tabs 11/06/22 [Rx Last Taken Unknown] tamsulosin 0.4 mg capsule (Flomax) 0.4 mg PO DAILY #14 caps 11/06/22 [Rx Last Taken Unknown] Allergy/AdvReac Type Severity Reaction Status Date / Time Sulfa (Sulfonamide Allergy Other Verified 11/06/22 04:16 Antibiotics) lisinopril AdvReac Intermediate Dry Verified 11/06/22 04:16 nagging cough Family History Father Hypertension Heart disease Diabetes Myocardial infarction Heavy smoker Mother High cholesterol Arthritis Heavy smoker Sister Myocardial infarction, Onset Age: 50 coronary stents CAD (coronary artery disease) Surgical History H/O abdominal surgery H/O bilateral breast reduction surgery H/O total hysterectomy History of bunionectomy History of knee surgery History of right salpingo-oophorectomy Social History Smoking Status: Never smoker second hand exposure: No alcohol intake: never substance use type: does not use what type of physical activity do you participate in: aerobics and weight training frequency: 3-4 times per week additional social history: single- [employer] ROS ROS ED Constitutional Constitutional ED: Denies chills or fever(s) ENT ENT ED: Denies sore throat Cardiovascular Cardiovascular: Denies chest pain Respiratory/Chest Respiratory/Chest: Denies cough or dyspnea Gastrointestinal Gastrointestinal: Reports abdominal pain and nausea; Denies diarrhea or vomiting Genitourinary Genitourinary ED: Denies dysuria or hematuria Musculoskeletal Musculoskeletal: Reports back pain; Denies myalgias Integumentary Denies rash Neurologic Neurologic: Denies headache(s) Hematologic/Lymphatic Hematologic/Lymphatic: Denies easy bleeding or easy bruising EXAM Physical Exam Const Vital Signs: 11/06/22 04:16 11/06/22 06:44 Temperature 97.3 F L Temperature Source Temporal Pulse Rate 79 72 Respiratory Rate 16 16 Blood Pressure 153/95 H 120/70 Blood Pressure Mean 114 86 Pulse Ox 98 96 Positive well nourished and well developed General Appearance ED: well developed HEENT HEENT Narrative: Normocephalic atraumatic Eyes PERRL and EOMs intact bilaterally General Eye ED: Negative for scleral icterus Neck supple Resp normal respiratory effort and clear to auscultation bilaterally Cardio regular rate and regular rhythm Rate: other Other Details: Radial pulses are plus 2 out of 4 bilaterally are equal and symmetric GI non-distended GI Narrative: Abdomen is soft and nondistended with normal active bowel sounds. Pain on palpation in the right lower to mid abdominal region without voluntary guarding or rigidity. No pulsatile mass or fluid wave Auscultation: normoactive bowel sounds Palpation: soft Back/Spine Back/Spine Narrative: Positive right CVA pain Extremity normal to inspection Neuro oriented x3, CN's II-XII intact bilaterally and no sensory deficits noted Sensorium / Orientation: alert Motor Exam: strength 5/5 throughout Psych mental status grossly normal Skin no rashes or lesions noted Skin Narrative: No overlying abrasions or ecchymosis to suggest trauma no associated erythema orwarmth to suggest infection MDM MDM MDM Narrative Medical decision making narrative: Patient presented to the ER hypertensive but is in pain and otherwise with stable vitals. Her history of sudden onset right-sided abdominal/flank pain with no improvement or worsening on position changes concerning for kidney stone. There is also potential for UTI versus pyelonephritis versus acute appendicitis or atypical biliary colic and therefore basic blood work and a CT scan were obtained. Lab work revealed no signs of urosepsis or acute kidney injury. CT scan confirmed kidney stone that is 4 x 6 cm in nature with hydronephrosis. Patient received morphine Toradol and 2 doses of 0.5 mg of Dilaudid and had improvement of her pain. At this time as she has mild elevation to her creatinine but not significant level to correlate with acute kidney injury and no signs of urosepsis she will be discharged home and will follow-up on an outpatient basis for further evaluation. History & Record Review Discussion w/independent historian: Patient Lab Data Attestation: I reviewed the patient's lab results. Labs: Laboratory Results - last 24 hr 11/06/22 11/06/22 04:20 06:45 WBC 7.7 RBC 3.90 L Hgb 11.9 L Hct 36.2 L MCV 92.8 MCH 30.5 MCHC 32.9 RDW Std Deviation 41.0 RDW Coeff of Mei 12.0 Plt Count 269 MPV 9.9 Immature Gran % (Auto) 0.100 Neut % (Auto) 51.6 Lymph % (Auto) 37.8 Storey % (Auto) 8.0 Eos % (Auto) 2.1 Baso % (Auto) 0.4 Absolute Neuts (auto) 4.0 Absolute Lymphs (auto) 2.92 Nucleated RBC % 0 Sodium 141 Potassium 3.2 L Chloride 106 Carbon Dioxide 29.0 Anion Gap 6 BUN 25 H Creatinine 1.22 H Estim Creat Clear Calc 46.58 Est GFR (MDRD) Af Amer 59 L Est GFR (MDRD) Non-Af 49 L BUN/Creatinine Ratio 20.5 H Glucose 130 H Calcium 9.2 Total Bilirubin 0.30 AST 20 ALT 33 Alkaline Phosphatase 122 H Total Protein 7.3 Albumin 3.8 Globulin 3.5 Albumin/Globulin Ratio 1.1 Urine Color Yellow Urine Clarity Clear Urine pH 6.5 Ur Specific [place] 1.020 Urine Protein 15 H Urine Glucose (UA) Normal Urine Ketones 5 H Urine Occult Blood 250 H Urine Nitrite Negative Urine Bilirubin Negative Urine Urobilinogen Normal Ur Leukocyte Esterase 25 H Urine RBC 25-50 SEEN Urine WBC 0-5 SEEN Ur Squamous Epith Cells 0-5 SEEN Urine Bacteria 1+ Urine Mucus 1+ Radiography Diagnostic Testing: Clinical Impression(s) from Imaging Studies Abdomen/Pelvis CT 11/06/22 04:35 IMPRESSION: Right ureteropelvic junction 4 x 6 mm obstructing calculus with moderate right hydronephrosis. Marked fatty infiltration of the liver with likely associated hepatomegaly. Electronically Signed: Jordan Cruz MD at 5:11 EDT , Discharge Plan Triage Chief Complaint: Flank Pain ED Provider: Samuel Munroe Dx/Rx/DC Orders Clinical Impression: Renal colic, Kidney stone, Essential (primary) hypertension Instructions: ED Kidney Stone w/ Colic Prescriptions: New oxycodone-acetaminophen [Percocet] 5-325 mg tablet 1 tab PO Q6H PRN (Reason: pain) 3 Days Qty: 12 0RF ketorolac 10 mg tablet 10 mg PO Q6H PRN (Reason: pain) 5 Days Qty: 20 0RF ondansetron 4 mg tablet,disintegrating 4 mg PO TID PRN (Reason: nausea and vomiting) Qty: 21 0RF tamsulosin [Flomax] 0.4 mg capsule 0.4 mg PO DAILY Qty: 14 0RF cephalexin 500 mg capsule 500 mg PO TID 7 Days Qty: 21 0RF No Action (DME) Oral Sleep Appliance See Rx Instructions .Route .MEDSUPPLY Qty: 1 0RF Rx Instructions: As directed fluoxetine [Prozac] 20 mg capsule 20 mg PO DAILY Qty: 30 12RF losartan 100 mg tablet 100 mg PO DAILY Qty: 90 3RF hydrochlorothiazide 25 mg tablet 25 mg PO DAILY Qty: 90 4RF metformin 500 mg tablet 500 mg PO BIDWMEAL Qty: 180 1RF Primary Care Provider: Josué Denton Referrals: Josué Denton MD [Primary Care Provider] - Lindsay Hunt MD [Med Staff - Active Staff] - Activity Restrictions/Additional Instructions: Please return to the ER if you develop a fever over 100.4 or your pain is not controlled with the prescribed medications. Also follow-up with urology to discuss need for stent placement Disposition Disposition: Home, Self Care What to do if you have Problems For any increased pain, shortness of breath, bleeding, nausea or vomiting, chestpain, or any unexpected problems, contact your Primary Care Provider. Call [facility] ([phone]) or report to the closest Emergency Room. Call 911 if necessary. 11/06/22 0859 <Electronically signed by Samuel Munroe DO> Cosigner Signature (if applicable): CC: Dr. Josué Denton MD ~ Signed [facility] Work Phone: 1(814) 121-712011-10-2021 NoteHNO ID: [id number] Author: Sunil Robertson APRN.PAID SEARCH SPECIALIST Service: Anesthesiology Author Type: Nurse Lumber Kiln Operator Type: Anesthesia Procedure Notes Filed: 03/02/2021 9:27 AM Note Text: ANESTHESIOLOGY PROCEDURE NOTE Airway General Information Procedure Start Time/Medication Administration: 03/02/2021 8:54 AM Patient location during procedure: OR Patient identity confirmed: arm band and patient Staffing Anesthesiologist: Daljit Roger MD PAID SEARCH SPECIALIST: Sunil Robertson APRN.CRNA Other anesthesia staff/rotator: Sunil Robertson APRN.PAID SEARCH SPECIALIST Performed by: PAID SEARCH SPECIALIST Indications and Patient Condition Preoxygenated: yes Patient [...] 1 Airway not difficult SIGNATURE: Sunil Robertson APRN.PAID SEARCH SPECIALIST PATIENT NAME: Kasey Pak DATE: March 02, 2021 TIME: 9:26 AM CSN: [id number] NoteHNO ID: [id number] Author: MARLEY Amaya Service: ? Author Type: Complaint Inspector Type: Anesthesia Procedure Notes Filed: 10/11/2020 8:18 [...] not difficult SIGNATURE: MARLEY Amaya PATIENT NAME: Kasey Pak DATE: October 11, 2020 TIME: 8:18 AM CSN: [id number] NoteHNO ID: [id number] Author: Lian Hernandez Service: ? Author Type: Psychologist Type: Progress Notes Filed: 07/12/2020 10:02 AM Note Text: [facility] Progress Note Kasey Pak 06/17/2020 [id number] Provider: Lian Bernal PSYD CPT Code: 04757 Psychotherapy 38-52 minutes Time: Approximately 45 minutes [...] eating skills. She is going to start Roro Friedman program for structure, she stated. Mental Status: [...] management. Next appointment: 2 [facility] NoteHNO ID: [id number] Author: Lian Hernandez Service: ? Author Type: Psychologist Type: Progress Notes Filed: 07/12/2020 10:08 AM Note Text: [facility] Progress Note Kasey Pak 07/08/2020 [id number] Provider: Lian Bernal PSYD CPT Code: 33291 Psychotherapy 38-52 minutes Time: Approximately 45 minutes was spent in therapy. Parties Present: Patient Patient Presentation/Concerns: This was an AMWELL VISIT (moved to Zoom when it froze). Rosy indicated improvements in working out (doing kickTeleriveting program) and is eating Roro Elder food. [...] and affect management. Next appointment: [facility] NoteHNO ID: [id number] Author: Lian Hernandez Service: ? Author Type: Psychologist Type: Progress Notes Filed: 07/12/2020 9:21 AM Note Text: [facility] Progress Note THIS WAS A ZOOM VISIT Kasey Pak 06/24/2020 [id number] Provider: Lian Bernal PSYD CPT Code: 29757 Psychotherapy 38-52 minutes Time: Approximately 45 minutes [...] and has begun working out on her kiJumpidoing bag several times this week, which she [...] eating. Next appointment: 2 weeks [facility] NoteHNO ID: [id number] Author: Lian Hernandez Service: ? Author Type: Psychologist Type: Progress Notes Filed: 06/25/2020 11:35 AM Note Text: CANCELLED DUE TO HER TRIP TO [facility]02-15-2021 NoteHNO ID: [id number] Author: Lian Hernandez Service: ? Author Type: Psychologist Type: Progress Notes Filed: 06/06/2020 10:26 PM Note Text: [facility] Progress Note ZOOM VISIT Kasey Gibsonpal 05/27/2020 [id number] Provider: Lian Bernal PSYD CPT Code: 79194 Psychotherapy 38-52 minutes Time: Approximately 45 minutes [...] eating. Next appointment: 2 weeks [facility]21 NoteHNO ID: [id number] Author: Lian Hernandez Service: ? Author Type: Psychologist Type: Progress Notes Filed: 06/14/2020 9:33 AM Note Text: [facility] Progress Note Kasey Jernigan Mellisa 06/03/2020 [id number] THIS IS A ZOOM VISIT Provider: Lian Bernal PSYD CPT Code: 35846 Psychotherapy 38-52 minutes Time: Approximately 45 minutes [...] depression Next appointment: 2 week [facility]21 NoteHNO ID: [id number] Author: Lian Hernandez Service: ? Author Type: Psychologist Type: Progress Notes Filed: 05/28/2020 10:48 AM Note Text: [facility] Progress Note Kasey Pak 05/20/2020 [id number] THIS WAS A TELEHEALTH VISIT Provider: Lian Bernal PSYD CPT Code: 84795 Psychotherapy 38-52 minutes Time: Approximately 45 minutes [...] and motivation. 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 PHYSICAL Reason for Visit Preventative health care Class II obesity Climacteric Depression with anxiety Impaired fasting glucose Metabolic syndrome Obesity Tricuspid valve insufficiency Essential (primary) hypertension Hyperlipidemia [facility] Work Phone: Chifw complaint+Reason for visit Narrative* Chief Complaint Follow up , employee welness E ORDER weight follow up MORBID OBESITY ELEVATED GLUCOSE - BWC REFERRAL 6-7 M FU (MOVED FROM [facility]) MORBID OBESITY HYPERTENSION, TRICUSPID VALVE INSUFFICIENCY 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 PHYSICAL MORBID OBESITY 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) Reason for Visit Preventative health care Class II obesity Climacteric Depression with anxiety Impaired fasting glucose Metabolic syndrome Obesity Tricuspid valve insufficiency Essential (primary) hypertension Hyperlipidemia Class II obesity Climacteric Depression with anxiety [facility] Work Phone: Chiiy complaint+Reason for visit Narrative* Chief Complaint E ORDERS 3 M FU SCREENING COVID-19 Reason for Visit Metabolic syndrome Obesity [facility] Work Phone: Chief complaint+Reason for visit Narrative* Chief Complaint 3 M FU SCREENING COVID-19 6 M FU Reason for Visit Metabolic syndrome Obesity Fatigue Essential (primary) hypertension Hyperlipidemia [facility] Work Phone: Chief complaint+Reason for visit Narrative* Chief Complaint COVID-19 6 M FU Reason for Visit Fatigue Essential (primary) hypertension Hyperlipidemia [facility] Work Phone: Chitl complaint+Reason for visit Narrative* Chief Complaint COVID-19 6 M FU 6 M FU EST CARE NECK PAIN, BACK PAIN Reason for Visit Fatigue Essential (primary) hypertension Hyperlipidemia Impaired fasting glucose Obesity DDD (degenerative disc disease) Neck pain Segmental and somatic dysfunction of cervical region Segmental and somatic dysfunction of lumbar region Segmental and somatic dysfunction of thoracic region [facility] Work Phone: Chibx complaint+Reason for visit Narrative* Chief Complaint 6 M FU 6 M FU EST CARE NECK PAIN, BACK PAIN Back pain Back pain Back pain COVID-19 Back pain Back pain BACK PAIN Reason for Visit Fatigue Essential (primary) hypertension Hyperlipidemia Impaired fasting glucose Obesity Neck pain Segmental and somatic dysfunction of cervical region Segmental and somatic dysfunction of lumbar region Segmental and somatic dysfunction of thoracic region DDD (degenerative disc disease) Scoliosis of lumbar spine Neck pain Segmental and somatic dysfunction of cervical region Segmental and somatic dysfunction of lumbar region Segmental and somatic dysfunction of thoracic region DDD (degenerative disc disease) Scoliosis of lumbar spine Back pain Neck pain Segmental and somatic dysfunction of cervical region Segmental and somatic dysfunction of lumbar region Segmental and somatic dysfunction of thoracic region DDD (degenerative disc disease) Scoliosis of lumbar spine Back pain Segmental and somatic dysfunction of cervical region Segmental and somatic dysfunction of lumbar region Segmental and somatic dysfunction of thoracic region DDD (degenerative disc disease) Scoliosis of lumbar spine Back pain Segmental and somatic dysfunction of cervical region Segmental and somatic dysfunction of lumbar region Segmental and somatic dysfunction of thoracic region DDD (degenerative disc disease) Scoliosis of lumbar spine Back pain Segmental and somatic dysfunction of cervical region Segmental and somatic dysfunction of lumbar region Segmental and somatic dysfunction of thoracic region DDD (degenerative disc disease) Scoliosis of lumbar spine Back pain [facility] Work Phone: Chiak complaint+Reason for visit Narrative* Chief Complaint 6 M FU EST CARE NECK PAIN, BACK PAIN Back pain Back pain Back pain COVID-19 Back pain Back pain BACK PAIN lumbar spine CAUDA EQUINA SYNDROME Reason for Visit Impaired fasting glu cose Obesity Neck pain Segmental and somatic dysfunction of cervical region Segmental and somatic dysfunction of lumbar region Segmental and somatic dysfunction of thoracic region DDD (degenerative disc disease) Scoliosis of lumbar spine Neck pain Segmental and somatic dysfunction of cervical region Segmental and somatic dysfunction of lumbar region Segmental and somatic dysfunction of thoracic region DDD (degenerative disc disease) Scoliosis of lumbar spine Back pain Neck pain Segmental and somatic dysfunction of cervical region Segmental and somatic dysfunction of lumbar region Segmental and somatic dysfunction of thoracic region DDD (degenerative disc disease) Scoliosis of lumbar spine Back pain Segmental and somatic dysfunction of cervical region Segmental and somatic dysfunction of lumbar region Segmental and somatic dysfunction of thoracic region DDD (degenerative disc disease) Scoliosis of lumbar spine Back pain Segmental and somatic dysfunction of cervical region Segmental and somatic dysfunction of lumbar region Segmental and somatic dysfunction of thoracic region DDD (degenerative disc disease) Scoliosis of lumbar spine Back pain Segmental and somatic dysfunction of cervical region Segmental and somatic dysfunction of lumbar region Segmental and somatic dysfunction of thoracic region DDD (degenerative disc disease) Scoliosis of lumbar spine Back pain Cauda equina syndrome Herniated nucleus pulposus, L4-5 [facility] Work Phone: Evaluation note* Diagnosis Onset Date Resolution Status Preventative health care acu te Class II obesity acute Climacteric acute Depression with anxiety 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 Impaired fasting glucose acu te Metabolic syndrome acute Obesity acute Tricuspid valve insufficiency acute Essential (primary) hypertension chronic Hyperlipidemia [facility] Work Phone: Evaluation note* Diagnosis Onset Date Resolution Status Preventative health care acu te Class II obesity acute Climacteric acute Depression with anxiety 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 Impaired fasting glucose acu te Metabolic syndrome acute Obesity acute Tricuspid valve insufficiency acute Essential (primary) hypertension chronic Hyperlipidemia chronic Class II obesity acute Climacteric acute Depression with anxiety 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 [facility] Work Phone: Evaluation note* Diagnosis Onset Date Resolution Status Class II obesity acute Climacteric acute Depression with anxiety 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 Encounter for routine gynecological examination noneactive Metabolic syndrome chronic Obesity [facility] Work Phone: Evaluation note* Diagnosis Onset Date Resolution Status Metabolic syndrome chronic Obesity [facility] Work Phone: Evaluation note* Diagnosis Onset Date Resolution Status Metabolic syndrome chronic Obesity chronic Fatigue acute Essential (primary) hypertension chronic Hyperlipidemia chronic [facility] Work Phone: Evaluation note* Diagnosis Onset Date Resolution Status Fatigue acute Essential (primary) hypertension chronic Hyperlipidemia chronic [facility] Work Phone: Evaluation note* Diagnosis Onset Date Resolution Status Fatigue acute Essential (primary) hypertension chronic Hyperlipidemia chronic Impaired fasting glucose acu te Obesity chronic DDD (degenerative disc disease) acute Neck pain acute Segmental and somatic dysfunction of cervical region acute Segmental and somatic dysfunction of lumbar region acute Segmental and somatic dysfunction of thoracic region acute [facility] Work Phone: Evaluation note* Diagnosis Onset Date Resolution Status Fatigue acute Essential (primary) hypertension chronic Hyperlipidemia chronic Impaired fasting glucose acu te Obesity chronic Neck pain acute Segmental and somatic dysfunction of cervical region acute Segmental and somatic dysfunction of lumbar region acute Segmental and somatic dysfunction of thoracic region acute DDD (degenerative disc disease) chronic Scoliosis of lumbar spine ch ronic Neck pain acute Segmental and somatic dysfunction of cervical region acute Segmental and somatic dysfunction of lumbar region acute Segmental and somatic dysfunction of thoracic region acute DDD (degenerative disc disease) chronic Scoliosis of lumbar spine ch ronic Back pain noneactive Neck pain acute Segmental and somatic dysfunction of cervical region acute Segmental and somatic dysfunction of lumbar region acute Segmental and somatic dysfunction of thoracic region acute DDD (degenerative disc disease) chronic Scoliosis of lumbar spine ch ronic Back pain noneactive Segmental and somatic dysfunction of cervical region acute Segmental and somatic dysfunction of lumbar region acute Segmental and somatic dysfunction of thoracic region acute DDD (degenerative disc disease) chronic Scoliosis of lumbar spine ch ronic Back pain noneactive Segmental and somatic dysfunction of cervical region acute Segmental and somatic dysfunction of lumbar region acute Segmental and somatic dysfunction of thoracic region acute DDD (degenerative disc disease) chronic Scoliosis of lumbar spine ch ronic Back pain noneactive Segmental and somatic dysfunction of cervical region acute Segmental and somatic dysfunction of lumbar region acute Segmental and somatic dysfunction of thoracic region acute DDD (degenerative disc disease) chronic Scoliosis of lumbar spine ch ronic Back pain noneactive [facility] Work Phone: Evaluation note* Diagnosis Onset Date Resolution Status Impaired fasting glucose acu te Obesity chronic Neck pain acute Segmental and somatic dysfunction of cervical region acute Segmental and somatic dysfunction of lumbar region acute Segmental and somatic dysfunction of thoracic region acute DDD (degenerative disc disease) chronic Scoliosis of lumbar spine ch ronic Neck pain acute Segmental and somatic dysfunction of cervical region acute Segmental and somatic dysfunction of lumbar region acute Segmental and somatic dysfunction of thoracic region acute DDD (degenerative disc disease) chronic Scoliosis of lumbar spine ch ronic Back pain noneactive Neck pain acute Segmental and somatic dysfunction of cervical region acute Segmental and somatic dysfunction of lumbar region acute Segmental and somatic dysfunction of thoracic region acute DDD (degenerative disc disease) chronic Scoliosis of lumbar spine ch ronic Back pain noneactive Segmental and somatic dysfunction of cervical region acute Segmental and somatic dysfunction of lumbar region acute Segmental and somatic dysfunction of thoracic region acute DDD (degenerative disc disease) chronic Scoliosis of lumbar spine ch ronic Back pain noneactive Segmental and somatic dysfunction of cervical region acute Segmental and somatic dysfunction of lumbar region acute Segmental and somatic dysfunction of thoracic region acute DDD (degenerative disc disease) chronic Scoliosis of lumbar spine ch ronic Back pain noneactive Segmental and somatic dysfunction of cervical region acute Segmental and somatic dysfunction of lumbar region acute Segmental and somatic dysfunction of thoracic region acute DDD (degenerative disc disease) chronic Scoliosis of lumbar spine ch ronic Back pain noneactive Cauda equina syndrome acute Herniated nucleus pulposus, L4-5 acute [facility] Work Phone: Evaluation note* Diagnosis Onset Date Resolution Status Metabolic syndrome [facility] Work Phone: Evaluation note* Diagnosis Onset Date Resolution Status Encounter for routine gynecological examination noneactive Diabetes chronic Essential (primary) hypertension chronic Obesity [facility] Work Phone: Evaluation note* Diagnosis Onset Date Resolution Status Diabetes chronic Essential (primary) hypertension chronic Obesity chronic Essential (primary) hypertension chronic Hyperlipidemia chronic Metabolic syndrome [facility] Work Phone: Evaluation note* Diagnosis Onset Date Resolution Status Essential (primary) hypertension chronic Hyperlipidemia chronic Metabolic syndrome [facility] Work Phone: Hospital Discharge instructionsAmbulatory Orders* Chiropractor Location: None [facility] Work Phone: Hospital Discharge instructions Additional Instructions Please continue to stretch and heat your low back to help reduce pain and speed healing and return to the ER should [facility] have any [facility]: Hospital Discharge instructions Additional Instructions Please return to the ER if you develop a fever over 100.4 or your pain is not controlled with the prescribed medications. Also follow-up with urology to discuss need for stent [facility]WK[facility] Work Phone: Hospital Discharge instructions Additional Instructions Implant Used?: [facility]WK[facility] Work Phone: Reason for referral (narrative)No reason for referral information availableWKettering [facility] [place] Work Phone: Summary Purpose Family History No Family History Records Found Relationship Condition Age at Onset Recorded Date/T phyllis father Hypertension Unknown Cardiac disease Unknown Diabetes mellitus Unknown Myocardial infarction Unknown Heavy smoker Unknown mother High blood cholesterol Unknown Arthritis Unknown sister Myocardial infarction 50 Coronary artery disease Unknown Advance Directives No Advanced Directives Records Found Advance Directive Response Recorded Date/ Time Living Will No May 18 11:40am Power of 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 Mechanic Helper No May 18, 2021 11:40am Advance Directive Response Recorded Date/ Time Living Will No December 05 12:00pm Power of Nuclear Powerplant Mechanic Helper No December 05 12:00pm Advance Directive Response Recorded Date/ Time Living Will No December 05 11:00am Power of Nuclear Powerplant Mechanic Helper No December 05 11:00am Advance Directive Response Recorded Date/ Time Living Will No May 08 6:16am Power of Nuclear Powerplant Mechanic Helper No May 08, 2022 6:16am Advance Directive Response Recorded Date/ Time Living Will No November 06, 2022 4:16am Power of Nuclear Powerplant Mechanic Helper No November 06 3 4:16am Advance Directive Response Recorded Date/ Time Living Will No November 13, 2022 8:54am Power of Nuclear Powerplant Mechanic Helper No November 13 3 8:54am Advance Directive Response Recorded Date/ Time Living Will No June 04 11:48am Power of Nuclear Powerplant Mechanic Helper No June 04, 2023 11:48am Advance Directive Response Recorded Date/ Time Living Will No June 04 12:48pm Do you have a Healthcare Power of Nuclear Powerplant Mechanic Helper? No June 04, 2023 12:48pm Advance Directive Response Recorded Date/ Time Living Will No November 13, 2022 9:54am Do you have a Healthcare Power of Nuclear Powerplant Mechanic Helper? No November 13, 2022 9:54am Living Will No June 04 12:48pm Do you have a Healthcare Power of Nuclear Powerplant Mechanic Helper? 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) 5 M FU, RS 08/07 EKG CHECK / R ARM & CP OKAY PER LICENSE REGISTRATION EXAMINER&L LORSON PAIN IN RIGHT ARM Amb Documentation Reason for Visit Encounter for routin e gynecological examination Diabetes Essential (primary) hypertension Obesity Chief Complaint 5 M FU, RS 08/07 EKG CHECK / R ARM & CP OKAY PER LICENSE REGISTRATION EXAMINER&L LORSON PAIN IN RIGHT ARM Amb Documentation 7 m fu w LICENSE REGISTRATION EXAMINER per LICENSE REGISTRATION EXAMINER 2 ORDERING DOCTORS/E ORDERS Reason for Visit Diabetes Essential (primary) hypertension Obesity Essential (primary) hypertension Hyperlipidemia Metabolic syndrome Chief Complaint EKG CHECK / R ARM & CP OKAY PER LICENSE REGISTRATION EXAMINER&L LORSON PAIN IN RIGHT ARM Amb Documentation 7 m fu w LICENSE REGISTRATION EXAMINER per LICENSE REGISTRATION EXAMINER 2 ORDERING DOCTORS/E ORDERS COVID-19 Cysto,Fascia Vaginal Sling Reason for Visit Essential (primary) hypertension Hyperlipidemia Metabolic syndrome Chief Complaint Admit Date RADICULOPATHY April 15, 2024 12:27pm 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) April 17, 2024 2:27pm RE EST FROM EM May 02, 2024 9 :01am COUGH/ L KNEE INJURY FROM fallJune 16, 2024 8:26am 6 M FU July 23, 2024 8:08 am EORDER July 23, 2024 9:11 am Reason for Visit Admit Date Encounter for routine gynecological exam ination April 17, 2024 2:27pm Preventative health care May 02 9:01am Essential (primary) hypertension May 02, 2024 9:01am Hyperlipidemia May 02, 2024 9 :01am Metabolic syndrome May 02, 2024 9 :01am Decreased leukocytes July 23, 2024 8:0 8am Frequent falls July 23, 2024 8:08 am Diabetes July 23, 2024 8:08 am Essential (primary) hypertension July 232024 8:08am Hyperlipidemia July 23, 2024 8:08 am Overweight July 23, 2024 8:08 am High triglycerides July 23, 2024 8:08 am Chief Complaint Admit Date COUGH/ L KNEE INJURY FROM FALL June 16, 2024 8:26am 6 M FU July 23, 2024 8:08 am EORDER July 23, 2024 9:11 am 1 Y FU October 09, 2024 9:22 am Reason for Visit Admit Date Decreased leukocytes July 23, 2024 8:0 8am Frequent falls July 23, 2024 8:08 am Diabetes July 23, 2024 8:08 am Essential (primary) hypertension July 232024 8:08am Hyperlipidemia July 23, 2024 8:08 am Overweight July 23, 2024 8:08 am High triglycerides July 23, 2024 8:08 am Chief Complaint Admit Date 6 M FU July 23, 2024 8:08 am EORDER July 23, 2024 9:11 am 1 Y FU October 09, 2024 9:22 am 6 M FU November 03, 2024 8:36 am Reason for Visit Admit Date Decreased leukocytes July 23, 2024 8:0 8am Frequent falls July 23, 2024 8:08 am Diabetes July 23, 2024 8:08 am Essential (primary) hypertension July 232024 8:08am Hyperlipidemia July 23, 2024 8:08 am Overweight July 23, 2024 8:08 am High triglycerides July 23, 2024 8:08 am Essential (primary) hypertension October 092024 9:22am Hyperlipidemia October 09, 2024 9:22 am Metabolic syndrome October 09, 2024 9:22 am Additional Source Comments INFORMATION SOURCE (unrecogn ized section and content) DATE CREATED AUTHOR 06/30/2018 [facility] DATE CREATED AUTHOR AUTHOR'S ORGANIZ ATION 07/04/2018 [facility] DATE CREATED AUTHOR AUTHOR'S ORGANIZ ATION 03/08/2021 [facility] DATE CREATED AUTHOR AUTHOR'S ORGANIZ ATION 05/15/2021 [facility] DATE CREATED AUTHOR AUTHOR'S ORGANIZ ATION 12/18/2024 [facility] Goals (unrecognized section and content) Goals may be documented in a n alternate sectionGoals may be documented in an alternate sectionGoals may be documented in an alternate sectionGoals may be documented in an alternate sectionGoals may be documented in an alternate sectionGoals may be documented in an alternate sectionGoals may be documented in an alternate section Care Teams (unrecognized sec tion and content) Team Status: Active Member Role Status Dates Dr. Josué Denton MD Family Provider Active Dr. Josué Denton MD Primary Care Provider Active Team Status: Inactive Member Role Status Dates Dr. Josué Denton MD Primary Care Provider, Refer ring Provider Active Dr. Benny Paniagua MD Attending Provider Active Team Status: Active Member Role Status Dates Dr. Josué Denton MD Primary Care Provider Active Dr. Montez Petty MD Attending Provider Active Team Status: Inactive Member Role Status Dates Dr. Josué Denton MD Primary Care Provider, Refer ring Provider Active Dr. Tara Gleason DC Attending Provider Active Team Status: Active Member Role Status Dates Dr. Josué Denton MD Primary Care Provider Active Angelito Queen CART DRIVER, CART DRIVER-C Attending Provider Active Team Status: Inactive Member Role Status Dates Dr. Josué Denton MD Primary Care Provider, Refer ring Provider Active John Pinedo PA, PA Attending Provider Active Team Status: Inactive Member Role Status Dates Dr. Josué Denton MD Primary Care Provider, Refer ring Provider Active Dr. Wilman Gonzalez DO Attending Provider Active Team Status: Inactive Member Role Status Dates Dr. Josué Denton MD Primary Care Provider Active Dr. Tara Gleason DC Attending Provider, Referring Pro vider Active Team Status: Inactive Member Role Status Dates Dr. Josué Denton MD Primary Care Provider Active Dr. Samuel Munroe DO Attending Provider, Emergency Pr ovider Active Team Status: Inactive Member Role Status Dates Dr. Josué Denton MD Primary Care Provider Active Dr. Wilman Gonzalez DO Attending Provider Active Team Status: Inactive Member Role Status Dates Dr. Josué Denton MD Primary Care Provider, Refer ring Provider Active Dr. Montez Petty MD Attending Provider Active Team Status: Inactive Member Role Status Dates Dr. Josué Denton MD Primary Care Provider Active Dr. Montez Petty MD Attending Provider, Referring Pro vider Active Team Status: Inactive Member Role Status Dates Dr. Josué Denton MD Primary Care Provider Active Dr. Samuel Munroe DO Emergency Provider Active Team Status: Inactive Member Role Status Dates Dr. Josué Denton MD Primary Care Provider, Refer ring Provider Active Dr. Eloise Glass MD Attending Provider Active Team Status: Inactive Member Role Status Dates Dr. Josué Denton MD Primary Care Provider, Refer ring Provider Active MICHEAL Moya Attending Provider Active Team Status: Active Member Role Status Dates Dr. Josué Denton MD Primary Care Provider Active Jameson Morrell NP, CART DRIVER-C Attending Provider Active Team Status: Inactive Member Role Status Dates Dr. Josué Denton MD Primary Care Provider Active Valentina Pedro Attending Provider, Referring Provide r Active Team Status: Inactive Member Role Status Dates Dr. Josué Denton MD Primary Care Provider Active Dr. Montez Petty MD Attending Provider, Referring Pro vider Active MICHEAL Moya Other Provider Active Team Status: Inactive Member Role Status Dates Dr. Josué Denton MD Primary Care Provider, Refer ring Provider Active Loy Collins PA, PA Attending Provider Active Team Status: Inactive Member Role Status Dates Dr. Josué Denton MD Primary Care Provider Active Dr. Tom Espinoza MD Attending Provider, Referr ing Provider Active Team Status: Active Member Role Status Dates Dr. Josué Denton MD Primary Care Provider Active Team Status: Inactive Member Role Status Dates MICHEAL Plunkett Primary Care Provider Active Start: April 15, 2024 End: April 15, 2024 TRA DE ANDA Attending Provider Active Star t: April 15, 2024 End: April 15, 2024 TRA DE ANDA Referring Provider Active Star t: April 15, 2024 End: April 15, 2024 Team Status: Inactive Member Role Status Dates Edel Thomas NP-C Primary Care Provider Active Start: April 17, 2024 End: April 17, 2024 Edel Thomas NP-Amanda Referring Provider Active S tart: April 17, 2024 End: April 17, 2024 Dr. Eloise Glass MD Attending Provider Active Start: April 17, 2024 End: April 17, 2024 Team Status: Inactive Member Role Status Dates Edel Thomas NP-Amanda Primary Care Provider Active Start: May 02, 2024 End: May 02, 2024 MICHEAL Plunkett Referring Provider Active S tart: May 02, 2024 End: May 02, 2024 Dr. Josué Denton MD Attending Provider Active Start: May 02, 2024 End: May 02, 2024 Team Status: Inactive Member Role Status Dates Dr. Josué Denton MD Primary Care Provider Active Start: May 02, 2024 End: May 02, 2024 Dr. Josué Denton MD Attending Provider Active Start: May 02, 2024 End: May 02, 2024 Dr. Josué Denton MD Referring Provider Active Start: May 02, 2024 End: May 02, 2024 Team Status: Inactive Member Role Status Dates Dr. Josué Denton MD Primary Care Provider Active Start: June 16, 2024 End: June 16, 2024 Dr. Josué Denton MD Referring Provider Active Start: June 16, 2024 End: June 16, 2024 Loy MAK, PA Attending Provider Active Start: June 16, 2024 End: June 16, 2024 Team Status: Inactive Member Role Status Dates MICHEAL Moya Attending Provider Active Start: July 23, 2024 End: July 23, 2024 Dr. Josué Denton MD Primary Care Provider Active Start: July 23, 2024 End: July 23, 2024 Dr. Josué Denton MD Referring Provider Active Start: July 23, 2024 End: July 23, 2024 Team Status: Inactive Member Role Status Dates Dr. Josué Denton MD Primary Care Provider Active Start: July 23, 2024 End: July 23, 2024 MICHEAL Moya Attending Provider Active Start: July 23, 2024 End: July 23, 2024 MICHEAL Moya Referring Provider Active Start: July 23, 2024 End: July 23, 2024 Team Status: Inactive Member Role Status Dates Dr. Josué Denton MD Primary Care Provider Active Start: October 09, 2024 End: October 09, 2024 Dr. Jousé Denton MD Referring Provider Active Start: October 09, 2024 End: October 09, 2024 Dr. Montez Petty MD Attending Provider Active S tart: October 09, 2024 End: October 09, 2024 Team Status: Active Member Role/Relationship Status Dates Dr. Josué Denton MD Primary Care Provider Active Team Status: Inactive Member Role/Relationship Status Dates MICHEAL Moya Attending Provider Active Start: July 23, 2024 End: July 23, 2024 Dr. Josué Denton MD Primary Care Provider Active Start: July 23, 2024 End: July 23, 2024 Dr. Josué Denton MD Referring Provider Active Start: July 23, 2024 End: July 23, 2024 Team Status: Inactive Member Role/Relationship Status Dates Dr. Josué Denton MD Primary Care Provider Active Start: July 23, 2024 End: July 23, 2024 MICHEAL Moya Attending Provider Active Start: July 23, 2024 End: July 23, 2024 MICHEAL Moya Referring Provider Active Start: July 23, 2024 End: July 23, 2024 Team Status: Inactive Member Role/Relationship Status Dates Dr. Josué Denton MD Primary Care Provider Active Start: October 09, 2024 End: October 09, 2024 Dr. Josué Denton MD Referring Provider Active Start: October 09, 2024 End: October 09, 2024 Dr. Montez Petty MD Attending Provider Active S tart: October 09, 2024 End: October 09, 2024 Team Status: Inactive Member Role/Relationship Status Dates Dr. Josué Denton MD Primary Care Provider Active Start: November 03, 2024 End: November 03, 2024 Dr. Josué Denton MD Attending Provider Active Start: November 03, 2024 End: November 03, 2024 Dr. Josué Denton MD Referring Provider Active Start: November 03, 2024 End: November 03, 2024 FOR RECORDS PERTAINING TO PATIENTS WHO ARE [...] THE PRIMARY CLINICAL RECORDS. [facility] [email or web address]. provides no warranty or guarantee of the accuracy or completeness of information in this document.
[2025-01-16 09:45] LABS: Troponin T High Sensitivity < 6 ng/L (<=14)
[2025-01-16 09:47] LABS: AST(SGOT) 18 U/L (<=31); Alanine Aminotransfer ALT/SGPT 14 U/L (<=34); Albumin, Serum 4.3 g/dL (3.5-5.0); Alkaline Phosphatase 95 U/L (35-104); Anion Gap 11 (5-15); BUN 16 mg/dL (4-19); BUN/Creat Ratio 18.9 RATIO (10-20); Bilirubin, Direct 0.11 mg/dL (0.00-0.30); Calcium,Total 9.5 mg/dL (7.6-11.0); Carbon Dioxide 26.8 mmol/L (21.0-32.0); Chloride 102 mmol/L (98-108); Estimated Creatinine Clearance 76.24 ml/min (50-250); Globulin 2.6 g/dL (2.2-4.2); Glucose 108 mg/dL (70-99); Lipase 25 U/L (13-75); Potassium 4.2 mmol/L (3.3-5.1)
--- NOTE | 2025-01-16 10:07 | EX.ED.DYSGE1 ---
HPI History of Present Illness Chief Complaint: Other, Pain/Inj Informant: patient Narrative Narrative: Patient is a 54-year-old female with history of hyperlipidemia, hypertension, MARY and family history of heart disease as well as degenerative disc disease and tendinitis of the rotator cuff presenting with worsening left shoulder/arm pain as well as nausea. Patient follows with the [facility] for her arm. States she last received an injection of steroids a couple months ago. She notes over the past few days she has had increased pain in her bilateral arms worse in the left. States is more of a throbbing ache. She also notes that this morning she started to feel nauseous and became concerned that maybe the symptoms were referred cardiac symptoms so she came in for further evaluation. Notes she does get tingling down her left arm into her hand and all fingers. Has tried ice and ibuprofen with no relief of her symptoms. Does note for the past 2 days she has had some cold sweats denies any fevers. States she has seen cardiology as recently as August and was told that everything looked good. Has had stress test which was normal. She denies any cough or URI symptoms. Denies any vomiting or diarrhea. No other complaints or concerns reported at this time. Denies any new physical activities or traumas. [facility] Medical History Contact dermatitis History of stress test Cardiology follow-up encounter Wears glasses Anxiety Alcohol use Restless legs Back pain Migraine headache Injury of head and neck Dietary restriction History of IBS Non-smoker History of pain when walking History of echocardiogram Hypertension Diabetes Prediabetes MARY (obstructive sleep apnea) Encounter for screening for COVID-19 Obesity Impaired fasting glucose Metabolic syndrome Preventative health care Hyperlipidemia Hypersomnolence Family history of premature coronary artery disease Depression with anxiety Chronic fatigue Essential (primary) hypertension Vision problem Frequent headaches Seasonal allergies Home Medications ?Medication ?Instructions ?Recorded ?Last Taken ?Type Oral Sleep Appliance #1 ea 03/20/22 Unknown Rx metformin 500 mg tablet 500 mg PO BIDWMEAL #180 tabs 12/12/22 06/12/23 Rx albuterol sulfate 90 mcg/actuation 2 inh inhalation Q4-6H PRN 10/26/23 Unknown Rx breath activated powder inhaler shortness of breath or wheezing #1 ea hydrochlorothiazide 25 mg tablet 12.5 mg PO DAILY 04/17/24 Unknown History fluoxetine 20 mg capsule (Prozac) 20 mg PO DAILY #90 caps 05/19/24 Unknown Rx tirzepatide 7.5 mg/0.5 mL 7.5 mg (0.5 mL) subcut QWEEK #2 mL 07/23/24 Unknown Rx subcutaneous pen injector (Jeannero) methylprednisolone 4 mg tablets in See Rx Instructions PO PER PKG DIR 11/03/24 Unknown Rx a dose pack (Medrol (Juma)) #21 tabs losartan 100 mg tablet 100 mg PO DAILY #90 tabs 12/25/24 Unknown Rx azithromycin 250 mg tablet 250 mg PO DAILY #6 TABLETS 01/16/25 Unknown Rx hydrocodone-acetaminophen 5-325mg 1 tab PO Q8H PRN pain 3 days #10 01/16/25 Unknown Rx 5mg-325mg tabs prednisone 20 mg tablet 40 mg (2 x 20 mg) PO DAILY #10 01/16/25 Unknown Rx TABLETS Allergy/AdvReac Type Severity Reaction Status Date / Time adhesive tape (tape) Allergy Mild Rash Verified 01/16/25 08:47 Sulfa (Sulfonamide Allergy Other Verified 01/16/25 08:47 Antibiotics) lisinopril AdvReac Intermediate Dry Verified 01/16/25 08:47 nagging cough Family History Father Hypertension Heart disease Diabetes Myocardial infarction Heavy smoker Mother High cholesterol Arthritis Heavy smoker Sister Myocardial infarction, Onset Age: 50 coronary stents CAD (coronary artery disease) Surgical History Hx of cystoscopy Hx of cystoscopy H/O abdominal surgery History of right salpingo-oophorectomy History of knee surgery History of bunionectomy H/O total hysterectomy H/O bilateral breast reduction surgery Social History adopted: No number of children: 2 current occupational status: employed 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, [employer] , [employer] current occupational exposures/hazards: No Smoking Status: Never smoker second hand exposure: No alcohol intake: never substance use type: does not use seatbelt use: always do you feel safe at home: Yes additional social history: pt denies vaping, denies marijuana use, denies edibles, uses ibuprofen , denies aspirin ROS ROS ED Constitutional Constitutional ED: Reports sweats; Denies chills or fever(s) Cardiovascular Cardiovascular: Denies chest pain or palpitations Respiratory/Chest Respiratory/Chest: Denies cough or dyspnea Gastrointestinal Gastrointestinal: Reports nausea; Denies abdominal pain, diarrhea or vomiting Musculoskeletal Musculoskeletal: Reports other Details: bilateral upper arm pain, left worse than right ; Denies arthralgias or myalgias Neurologic Neurologic: Reports paresthesias LUE; Denies headache(s) or weakness Psychiatric Psychiatric: Denies anxiety Hematologic/Lymphatic Hematologic/Lymphatic: Denies easy bleeding or easy bruising EXAM Physical Exam Const Vital Signs: 01/16/25 08:47 01/16/25 09:25 01/16/25 09:25 Temperature 98.7 F Temperature Source Temporal Pulse Rate 82 Respiratory Rate 16 Respiratory Effort Normal Non-Labored Respiratory Pattern Normal Blood Pressure 136/85 H Blood Pressure Mean 102 Pulse Ox 100 Oxygen Delivery Method Room Air Room Air Positive well nourished and well developed General Appearance ED: well developed and NAD HEENT Reports moist mucous membranes Eyes PERRL Neck supple and no JVD Chest Wall inspection of chest normal and palpation of chest normal Resp normal respiratory effort and clear to auscultation bilaterally Cardio regular rate, regular rhythm and no murmurs Cardio Narrative: 2+ radial pulses. No pedal edema appreciated. Extremity normal to inspection Extremity Narrative: No obvious deformity. Normal range of motion specifically of the left shoulder and elbow. Mild tense palpation over the bicep but no tenderness over the insertion of the bicep heads. Some increased pain with flexion of the elbow against resistance. No significant tenderness over the shoulder itself. No pinpoint area of tenderness. No deformity of the biceps concerning with rupture. 5/5 strength with flexion and extension of the upper arms and 5/5 remote sensing technologist strength bilaterally. Normal intrinsic movements of the hands. General Extremety ED: Negative for edema General Extremity: Negative for edema Neuro oriented x3, CN's II-XII intact bilaterally and no sensory deficits noted Sensorium / Orientation: alert Motor Exam: strength 5/5 throughout Psych mental status grossly normal Skin no rashes or lesions noted and no wounds MDM MDM MDM Narrative Medical decision making narrative: Patient evaluated for worsening left arm pain as well as nausea. Has a history either cervical radiculopathy or possible tendinitis in her shoulder region. Has had steroid injections in the area. Does also have some cardiac risk factors as well as family history of cardiac disease. Given associated nausea, age and female gender will obtain cardiac workup to ensure this is not an atypical referred cardiac pain. She does not have any shortness of breath and I do not think this is pulmonary emboli. Do not think she needs workup for this. She is not having physical exam findings of trauma or acute bicep tendon rupture. Her workup is largely normal and reassuring. I suspect this is either cervical radiculopathy or or some type of bicep tendinitis. Is encouraged to follow-up outpatient with [facility] who she is already established with. Her chest x-ray on my interpretation does not show any acute process however radiology did see a small area of airspace disease of the left lower lobe base which could include pneumonitis or atelectasis. Patient does not have any symptoms of pneumonia but given that she has had nausea and it is possible could be an early sign of pneumonia. Will give a [id number] prescription for antibiotics. Patient is comfortable with this plan of care. Is given a short course of Clawson for breakthrough pain control. Lab Data Attestation: I reviewed the patient's lab results. Labs: Laboratory Results - last 24 hr 01/16/25 09:15 WBC 5.0 RBC 4.18 L Hgb 12.9 Hct 38.1 MCV 91.1 MCH 30.9 MCHC 33.9 RDW Std Deviation 39.1 RDW Coeff of Mei 11.7 Plt Count 251 MPV 9.8 Immature Gran % (Auto) 0.200 Neut % (Auto) 54.5 Lymph % (Auto) 33.7 Bethel % (Auto) 8.4 Eos % (Auto) 2.8 Baso % (Auto) 0.4 Absolute Neuts (auto) 2.7 Absolute Lymphs (auto) 1.69 Nucleated RBC % 0 Sodium 140 Potassium 4.2 Chloride 102 Carbon Dioxide 26.8 Anion Gap 11 BUN 16 Creatinine 0.82 Estim Creat Clear Calc 76.24 Est GFR (MDRD) Non-Af 84 BUN/Creatinine Ratio 18.9 Glucose 108 H Calcium 9.5 Total Bilirubin 0.28 Direct Bilirubin 0.11 AST 18 ALT 14 Alkaline Phosphatase 95 Troponin T High Sens < 6 Total Protein 6.8 Albumin 4.3 Globulin 2.6 Lipase 25 Radiography Diagnostic Testing: Clinical Impression(s) from Imaging Studies Chest X-Ray 01/16/25 09:42 IMPRESSION: No evidence of pneumoperitoneum. A small area of airspace disease of the left lower lobe base is seen, with differential diagnosis including pneumonitis and atelectasis. No evidence of pulmonary edema. No pleural effusion or pneumothorax is noted. The cardiomediastinal silhouette is within the normal range. Mild thoracic spine degenerative changes are also noted. Reading Location: [address] Rhythm Strip Rhythm Strip: Sinus Rhythm Rate: 77 Ectopy: None EKG Initial EKG: Attestation: I personally reviewed and interpreted this EKG as follows: Interpretation: Sinus Rhythm Comments: Normal sinus rhythm at 77 bpm Normal axis Normal intervals Normal ST segment Discharge Plan Triage Chief Complaint: Other, Pain/Inj ED Provider: Anupama Sheriff Dx/Rx/DC Orders Clinical Impression: Left arm pain, Nausea Instructions: ED Tendonitis Prescriptions: New hydrocodone-acetaminophen 5-325 mg tablet 1 tab PO Q8H PRN (Reason: pain) 3 Days Qty: 10 0RF azithromycin 250 mg tablet 250 mg PO DAILY Qty: 6 0RF prednisone 20 mg tablet 40 mg PO DAILY Qty: 10 0RF No Action metformin 500 mg tablet 500 mg PO BIDWMEAL Qty: 180 1RF albuterol sulfate 90 mcg/actuation aerosol powdr breath activated 2 inh INHALATION Q4-6H PRN (Reason: shortness of breath or wheezing) Qty: 1 1RF hydrochlorothiazide 25 mg tablet 12.5 mg PO DAILY Mounjaro 7.5 mg/0.5 mL pen injector 7.5 mg subcut QWEEK Qty: 2 5RF methylprednisolone [Medrol (Juma)] 4 mg tablets,dose pack See Rx Instructions PO PER PKG DIR Qty: 21 0RF Rx Instructions: PO PER PKG DIR for 6 days (DME) Oral Sleep Appliance See Rx Instructions .Route .MEDSUPPLY Qty: 1 0RF Rx Instructions: As directed fluoxetine [Prozac] 20 mg capsule 20 mg PO DAILY Qty: 90 3RF losartan 100 mg tablet 100 mg PO DAILY Qty: 90 3RF Primary Care Provider: Chuck Denton Referrals: Chuck Denton MD [Primary Care Provider, Internal Medicine] Activity Restrictions/Additional Instructions: Your cardiac workup was normal and reassuring today. Suspect you have some tendinitis in your bicep muscle or possibly a microtear. Is possible that some of the pain going down your arm/paresthesias is associated with a cervical radiculopathy as well. I will treat this with steroids right now. Please follow-up with your orthopedist at the [facility]. Your x-ray did show a small area of early inflammation of the lung (possibly pneumonia) versus atelectasis (the lungs not fully inflated). You been given a [id number] prescription for antibiotics. If you develop worsening respiratory symptoms, cough or fever please start taking him. Otherwise you may throw the prescription away Print Language: Portuguese Disposition Disposition: Home, Self Care Discharge Date/Time: 01/16/25 11:17
[2025-01-16 11:15] VITALS: BP 118/72; PULSE 82; RESP 12; TEMP 36.3; O2SAT 98; O2SAT 99
== END 2025-01-16 11:17 | disposition home or self-care (01) ==
PROVIDERS: Emergency Provider Emergency Medicine; PCP Internal Medicine; Visit Provider Emergency Medicine
DX: M79.602 Pain in left arm (principal); E11.9 Type 2 diabetes mellitus without complications; Z90.710 Acquired absence of both cervix and uterus; R11.0 Nausea; I10 Essential (primary) hypertension; E78.5 Hyperlipidemia, unspecified; Z79.84 Long term (current) use of oral hypoglycemic drugs; F41.9 Anxiety disorder, unspecified; Z79.899 Other long term (current) drug therapy; Z79.85 Long-term (current) use of injectable non-insulin antidiabetic drugs; Z90.721 Acquired absence of ovaries, unilateral
CPT/HCPCS: 71046; 80048; 80076; 83690; 84484; 85025; 93005; 96374; 99284; A4216

== ENCOUNTER → 2025-01-30 | Outpatient (CLI) | payer OTHER, SELFPAY ==
--- NOTE | 2025-01-30 07:30 | BI_ITS ---
EXAM: SCRN MAMM (CAD)W/FELISHA BILAT DATE: 01/30/2025 CLINICAL HISTORY: F, Age 54 y/o , SCREENING MAMMOGRAM TECHNIQUE: Procedure Code: [id number] Modality: MG Procedure: SCRN MAMM (CAD)W/FELISHA BILAT COMPARISON: Prior exam(s) dated 11/15/2023, 11/13/2022. FINDINGS: TISSUE DENSITY: There are scattered areas of fibroglandular density. Bilateral Breast Mammographic Findings: No significant masses, calcifications or other abnormalities are identified. BI/SCRN MAMM (CAD)W/FELISHA BILAT IMPRESSION: There is no mammographic evidence of malignancy. OVERALL FINAL ASSESSMENT BI-RADS 1: NEGATIVE. RECOMMENDATION: Routine annual follow-up in 1 Year Additional Recommendation none A letter with findings and recommendations will be mailed to the patient. Reading Location: [id number]
== END | disposition home or self-care (01) ==
LOC: OPBI 07:12
PROVIDERS: PCP Internal Medicine; Referring Provider Obstetrics & Gynecology; Visit Provider Obstetrics & Gynecology
DX: Z12.31 Encounter for screening mammogram for malignant neoplasm of breast (principal)
CPT/HCPCS: 77063; 77067

== ENCOUNTER → 2025-02-04 | Outpatient (CLI) | payer OTHER, SELFPAY ==
--- NOTE | 2025-02-04 08:49 | MRI_ITS ---
PROCEDURE: UPPER EXT JOINT ONLY(ROUTINE) 02/04/2025 REASON FOR EXAM: COMPLETE ROTATOR CUFF TEAR OR RUPTURE OF LEFT SHOULDER Shoulder pain TECHNIQUE: Procedure Code: MRIUEJ Modality: MR Procedure: UPPER EXT JOINT ONLY(ROUTINE) Multiplanar and multisequence images were obtained of the left shoulder without IV contrast administration. COMPARISON: COMPARISON: None FINDINGS: Bone Marrow: There is no acute bone marrow signal. No glenohumeral fracture or dislocation. Mild glenohumeral degenerative changes with scattered subchondral humeral cysts. Acog-ct-mieerkde hypertrophic acromioclavicular degenerative osteoarthropathy with mild narrowing of the subacromial space and a trace/small subacromial Mater fluid. Scattered subchondral edema in the AC joint. Effusion: Trace/small joint effusion Soft Tissues: No edema or fluid collections. No axillary lymphadenopathy. Ligaments and Tendons: Moderate to severe tendinopathy of the supraspinatus with a small focal full-thickness component of the anterior fibers with no significant retraction readily identified on image 8 of series 5.. Moderate infraspinatus tendinopathy without discrete tear. The subscapularis and teres minor tendons are intact unremarkable. The muscle bulk of the rotator cuff is preserved without evidence of fatty atrophy volume loss or intramuscular edema The intra and extra-articular biceps tendon is intact. There is some fluid in the biceps tendon sheath. There is mild signal in the intra-articular biceps tendon. Limited evaluation of the glenoid labrum without intra-articular contrast although it is grossly intact. MRI/Upper Ext Joint Only(Routine) IMPRESSION: 1. Small focal full-thickness tear of the anterior distal fibers of the supras pinatus without significant retraction. Background of moderate to severe tendinopathy. The muscle bulk of the supraspi natus is intact without evidence of fatty atrophy or volume loss. 2. Moderate infraspinatus tendinopathy without discrete tear. 3. Moderate acromioclavicular hypertrophic degenerative osteoarthropathy with narrowing of the subacromial space and impingement of the myotendinous junction of the supraspinatus. 4. Mild glenohumeral degenerative change. No acute fracture. 5. Mild subacromial bursitis. 6. Trace glenohumeral joint effusion. Reading Location: [facility]
== END | disposition home or self-care (01) ==
LOC: MRI 08:44
PROVIDERS: PCP Internal Medicine
DX: M75.122 Complete rotator cuff tear or rupture of left shoulder, not specified as traumatic (principal)
CPT/HCPCS: 73221